=== PATIENT | female | born 1955 | race Caucasian/White ===

== ENCOUNTER 2022-07-15 07:14 | Inpatient (IN) | payer MEDICARE, MEDICAID, SELFPAY ==
[2022-07-15] VITALS (35 sets, daily range): BP systolic 129–155; BP diastolic 69–96; PULSE 89–113; RESP 13–36; TEMP 36.8–37.1; O2SAT 94–100; BMI 17.7
--- NOTE | ~2022-07-15 | XR_ITS ---
Clinical Indication: Cough, shortness of breath AP and lateral views of the chest: Comparison: None Findings: The lungs are clear, without evidence of focal consolidation or pleural effusion. COPD andrea carole present. Cardiomediastinal silhouette is within normal limits. Bones and soft tissues are unremar kable. Impression: COPD. No consolidation or pleural effusion. Reviewed, dictated and finalized at location . RTING COORDINATOR Impression: COPD. No consolidation or pleural effusion.
--- NOTE | 2022-07-15 07:16 | ED.SOB ---
HPI - SOB/Dyspnea General Chief Complaint: Shortness of Breath/Dyspnea Stated Complaint: sob x 1 week, no home o2x1 week, congested/cough Time Seen by Provider: 07/15/22 07:16 Source: patient and EMS Mode of arrival: EMS Limitations: no limitations History of Present Illness HPI Narrative: Patient is a 66-year-old female with a history of COPD, chronic respiratory failure on 2 to 3 L home oxygen, hypertension, hyperlipidemia, schizophrenia, presenting to the emergency department for evaluation of shortness of breath. Patient states that she recently moved to this area from [place] and did not bring any oxygen with her. States that she has been staying in [place], and has had worsening shortness of breath, cough, congestion, wheezing. Patient denies fever, chills, chest pain. She reports feeling generally weak without focal weakness or numbness. She denies hemoptysis. She denies history of DVT or PE. She denies chronic anticoagulation. She denies focal leg swelling or pain. She reports shortness of breath that occurs at rest and worsens with exertion. She denies positional changes in her dyspnea otherwise. Patient has never been seen at this hospital before. She denies recent sick contacts. She does report history of right hip arthroplasty from femur fracture last year. She does not smoke. History obtained by speaking directly with the patient. Related Data Home Medications Medication Instructions Recorded Confirmed albuterol sulfate 90 mcg/actuation 2 puff inhalation QID PRN 07/15/22 07/15/22 aerosol inhaler Shortness Of Breath Or Wheezing clonazepam 1 mg tablet 1 mg PO TID 07/15/22 07/15/22 colestipol 1 gram tablet 2 g PO BID 07/15/22 07/15/22 gabapentin 300 mg tablet 300 mg PO TID 07/15/22 07/15/22 glycopyrrolate 9 mcg-formoterol 2 puff inhalation Q12H 07/15/22 07/15/22 4.8 mcg HFA aerosol inhaler (Bevespi Tru-Friendsphere) levothyroxine 50 mcg capsule 50 mcg PO DAILY 07/15/22 07/15/22 lisinopril 5 mg tablet 5 mg PO DAILY 07/15/22 07/15/22 morphine 30 mg tablet,extended 30 mg PO Q8H 07/15/22 07/15/22 release omeprazole 40 mg capsule,delayed 40 mg PO DAILY 07/15/22 07/15/22 release ropinirole 1 mg tablet 1 mg PO QHS 07/15/22 07/15/22 Allergies Allergy/AdvReac Type Severity Reaction Status Date / Time No Known Allergies Allergy Verified 07/15/22 08:05 Review of Systems Review of Systems: CONSTITUTIONAL: Denies fever, chills, or sweats. EYES: Denies visual changes, redness, or discharge. ENT: Denies rhinorrhea, congestion, sore throat, or otalgia. CARDIOVASCULAR: Denies chest pain, palpitations, or edema. RESPIRATORY: Reports cough, wheezing, dyspnea GASTROINTESTINAL: Denies abdominal pain, nausea, vomiting, or diarrhea. GENITOURINARY: Denies dysuria or hematuria. SKIN: Denies rash or itching. MUSCULOSKELETAL: Denies back pain, joint pain, or myalgia. NEUROLOGIC: Denies headache, numbness, reports feeling generally weak, denies focal weakness PMFSH Past Medical History Medical History (Updated 07/15/22 @ 15:21 by Enriqueta Donovan NP) Anxiety Chronic GERD Chronic pain syndrome Chronic respiratory failure with hypoxia COPD (chronic obstructive pulmonary disease) History of tobacco abuse Hyperlipidemia Hypertension Hypothyroidism Poor vision Schizophrenia Surgical History Surgical History (Updated 07/15/22 @ 15:06 by Enriqueta Donovan NP) Hx of cholecystectomy S/P total right hip arthroplasty Family History Family History (Updated 07/15/22 @ 15:07 by Enriqueta Donovan NP) Mother Cancer Father Aneurysm Social History Social History (Updated 07/15/22 @ 15:08 by Enriqueta Donovan NP) Social History: The patient is recently approximately 1 week ago. She is chronically on oxygen at 3 L per nasal cannula. The patient recently moved here from [place] to live with her son. She has 2 children. She tells me that she recently quit smoking. She is retired nurse's aide [employer]
--- NOTE | 2022-07-15 07:25 | ECG_ITS ---
Measurements Intervals [place] Rate: 98 P: 70 VT: 140 QRS: 52 QRSD: 77 T: 54 QT: 351 QTc: 450 Interpretive Statements SINUS RHYTHM WITH FREQUENT VENTRICULAR PREMATURE COMPLEXES ABNORMAL RHYTHM ECG NO PREVIOUS ECG AVAILABLE FOR COMPARISON Electronically Signed On 07-15-2022 14:58:12 FLIGHT AGENT by Mickey Cornejo M.D.
[2022-07-15 07:33] LABS: Basophils Percent Auto 0.2 % (0.2-1.2); Eosinophils Absolute Auto 0.3 K/mm3 (0-0.3); Eosinophils Percent Auto 4.3 % (0-4.4); Hemoglobin 10.1 g/dL (12.0-15.0); Immature Granulocyte Absolute 0.01 K/mm3 (0.00-0.031); Immature Granulocyte Percent A 0.2 % (0-0.5); Lymphocytes Absolute Auto 1.13 K/mm3 (0.9-3.2); Lymphocytes Percent Auto 17.3 % (18.3-44.2); Mean Corpuscular HGB Conc 30.6 g/dl (32-36); Mean Corpuscular Hemoglobin 24.2 pg (26-34); Mean Corpuscular Volume 78.9 fl (80-100); Mean Platelet Volume 9.9 fl (7.4-10.4); Monocytes Absolute Auto 0.7 K/mm3 (0.1-0.6); Neutrophils Absolute Auto 4.4 K/mm3 (1.3-6.7); Platelet Count Result 246 k/mm3 (150-375); Red Blood Count 4.18 M/mm3 (4.2-5.4); Red Cell Distribution Width 16.1 % (11.5-14.5); White Blood Count 6.5 K/mm3 (4.5-10.0)
[2022-07-15 07:43] LABS: Alanine Aminotransferase 19 U/L (6-35); Albumin Level 3.6 g/dL (3.5-5.1); Alkaline Phosphatase 82 U/L (38-126); Anion Gap 4 mmol/L (8-16); Aspartate Amino Transferase 26 U/L (14-36); Bilirubin,Total 0.4 mg/dL (0.2-1.3); Blood Urea Nitrogen 4 mg/dL (7-17); Calcium 8.2 mg/dL (8.4-10.2); Carbon Dioxide 32 mmol/L (22-30); Chloride 98 mmol/L (98-107); Estimated CRCL calculation 56 ml/min; Estimated Glomerular Filt Rate > 60; Glucose 101 mg/dL (65-110); Potassium 3.6 mmol/L (3.4-5.0); Sodium 134 mmol/L (137-145)
[2022-07-15] MEDS: MAGNESIUM SULF 2 GM/WATER 50ML 2 GM/50 ML BAG IVPB (08:06)
[2022-07-15] MEDS: methylPREDNISolone SOD SUCC 125 MG VIAL IV PUSH (08:06)
[2022-07-15] MEDS: SODIUM CHLORIDE 0.9% IV 500 ML 999 ML IV CONT (08:06)
[2022-07-15] MEDS: ALBUTEROL SULFATE NEB 2.5 MG/3 ML INH 5 MG INHALATION (08:10)
[2022-07-15] MEDS: IPRATROPIUM BR 0.02% INH SOLN 0.5 MG/2.5 ML VIAL INHALATION ×3 (08:10→20:01)
[2022-07-15 08:28] LABS: Base Excess ABG 4.1 mEq/l (+/-2.0); Carboxyhemoglobin 0.2 % THb (0-2.0); Fractional Inspired Oxygen 34 %; HCO3 ABG 31.1 mEq/l (22.0-26.0); Methemoglobin ABG 0.4 %THb (0-1.5); Oxygen Content ABG 15.3 %vol (16.0-22.0); Oxygen Saturation ABG 99.1 % (95.0-100.0); Oxyhemoglobin 97.8 % THb (90.0-100.0); PO2 ABG 185.1 mmHg (80.0-100.0); PO2 FiO2 Ratio Arterial Blood 5.44 %; Reduced Hemoglobin 1.6 %THb (0-5.0); Total Hemoglobin 10.8 g/dL (12.0-18.0); pH ABG 7.333 (7.350-7.450)
[2022-07-15 08:31] LABS: Device NASAL CANNULA; Liters per Minute 3.5 LPM; Site Drawn LEFT BRACHIAL
[2022-07-15 10:18] LABS: Lactic Acid Reflex 0.5 mmol/L (0.7-2.0)
[2022-07-15 10:23] LABS: NT Pro B Type Natriuretic Pept 567 pg/mL (19.9-100); Troponin I < 0.012 ng/mL (0.000-0.034)
[2022-07-15 10:40] LABS: Influenza A QL RT-PCR Negative (Negative); Influenza B QL RT-PCR Negative (Negative); RSV RNA, RT-PCR Negative (Negative); SARS-CoV-2 RNA PCR Negative
[2022-07-15 11:20] LABS: Alveolar/Arterial O2 Gradient 61.2 mmHg; Carboxyhemoglobin 0.1 % THb (0-2.0); Fractional Inspired Oxygen 30 %; HCO3 ABG 28.1 mEq/l (22.0-26.0); Methemoglobin ABG 0.3 %THb (0-1.5); Oxygen Content ABG 14.9 %vol (16.0-22.0); Oxygen Saturation ABG 96.7 % (95.0-100.0); Oxyhemoglobin 95.7 % THb (90.0-100.0); PCO2 ABG 51.1 mmHg (35.0-45.0); PO2 ABG 92.7 mmHg (80.0-100.0); PO2 FiO2 Ratio Arterial Blood 3.09 %; Reduced Hemoglobin 3.9 %THb (0-5.0); pH ABG 7.358 (7.350-7.450)
[2022-07-15 11:21] LABS: Device NON-INVASIVE VENT; Site Drawn LEFT BRACHIAL
[2022-07-15 11:22] LABS: Non-Invasive Expiratory Pressure 5 CMH2O; Non-Invasive Inspiratory Pressure 12 CMH2O; Non-Invasive Vent Rate 4 /MIN
--- NOTE | 2022-07-15 11:55 | ADMIMU ---
This patient, Krys Mcclure, was admitted to IMU status, and placed in Intensive Care Unit-6. Patient/family oriented to hospital policies and general routines including ID bracelet, bed and alarms, visiting hours, pain management, procedures, bathroom and other care routines, personal items, smoking policy, room service/diet, and visiting hours. Valuables list has been completed. Information on how to activate the Rapid Response Team has been discussed. Patient/Family are encouraged to report perceived risks to care and to ask questions if they do not understand what they are told or what they should do.
--- NOTE | 2022-07-15 13:07 | PM.IMHP ---
H&P: HPI History of Present Illness Date/Time: 07/15/22 13:07 Chief Complaint: Shortness of breath Narrative: This is a 66-year-old female patient who has a history of COPD and she is typically on home oxygen 2-3 L. however her son brought her here from [place] since her just this past week. The patient stated that she has her inhalers and she was not able to grab all of her things including oxygen. She was initially on a BiPAP and now is on oxygen at 3 L per nasal cannula. Her H&H is 10.1 and 33.0 with no previous labs for comparison. MCV is low. On her ABGs pH was normal but her CO2 was high at 51.1 bicarb 28.1 which is high. Sodium is slightly low at 134. BNP is 567. She is negative for influenza A/B RSV and COVID. Chest x-ray was read as COPD no consolidation or pleural effusion. She was given nebulizer treatments, magnesium, normal saline Solu-Medrol in the emergency room. The patient was initially admitted to observation and then changed to inpatient status on the date of service of 07/15/2022. Review of Systems Review of Systems: see hpi All systems reviewed & are unremarkable except as noted in HPI and below Constitutional: Constitutional: Reports as per HPI and Reports no additional constitutional complaints Eyes: Eyes: Reports as per HPI and Reports no additional eye complaints ENT: Reports system reviewed and no additional complaints, except as documented and Reports Normal hearing present Cardiovascular: Cardiovascular: Reports no additional cardiovascular complaints Respiratory: Respiratory: Reports no additional respiratory complaints and Reports no additional respiratory complaints Gastrointestinal: Gastrointestinal: Reports as per HPI and Reports no additional gastrointestinal complaints Musculoskeletal: Musculoskeletal: Reports no additional musculoskeletal complaints Integumentary/Breasts: Skin/Breast: Reports system reviewed and no additional complaints, except as docu and Reports as per HPI Neurologic: Reports system reviewed and no additional complaints, except as documented, Reports as per HPI and Reports Normal hearing present Psychiatric: Psychiatric: Reports no additional psychiatric complaints and Reports as per HPI Endocrine: Endocrine: Reports no additional endocrine complaints Hematologic/Lymphatic: Hematologic/Lymphatic: Reports no additional hematologic/lymphatic complaints Allergic/Immunologic: Allergic/Immunologic: Reports no additional allergic/immunologic complaints [facility] Past Medical History Medical History (Updated 07/15/22 @ 15:21 by Enriqueta Donovan NP) Anxiety Chronic GERD Chronic pain syndrome Chronic respiratory failure with hypoxia COPD (chronic obstructive pulmonary disease) History of tobacco abuse Hyperlipidemia Hypertension Hypothyroidism Poor vision Schizophrenia Surgical History Surgical History (Updated 07/15/22 @ 15:06 by Enriqueta Donovan NP) Hx of cholecystectomy S/P total right hip arthroplasty Family History Family History (Updated 07/15/22 @ 15:07 by Enriqueta Donovan NP) Mother Cancer Father Aneurysm Social History Social History (Updated 07/15/22 @ 15:08 by Enriqueta Donovan NP) Social History: The patient is recently approximately 1 week ago. She is chronically on oxygen at 3 L per nasal cannula. The patient recently moved here from [place] to live with her son. She has 2 children. She tells me that she recently quit smoking. She is retired nurse's aide Code status full code Smoking packs per day: 1 Smoking cigarettes per day: 20.0 Years smoked: 45 Smoking pack-years: 45.00 Smoking status: Current every day smoker Tobacco type: e-cigarettes/vaping Additional smoking assessment comments: smoked from age 14 until vapping came out and switched stopped on 07/10/22 Alcohol intake: unknown Substance use: unknown Substance use type: opiates and prescription drug Other substance
[2022-07-15] MEDS: ALBUTEROL SULFATE NEB 2.5 MG/3 ML INH INHALATION ×2 (14:15→20:01)
[2022-07-15] MEDS: COLESTIPOL HCL 1 GM TABLET 2 GM PO (17:04)
[2022-07-15] MEDS: GABAPENTIN 300 MG CAPSULE PO (17:05)
--- NOTE | 2022-07-15 17:36 | PM.CNPUL ---
Assessment and Plan Assessment and plan (1) Acute exacerbation of chronic obstructive airways disease: Code(s): J44.1 - Chronic obstructive pulmonary disease with (acute) exacerbation Status: Acute Assessment and Plan: She has COPD, on O2 for several years, using it mostly p.r.n, left her O2, all her inhalers and most of her belongings in [place] when she moved her by car 2-3 days ago after her partner Barney a week ago, Jun 15. She is in distress, short of breath, has difficulty clearing secretions. I plan to order maintenance COPD controller meds, rescue medications, steroids, Cornet valve, Pulmozyme, and request records from [facility] in [place]. She will need to start over to get assistance in [place], get O2, handicapped parking, nebulizer for use since she lives here now. (2) Chronic respiratory failure with hypoxia: Code(s): J96.11 - Chronic respiratory failure with hypoxia Status: Acute Assessment and Plan: She has been on O2 several years, using it as she feels that she needs it. She will need Home O2 study before discharged. She had moderate hypercapnia, does not need to use BiPAP around the clock. She may be a candidate for NPPV at discharge. WIll have her use BiPAP with sleep and in the day as needed for shortness of breath. (3) COPD (chronic obstructive pulmonary disease): Code(s): J44.9 - Chronic obstructive pulmonary disease, unspecified Status: Acute Assessment and Plan: On Bevespi and Symbicort by report; list only shows albuterol. While she is admitted, I will stop the Bevespi (glycopyrrolate-formoterol) and start budesonide nebulized BID. Continue IV steroids, convert to oral when wheezing is controlled. She may be a candidate for Daliresp after discharge. She is having a problems with secretions now, although she usually has no excessive sputum, and no frequent pulmonary infections. Plan Cornet PEP valve TID Pulmozyme for mucolytic. Get records from [place], [place]; CXR, PFT, echo, H&P, DC summary, in the last year. Home O2 study before discharge. Out patient PFTS in 6-8 weeks; follow up 1-2 weeks after she is discharged. Wean IV steroids. We may start antibiotics if needed; she is not febrile, normal WBC, no production of sputum yet. She reports that it feels thick. Has microcytic anemia, needs evaluation. History of Present Illness History of Present Illness Consult date: 07/15/22 Requesting physician: Enriqueta Donovan NP Chief complaint: HYPERCARBIC RESPIRATORY FAILURE,COPD EXACERBATION Narrative: 07/15/22 pt was seen at 17:40 NEW: Krys Mcclure is a 66-year-old woman with a history of COPD for 5+ years, supplemental oxygen 2-3 L/min for the last few years. She uses O2 as needed, not very often. Her partner Barney a week ago today from an accidental overdose involving fentanyl, had chronic pain and was cut off from pain meds by his doctor. The patient is grief stricken, telling me about what happened during the last week, and she blames herself for sharing her pain medications with Barney because he was in withdrawal. After he , she decided to move here to be near her extended family, arrived 2 days ago with her 43 year-old son Preston who lived with her in [place], [place]. She travelled here in a small car, could not bring her O2, medications, or her 4 cats. Over the last few days, she had increased shortness of breath, coughing, difficulty getting secretions out, felt like the sputum was getting thicker. She tried OTC Mucinex to break up sputum, no benefit. She was in distress on presentation, was put on BiPAP and has bee
[2022-07-15] MEDS: BUDESONIDE RESPULE NEB 0.5 MG/2 ML AMP INHALATION (20:23)
[2022-07-15] MEDS: rOPINIRole HCL 1 MG TABLET PO (21:29)
[2022-07-15] MEDS: methylPREDNISolone SOD SUCC 125 MG VIAL 60 MG IV PUSH (21:29)
[2022-07-15] MEDS: MORPHINE SULFATE (*CRX) 2 MG/ML INJ IV PUSH (21:29)
[2022-07-15] MEDS: ONDANSETRON INJ 4 MG/2 ML VIAL IV PUSH (22:16)
[2022-07-16] VITALS (27 sets, daily range): BP systolic 111–146; BP diastolic 64–106; PULSE 92–122; RESP 18–33; TEMP 36.1–37.1; O2SAT 95–100; BMI 19.0
[2022-07-16] MEDS: IPRATROPIUM BR 0.02% INH SOLN 0.5 MG/2.5 ML VIAL INHALATION ×4 (01:42→19:59)
[2022-07-16] MEDS: ALBUTEROL SULFATE NEB 2.5 MG/3 ML INH INHALATION ×4 (01:42→19:59)
[2022-07-16] MEDS: ONDANSETRON INJ 4 MG/2 ML VIAL IV PUSH ×2 (02:16→06:32)
[2022-07-16] MEDS: MORPHINE SULFATE (*CRX) 2 MG/ML INJ IV PUSH ×2 (02:16→07:41)
[2022-07-16 04:55] LABS: Basophils Percent Auto 0.2 % (0.2-1.2); Hematocrit 32.8 % (37.0-47.0); Hemoglobin 10.1 g/dL (12.0-15.0); Immature Granulocyte Absolute 0.01 K/mm3 (0.00-0.031); Immature Granulocyte Percent A 0.2 % (0-0.5); Lymphocytes Absolute Auto 0.45 K/mm3 (0.9-3.2); Lymphocytes Percent Auto 8.4 % (18.3-44.2); Mean Corpuscular HGB Conc 30.8 g/dl (32-36); Mean Corpuscular Hemoglobin 24.2 pg (26-34); Mean Corpuscular Volume 78.5 fl (80-100); Mean Platelet Volume 9.6 fl (7.4-10.4); Monocytes Absolute Auto 0.3 K/mm3 (0.1-0.6); Monocytes Percent Auto 5.2 % (2.6-8.5); Neutrophils Absolute Auto 4.6 K/mm3 (1.3-6.7); Platelet Count Result 235 k/mm3 (150-375); Red Blood Count 4.18 M/mm3 (4.2-5.4); Red Cell Distribution Width 15.8 % (11.5-14.5); White Blood Count 5.4 K/mm3 (4.5-10.0)
[2022-07-16 05:07] LABS: Alanine Aminotransferase 17 U/L (6-35); Albumin Level 3.4 g/dL (3.5-5.1); Alkaline Phosphatase 77 U/L (38-126); Anion Gap 5 mmol/L (8-16); Aspartate Amino Transferase 22 U/L (14-36); Bilirubin,Total 0.3 mg/dL (0.2-1.3); Blood Urea Nitrogen 6 mg/dL (7-17); Calcium 8.1 mg/dL (8.4-10.2); Carbon Dioxide 32 mmol/L (22-30); Chloride 100 mmol/L (98-107); Estimated CRCL calculation 68 ml/min; Estimated Glomerular Filt Rate > 60; Glucose 167 mg/dL (65-110); Magnesium 1.9 mg/dL (1.6-2.3); Potassium 3.6 mmol/L (3.4-5.0); Sodium 137 mmol/L (137-145)
[2022-07-16 05:08] LABS: Lactic Acid Reflex 0.8 mmol/L (0.7-2.0)
[2022-07-16] MEDS: ACETAMINOPHEN 325 MG TABLET 650 MG PO (05:10)
[2022-07-16] MEDS: methylPREDNISolone SOD SUCC 125 MG VIAL 60 MG IV PUSH (05:10)
[2022-07-16 05:35] LABS: Thyroid Stimulating Hormone Reflex 0.988 uIU/mL (0.465-4.68)
[2022-07-16] MEDS: clonazePAM (*CRX) 0.5 MG TABLET 1 MG PO (05:46)
--- NOTE | 2022-07-16 06:14 | PC.NURSE ---
This patient, Krys Mcclure, was transferred to [[id number]] on 07/16/22 at 0615. Personal belongings sent with patient. Report given to [CHRIS Antonio]. Appropriate documentation sent with patient.
--- NOTE | 2022-07-16 08:05 | PM.IMPN ---
Progress Note: A&P Assessment and Plan (1) Acute exacerbation of chronic obstructive airways disease: Code(s): J44.1 - Chronic obstructive pulmonary disease with (acute) exacerbation Status: Acute Assessment and Plan: Appreciate pulmonology consultation, cont steroids + nebs, no abx at this time, would favor 5 day course prednisone 40 mg daily, end date 07/19, will de-escalate today CXR is clear CBC + BMP WNL, other than mild elevation in CO2 suggesting baseline hypercapnia d/t ESCOPD 92% on 3L today, 07/16 Blood cultures pending from 07/15, NGTD On home O2 at baseline, will need home O2 eval prior to d/c (2) Hypertension: Code(s): I10 - Essential (primary) hypertension Status: Acute Assessment and Plan: Continue home medications, Bp reviewed 07/16 (3) Hyperlipidemia: Code(s): E78.5 - Hyperlipidemia, unspecified Status: Acute Assessment and Plan: Not on a statin, check FLP in the am, cont colestipol (4) Chronic GERD: Code(s): K21.9 - Gastro-esophageal reflux disease without esophagitis Status: Acute Assessment and Plan: cont PPI (5) Hypothyroidism: Code(s): E03.9 - Hypothyroidism, unspecified Status: Acute Assessment and Plan: cont levothyroxine, TSH 0.988 (6) Chronic pain syndrome: Code(s): G89.4 - Chronic pain syndrome Status: Acute Assessment and Plan: cont home meds, home MS contin q8h, hold for sedation (7) Anxiety: Code(s): F41.9 - Anxiety disorder, unspecified Status: Acute Assessment and Plan: cont home clonazepam (8) Hyperglycemia: Code(s): R73.9 - Hyperglycemia, unspecified Status: Acute (9) Tachycardia: Code(s): R00.0 - Tachycardia, unspecified Status: Acute Assessment and Plan: Unsure of etiology, sinus rhythm noted 12 lead reviewed and showed rate of 98 at the time, frequent PVCs, will recheck one now and in the am Cont telemetry (10) Bloating: Code(s): R14.0 - Abdominal distension (gaseous) Status: Acute Assessment and Plan: Unsure of etiology, could be form of IBS and stress, simethicone ordered, monitor, consider bowel regimen if she doesn't have BM soon Plan Of note, patient was one week ago in [place] and just moved here with family, She is quite tearful and obviously grieving, does not appear to be suicidal at this time, but is high risk. Will monitor closely, discussed with nursing staff. DVT prophylaxis with SCDs GI prophylaxis not indicated Code status full code Subjective Date/time seen: 07/16/22 08:05 Interval history: No overnight events noted. No chest pain or shortness of breath. No nausea, vomiting or diarrhea. No fevers or chills. Patient states her breathing feels much better than when she got here. She does still have a cough productive of sputum. She states she feels like she has mucus stuck in her chest. She is using the flutter valve now. Patient is quite tearful, requesting to have Seroquel as she has used in the past and it helped her sleep and feel better. She states she blames herself for her 's . She is requesting to talk to a police officer booking. Review of Systems Review of Systems: 12 point review of systems was assessed and was negative except as noted in the HPI Exam Narrative: General: No acute respiratory distress, tearful, alert and oriented per baseline HEENT: Atraumatic, normocephalic, mucous membranes moist CV: Sinus tachycardia, S1, S2 Lungs: Diminished throughout, scattered wheezes Abdomen: Soft, nontender, nondistended Extremities: Normal to inspection Skin: No rashes noted, no lesions or wounds seen Objective Data Vital Signs Vital Signs: Vital Signs - 24 hr 07/15/22 08:22 07/15/22 08:39 07/15/22 09:55 Temperature Pulse Rate 103 H 106 H 100 Respiratory Rate 30 H 23 H 20 Blood Pressure
[2022-07-16] MEDS: GABAPENTIN 300 MG CAPSULE PO ×3 (08:36→17:21)
[2022-07-16] MEDS: lisinopriL 5 MG TABLET PO (08:37)
[2022-07-16] MEDS: PANTOPRAZOLE 40 MG TABLET PO ×2 (08:37→20:44)
[2022-07-16] MEDS: COLESTIPOL HCL 1 GM TABLET 2 GM PO (08:37)
[2022-07-16] MEDS: DORNASE ALFA INH SOLN 1 MG/ML 2.5 ML AMP 2.5 MG INHALATION ×2 (08:49→19:59)
[2022-07-16] MEDS: BUDESONIDE RESPULE NEB 0.5 MG/2 ML AMP INHALATION ×2 (08:49→19:59)
[2022-07-16] MEDS: MORPHINE SULFATE (*CRX) 30 MG TABCR PO ×3 (09:29→21:42)
--- NOTE | 2022-07-16 09:46 | ECG_ITS ---
Measurements Intervals [place] Rate: 111 P: 72 [place]: 153 QRS: 34 QRSD: 86 T: 40 QT: 343 QTc: 467 Interpretive Statements SINUS TACHYCARDIA LOW QRS VOLTAGE IN EXTREMITY LEADS [QRS DEFLECTION < 0.5 mV IN LIMB LEADS] ABNORMAL ECG COMPARED TO ECG 07/15/2022 07:16:23 SINUS TACHYCARDIA NOW PRESENT Electronically Signed On 07-16-2022 12:07:05 WINDER HELPER by Ananda Guerrero M.D.
[2022-07-16 09:47] LABS: Hemoglobin A1C 5.9 % (<5.7)
[2022-07-16] MEDS: SIMETHICONE 125 MG CHEW TAB PO ×4 (11:10→20:44)
[2022-07-16 11:51] LABS: Glucose Point of Care 148 mg/dl (65-105)
[2022-07-16 16:43] LABS: Glucose Point of Care 197 mg/dl (65-105)
[2022-07-16 20:17] LABS: Glucose Point of Care 152 mg/dl (65-105)
[2022-07-16] MEDS: QUEtiapine FUMARATE 12.5 MG TABLET PO (20:44)
[2022-07-16] MEDS: rOPINIRole HCL 1 MG TABLET PO (20:45)
[2022-07-17] VITALS (28 sets, daily range): BP systolic 101–156; BP diastolic 61–73; PULSE 89–128; RESP 20–28; TEMP 36.4–37.3; O2SAT 86–100
[2022-07-17] MEDS: IPRATROPIUM BR 0.02% INH SOLN 0.5 MG/2.5 ML VIAL INHALATION ×4 (02:46→20:57)
[2022-07-17] MEDS: ALBUTEROL SULFATE NEB 2.5 MG/3 ML INH INHALATION ×4 (02:46→20:57)
[2022-07-17 04:49] LABS: Basophils Percent Auto 0.4 % (0.2-1.2); Hematocrit 34.4 % (37.0-47.0); Hemoglobin 9.7 g/dL (12.0-15.0); Immature Granulocyte Absolute 0.03 K/mm3 (0.00-0.031); Immature Granulocyte Percent A 0.7 % (0-0.5); Lymphocytes Absolute Auto 1.04 K/mm3 (0.9-3.2); Mean Corpuscular HGB Conc 28.2 g/dl (32-36); Mean Corpuscular Hemoglobin 24.5 pg (26-34); Mean Corpuscular Volume 86.9 fl (80-100); Mean Platelet Volume 9.7 fl (7.4-10.4); Monocytes Absolute Auto 0.8 K/mm3 (0.1-0.6); Monocytes Percent Auto 17.7 % (2.6-8.5); Neutrophils Absolute Auto 2.6 K/mm3 (1.3-6.7); Neutrophils Percent Auto 58.2 % (45.5-73.1); Platelet Count Result 243 k/mm3 (150-375); Red Blood Count 3.96 M/mm3 (4.2-5.4); Red Cell Distribution Width 16.2 % (11.5-14.5); White Blood Count 4.5 K/mm3 (4.5-10.0)
[2022-07-17 05:27] LABS: Alanine Aminotransferase 15 U/L (6-35); Albumin Level 3.1 g/dL (3.5-5.1); Alkaline Phosphatase 61 U/L (38-126); Anion Gap 6 mmol/L (8-16); Aspartate Amino Transferase 21 U/L (14-36); Bilirubin,Total 0.4 mg/dL (0.2-1.3); Blood Urea Nitrogen 8 mg/dL (7-17); Calcium 8.1 mg/dL (8.4-10.2); Carbon Dioxide 30 mmol/L (22-30); Chloride 101 mmol/L (98-107); Cholesterol 134 mg/dL (0-200); Estimated CRCL calculation 61 ml/min; Estimated Glomerular Filt Rate > 60; Glucose 91 mg/dL (65-110); HDL Direct 47 mg/dL; Potassium 3.6 mmol/L (3.4-5.0); Sodium 137 mmol/L (137-145); Triglycerides 121 mg/dL (<150)
[2022-07-17 05:38] LABS: LDL Cholesterol Direct 60 mg/dL
[2022-07-17] MEDS: MORPHINE SULFATE (*CRX) 30 MG TABCR PO ×3 (05:55→21:43)
[2022-07-17 07:00] LABS: Anisocytosis 1+ (NORMAL); Hypochromasia 1+ (NORMAL); Platelet Estimate Adequate (Adequate); Schistocytes None Seen (NORMAL)
[2022-07-17] MEDS: DORNASE ALFA INH SOLN 1 MG/ML 2.5 ML AMP 2.5 MG INHALATION ×2 (08:07→21:00)
[2022-07-17] MEDS: BUDESONIDE RESPULE NEB 0.5 MG/2 ML AMP INHALATION ×2 (08:07→20:57)
--- NOTE | 2022-07-17 08:23 | ECG_ITS ---
Measurements Intervals [place] Rate: 119 P: 79 [place]: 142 QRS: 55 QRSD: 72 T: 31 QT: 302 QTc: 426 Interpretive Statements SINUS TACHYCARDIA LOW QRS VOLTAGE IN EXTREMITY LEADS [QRS DEFLECTION < 0.5 mV IN LIMB LEADS] ABNORMAL RHYTHM ECG COMPARED TO ECG 07/16/2022 10:21:07 NO SIGNIFICANT CHANGES Electronically Signed On 07-17-2022 15:25:58 FELT HANGER by Nehemias Helms M.D.
--- NOTE | 2022-07-17 08:25 | PM.IMPN ---
Progress Note: A&P Assessment and Plan (1) Acute exacerbation of chronic obstructive airways disease: Code(s): J44.1 - Chronic obstructive pulmonary disease with (acute) exacerbation Status: Acute Assessment and Plan: Appreciate pulmonology consultation Cont steroids + nebs, no abx at this time, would favor 5 day course prednisone 40 mg daily, end date 07/19 CXR was clear on admission CBC + BMP WNL, other than mild elevation in CO2 suggesting baseline hypercapnia d/t ESCOPD 98% on 3L today, 07/17 Blood cultures pending from 07/15, NGTD On home O2 at baseline, home O2 eval pending (2) Hypertension: Code(s): I10 - Essential (primary) hypertension Status: Acute Assessment and Plan: Continue home medications, BP reviewed 07/17 (3) Hyperlipidemia: Code(s): E78.5 - Hyperlipidemia, unspecified Status: Acute Assessment and Plan: Lipid panel looks great (LDL 60/HDL 47/TG 121) will d/c colestipol (4) Chronic GERD: Code(s): K21.9 - Gastro-esophageal reflux disease without esophagitis Status: Acute Assessment and Plan: cont PPI (5) Hypothyroidism: Code(s): E03.9 - Hypothyroidism, unspecified Status: Acute Assessment and Plan: cont levothyroxine, TSH 0.988 (6) Chronic pain syndrome: Code(s): G89.4 - Chronic pain syndrome Status: Acute Assessment and Plan: cont home meds, home MS contin q8h, hold for sedation (7) Anxiety: Code(s): F41.9 - Anxiety disorder, unspecified Status: Acute Assessment and Plan: cont home clonazepam (8) Hyperglycemia: Code(s): R73.9 - Hyperglycemia, unspecified Status: Acute (9) Tachycardia: Code(s): R00.0 - Tachycardia, unspecified Status: Acute Assessment and Plan: Unsure of etiology, sinus rhythm noted 12 lead reviewed and showed rate of 98 at the time, frequent PVCs, will recheck one now and in the am Cont telemetry (10) Bloating: Code(s): R14.0 - Abdominal distension (gaseous) Status: Acute Assessment and Plan: Unsure of etiology, could be form of IBS and stress, simethicone ordered, monitor, consider bowel regimen if she doesn't have BM soon 07/17: much improved today (11) Insomnia: Code(s): G47.00 - Insomnia, unspecified Status: Acute Assessment and Plan: seroquel given for now, while grieving--patient on it previously with good results 07/17: Continue for now, patient doing well with it Plan Of note, patient was one week ago in [place] and just moved here with family, She is quite tearful and obviously grieving, does not appear to be suicidal at this time, but is high risk. Will monitor closely, discussed with nursing staff. DVT prophylaxis with SCDs GI prophylaxis not indicated Code status full code Subjective Date/time seen: 07/17/22 08:25 Interval history: No overnight events noted. No chest pain or worsened shortness of breath. No nausea, vomiting or diarrhea. No fevers or chills. Still with some wheezing, requiring oxygen. Quite tearful over the loss of her . Did well with the Ativan and Seroquel. Will attempt to wean off the Ativan at this time, continue Klonopin. Review of Systems Review of Systems: 12 point review of systems was assessed and was negative except as noted in the HPI Exam Narrative: General: No acute respiratory distress, tearful, alert and oriented per baseline HEENT: Atraumatic, normocephalic, mucous membranes moist CV: Sinus tachycardia, S1, S2 Lungs: Diminished throughout, scattered wheezes, both inspiratory and expiratory Abdomen: Soft, nontender, nondistended Extremities: Normal to inspection Skin: No rashes noted, no lesions or wounds seen Objective Data Vital Signs Vital Signs: Vital Signs - 24 hr 07/16/22 08:49 07/16/22 08:49 07/16/22 09:28 Temperature
[2022-07-17 08:50] LABS: Glucose Point of Care 95 mg/dl (65-105)
[2022-07-17] MEDS: MORPHINE SULFATE (*CRX) 2 MG/ML INJ IV PUSH (09:33)
[2022-07-17] MEDS: clonazePAM (*CRX) 0.5 MG TABLET 1 MG PO (09:35)
[2022-07-17] MEDS: predniSONE 20 MG TABLET 40 MG PO (09:36)
[2022-07-17] MEDS: GABAPENTIN 300 MG CAPSULE PO ×3 (09:36→17:05)
[2022-07-17] MEDS: SIMETHICONE 125 MG CHEW TAB PO ×4 (09:36→21:44)
[2022-07-17] MEDS: lisinopriL 5 MG TABLET PO (09:36)
--- NOTE | 2022-07-17 09:46 | P.CDI_ITS ---
CDI Query Clarification Request Mild protein calorie malnutrition <Mary Soria DO - Last Filed: 07/18/22 16:25> Clarified Diagnosis Clarified Diagnosis: BMI 19.0 Nutritional Diagnostic Statement Severe Malnutrition related to inadequate protein and energy intake as evidence by intake of less that 76% of estimated needs over a month, -15% weight loss in a month, and subcutaneous fat loss of orbital pads, muscle wasting of temporalis and clavicles. Please refer to comprehensive Nutritional assessment. Please clarify severity of protein calorie malnutrition * Mild * Moderate * Severe * Other / Unspecified <Anamika Mclaughlin RN - Last Filed: 07/17/22 09:53>
[2022-07-17] MEDS: PANTOPRAZOLE 40 MG TABLET PO ×2 (11:15→21:44)
--- NOTE | 2022-07-17 11:22 | HOMEO2EVAL ---
Evaluation was performed at [facility] Home Oxygen Evaluation RC: Home Oxygen (O2) Evaluation Start: 07/17/22 08:22 Freq: ONCE Status: Active Protocol: RPE Activity Type Activity Date Activity User E-sign Co-sign Detail Recorded Client Recorded Date Recorded By Document 07/17/22 10:40 DJO [email or web address] 07/17/22 11:22 DJO Document 07/17/22 10:45 [email or web address] [email or web address] 07/17/22 11:22 DJO Document 07/17/22 10:50 [email or web address] [email or web address] 07/17/22 11:22 DJO Document 07/17/22 10:55 [email or web address] [email or web address] 07/17/22 11:22 DJO Document 07/17/22 11:00 [email or web address] [email or web address] 07/17/22 11:22 DJO Document 07/17/22 11:15 [email or web address] [email or web address] 07/17/22 11:22 DJO 07/17/22 07/17/22 07/17/22 10:40 10:45 10:50 Home O2 Evaluation [Oxygen] -Test Phase Resting Resting Resting -Oxygen Delivery Room Air Nasal Cannula Nasal Cannula -Oxygen Flow Rate (L/min) 1 2 [Pulse Oximetry] -Pulse Oximetry (90-100 %) 86 L 88 L 91 [Pulse Rate] -Pulse Rate (60-100 beats/min) 110 H 110 H 113 H [Evaluation] -Activity Tolerance [Charges] -Treatment Charges O2 Evaluation - Inpatient 07/17/22 07/17/22 07/17/22 10:55 11:00 11:15 Home O2 Evaluation [Oxygen] -Test Phase Exercise Exercise Resting -Oxygen Delivery Nasal Cannula Nasal Cannula Nasal Cannula -Oxygen Flow Rate (L/min) 2 3 2 [Pulse Oximetry] -Pulse Oximetry (90-100 %) 88 L 91 91 [Pulse Rate] -Pulse Rate (60-100 beats/min) 125 H 128 H 115 H [Evaluation] -Activity Tolerance Fair [Charges] -Treatment Charges
[2022-07-17] MEDS: LORazepam INJ (*CRX) 2 MG/ML VIAL 0.5 MG IV PUSH (11:23)
[2022-07-17 12:38] LABS: Glucose Point of Care 113 mg/dl (65-105)
--- NOTE | 2022-07-17 13:49 | PM.PNPUL ---
Progress Note: A&P Assessment and Plan (1) Acute exacerbation of chronic obstructive airways disease: Code(s): J44.1 - Chronic obstructive pulmonary disease with (acute) exacerbation Status: Acute Assessment and Plan: She has COPD, on O2 for several years, using it mostly p.r.n, left her O2, all her inhalers and most of her belongings in [place] when she moved her by car several days before admission. fter her partner Barney a week ago, Fe 15. She is in distress, short of breath, has difficulty clearing secretions. I plan to order maintenance COPD controller meds, rescue medications, steroids, Cornet valve, Pulmozyme, and request records from [facility] in [place]. She will need to start over to get assistance in [place], get O2, handicapped parking, nebulizer for use since she lives here now. (2) Chronic respiratory failure with hypoxia: Code(s): J96.11 - Chronic respiratory failure with hypoxia Status: Acute Assessment and Plan: She has been on O2 several years, using it as she feels that she needs it. Home O2 study shows she needs 2 L at rest, 3 L/min with exertion and also will recommend 3 L/min with sleep. She had moderate hypercapnia, does not need to use BiPAP around the clock. Improved while using BiPAP initially. (3) COPD (chronic obstructive pulmonary disease): Code(s): J44.9 - Chronic obstructive pulmonary disease, unspecified Status: Acute Assessment and Plan: Stable, better, can go home with a new nebulizer, albuterol 0.083% Q 6 h PRN shortness of breath, return to dual bronchodilator therapy for home use, prednisone, oral antibiotics, and see if she is a candidate for Daliresp after discharge. Her secretions are better. Plan She is stable for discharge today, can follow up in our office in 2-3 weeks. Her DME is [facility]. New nebulizer set up for home use. I ordered albuterol 0.083% QID for her nebulizer. She can take Cornet valve home, keep for secretions clearance. TID use. We have not received any records from [place], [place]; she just moved here less than a week ago. . Home O2 - 2 L/min with rest, 3 L/min with exertion and sleep. . Out patient PFTS in 6-8 weeks; Oral antibiotics to complete 7 days, prednisone taper. Has microcytic anemia, needs evaluation. Time Spent With Patient Time with patient: less than 15 minutes Subjective Date/time seen: 07/17/22 13:49 Interval history: hospital follow up The patient is seen in follow up for COPD Krys Mcclure is a 66-year-old woman with a history of COPD for 5+ years, supplemental oxygen 2-3 L/min for the last? few years. ? She uses O2 as needed, not very often.? Her partner Barney a week ago today from an accidental overdose involving fentanyl, had chronic pain and was cut off from pain meds by his doctor.? The patient is grief stricken, telling me about what happened during the last week, and she blames herself for sharing her pain medications with Barney because he was in withdrawal. After he , she decided to move here to be near her extended family, arrived 2 days ago with her 43 year-old son Preston who lived with her in [place], [place].? She travelled here in a small car, could not bring her O2, medications, or her 4 cats. ? Over the last few days, she had increased shortness of breath, coughing, difficulty getting secretions out, felt like the sputum was getting thicker. She tried OTC Mucinex to break up sputum, no benefit. She was in distress on presentation, was put on BiPAP and has been able to his swap this out for oxygen at 3 L a minute. ? She is tearful, scratchy voi
--- NOTE | 2022-07-17 14:29 | PM.DS ---
DS: Admitting Diagnosis Discharge Date 07/17/22 Admitting Diagnosis sob DS: Discharge Diagnosis Discharge Diagnosis (1) Acute exacerbation of chronic obstructive airways disease: Code(s): J44.1 - Chronic obstructive pulmonary disease with (acute) exacerbation Status: Acute Assessment and Plan: Appreciate pulmonology consultation Cont steroids + nebs, no abx at this time, would favor 5 day course prednisone 40 mg daily, end date 07/19 CXR was clear on admission CBC + BMP WNL, other than mild elevation in CO2 suggesting baseline hypercapnia d/t ESCOPD Blood cultures pending from 07/15, NGTD On home O2 at baseline, home O2 eval completed, family wants to take patient home instead of SNF 95% on 3L today, 07/18 (2) Hypertension: Code(s): I10 - Essential (primary) hypertension Status: Acute Assessment and Plan: Continue home medications, BP reviewed 07/18 Mildly elevated, cont lisinopril 5 mg daily (3) Hyperlipidemia: Code(s): E78.5 - Hyperlipidemia, unspecified Status: Acute Assessment and Plan: Lipid panel looks great (LDL 60/HDL 47/TG 121) will d/c colestipol (4) Chronic GERD: Code(s): K21.9 - Gastro-esophageal reflux disease without esophagitis Status: Acute Assessment and Plan: cont PPI (5) Hypothyroidism: Code(s): E03.9 - Hypothyroidism, unspecified Status: Acute Assessment and Plan: cont levothyroxine, TSH 0.988 (6) Chronic pain syndrome: Code(s): G89.4 - Chronic pain syndrome Status: Acute Assessment and Plan: cont home meds, home MS contin q8h, hold for sedation (7) Anxiety: Code(s): F41.9 - Anxiety disorder, unspecified Status: Acute Assessment and Plan: cont home clonazepam (8) Hyperglycemia: Code(s): R73.9 - Hyperglycemia, unspecified Status: Acute Assessment and Plan: a1c 5.9, has not required any sliding scale insulin, will d/c accuchecks at this time (9) Tachycardia: Code(s): R00.0 - Tachycardia, unspecified Status: Acute Assessment and Plan: Unsure of etiology, sinus rhythm noted 12 lead reviewed and showed rate of 98 at the time, frequent PVCs, will recheck one now and in the am Cont telemetry, started on metoprolol succinate 25 mg, monitor response (10) Bloating: Code(s): R14.0 - Abdominal distension (gaseous) Status: Acute Assessment and Plan: Unsure of etiology, could be form of IBS and stress, simethicone ordered, monitor, consider bowel regimen if she doesn't have BM soon 07/17: Much improved today (11) Insomnia: Code(s): G47.00 - Insomnia, unspecified Status: Acute Assessment and Plan: seroquel given for now, while grieving--patient on it previously with good results 07/17: Continue for now, patient doing well with it Plan Of note, patient was one week ago in [place] and just moved here with family, She is quite tearful and obviously grieving, does not appear to be suicidal at this time, but is high risk. Will monitor closely, discussed with nursing staff. DVT prophylaxis with SCDs GI prophylaxis not indicated Code status full code DS: Summary Hospital Course Hospital Course: 66-year-old female with past medical history significant for COPD on 2-3 L of oxygen at baseline presenting here with worsened shortness of breath. She just moved here from [place] a week ago when her . She is very tearful and stressed because she states it is her fault that he and she often has panic attacks that trigger her COPD. She thinks she is having a COPD exacerbation as admitted to wheezing and coughing up sputum. Pulmonology was consulted and started the patient on antibiotics for possible comorbid infection as well as steroids. She was given a corn at valve and breathing treatments and improved significantly. She was discharged
[2022-07-17] MEDS: METOPROLOL SUCCINATE EXT REL 12.5 MG TABCR PO (15:08)
--- NOTE | 2022-07-17 15:32 | PCRCNOTE ---
HOME O2 SET UP WITH CONNIE AT [facility]. CONTACT CONNIE AT [phone] IF NEEDED. TANK IN ROOM FOR TRANSPORT HOME
[2022-07-17 16:46] LABS: Glucose Point of Care 170 mg/dl (65-105)
--- NOTE | 2022-07-17 18:31 | PC.NURSE ---
This patient, Krys Mcclure, was transferred to [facility] on 07/17/22 at 1712. Personal belongings sent with patient. Report given to Abby. Appropriate documentation sent with patient.
[2022-07-17 21:05] LABS: Iron < 10 ug/dL (37-170)
[2022-07-17 21:44] LABS: Percent Iron Saturation < 4 % (20-50)
[2022-07-17] MEDS: QUEtiapine FUMARATE 12.5 MG TABLET PO (21:44)
[2022-07-17] MEDS: rOPINIRole HCL 1 MG TABLET PO (21:44)
[2022-07-17 22:10] LABS: Glucose Point of Care 162 mg/dl (65-105)
[2022-07-18] VITALS (8 sets, daily range): BP systolic 129–130; BP diastolic 66; PULSE 92–119; RESP 20–25; TEMP 36.5–36.8; O2SAT 95–96
[2022-07-18] MEDS: ALBUTEROL SULFATE NEB 2.5 MG/3 ML INH INHALATION ×3 (03:18→13:45)
[2022-07-18] MEDS: IPRATROPIUM BR 0.02% INH SOLN 0.5 MG/2.5 ML VIAL INHALATION ×3 (03:18→13:45)
[2022-07-18] MEDS: MORPHINE SULFATE (*CRX) 30 MG TABCR PO ×2 (05:54→13:08)
[2022-07-18] MEDS: LEVOTHYROXINE SODIUM 50 MCG TABLET PO (05:54)
[2022-07-18 06:52] LABS: Basophils Percent Auto 0.4 % (0.2-1.2); Hematocrit 33.5 % (37.0-47.0); Hemoglobin 9.9 g/dL (12.0-15.0); Immature Granulocyte Percent A 1.8 % (0-0.5); Lymphocytes Absolute Auto 1.12 K/mm3 (0.9-3.2); Lymphocytes Percent Auto 19.8 % (18.3-44.2); Mean Corpuscular HGB Conc 29.6 g/dl (32-36); Mean Corpuscular Volume 81.1 fl (80-100); Mean Platelet Volume 9.3 fl (7.4-10.4); Monocytes Percent Auto 17.3 % (2.6-8.5); Neutrophils Absolute Auto 3.4 K/mm3 (1.3-6.7); Neutrophils Percent Auto 60.7 % (45.5-73.1); Platelet Count Result 255 k/mm3 (150-375); Red Blood Count 4.13 M/mm3 (4.2-5.4); White Blood Count 5.7 K/mm3 (4.5-10.0)
[2022-07-18 07:03] LABS: Alanine Aminotransferase 18 U/L (6-35); Albumin Level 3.2 g/dL (3.5-5.1); Alkaline Phosphatase 72 U/L (38-126); Anion Gap 3 mmol/L (8-16); Aspartate Amino Transferase 18 U/L (14-36); Bilirubin,Total 0.3 mg/dL (0.2-1.3); Blood Urea Nitrogen 9 mg/dL (7-17); Calcium 8.1 mg/dL (8.4-10.2); Carbon Dioxide 36 mmol/L (22-30); Chloride 98 mmol/L (98-107); Estimated CRCL calculation 61 ml/min; Estimated Glomerular Filt Rate > 60; Glucose 96 mg/dL (65-110); Potassium 3.6 mmol/L (3.4-5.0); Sodium 137 mmol/L (137-145)
[2022-07-18 07:22] LABS: Anisocytosis 1+ (NORMAL); Hypochromasia 1+ (NORMAL); Microcytosis 1+ (NORMAL); Platelet Estimate Adequate (Adequate); Poikilocytosis 1+ (NORMAL); Schistocytes None Seen (NORMAL)
[2022-07-18] MEDS: BUDESONIDE RESPULE NEB 0.5 MG/2 ML AMP INHALATION (07:33)
[2022-07-18] MEDS: DORNASE ALFA INH SOLN 1 MG/ML 2.5 ML AMP 2.5 MG INHALATION (07:50)
[2022-07-18 08:12] LABS: Glucose Point of Care 92 mg/dl (65-105)
[2022-07-18] MEDS: SIMETHICONE 125 MG CHEW TAB PO ×2 (08:58→13:02)
[2022-07-18] MEDS: METOPROLOL SUCCINATE EXT REL 25 MG TABCR PO (08:59)
[2022-07-18] MEDS: PANTOPRAZOLE 40 MG TABLET PO (09:00)
[2022-07-18] MEDS: GABAPENTIN 300 MG CAPSULE PO ×2 (09:00→13:02)
[2022-07-18] MEDS: methylPREDNISolone SOD SUCC 40 MG VIAL IV PUSH (09:00)
[2022-07-18] MEDS: lisinopriL 5 MG TABLET PO (09:00)
[2022-07-18] MEDS: clonazePAM (*CRX) 0.5 MG TABLET 1 MG PO (09:13)
--- NOTE | 2022-07-18 10:25 | PM.IMPN ---
Progress Note: A&P Assessment and Plan (1) Acute exacerbation of chronic obstructive airways disease: Code(s): J44.1 - Chronic obstructive pulmonary disease with (acute) exacerbation Status: Acute Assessment and Plan: Appreciate pulmonology consultation Cont steroids + nebs, no abx at this time, would favor 5 day course prednisone 40 mg daily, end date 07/19 CXR was clear on admission CBC + BMP WNL, other than mild elevation in CO2 suggesting baseline hypercapnia d/t ESCOPD Blood cultures pending from 07/15, NGTD On home O2 at baseline, home O2 eval completed, family wants to take patient home instead of SNF 95% on 3L today, 07/18 (2) Hypertension: Code(s): I10 - Essential (primary) hypertension Status: Acute Assessment and Plan: Continue home medications, BP reviewed 07/18 Mildly elevated, cont lisinopril 5 mg daily (3) Hyperlipidemia: Code(s): E78.5 - Hyperlipidemia, unspecified Status: Acute Assessment and Plan: Lipid panel looks great (LDL 60/HDL 47/TG 121) will d/c colestipol (4) Chronic GERD: Code(s): K21.9 - Gastro-esophageal reflux disease without esophagitis Status: Acute Assessment and Plan: cont PPI (5) Hypothyroidism: Code(s): E03.9 - Hypothyroidism, unspecified Status: Acute Assessment and Plan: cont levothyroxine, TSH 0.988 (6) Chronic pain syndrome: Code(s): G89.4 - Chronic pain syndrome Status: Acute Assessment and Plan: cont home meds, home MS contin q8h, hold for sedation (7) Anxiety: Code(s): F41.9 - Anxiety disorder, unspecified Status: Acute Assessment and Plan: cont home clonazepam (8) Hyperglycemia: Code(s): R73.9 - Hyperglycemia, unspecified Status: Acute Assessment and Plan: a1c 5.9, has not required any sliding scale insulin, will d/c accuchecks at this time (9) Tachycardia: Code(s): R00.0 - Tachycardia, unspecified Status: Acute Assessment and Plan: Unsure of etiology, sinus rhythm noted 12 lead reviewed and showed rate of 98 at the time, frequent PVCs, will recheck one now and in the am Cont telemetry, started on metoprolol succinate 25 mg, monitor response (10) Bloating: Code(s): R14.0 - Abdominal distension (gaseous) Status: Acute Assessment and Plan: Unsure of etiology, could be form of IBS and stress, simethicone ordered, monitor, consider bowel regimen if she doesn't have BM soon 07/17: Much improved today (11) Insomnia: Code(s): G47.00 - Insomnia, unspecified Status: Acute Assessment and Plan: seroquel given for now, while grieving--patient on it previously with good results 07/17: Continue for now, patient doing well with it Plan Of note, patient was one week ago in [place] and just moved here with family, She is quite tearful and obviously grieving, does not appear to be suicidal at this time, but is high risk. Will monitor closely, discussed with nursing staff. DVT prophylaxis with SCDs GI prophylaxis not indicated Code status full code Subjective Date/time seen: 07/18/22 10:25 Interval history: No overnight events noted. No chest pain or worsened shortness of breath. No nausea, vomiting or diarrhea. No fevers or chills. Still with some wheezing, requiring oxygen. Quite tearful over the loss of her . Did well with the Ativan and Seroquel. Will attempt to wean off the Ativan at this time, continue Klonopin. Exam Narrative: General: No acute respiratory distress, tearful, alert and oriented per baseline HEENT: Atraumatic, normocephalic, mucous membranes moist CV: Sinus tachycardia, S1, S2 Lungs: Diminished throughout, scattered wheezes, both inspiratory and expiratory Abdomen: Soft, nontender, nondistended Extremities: Normal to inspection Skin: No rashes noted, no lesions or woun
[2022-07-18] MEDS: ACETAMINOPHEN 325 MG TABLET 650 MG PO (11:44)
[2022-07-18 11:54] LABS: Glucose Point of Care 150 mg/dl (65-105)
[2022-07-18] MEDS: QUEtiapine FUMARATE 12.5 MG TABLET PO (13:10)
[2022-07-18] MEDS: predniSONE 40 MG, predniSONE 10 MG 50 MG PO (13:10)
== END 2022-07-18 16:39 | disposition home or self-care (01) | DRG 191 ==
LOC: ANHED 10:24 → ANHICU 10:52 → ANHIMU 07-16 05:58 → ANH3MED 07-17 17:11
PROVIDERS: Nurse Practitioner; Admitting Provider Family Medicine; Emergency Provider Emergency Medicine; Visit Provider Student in an Organized Health Care Education/Training Program
DX: J44.1 Chronic obstructive pulmonary disease with (acute) exacerbation (principal); E44.1 Mild protein-calorie malnutrition; J96.11 Chronic respiratory failure with hypoxia; Z68.1 Body mass index [BMI] 19.9 or less, adult; I10 Essential (primary) hypertension; Z20.822 Contact with and (suspected) exposure to COVID-19; E78.5 Hyperlipidemia, unspecified; K21.9 Gastro-esophageal reflux disease without esophagitis; E03.9 Hypothyroidism, unspecified; K58.9 Irritable bowel syndrome, unspecified; G89.4 Chronic pain syndrome; R14.0 Abdominal distension (gaseous); F41.9 Anxiety disorder, unspecified; D50.9 Iron deficiency anemia, unspecified; R73.9 Hyperglycemia, unspecified; R00.0 Tachycardia, unspecified; G47.00 Insomnia, unspecified; F20.9 Schizophrenia, unspecified; Z96.641 Presence of right artificial hip joint; Z99.81 Dependence on supplemental oxygen; Z90.49 Acquired absence of other specified parts of digestive tract; Z87.891 Personal history of nicotine dependence
CPT/HCPCS: 36415; 36600; 71046; 80053; 80061; 82375; 82728; 82805; 82948; 83036; 83050; 83540; 83550; 83605; 83735; 83880; 84443; 84484; 85025; 87040; 87637; 93005; 94002; 94618; 94640; 96361; 96365; 96375; 97161; 97166; 99285; A9270; G0378; J2060; J2270; J2405; J2920; J2930; J3475; J7040; J7512

== ENCOUNTER 2022-07-19 11:13 | Inpatient (IN) | payer MEDICARE, MEDICAID, SELFPAY ==
[2022-07-19] VITALS (26 sets, daily range): BP systolic 132–156; BP diastolic 61–107; PULSE 100–136; RESP 20–38; TEMP 36.6–37.4; O2SAT 95–100; BMI 18.3
--- NOTE | ~2022-07-19 | XR_ITS ---
EXAM: XR sternum min 2V DATE: 07/19/2022 16:06 HISTORY: possible sternal fracture on CT scan . COMPARISON: CTPA and x-ray chest, same date. FINDINGS: Decreased mineralization. No fracture or dislocation. No lytic or blastic lesion. The ster num is poorly visualized in the frontal view. Normal retrosternal clear space. Patchy reticulonodular opacities in the lungs. IMPRESSION: No definite sternal fracture detected. Prior CT findings likely represent motion artifact . Reviewed, dictated and finalized at location K. OFF SAWYER IMPRESSION: No definite sternal fracture detected. Prior CT findings likely rep resent motion artifact.
--- NOTE | ~2022-07-19 | XR_ITS ---
XR chest 1V portable DATE: 07/19/2022 12:31 INDICATION: Cough, shortness of breath TECHNIQUE: Portable AP chest on July 19, 2022 at 1229 hours COMPARISON: July 15, 2022 AP and lateral chest FINDINGS: Bilateral hyperinflation and relative flattening the diaphragm, consistent with COPD. Mild patchy infiltrate is suggested in the mid and lower lung zones May 14, 2023. Consider bilat eral pneumonia or aspiration pneumonitis. There is slight if any pleural effusion. No pneumothorax. No pulmonary vascular congestion. Heart siz e is normal. Diffuse osteopenia. Mild thoracolumbar scoliosis. IMPRESSION: Mild patchy infiltrate suggested in the mid and lower lung zone since July 15, 2022 COPD Reviewed, dictated and finalized at location A. RING SALES MANAGER IMPRESSION: Mild patchy infiltrate suggested in the mid and lower lung zone sin ce July 15, 2022 COPD
--- NOTE | ~2022-07-19 | CT_ITS ---
EXAMINATION: CTA chest PE protocol DATE: 07/19/2022 13:40 INDICATION: Shortness of breath, chest pain. Elevated d-dimer. TECHNIQUE: Computed tomography angiography (CTA) of the chest was performed with 100 mL Omnipaque-350 intravenous contrast timed to evaluate the pulmonary arteries. Coronal maximum intensity projection 3D-reconstructions were created by the technologist. Automated exposure control and iterative reconst ruction technique were employed. Exam dose: 190.78 mGy-cm total exam DLP. COMPARISON: July 19, 2022 portable AP chest FINDINGS: There is diagnostic contrast mass in the pulmonary arteries and no evidence of pulmonary em bolism. There is thoracic aortic atherosclerotic calcification but no thoracic aortic aneurysm or dissection. Normal heart size. No pericardial or pleural effusion. No hilar or mediastinal mass lesion or lymphadenopathy. This mild prominence of the hilar lymph nodes , likely reactive. Severe emphysematous changes of the lungs. Bilateral apical scarring. There are patchy infiltrates involving the mid and lower lung zones as suggested on the July 19, 2022 radiograph, most prominent in the lower lobes, with some involvement of the middle lobe and ling [place] as well. Bilateral pneumonia is suggested. In addition, there may be some dependent bilateral lower lobe basilar atelectasis. Sternal body fractures are suggested although motion simulate this. Recommend clinical correlation. I f further evaluation is desired, consider lateral sternal radiographs or repeat CT imaging of the kiersten rnum IMPRESSION: Patchy bilateral infiltrates involving primarily the mid and lower lung zones, particula rly lower lobes, with involvement of the middle lobe and lingula as well. Bilateral pneumonia is susp ected Severe emphysema Suspected sternal body fractures Reviewed, dictated and finalized at Location A. Reviewed, dictated and finalized at location A. ET ROLLER ENGINEER IMPRESSION: Patchy bilateral infiltrates involving primarily the mid and lower lung zones, particularly lower lobes, with involvement of the middle lobe and lingula as well. Bilateral pneumonia is suspected Severe emphysema Suspected sternal body fractures
--- NOTE | 2022-07-19 11:20 | ECG_ITS ---
Measurements Intervals [place] Rate: 115 P: DC: 0 QRS: 62 QRSD: 76 T: 51 QT: 327 QTc: 453 Interpretive Statements SINUS TACHYCARDIA WITH PVCS NONSPECIFIC ST SEGMENT ABNORMALITY ABNORMAL ECG COMPARED TO ECG 07/17/2022 08:46:17 ST SEGMENT DEPRESSION IS SEEN AND PVCS ARE NOW PRESENT Electronically Signed On 07-20-2022 7:06:09 CREAM DIPPER by Nehemias Helms M.D.
--- NOTE | 2022-07-19 11:36 | ED.SOB ---
HPI - SOB/Dyspnea General Chief Complaint: Shortness of Breath/Dyspnea <Ira Townsend PA-C - Last Filed: 07/19/22 16:31> Stated Complaint: SOB diagonsed with CHF, COPD <Ira Townsend PA-C - Last Filed: 07/19/22 16:31> Time Seen by Provider: 07/19/22 11:18 <Ira Townsend PA-C - Last Filed: 07/19/22 16:31> Source: patient and EMS <Ira Townsend PA-C - Last Filed: 07/19/22 16:31> Mode of arrival: EMS <Ira Townsend PA-C - Last Filed: 07/19/22 16:31> Limitations: no limitations <Ira Townsend PA-C - Last Filed: 07/19/22 16:31> History of Present Illness HPI Narrative: This is a 66 year old female that presents to the ER for shortness of breath ongoing over the last couple of days. Patient was recently admitted for COPD exacerbation. Reports she has been short of breath since discharge 2 days ago. Patient has not been using her home inhalers and did not finish her steroid. Patient wears 3 L nasal cannula chronically. Was given a nebulizer treatment in route by EMS. Reports some intermittent chest pains. Denies any pain currently. Does report a cough. Denies fevers or lower extremity edema. <Ira Townsend PA-C - Last Filed: 07/19/22 16:31> Related Data Home Medications: Home Medications Medication Instructions Recorded Confirmed clonazepam 1 mg tablet 1 mg PO TID 07/15/22 07/19/22 gabapentin 300 mg tablet 300 mg PO TID 07/15/22 07/19/22 glycopyrrolate 9 mcg-formoterol 2 puff inhalation Q12H 07/15/22 07/19/22 4.8 mcg HFA aerosol inhaler (Bevespi Aggiosphere) levothyroxine 50 mcg capsule 50 mcg PO DAILY 07/15/22 07/19/22 lisinopril 5 mg tablet 5 mg PO DAILY 07/15/22 07/19/22 morphine 30 mg tablet,extended 30 mg PO Q8H 07/15/22 07/19/22 release omeprazole 40 mg capsule,delayed 40 mg PO DAILY 07/15/22 07/19/22 release ropinirole 1 mg tablet 1 mg PO QHS 07/15/22 07/19/22 lorazepam 1 mg tablet 1 mg PO TID PRN Anxiety 07/19/22 07/19/22 quetiapine 25 mg tablet (Seroquel) 25 mg PO Q12H 07/19/22 07/19/22 <Ira Townsend PA-C - Last Filed: 07/19/22 16:31> Allergies/Adverse Reactions: Allergies Allergy/AdvReac Type Severity Reaction Status Date / Time No Known Allergies Allergy Verified 07/19/22 11:21 <Ira Townsend PA-C - Last Filed: 07/19/22 16:31> Review of Systems Review of Systems: CONSTITUTIONAL: Denies fever ENT: Reports rhinorrhea, congestion CARDIOVASCULAR: Reports chest pain. Denies edema. RESPIRATORY: Reports cough and dyspnea. PSYCHIATRIC: Reports anxiety <Ira Townsend PA-C - Last Filed: 07/19/22 16:31> All systems reviewed & are unremarkable except as noted in HPI and below <Ira Townsend PA-C - Last Filed: 07/19/22 16:31> PENDING SALE TO [facility] Past Medical History Medical History: Medical History (Updated 07/19/22 @ 15:55 by Ira Townsend PA-C) Anxiety Chronic GERD Chronic obstructive pulmonary disease Chronic pain syndrome Chronic respiratory failure with hypoxia History of tobacco abuse Hyperlipidemia Hypertension Hypothyroidism Poor vision Schizophrenia <Ira oTwnsend PA-C - Last Filed: 07/19/22 16:31> Surgical History Surgical History: Surgical History (Updated 07/19/22 @ 14:56 by Ijeoma Marshall PA-C) History of cholecystectomy History of total right hip arthroplasty Hx of cholecystectomy <Ira Townsend PA-C - Last Filed: 07/19/22 16:31> Family History Family History: Family History Mother Cancer Father Aneurysm <Ira Townsend PA-C - Last Filed: 07/19/22 16:31> Social History Social History: Social History (Updated 07/19/22 @ 15:02 by Ijeoma Marshall PA-C) Social History: Surrogate medical decision maker: Melanie Baker, daughter. Code status: Full code. Smoking packs per day: 1 Smoking cigarettes per day: 20.0 Years smoked: 45 Smoking pack-years: 45.00 Smoking status: Current ayah
[2022-07-19] MEDS: methylPREDNISolone SOD SUCC 125 MG VIAL IV PUSH (11:42)
[2022-07-19 11:52] LABS: Basophils Percent Auto 0.4 % (0.2-1.2); Hematocrit 32.7 % (37.0-47.0); Hemoglobin 9.9 g/dL (12.0-15.0); Immature Granulocyte Absolute 0.14 K/mm3 (0.00-0.031); Immature Granulocyte Percent A 1.4 % (0-0.5); Lymphocytes Absolute Auto 1.59 K/mm3 (0.9-3.2); Lymphocytes Percent Auto 15.4 % (18.3-44.2); Mean Corpuscular HGB Conc 30.3 g/dl (32-36); Mean Corpuscular Hemoglobin 24.3 pg (26-34); Mean Corpuscular Volume 80.1 fl (80-100); Mean Platelet Volume 9.4 fl (7.4-10.4); Monocytes Absolute Auto 1.1 K/mm3 (0.1-0.6); Monocytes Percent Auto 10.4 % (2.6-8.5); Neutrophils Absolute Auto 7.5 K/mm3 (1.3-6.7); Neutrophils Percent Auto 72.4 % (45.5-73.1); Platelet Count Result 358 k/mm3 (150-375); Red Blood Count 4.08 M/mm3 (4.2-5.4); Red Cell Distribution Width 15.8 % (11.5-14.5); White Blood Count 10.3 K/mm3 (4.5-10.0)
[2022-07-19 12:03] LABS: INR 1.1; Partial Thromboplastin Time 29.6 SECONDS (22.3-36.8); Prothrombin Time 14.2 Seconds (11.1-14.7)
[2022-07-19 12:06] LABS: Magnesium 1.4 mg/dL (1.6-2.3)
[2022-07-19] MEDS: ALBUTEROL SULFATE NEB 2.5 MG/3 ML INH 15 MG INHALATION (12:08)
[2022-07-19] MEDS: IPRATROPIUM BR 0.02% INH SOLN 0.5 MG/2.5 ML VIAL 1.5 MG INHALATION (12:08)
[2022-07-19 12:09] LABS: Alveolar/Arterial O2 Gradient 130.1 mmHg; Base Excess ABG 10.7 mEq/l (+/-2.0); Carboxyhemoglobin 0.4 % THb (0-2.0); Fractional Inspired Oxygen 36 %; HCO3 ABG 37.2 mEq/l (22.0-26.0); Methemoglobin ABG 0.3 %THb (0-1.5); Oxygen Content ABG 14.1 %vol (16.0-22.0); Oxygen Saturation ABG 89.7 % (95.0-100.0); Oxyhemoglobin 90.1 % THb (90.0-100.0); PCO2 ABG 59.3 mmHg (35.0-45.0); PO2 ABG 57.8 mmHg (80.0-100.0); PO2 FiO2 Ratio Arterial Blood 1.61 %; Reduced Hemoglobin 9.2 %THb (0-5.0); Total Hemoglobin 11.1 g/dL (12.0-18.0); pH ABG 7.415 (7.350-7.450)
[2022-07-19 12:10] LABS: Alanine Aminotransferase 28 U/L (6-35); Albumin Level 3.4 g/dL (3.5-5.1); Alkaline Phosphatase 97 U/L (38-126); Anion Gap 4 mmol/L (8-16); Aspartate Amino Transferase 34 U/L (14-36); Bilirubin,Total 0.4 mg/dL (0.2-1.3); Blood Urea Nitrogen 10 mg/dL (7-17); Calcium 8.4 mg/dL (8.4-10.2); Carbon Dioxide 37 mmol/L (22-30); Chloride 94 mmol/L (98-107); Estimated CRCL calculation 50 ml/min; Estimated Glomerular Filt Rate > 60; Glucose 121 mg/dL (65-110); Potassium 2.8 mmol/L (3.4-5.0); Sodium 135 mmol/L (137-145)
[2022-07-19 12:13] LABS: NT Pro B Type Natriuretic Pept 1430 pg/mL (19.9-100)
[2022-07-19 12:18] LABS: Influenza A QL RT-PCR Negative (Negative); Influenza B QL RT-PCR Negative (Negative); SARS-CoV-2 RNA PCR Negative
[2022-07-19 12:24] LABS: Device OTHER DEVICE; Modified Allen's Test Pass; Site Drawn RIGHT RADIAL
[2022-07-19 12:28] LABS: CRP 7.1 mg/dL (<1.0)
[2022-07-19 12:30] LABS: Lactic Acid Reflex 1.5 mmol/L (0.7-2.0)
[2022-07-19 12:34] LABS: Troponin I < 0.012 ng/mL (0.000-0.034)
[2022-07-19] MEDS: POTASSIUM CHLORIDE INJ 40 MEQ in SODIUM CHLORIDE 0.9% IV 500 ML 130 MEQ IVPB (12:42)
[2022-07-19] MEDS: MAGNESIUM SULF 2 GM/WATER 50ML 2 GM/50 ML BAG IVPB (12:52)
--- NOTE | 2022-07-19 13:45 | PM.IMHP ---
H&P: HPI History of Present Illness Date/Time: 07/19/22 13:45 Chief Complaint: Cough and shortness of breath. Narrative: This is a 66-year-old female former smoker with COPD, chronic respiratory failure on home oxygen, hypothyroidism, hypertension, GERD, depression, anxiety, and schizophrenia who presented to the emergency department via EMS from home for evaluation of shortness of breath and cough. Patient provides the following history. She was discharged from the hospital 2 days ago following admission for acute COPD exacerbation. She was discharged with a prescription for Xopenex nebulizer however she did not have that filled. She states she was not feeling better on discharge and she continues to have ongoing shortness of breath and nonproductive cough. She has been staying with her son since her couple of weeks ago and she has been trying to tell him that she needed to come back to the hospital ?but they think I am crazy.? This morning she felt increasingly short of breath and she reports is feeling as though she cannot get in a deep breath with some chest tightness. She denies fever but reports feeling warm. No headache, sinus congestion, or sore throat. She has not had syncope or near syncope. No pleuritic pain or palpitations. Appetite has been poor since her passed. He endorses nausea and occasional dry heaves and gagging but no vomiting. She also denies diarrhea. she was given nebulized treatment in route to the hospital with some improvement. Chest x-ray showed mild patchy infiltrate in the mid and lower lung zones which is new compared imaging done a couple of days ago. CTA of the chest showed bilateral pneumonia. She is being admitted in this setting for IV antibiotics and further treatment. Review of Systems Review of Systems: Twelve systems were reviewed and are negative except for as per HPI. [facility] Past Medical History Medical History (Updated 07/19/22 @ 22:41 by Ijeoma Marshall PA-C) Anxiety Chronic anemia Chronic GERD Chronic obstructive pulmonary disease Chronic pain syndrome Chronic respiratory failure with hypoxia History of tobacco abuse Hyperlipidemia Hypertension Hypothyroidism Poor vision Schizophrenia Surgical History Surgical History History of cholecystectomy History of total right hip arthroplasty Hx of cholecystectomy Family History Family History Mother Cancer Father Aneurysm Social History Social History (Updated 07/19/22 @ 15:02 by Ijeoma Marshall PA-C) Social History: Surrogate medical decision maker: Melanie Baker, daughter. Code status: Full code. Smoking packs per day: 1 Smoking cigarettes per day: 20.0 Years smoked: 45 Smoking pack-years: 45.00 Smoking status: Current every day smoker Tobacco type: e-cigarettes/vaping Additional smoking assessment comments: Alcohol intake: unknown Substance use: unknown Substance use type: unknown Other substance usage details: Patient has active morphine prescription per my review of her medications. Lack of Transportation: No Lack of Food: Sometimes True Current Housing: I Have Housing Concerned About Future Housing: Decline to Answer Difficulty Paying Gas/Electric Bills: Decline to Answer Difficulty Paying for Meds: Decline to Answer Currently Unemployed: Decline to Answer Education: Decline to Answer Difficulty w/ Childcare or Family Care: Decline to Answer Additional living arrangements comments: as of June 2022. Moved to the area from to live with her son. She has 2 children. 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 Spiritual care concerns: No Meds Home Medications and Allergies Home Medications Medication Instructions Recorded Confirmed Type clonazepam 1 mg tablet 1 mg PO TID 07/15/22
[2022-07-19] MEDS: PIPERACILLIN/TAZOBACTAM SOD 4.5 GM in SODIUM CHLORIDE 0.9% IV 100 ML 200 ML IVPB (14:12)
[2022-07-19 15:14] LABS: Alveolar/Arterial O2 Gradient 97.1 mmHg; Carboxyhemoglobin 0.4 % THb (0-2.0); Fractional Inspired Oxygen 30 %; HCO3 ABG 33.4 mEq/l (22.0-26.0); Methemoglobin ABG 0.3 %THb (0-1.5); Oxygen Content ABG 13.8 %vol (16.0-22.0); Oxygen Saturation ABG 90.1 % (95.0-100.0); PCO2 ABG 50.9 mmHg (35.0-45.0); Reduced Hemoglobin 9.3 %THb (0-5.0); Total Hemoglobin 10.9 g/dL (12.0-18.0); pH ABG 7.435 (7.350-7.450)
[2022-07-19 15:16] LABS: Device BIPAP; Modified Allen's Test Pass; Site Drawn LEFT RADIAL
[2022-07-19 15:19] LABS: Expiratory Pressure 5 cmH2O; Inspiratory Pressure 12 cmH2O
[2022-07-19] MEDS: POTASSIUM CHLORIDE 20 MEQ PACKET (FOR LIQUID) 40 MEQ PO (15:24)
--- NOTE | 2022-07-19 17:40 | ADMGEN ---
This patient, Krys Mcclure, was admitted to IMU Room 202-01. Patient/family oriented to hospital policies and general routines including ID bracelet, bed and alarms, visiting hours, pain management, procedures, bathroom and other care routines, personal items, smoking policy, room service/diet, and visiting hours. Information on how to activate the Rapid Response Team has been discussed. Patient/Family are encouraged to report perceived risks to care and to ask questions if they do not understand what they are told or what they should do.
[2022-07-19] MEDS: methylPREDNISolone SOD SUCC 125 MG VIAL 60 MG IV PUSH ×2 (18:25→23:20)
[2022-07-19 21:40] LABS: Potassium 4.1 mmol/L (3.4-5.0)
[2022-07-20] VITALS (22 sets, daily range): BP systolic 129–157; BP diastolic 59–85; PULSE 74–117; RESP 14–27; TEMP 36.3–37.2; O2SAT 95–100; BMI 18.3
[2022-07-20] MEDS: ONDANSETRON INJ 4 MG/2 ML VIAL IV PUSH (01:06)
[2022-07-20] MEDS: diphenhydrAMINE HCl INJ 50 MG/ML VIAL 25 MG IV PUSH (01:11)
--- NOTE | 2022-07-20 01:25 | PC.NURSE ---
patient was alert and oriented at the begging of the shift and right up until a little bit after starting zithromax. patient started becoming more confused and seeing birds fly around. she started to become nauseated and her stomach started to hurt her. i called dr lovett and got an order for zofran for nausea. had to call her back because patient was calling out almost non-stop for stomach pain and nausea. stopped zithromax and called dr lovett. she wanted zithromax stopped and to give benadryl.
[2022-07-20] MEDS: IPRATROPIUM BR 0.02% INH SOLN 0.5 MG/2.5 ML VIAL INHALATION ×3 (02:28→21:00)
[2022-07-20] MEDS: ALBUTEROL SULFATE NEB 2.5 MG/3 ML INH INHALATION ×2 (02:28→07:29)
[2022-07-20 04:47] LABS: Hematocrit 32.6 % (37.0-47.0); Hemoglobin 9.9 g/dL (12.0-15.0); Mean Corpuscular HGB Conc 30.4 g/dl (32-36); Mean Corpuscular Hemoglobin 23.6 pg (26-34); Mean Corpuscular Volume 77.8 fl (80-100); Mean Platelet Volume 9.3 fl (7.4-10.4); Platelet Count Result 382 k/mm3 (150-375); Red Blood Count 4.19 M/mm3 (4.2-5.4); Red Cell Distribution Width 15.9 % (11.5-14.5); White Blood Count 10.3 K/mm3 (4.5-10.0)
[2022-07-20 05:04] LABS: Anion Gap 4 mmol/L (8-16); Blood Urea Nitrogen 9 mg/dL (7-17); Calcium 8.1 mg/dL (8.4-10.2); Carbon Dioxide 36 mmol/L (22-30); Chloride 94 mmol/L (98-107); Estimated CRCL calculation 70 ml/min; Estimated Glomerular Filt Rate > 60; Glucose 123 mg/dL (65-110); Magnesium 1.9 mg/dL (1.6-2.3); Potassium 3.7 mmol/L (3.4-5.0); Sodium 134 mmol/L (137-145)
[2022-07-20] MEDS: methylPREDNISolone SOD SUCC 125 MG VIAL 60 MG IV PUSH ×3 (05:18→22:18)
[2022-07-20 06:42] LABS: Folic Acid 3.6 ng/mL (2.76->20)
[2022-07-20] MEDS: guaiFENesin 12 HR 600 MG TABCR PO (08:50)
--- NOTE | 2022-07-20 10:44 | PM.IMPN ---
Progress Note: A&P Assessment and Plan (1) Acute exacerbation of chronic obstructive airways disease: Code(s): J44.1 - Chronic obstructive pulmonary disease with (acute) exacerbation Status: Acute Assessment and Plan: Appreciate pulmonology consultation, concern for bilateral pneumonia, possibly viral? Continue Levaquin to complete a 5 day course Started on Solu-Medrol 60 mg Q 6 hours Follow-up mycoplasma IgM 1 of 2 blood cultures positive for Gram-positive cocci, started on vancomycin, follow-up cultures and sensitivities, suspect contaminant (2) Hypertension: Code(s): I10 - Essential (primary) hypertension Status: Acute Assessment and Plan: Continue home medications, BP reviewed 07/20 (3) Hyperlipidemia: Code(s): E78.5 - Hyperlipidemia, unspecified Status: Acute Assessment and Plan: Lipid panel looks great (LDL 60/HDL 47/TG 121) (4) Chronic GERD: Code(s): K21.9 - Gastro-esophageal reflux disease without esophagitis Status: Acute Assessment and Plan: cont PPI (5) Hypothyroidism: Code(s): E03.9 - Hypothyroidism, unspecified Status: Acute Assessment and Plan: cont levothyroxine, TSH 0.988 (6) Chronic pain syndrome: Code(s): G89.4 - Chronic pain syndrome Status: Acute Assessment and Plan: cont home meds, home MS contin q8h, hold for sedation (7) Anxiety: Code(s): F41.9 - Anxiety disorder, unspecified Status: Acute Assessment and Plan: cont home clonazepam (8) Tachycardia: Code(s): R00.0 - Tachycardia, unspecified Status: Acute Assessment and Plan: Monitor telemetry, check ECG in the morning Likely due to anxiety and possibly an element of dehydration versus infection? (9) Bloating: Code(s): R14.0 - Abdominal distension (gaseous) Status: Acute Assessment and Plan: Unsure of etiology, could be form of IBS and stress, simethicone ordered, monitor, consider bowel regimen if she doesn't have BM soon Simethicone scheduled, monitor (10) Insomnia: Code(s): G47.00 - Insomnia, unspecified Status: Acute Assessment and Plan: Continue for now, patient doing well with it Plan Of note, patient was one week ago in [place] and just moved here with family, She is quite tearful and obviously grieving, does not appear to be suicidal at this time, but is high risk. Will monitor closely, discussed with nursing staff. She was discharged for less than 48 hours and sent back to the hospital due to worsening shortness of breath and anxiety, thought to have viral pneumonia versus COPD exacerbation. DVT prophylaxis with SCDs GI prophylaxis not indicated Code status full code Subjective Date/time seen: 07/20/22 10:44 Interval history: Patient is extremely anxious and confused. She states that around that she is crazy but she is not. She now has a sitter with her. Family is unable to care for her at home. No overnight events noted. She states she is extremely short of breath all the time. She also thinks that everyone is lying to her and that we all want to hurt her. She is occasionally able to be oriented but not always. Review of Systems Review of Systems: ROS unobtainable: Yes unobtainable due to mental status Exam Narrative: General: No acute respiratory distress, tearful, alert and oriented per baseline HEENT: Atraumatic, normocephalic, mucous membranes moist CV: Sinus tachycardia, S1, S2 Lungs: Diminished throughout, scattered wheezes, both inspiratory and expiratory Abdomen: Soft, nontender, nondistended Extremities: Normal to inspection Skin: No rashes noted, no lesions or wounds seen Objective Data Vital Signs Vital Signs: Vital Signs - 24 hr 07/19/22 11:13 07/19/22 11:21 07/19/22 11:22 Temperature 99.4 F Pulse Rate 114 H 114 H Respiratory Rate 27
[2022-07-20] MEDS: PANTOPRAZOLE 40 MG TABLET PO (10:55)
[2022-07-20] MEDS: QUEtiapine FUMARATE 25 MG TABLET PO (10:55)
[2022-07-20] MEDS: LEVOTHYROXINE SODIUM 50 MCG TABLET PO (10:55)
[2022-07-20] MEDS: GABAPENTIN 300 MG CAPSULE PO ×3 (10:55→18:08)
[2022-07-20] MEDS: clonazePAM (*CRX) 0.5 MG TABLET 1 MG PO ×2 (12:34→18:05)
--- NOTE | 2022-07-20 16:05 | PCOTNOTE ---
Attempted to see pt. for occupational therapy evaluation. Pt. refused to participated this time. Nursing aware. Following
--- NOTE | 2022-07-20 16:43 | PM.CNPUL ---
Assessment and Plan Assessment and plan (1) Acute exacerbation of chronic obstructive pulmonary disease: Code(s): J44.1 - Chronic obstructive pulmonary disease with (acute) exacerbation Status: Acute Assessment and Plan: patient with a 45 pack year tobacco use, quit in 2014, severe panlobular emphysema in all lung taylor on CT scan of the chest on 07/19/2022, hypoxemic respiratory failure who recently moved here from [place]. The patient was admitted to [facility] 07/15/2022 with hypercarbic respiratory failure but could not tolerate BiPAP. Patiently is currently being treated for COPD exacerbation with methyl prednisolone 60 mg IV q.6 hours and I will decrease to 40 mg IV q.6 hours, levalbuterol 2.5 mg nebs q.6 hours, ipratropium 0.5 mg nebs q.6 hours, Mucinex 600 mg p.o. q.12 hours and ceftriaxone and azithromycin on 07/19/2022 for 1 dose and now Levaquin 750 mg p.o. q.day. blood culture with gram-positive cocci and I will initiate vancomycin. Covid, influenza swab were negative. mycoplasma IgM, Legionella antigen and pneumococcal antigen are pending. I will send an extended respiratory viral pathogen panel to [employer]. currently patient is on 2 L nasal cannula saturation 98%. (2) Respiratory failure with hypoxia and hypercapnia: Code(s): J96.91 - Respiratory failure, unspecified with hypoxia; J96.92 - Respiratory failure, unspecified with hypercapnia Status: Acute Assessment and Plan: Patient was admitted on 07/15/2022 with a blood gas of 7.33/60/185 on 34% FiO2. Patient could not tolerate BiPAP last admission. On 07/19/2022 the patient again had acute on chronic hypercarbic and hypoxemic respiratory failure with a blood gas of 7.42/59/58. 07/20: The patient is adamant that she cannot tolerate the BiPAP and fought with me even as I held the mask near her face. The patient has severe COPD with hypercarbic respiratory failure and is intolerant to BiPAP. The patient also has psychiatric issues such as bipolar and possible schizophrenia. Level of care should be discussed with family. History of Present Illness History of Present Illness Consult date: 07/20/22 Chief complaint: COPD Exacerbation, acute on chronic resp failure Narrative: 07/20/2022: This is a new pulmonary consult for COPD exacerbation with acute on chronic hypoxemic and hypercarbic respiratory failure. 66-year-old with a history of hypertension, hyperlipidemia, bipolar disease, schizophrenia, hypothyroidism, 45 pack year tobacco use (quit in 2014), COPD on home oxygen and hypercarbic respiratory failure. The patient was discharged from [facility] on 07/18/2022 for COPD exacerbation with a blood gas of 7.33/60/185 and was treated with BiPAP but she could not tolerate BiPAP. She was therefore not discharged on home noninvasive ventilator. Patient returned to [facility] department on 07/19 with worsening shortness of breath. Her white blood cell count was 10.3, creatinine was 0.7, serum bicarbonate was 37, ABG on 36% FiO2 was 7.42/59/58. Covid and influenza RT PCR studies negative. Patient was placed on BiPAP 12/5 and 30% with a repeat blood gas of 7.44/51/57. Chest x-ray showed bibasilar interstitial infiltrates and a CT angiogram of the chest was negative for PE, severe panlobular emphysema all lung taylor, patchy interstitial tree-in-bud infiltrates throughout. Her BNP was 1430, TSH was 1.902, troponin was negative. Patient was admitted for a COPD exacerbation and treated with Solu-Medrol, albuterol and ipratropium nebulizers, ceftriaxone and azithromycin antibiotics. 07/20: Currently the patient tells me that everything is worse since yesterday. Her cough and phlegm are worse. She denies any hemoptysis. She is very frustrated with me and refuses to provide a useful history. I did talk to her extensively in tried to convince her to the wear the BiPAP and told her we could try to make mask and mac
--- NOTE | 2022-07-20 19:02 | PC.NURSE ---
This patient, Krys Mcclure, was transferred to [facility] on 07/20/22 at 1902. Personal belongings sent with patient. Report given to Betzaida PEREZ. Appropriate documentation sent with patient.
--- NOTE | 2022-07-20 19:04 | PC.NURSE ---
This patient, Krys Mcclure, was received from [imu] on 07/20/22 at 1845. Patient/family oriented to unit policies and routines. Report from Areli
[2022-07-20 22:21] LABS: Glucose Point of Care 122 mg/dl (65-105)
[2022-07-20 22:48] LABS: Alveolar/Arterial O2 Gradient 96.1 mmHg; Base Excess ABG 11.3 mEq/l (+/-2.0); Device NASAL CANNULA; Fractional Inspired Oxygen 35 %; Modified Allen's Test Pass; Oxygen Saturation ABG 97.7 % (95.0-100.0); Oxyhemoglobin 96.2 % THb (90.0-100.0); PCO2 ABG 48.5 mmHg (35.0-45.0); PO2 ABG 97.1 mmHg (80.0-100.0); PO2 FiO2 Ratio Arterial Blood 2.77 %; Site Drawn RIGHT RADIAL; pH ABG 7.489 (7.350-7.450)
[2022-07-21] VITALS (20 sets, daily range): BP systolic 119–136; BP diastolic 63–80; PULSE 94–123; RESP 14–22; TEMP 36.7–37; O2SAT 94–97
[2022-07-21] MEDS: guaiFENesin 12 HR 600 MG TABCR PO ×3 (01:15→21:24)
[2022-07-21] MEDS: QUEtiapine FUMARATE 25 MG TABLET PO ×3 (01:15→21:25)
[2022-07-21] MEDS: SIMETHICONE 125 MG CHEW TAB PO ×5 (01:16→21:25)
[2022-07-21] MEDS: rOPINIRole HCL 1 MG TABLET PO ×2 (01:16→21:25)
[2022-07-21] MEDS: MORPHINE SULFATE (*CRX) 30 MG TABCR PO ×4 (01:16→22:54)
--- NOTE | 2022-07-21 01:16 | PC.NURSE ---
On 07/20/2022 patient refused all P.O. medication, but then later agreed at 01:00 on 07/21/2022 to take the P.O. medication.
[2022-07-21] MEDS: methylPREDNISolone SOD SUCC 125 MG VIAL 60 MG IV PUSH ×2 (01:30→05:38)
[2022-07-21] MEDS: IPRATROPIUM BR 0.02% INH SOLN 0.5 MG/2.5 ML VIAL INHALATION ×4 (02:45→19:40)
--- NOTE | 2022-07-21 05:00 | ECG_ITS ---
Measurements Intervals [place] Rate: 120 P: 84 KS: 128 QRS: 40 QRSD: 77 T: 41 QT: 316 QTc: 447 Interpretive Statements SINUS TACHYCARDIA WITH OCCASIONAL VENTRICULAR PREMATURE COMPLEXES NONSPECIFIC ST AND T WAVE ABNORMALITY ABNORMAL RHYTHM ECG COMPARED TO ECG 07/19/2022 11:16:39 NO SIGNIFICANT CHANGES Electronically Signed On 07-21-2022 11:38:28 CONTACT CENTRE SUPERVISOR by Mickey Cornejo M.D.
[2022-07-21] MEDS: LEVOTHYROXINE SODIUM 50 MCG TABLET PO (05:30)
[2022-07-21 06:22] LABS: Basophils Percent Auto 0.2 % (0.2-1.2); Hematocrit 33.7 % (37.0-47.0); Hemoglobin 10.3 g/dL (12.0-15.0); Immature Granulocyte Absolute 0.23 K/mm3 (0.00-0.031); Immature Granulocyte Percent A 2.2 % (0-0.5); Lymphocytes Absolute Auto 0.83 K/mm3 (0.9-3.2); Lymphocytes Percent Auto 8.1 % (18.3-44.2); Mean Corpuscular HGB Conc 30.6 g/dl (32-36); Mean Corpuscular Hemoglobin 23.6 pg (26-34); Mean Corpuscular Volume 77.1 fl (80-100); Mean Platelet Volume 9.1 fl (7.4-10.4); Monocytes Absolute Auto 0.3 K/mm3 (0.1-0.6); Monocytes Percent Auto 3.2 % (2.6-8.5); Neutrophils Absolute Auto 8.9 K/mm3 (1.3-6.7); Neutrophils Percent Auto 86.3 % (45.5-73.1); Platelet Count Result 417 k/mm3 (150-375); Red Blood Count 4.37 M/mm3 (4.2-5.4); Red Cell Distribution Width 15.7 % (11.5-14.5); White Blood Count 10.3 K/mm3 (4.5-10.0)
[2022-07-21 06:38] LABS: Alanine Aminotransferase 27 U/L (6-35); Albumin Level 3.7 g/dL (3.5-5.1); Alkaline Phosphatase 86 U/L (38-126); Anion Gap 6 mmol/L (8-16); Aspartate Amino Transferase 25 U/L (14-36); Bilirubin,Total 0.5 mg/dL (0.2-1.3); Blood Urea Nitrogen 14 mg/dL (7-17); Calcium 8.4 mg/dL (8.4-10.2); Carbon Dioxide 37 mmol/L (22-30); Chloride 90 mmol/L (98-107); Estimated CRCL calculation 41 ml/min; Estimated Glomerular Filt Rate > 60; Glucose 122 mg/dL (65-110); Potassium 3.5 mmol/L (3.4-5.0); Sodium 133 mmol/L (137-145)
--- NOTE | 2022-07-21 06:53 | PCCARD ---
07/20/22 13:08 PATIENT REFUSED ECHO, TALKED TO RN (EZIO) SHE SAID TO TRY LATER
[2022-07-21] MEDS: clonazePAM (*CRX) 0.5 MG TABLET 1 MG PO ×3 (08:23→16:07)
[2022-07-21] MEDS: PANTOPRAZOLE 40 MG TABLET PO (08:23)
[2022-07-21] MEDS: GABAPENTIN 300 MG CAPSULE PO ×3 (08:23→16:07)
--- NOTE | 2022-07-21 10:39 | PM.IMPN ---
Progress Note: A&P Assessment and Plan (1) Acute exacerbation of chronic obstructive airways disease: Code(s): J44.1 - Chronic obstructive pulmonary disease with (acute) exacerbation Status: Acute Assessment and Plan: Appreciate pulmonology consultation, concern for bilateral pneumonia, possibly viral? Continue Levaquin to complete a 5 day course Started on Solu-Medrol 60 mg Q 6 hours Follow-up mycoplasma IgM 1 of 2 blood cultures positive for Gram-positive cocci, started on vancomycin, follow-up cultures and sensitivities, suspect contaminant -culture still pending (2) Hypertension: Code(s): I10 - Essential (primary) hypertension Status: Acute Assessment and Plan: Continue home medications, BP reviewed 07/20 (3) Hyperlipidemia: Code(s): E78.5 - Hyperlipidemia, unspecified Status: Acute Assessment and Plan: Lipid panel looks great (LDL 60/HDL 47/TG 121) (4) Chronic GERD: Code(s): K21.9 - Gastro-esophageal reflux disease without esophagitis Status: Acute Assessment and Plan: cont PPI (5) Hypothyroidism: Code(s): E03.9 - Hypothyroidism, unspecified Status: Acute Assessment and Plan: cont levothyroxine, TSH 0.988 (6) Chronic pain syndrome: Code(s): G89.4 - Chronic pain syndrome Status: Acute Assessment and Plan: cont home meds, home MS contin q8h, hold for sedation (7) Anxiety: Code(s): F41.9 - Anxiety disorder, unspecified Status: Acute Assessment and Plan: cont home clonazepam (8) Tachycardia: Code(s): R00.0 - Tachycardia, unspecified Status: Acute Assessment and Plan: Monitor telemetry, check ECG in the morning Likely due to anxiety and possibly an element of dehydration versus infection? (9) Bloating: Code(s): R14.0 - Abdominal distension (gaseous) Status: Acute Assessment and Plan: Unsure of etiology, could be form of IBS and stress, simethicone ordered, monitor, consider bowel regimen if she doesn't have BM soon Simethicone scheduled, monitor (10) Insomnia: Code(s): G47.00 - Insomnia, unspecified Status: Acute Assessment and Plan: Continue for now, patient doing well with it Plan Of note, patient was one week ago in [place] and just moved here with family, She is quite tearful and obviously grieving, does not appear to be suicidal at this time, but is high risk. Will monitor closely, discussed with nursing staff. She was discharged for less than 48 hours and sent back to the hospital due to worsening shortness of breath and anxiety, thought to have viral pneumonia versus COPD exacerbation. DVT prophylaxis with SCDs GI prophylaxis not indicated Code status full code Subjective Date/time seen: 07/21/22 10:39 Breathing is about baseline. Exam Narrative: General: No acute respiratory distress, tearful, alert and oriented per baseline HEENT: Atraumatic, normocephalic, mucous membranes moist CV: Sinus tachycardia, S1, S2 Lungs: Diminished throughout, scattered wheezes, both inspiratory and expiratory Abdomen: Soft, nontender, nondistended Extremities: Normal to inspection Skin: No rashes noted, no lesions or wounds seen Objective Data Vital Signs Vital Signs: Vital Signs - 24 hr 07/20/22 10:53 07/20/22 12:07 07/20/22 16:13 Temperature 97.4 F L 98.9 F Pulse Rate 106 H 74 105 H Respiratory Rate 22 H 18 20 Blood Pressure 155/78 H 129/76 Pulse Oximetry 98 96 98 Oxygen Delivery Nasal Cannula Oxygen Flow Rate 2 Fraction of Inspired Oxygen 28 07/20/22 12:00 07/20/22 17:02 07/20/22 16:00 Temperature Pulse Rate 94 115 H 101 H Respiratory Rate Blood Pressure Pulse Oximetry 97 Oxygen Delivery Nasal Cannula Oxygen Flow Rate Fraction of Inspired Oxygen 07/20/22 18:59 07/20/22 19:09 07/20/22 21:38 Temperature 98.
[2022-07-21] MEDS: DORNASE ALFA INH SOLN 1 MG/ML 2.5 ML AMP 2.5 MG INHALATION ×2 (10:55→19:39)
[2022-07-21] MEDS: predniSONE 20 MG TABLET 40 MG PO (11:54)
--- NOTE | 2022-07-21 12:02 | PM.PNPUL ---
Progress Note: A&P Assessment and Plan (1) Acute exacerbation of chronic obstructive pulmonary disease: Code(s): J44.1 - Chronic obstructive pulmonary disease with (acute) exacerbation Status: Acute Assessment and Plan: patient with a 45 pack year tobacco use, quit in 2014, severe panlobular emphysema in all lung taylor on CT scan of the chest on 07/19/2022, hypoxemic respiratory failure who recently moved here from [place]. The patient was admitted to [facility] 07/15/2022 with hypercarbic respiratory failure but could not tolerate BiPAP. Patiently is currently being treated for COPD exacerbation with methyl prednisolone 60 mg IV q.6 hours and I will decrease to 40 mg IV q.6 hours, levalbuterol 2.5 mg nebs q.6 hours, ipratropium 0.5 mg nebs q.6 hours, Mucinex 600 mg p.o. q.12 hours and ceftriaxone and azithromycin on 07/19/2022 for 1 dose and now Levaquin 750 mg p.o. q.day. blood culture with gram-positive cocci and I will initiate vancomycin. Covid, influenza swab were negative. mycoplasma IgM, Legionella antigen and pneumococcal antigen are pending. I will send an extended respiratory viral pathogen panel to [facility]. currently patient is on 2 L nasal cannula saturation 98%. 07/21 Patient tells me that she is breathing normally, her cough is persists but is better and her phlegm production has decreased. She has no wheezes on exam. White blood cell count is 10.3. Creatinine is 0.8. Patient had a blood gas on 4 L nasal cannula 7.49/49/97. Plan: I will discontinue the Solu-Medrol and place the patient on prednisone 40 mg p.o. q.day. The patient has having some difficulty expectorating and I will start dornase 2.5 mg nebulized q.12 hours and a Cornet flutter valve. If the patient remains stable overnight she could be discharged from a pulmonary perspective on 07/22/2022 on these pulmonary medications: Prednisone 40 mg PO Q day last dose on 07/23/22 Levaquin 750 mg p.o. q.day last dose on Bevespi 9-4.8 at 2 puffs q.12 hours Rescue albuterol 2 puffs q.4 hours p.r.n. shortness of breath or wheezing Oxygen per formal home O2 assessment on 07/22/2022 which I have ordered today. Oxygen at night per apnea link to be performed the night of 07/21/[address] Marmolejo (2) Respiratory failure with hypoxia and hypercapnia: Code(s): J96.91 - Respiratory failure, unspecified with hypoxia; J96.92 - Respiratory failure, unspecified with hypercapnia Status: Acute Assessment and Plan: Patient was admitted on 07/15/2022 with a blood gas of 7.33/60/185 on 34% FiO2. Patient could not tolerate BiPAP last admission. On 07/19/2022 the patient again had acute on chronic hypercarbic and hypoxemic respiratory failure with a blood gas of 7.42/59/58. 07/20: The patient is adamant that she cannot tolerate the BiPAP and fought with me even as I held the mask near her face. The patient has severe COPD with hypercarbic respiratory failure and is intolerant to BiPAP. The patient also has psychiatric issues such as bipolar and possible schizophrenia. Level of care should be discussed with family. 07/21 Tonight I will perform an overnight oximetry on 2 L nasal cannula. Subjective Date/time seen: 07/21/22 12:02 Interval history: 07/20/2022:? This is a new pulmonary consult for COPD exacerbation with acute on chronic hypoxemic and hypercarbic respiratory failure. ?66-year-old with a history of? hypertension, hyperlipidemia, bipolar disease, schizophrenia, hypothyroidism, 45 pack year tobacco use (quit in 2014),? COPD on? home oxygen and hypercarbic respiratory failure. ? The patient was discharged from [facility] on 07/18/2022? for COPD exacerbation with a blood gas of 7.33/60/185? and was treated with BiPAP but she could not tolerate BiPAP.? She was therefore not discharged on home noninvasive ventilator. ? Patient returned to [facility]? department on 07/19 with worsening sh
--- NOTE | 2022-07-21 12:29 | ECHO_ITS ---
Patient Info Name: Krys Mcclure Age: 66 years : 1955 Gender: Female Ht: 64 in Wt: 106 lbs BSA: 1.47 m2 HR: 111 bpm BP: 136 / 80 mmHg Heart Rhythm: Tachycardia Technical Quality: Fair Exam Date: 07/21/2022 9:41 AM Exam Location: [facility] Pulmonary Patient Status: Inpatient Admit Date: 07/19/2022 Staff Ordering Physician: Nehemias Carmona MD Weight Control Engineer: Marysol Nazario RDCS Attending Provider: Mary Soria DO Referring Physician: Mathew GALARZA; Exam Type: CA echo doppler color flow Study Info Indications - LV, RV FUNCTION, VALVE FUNCTION Complete two-dimensional, color flow and Doppler transthoracic echocardiogram is performed. Summary 1. Technically difficult study. 2. Left ventricular chamber dimension is normal. 3. Left ventricular systolic function is hyperdynamic, estimated at >70%. 4. The left ventricular diastolic function is grade I diastolic dysfunction. 5. Right ventricular systolic function is normal. 6. The mitral valve annulus is mildly calcified. 7. There is trace mitral valve regurgitation. 8. There is trace tricuspid valve regurgitation. Left Ventricle Left ventricular chamber dimension is normal. Left ventricular systolic function is hyperdynamic, estimated at >70%. There is no increased left ventricular wall thickness. The left ventricular diastolic function is grade I diastolic dysfunction. Right Ventricle Right ventricular chamber dimension is normal. Right ventricular systolic function is normal. Left Atria Left atrial chamber dimension is normal. Right Atria Right atrial chamber dimension is normal. Atrial Septum Intact interatrial septum visualized by color flow imaging. Aortic Valve The aortic valve is not well visualized. There is no aortic valve stenosis. There is no aortic valve regurgitation. Pulmonic Valve The pulmonic valve is not well visualized. Mitral Valve The mitral valve has normal leaflets. There is no mitral valve stenosis. There is trace mitral valve regurgitation. The mitral valve annulus is mildly calcified. Tricuspid Valve There is trace tricuspid valve regurgitation. Pericardium/Pleural There is trivial pericardial effusion. Inferior Vena Cava Normal inferior vena cava with >50% collapse upon inspiration consistent with normal right atrial pressure, 3 mmHg. Aorta The aortic root size at the sinus of Valsalva is normal. Left Ventricular Outflow Tract Name Value Normal LVOT 2D LVOT Diameter 1.9 cm Pulmonic Valve Name Value Normal RVOT Doppler RVOT Peak Gradient 5 mmHg PV Doppler PV Peak Gradient 6 mmHg Mitral Valve Name Value Normal
[2022-07-22] VITALS (23 sets, daily range): BP systolic 95–106; BP diastolic 55–65; PULSE 82–116; RESP 14–22; TEMP 36.1–36.6; O2SAT 87–98
[2022-07-22 06:30] LABS: Basophils Percent Auto 0.2 % (0.2-1.2); Hematocrit 32.3 % (37.0-47.0); Hemoglobin 9.8 g/dL (12.0-15.0); Immature Granulocyte Absolute 0.64 K/mm3 (0.00-0.031); Lymphocytes Absolute Auto 2.35 K/mm3 (0.9-3.2); Lymphocytes Percent Auto 14.6 % (18.3-44.2); Mean Corpuscular HGB Conc 30.3 g/dl (32-36); Mean Corpuscular Hemoglobin 24.2 pg (26-34); Mean Corpuscular Volume 79.8 fl (80-100); Mean Platelet Volume 9.2 fl (7.4-10.4); Monocytes Absolute Auto 1.3 K/mm3 (0.1-0.6); Monocytes Percent Auto 8.2 % (2.6-8.5); Neutrophils Absolute Auto 11.7 K/mm3 (1.3-6.7); Platelet Count Result 405 k/mm3 (150-375); Red Blood Count 4.05 M/mm3 (4.2-5.4); Red Cell Distribution Width 15.8 % (11.5-14.5); White Blood Count 16.1 K/mm3 (4.5-10.0)
[2022-07-22 06:45] LABS: Alanine Aminotransferase 26 U/L (6-35); Albumin Level 3.3 g/dL (3.5-5.1); Alkaline Phosphatase 81 U/L (38-126); Anion Gap 3 mmol/L (8-16); Aspartate Amino Transferase 26 U/L (14-36); Bilirubin,Total 0.3 mg/dL (0.2-1.3); Blood Urea Nitrogen 20 mg/dL (7-17); Calcium 7.9 mg/dL (8.4-10.2); Carbon Dioxide 39 mmol/L (22-30); Chloride 91 mmol/L (98-107); Estimated CRCL calculation 38 ml/min; Estimated Glomerular Filt Rate > 60; Glucose 86 mg/dL (65-110); Potassium 3.2 mmol/L (3.4-5.0); Sodium 133 mmol/L (137-145)
[2022-07-22 06:57] LABS: Vancomycin Trough 10.2 ug/mL (10.0-20.0)
--- NOTE | 2022-07-22 07:38 | PC.NURSE ---
Received call from floor nurse regarding blood cx. Aerobic bottle growing Staph Epidermis. Reported finding to Dr. Cueto. He states he will look into this.
[2022-07-22] MEDS: MORPHINE SULFATE (*CRX) 30 MG TABCR PO ×3 (07:51→21:14)
[2022-07-22] MEDS: LEVOTHYROXINE SODIUM 50 MCG TABLET PO (07:51)
--- NOTE | 2022-07-22 08:27 | PM.PNPUL ---
Progress Note: A&P Assessment and Plan (1) Acute exacerbation of chronic obstructive pulmonary disease: Code(s): J44.1 - Chronic obstructive pulmonary disease with (acute) exacerbation Status: Acute Assessment and Plan: patient with a 45 pack year tobacco use, quit in 2014, severe panlobular emphysema in all lung taylor on CT scan of the chest on 07/19/2022, hypoxemic respiratory failure who recently moved here from [place]. The patient was admitted to [facility] 07/15/2022 with hypercarbic respiratory failure but could not tolerate BiPAP. Patiently is currently being treated for COPD exacerbation with methyl prednisolone 60 mg IV q.6 hours and I will decrease to 40 mg IV q.6 hours, levalbuterol 2.5 mg nebs q.6 hours, ipratropium 0.5 mg nebs q.6 hours, Mucinex 600 mg p.o. q.12 hours and ceftriaxone and azithromycin on 07/19/2022 for 1 dose and now Levaquin 750 mg p.o. q.day. blood culture with gram-positive cocci and I will initiate vancomycin. Covid, influenza swab were negative. mycoplasma IgM, Legionella antigen and pneumococcal antigen are pending. I will send an extended respiratory viral pathogen panel to [facility]. currently patient is on 2 L nasal cannula saturation 98%. 07/21 Patient tells me that she is breathing normally, her cough is persists but is better and her phlegm production has decreased. She has no wheezes on exam. White blood cell count is 10.3. Creatinine is 0.8. Patient had a blood gas on 4 L nasal cannula 7.49/49/97. Plan: I will discontinue the Solu-Medrol and place the patient on prednisone 40 mg p.o. q.day. The patient has having some difficulty expectorating and I will start dornase 2.5 mg nebulized q.12 hours and a Cornet flutter valve. 07/22 Patient tells me she slept well last night. Her breathing is back to her baseline. White blood cell count is 16.1, creatinine is 0.9. Blood cultures were Staph epidermidis. Mycoplasma IgM, urine Legionella, urine pneumococcal and nasal swab for respiratory pathogen panel are pending. From a pulmonary perspective patient is ready to be discharged on these pulmonary medications: Prednisone 40 mg PO Q day last dose on 07/23/22 Levaquin 750 mg p.o. q.day last dose on 07/25/22 Bevespi 9-4.8 at 2 puffs q.12 hours Rescue albuterol 2 puffs q.4 hours p.r.n. shortness of breath or wheezing Oxygen per formal home O2 assessment on 07/22/2022 which I have ordered today. Oxygen 2 L at night per overnight oximetry of 07/21/2022 Patient is not smoking tobacco but she was vaping and I told her she must quit this. Patient to follow-up in the Pulmonary Clinic in 3-4 weeks. I gave her our business card and informed our patient scheduler. She will need home oxygen set up prior to discharge today and outpatient PFTs Discussed with Dr. Cueto (2) Respiratory failure with hypoxia and hypercapnia: Code(s): J96.91 - Respiratory failure, unspecified with hypoxia; J96.92 - Respiratory failure, unspecified with hypercapnia Status: Acute Assessment and Plan: Patient was admitted on 07/15/2022 with a blood gas of 7.33/60/185 on 34% FiO2. Patient could not tolerate BiPAP last admission. On 07/19/2022 the patient again had acute on chronic hypercarbic and hypoxemic respiratory failure with a blood gas of 7.42/59/58. 07/20: The patient is adamant that she cannot tolerate the BiPAP and fought with me even as I held the mask near her face. The patient has severe COPD with hypercarbic respiratory failure and is intolerant to BiPAP. The patient also has psychiatric issues such as bipolar and possible schizophrenia. Level of care should be discussed with family. later in the day the patient had a blood gas at 10:00 p.m. of the pH of 7.49/49/97 on 4 L nasal cannula. 07/21 [place] I will perform an overnight oximetry on 2 L nasal cannula. 07/22 Patient had an overnight oximetry on 2 L nasal cannula with an average saturation of 97, low saturation 87%,
[2022-07-22] MEDS: IPRATROPIUM BR 0.02% INH SOLN 0.5 MG/2.5 ML VIAL INHALATION ×3 (08:34→19:41)
[2022-07-22] MEDS: clonazePAM (*CRX) 0.5 MG TABLET 1 MG PO ×3 (08:50→17:27)
[2022-07-22] MEDS: GABAPENTIN 300 MG CAPSULE PO ×3 (08:50→17:27)
[2022-07-22] MEDS: lisinopriL 5 MG TABLET PO (08:51)
[2022-07-22] MEDS: PANTOPRAZOLE 40 MG TABLET PO (08:51)
[2022-07-22] MEDS: guaiFENesin 12 HR 600 MG TABCR PO ×2 (08:51→21:11)
[2022-07-22] MEDS: QUEtiapine FUMARATE 25 MG TABLET PO ×2 (08:52→21:11)
[2022-07-22] MEDS: SIMETHICONE 125 MG CHEW TAB PO ×4 (08:52→21:11)
[2022-07-22] MEDS: DORNASE ALFA INH SOLN 1 MG/ML 2.5 ML AMP 2.5 MG INHALATION ×2 (09:30→19:41)
--- NOTE | 2022-07-22 09:42 | PCRCNOTE ---
HOME O2 EVAL COMPLETE, NO CHANGES TO PREVIOUS SETTING. 2L AT REST AND 3L WITH ACTIVITY. SET UP WITH [facility]. [facility] TO DELIVER TANK FOR DISCHARGE.
--- NOTE | 2022-07-22 11:01 | PCNFU ---
Nutrition Follow-Up Complete: Severe malnutrition related to inadequate protein and energy intake as evidenced by intake of less than 75% of estimated needs over a month, -18% wt loss in 1 month, and subcutaneious fat loss of orbital pads, muscle wasting of temporalis and clavicles. Diet order PO intake 50% or greater of meals and supplements - Not meeting goal consistently Goal: Pt current nutrition is Regular diet with Ensure Compact TID for additional 220 kcals and 9 g protein each. Meal intakes 20-70%. Drinking 1/2 Ensure. Nutrition recommendation: Continue with current care plan. Agree with diet orders and supplements. Continue with current goal Last recorded weight is 45.5 kg. Bowel Motility: +2 BM 07/20/22 Labs Reviewed: Hgb 9.8, Hct 32.3, Alb 3.3, Na 133, BUN 20, K+ 3.2 Meds Noted: Zofran, protonix Skin: WNL Additional Notes: Appetite is sporadic. Drinking some Ensure. Continue with current care plan and monitor every 5 days. Monitor for diet order, intake, wt, labs. Follow up in 5 days.
[2022-07-22] MEDS: predniSONE 20 MG TABLET 40 MG PO (11:27)
--- NOTE | 2022-07-22 13:12 | PM.IMPN ---
Progress Note: A&P Assessment and Plan (1) Acute exacerbation of chronic obstructive airways disease: Code(s): J44.1 - Chronic obstructive pulmonary disease with (acute) exacerbation Status: Acute Assessment and Plan: Appreciate pulmonology consultation, concern for bilateral pneumonia, possibly viral? Continue Levaquin to complete a 5 day course Started on Solu-Medrol 60 mg Q 6 hours Follow-up mycoplasma IgM 1 of 2 blood cultures positive for Gram-positive cocci, started on vancomycin, follow-up cultures and sensitivities, suspect contaminant -culture still pending 07/22/2022 interval history: 66-year-old female with long history of smoking presented with shortness of breath is found to have exacerbation of COPD being treated with methylprednisone and bronchodilator, patient is also found to pneumonia and being treated with Levophed, was requiring 5 L of oxygen, her clinical symptoms have improved and not requiring 2-3 L, patient is seen by pulmonology patient clinically symptoms are improving, patient will benefit going to acute rehab, will continue to monitor and further recommendation to follow, 1 bottle of blood culture is growing Staphylococcus epidermidis suspect contamination however patient being treated with levofloxacin and vancomycin. (2) Hypertension: Code(s): I10 - Essential (primary) hypertension Status: Acute Assessment and Plan: Continue home medications, BP reviewed 07/20 (3) Hyperlipidemia: Code(s): E78.5 - Hyperlipidemia, unspecified Status: Acute Assessment and Plan: Lipid panel looks great (LDL 60/HDL 47/TG 121) (4) Chronic GERD: Code(s): K21.9 - Gastro-esophageal reflux disease without esophagitis Status: Acute Assessment and Plan: cont PPI (5) Hypothyroidism: Code(s): E03.9 - Hypothyroidism, unspecified Status: Acute Assessment and Plan: cont levothyroxine, TSH 0.988 (6) Chronic pain syndrome: Code(s): G89.4 - Chronic pain syndrome Status: Acute Assessment and Plan: cont home meds, home MS contin q8h, hold for sedation (7) Anxiety: Code(s): F41.9 - Anxiety disorder, unspecified Status: Acute Assessment and Plan: cont home clonazepam (8) Tachycardia: Code(s): R00.0 - Tachycardia, unspecified Status: Acute Assessment and Plan: Monitor telemetry, check ECG in the morning Likely due to anxiety and possibly an element of dehydration versus infection? (9) Bloating: Code(s): R14.0 - Abdominal distension (gaseous) Status: Acute Assessment and Plan: Unsure of etiology, could be form of IBS and stress, simethicone ordered, monitor, consider bowel regimen if she doesn't have BM soon Simethicone scheduled, monitor (10) Insomnia: Code(s): G47.00 - Insomnia, unspecified Status: Acute Assessment and Plan: Continue for now, patient doing well with it Plan Of note, patient was one week ago in [place] and just moved here with family, She is quite tearful and obviously grieving, does not appear to be suicidal at this time, but is high risk. Will monitor closely, discussed with nursing staff. She was discharged for less than 48 hours and sent back to the hospital due to worsening shortness of breath and anxiety, thought to have viral pneumonia versus COPD exacerbation. DVT prophylaxis with SCDs GI prophylaxis not indicated Code status full code Subjective Date/time seen: 07/22/22 13:12 07/22/2022 interval history: 66-year-old female with long history of smoking presented with shortness of breath is found to have exacerbation of COPD being treated with methylprednisone and bronchodilator, patient is also found to pneumonia and being treated with Levophed, was requiring 5 L of oxygen, her clinical symptoms have improved and not requiring 2-3 L, patient is seen by pulmonolog
[2022-07-22] MEDS: rOPINIRole HCL 1 MG TABLET PO (21:11)
[2022-07-23] VITALS (19 sets, daily range): BP systolic 105–132; BP diastolic 60–74; PULSE 80–134; RESP 16–24; TEMP 36.2–36.7; O2SAT 93–100
[2022-07-23] MEDS: IPRATROPIUM BR 0.02% INH SOLN 0.5 MG/2.5 ML VIAL INHALATION ×4 (01:49→20:54)
[2022-07-23] MEDS: LEVOTHYROXINE SODIUM 50 MCG TABLET PO (06:40)
[2022-07-23] MEDS: MORPHINE SULFATE (*CRX) 30 MG TABCR PO ×3 (06:40→20:53)
[2022-07-23 07:14] LABS: Basophils Absolute Auto 0.1 K/mm3 (0.0-0.1); Basophils Percent Auto 0.4 % (0.2-1.2); Eosinophils Percent Auto 0.1 % (0-4.4); Hematocrit 34.3 % (37.0-47.0); Hemoglobin 10.2 g/dL (12.0-15.0); Immature Granulocyte Absolute 0.71 K/mm3 (0.00-0.031); Lymphocytes Absolute Auto 2.33 K/mm3 (0.9-3.2); Lymphocytes Percent Auto 16.4 % (18.3-44.2); Mean Corpuscular HGB Conc 29.7 g/dl (32-36); Mean Corpuscular Hemoglobin 24.2 pg (26-34); Mean Corpuscular Volume 81.3 fl (80-100); Mean Platelet Volume 9.1 fl (7.4-10.4); Monocytes Absolute Auto 0.9 K/mm3 (0.1-0.6); Monocytes Percent Auto 6.1 % (2.6-8.5); Neutrophils Absolute Auto 10.3 K/mm3 (1.3-6.7); Platelet Count Result 406 k/mm3 (150-375); Red Blood Count 4.22 M/mm3 (4.2-5.4); Red Cell Distribution Width 16.1 % (11.5-14.5); White Blood Count 14.2 K/mm3 (4.5-10.0)
[2022-07-23 07:22] LABS: Alanine Aminotransferase 55 U/L (6-35); Albumin Level 3.3 g/dL (3.5-5.1); Alkaline Phosphatase 76 U/L (38-126); Anion Gap 5 mmol/L (8-16); Aspartate Amino Transferase 43 U/L (14-36); Bilirubin,Total 0.3 mg/dL (0.2-1.3); Blood Urea Nitrogen 17 mg/dL (7-17); Calcium 7.6 mg/dL (8.4-10.2); Carbon Dioxide 37 mmol/L (22-30); Chloride 90 mmol/L (98-107); Estimated CRCL calculation 48 ml/min; Estimated Glomerular Filt Rate > 60; Glucose 92 mg/dL (65-110); Potassium 3.3 mmol/L (3.4-5.0); Sodium 132 mmol/L (137-145)
[2022-07-23 07:59] LABS: Hypochromasia 1+ (NORMAL); Ovalocytes 1+ (NORMAL); Schistocytes None Seen (NORMAL)
[2022-07-23 08:00] LABS: Anisocytosis 1+ (NORMAL)
[2022-07-23] MEDS: DORNASE ALFA INH SOLN 1 MG/ML 2.5 ML AMP 2.5 MG INHALATION ×2 (08:11→20:54)
[2022-07-23] MEDS: clonazePAM (*CRX) 0.5 MG TABLET 1 MG PO ×3 (09:37→17:27)
[2022-07-23] MEDS: POTASSIUM CHLORIDE 20 MEQ PACKET (FOR LIQUID) 40 MEQ PO (09:38)
[2022-07-23] MEDS: GABAPENTIN 300 MG CAPSULE PO ×3 (09:38→17:26)
[2022-07-23] MEDS: lisinopriL 5 MG TABLET PO (09:38)
[2022-07-23] MEDS: QUEtiapine FUMARATE 25 MG TABLET PO ×2 (09:38→20:53)
[2022-07-23] MEDS: SIMETHICONE 125 MG CHEW TAB PO ×4 (09:38→20:53)
[2022-07-23] MEDS: guaiFENesin 12 HR 600 MG TABCR PO ×2 (09:38→20:53)
[2022-07-23] MEDS: PANTOPRAZOLE 40 MG TABLET PO (09:38)
[2022-07-23] MEDS: predniSONE 20 MG TABLET 40 MG PO (09:38)
--- NOTE | 2022-07-23 15:33 | PM.IMPN ---
Progress Note: A&P Assessment and Plan (1) Acute exacerbation of chronic obstructive airways disease: Code(s): J44.1 - Chronic obstructive pulmonary disease with (acute) exacerbation Status: Acute Assessment and Plan: Appreciate pulmonology consultation, concern for bilateral pneumonia, possibly viral? Continue Levaquin to complete a 5 day course Started on Solu-Medrol 60 mg Q 6 hours Follow-up mycoplasma IgM 1 of 2 blood cultures positive for Gram-positive cocci, started on vancomycin, follow-up cultures and sensitivities, suspect contaminant -culture still pending 07/23/2022 interval history: 66-year-old female with long history of smoking presented with shortness of breath is found to have exacerbation of COPD being treated with methylprednisone and bronchodilator, patient is also found to pneumonia and being treated with Levophed, was requiring 5 L of oxygen, her clinical symptoms have improved and now requiring 2-3 L, patient is seen by pulmonology patient clinically symptoms are improving, patient will benefit going to acute rehab, pending placement, possibly tomorrow, will continue to monitor and further recommendation to follow, 1 bottle of blood culture is growing Staphylococcus epidermidis suspect contamination however patient being treated with levofloxacin and vancomycin. vancomysin is stopped. (2) Hypertension: Code(s): I10 - Essential (primary) hypertension Status: Acute Assessment and Plan: Continue home medications, BP reviewed 07/20 (3) Hyperlipidemia: Code(s): E78.5 - Hyperlipidemia, unspecified Status: Acute Assessment and Plan: Lipid panel looks great (LDL 60/HDL 47/TG 121) (4) Chronic GERD: Code(s): K21.9 - Gastro-esophageal reflux disease without esophagitis Status: Acute Assessment and Plan: cont PPI (5) Hypothyroidism: Code(s): E03.9 - Hypothyroidism, unspecified Status: Acute Assessment and Plan: cont levothyroxine, TSH 0.988 (6) Chronic pain syndrome: Code(s): G89.4 - Chronic pain syndrome Status: Acute Assessment and Plan: cont home meds, home MS contin q8h, hold for sedation (7) Anxiety: Code(s): F41.9 - Anxiety disorder, unspecified Status: Acute Assessment and Plan: cont home clonazepam (8) Tachycardia: Code(s): R00.0 - Tachycardia, unspecified Status: Acute Assessment and Plan: Monitor telemetry, check ECG in the morning Likely due to anxiety and possibly an element of dehydration versus infection? (9) Bloating: Code(s): R14.0 - Abdominal distension (gaseous) Status: Acute Assessment and Plan: Unsure of etiology, could be form of IBS and stress, simethicone ordered, monitor, consider bowel regimen if she doesn't have BM soon Simethicone scheduled, monitor (10) Insomnia: Code(s): G47.00 - Insomnia, unspecified Status: Acute Assessment and Plan: Continue for now, patient doing well with it Plan Of note, patient was one week ago in [place] and just moved here with family, She is quite tearful and obviously grieving, does not appear to be suicidal at this time, but is high risk. Will monitor closely, discussed with nursing staff. She was discharged for less than 48 hours and sent back to the hospital due to worsening shortness of breath and anxiety, thought to have viral pneumonia versus COPD exacerbation. DVT prophylaxis with SCDs GI prophylaxis not indicated Code status full code Subjective Date/time seen: 07/23/22 15:33 07/23/2022 interval history: 66-year-old female with long history of smoking presented with shortness of breath is found to have exacerbation of COPD being treated with methylprednisone and bronchodilator, patient is also found to pneumonia and being treated with Levophed, was requiring 5 L of oxygen, her clinical symptoms have
[2022-07-23 18:40] LABS: Mycoplasma IgM Antibody Titer 157 U/mL (<770)
[2022-07-23] MEDS: rOPINIRole HCL 1 MG TABLET PO (20:53)
[2022-07-24] VITALS (16 sets, daily range): BP systolic 95–130; BP diastolic 52–66; PULSE 83–126; RESP 14–20; TEMP 36.1–36.9; O2SAT 97–100
[2022-07-24] MEDS: IPRATROPIUM BR 0.02% INH SOLN 0.5 MG/2.5 ML VIAL INHALATION ×3 (03:23→20:56)
[2022-07-24 06:20] LABS: Basophils Percent Auto 0.2 % (0.2-1.2); Eosinophils Percent Auto 0.1 % (0-4.4); Hematocrit 30.3 % (37.0-47.0); Hemoglobin 9.1 g/dL (12.0-15.0); Immature Granulocyte Absolute 0.59 K/mm3 (0.00-0.031); Immature Granulocyte Percent A 4.1 % (0-0.5); Lymphocytes Absolute Auto 2.44 K/mm3 (0.9-3.2); Lymphocytes Percent Auto 16.9 % (18.3-44.2); Mean Corpuscular Hemoglobin 23.8 pg (26-34); Mean Corpuscular Volume 79.3 fl (80-100); Mean Platelet Volume 9.1 fl (7.4-10.4); Monocytes Absolute Auto 0.9 K/mm3 (0.1-0.6); Monocytes Percent Auto 6.4 % (2.6-8.5); Neutrophils Absolute Auto 10.4 K/mm3 (1.3-6.7); Neutrophils Percent Auto 72.3 % (45.5-73.1); Platelet Count Result 358 k/mm3 (150-375); Red Blood Count 3.82 M/mm3 (4.2-5.4); White Blood Count 14.4 K/mm3 (4.5-10.0)
[2022-07-24] MEDS: MORPHINE SULFATE (*CRX) 30 MG TABCR PO ×3 (06:21→21:31)
[2022-07-24] MEDS: LEVOTHYROXINE SODIUM 50 MCG TABLET PO (06:21)
[2022-07-24 06:30] LABS: Alanine Aminotransferase 79 U/L (6-35); Alkaline Phosphatase 76 U/L (38-126); Anion Gap 2 mmol/L (8-16); Aspartate Amino Transferase 51 U/L (14-36); Bilirubin,Total 0.3 mg/dL (0.2-1.3); Blood Urea Nitrogen 15 mg/dL (7-17); Calcium 7.7 mg/dL (8.4-10.2); Carbon Dioxide 35 mmol/L (22-30); Chloride 94 mmol/L (98-107); Estimated CRCL calculation 55 ml/min; Estimated Glomerular Filt Rate > 60; Glucose 90 mg/dL (65-110); Potassium 3.3 mmol/L (3.4-5.0); Sodium 131 mmol/L (137-145)
[2022-07-24] MEDS: DORNASE ALFA INH SOLN 1 MG/ML 2.5 ML AMP 2.5 MG INHALATION ×2 (08:02→20:56)
[2022-07-24] MEDS: clonazePAM (*CRX) 0.5 MG TABLET 1 MG PO ×3 (08:27→17:20)
[2022-07-24] MEDS: guaiFENesin 12 HR 600 MG TABCR PO ×2 (08:28→21:32)
[2022-07-24] MEDS: GABAPENTIN 300 MG CAPSULE PO ×3 (08:28→17:20)
[2022-07-24] MEDS: QUEtiapine FUMARATE 25 MG TABLET PO ×2 (08:29→21:32)
[2022-07-24] MEDS: levoFLOXacin 750 MG TABLET PO (08:29)
[2022-07-24] MEDS: SIMETHICONE 125 MG CHEW TAB PO ×4 (08:29→21:31)
[2022-07-24] MEDS: PANTOPRAZOLE 40 MG TABLET PO (08:29)
[2022-07-24] MEDS: predniSONE 20 MG TABLET 40 MG PO (08:30)
[2022-07-24] MEDS: POTASSIUM CHLORIDE 20 MEQ PACKET (FOR LIQUID) 40 MEQ PO (12:10)
--- NOTE | 2022-07-24 13:36 | PM.IMPN ---
Progress Note: A&P Assessment and Plan (1) Acute exacerbation of chronic obstructive airways disease: Code(s): J44.1 - Chronic obstructive pulmonary disease with (acute) exacerbation Status: Acute Assessment and Plan: Appreciate pulmonology consultation, concern for bilateral pneumonia, possibly viral? Continue Levaquin to complete a 5 day course Started on Solu-Medrol 60 mg Q 6 hours Follow-up mycoplasma IgM 1 of 2 blood cultures positive for Gram-positive cocci, started on vancomycin, follow-up cultures and sensitivities, suspect contaminant -culture still pending 07/24/2022 interval history: 66-year-old female with long history of smoking presented with shortness of breath is found to have exacerbation of COPD being treated with methylprednisone and bronchodilator, patient is also found to pneumonia and being treated with Levophed, was requiring 5 L of oxygen, her clinical symptoms have improved and now requiring 2-3 L, patient is seen by pulmonology patient clinically symptoms are improving, patient will benefit going to acute rehab, pending placement, insurance authorization, possibly tomorrow, will continue to monitor and further recommendation to follow, 1 bottle of blood culture is growing Staphylococcus epidermidis suspect contamination however patient being treated with levofloxacin today patient compeleted 7 days, stopped the medication, and vancomycin. vancomysin was stopped. (2) Hypertension: Code(s): I10 - Essential (primary) hypertension Status: Acute Assessment and Plan: Continue home medications, BP reviewed 07/20 (3) Hyperlipidemia: Code(s): E78.5 - Hyperlipidemia, unspecified Status: Acute Assessment and Plan: Lipid panel looks great (LDL 60/HDL 47/TG 121) (4) Chronic GERD: Code(s): K21.9 - Gastro-esophageal reflux disease without esophagitis Status: Acute Assessment and Plan: cont PPI (5) Hypothyroidism: Code(s): E03.9 - Hypothyroidism, unspecified Status: Acute Assessment and Plan: cont levothyroxine, TSH 0.988 (6) Chronic pain syndrome: Code(s): G89.4 - Chronic pain syndrome Status: Acute Assessment and Plan: cont home meds, home MS contin q8h, hold for sedation (7) Anxiety: Code(s): F41.9 - Anxiety disorder, unspecified Status: Acute Assessment and Plan: cont home clonazepam (8) Tachycardia: Code(s): R00.0 - Tachycardia, unspecified Status: Acute Assessment and Plan: Monitor telemetry, check ECG in the morning Likely due to anxiety and possibly an element of dehydration versus infection? (9) Bloating: Code(s): R14.0 - Abdominal distension (gaseous) Status: Acute Assessment and Plan: Unsure of etiology, could be form of IBS and stress, simethicone ordered, monitor, consider bowel regimen if she doesn't have BM soon Simethicone scheduled, monitor (10) Insomnia: Code(s): G47.00 - Insomnia, unspecified Status: Acute Assessment and Plan: Continue for now, patient doing well with it Plan Of note, patient was one week ago in [place] and just moved here with family, She is quite tearful and obviously grieving, does not appear to be suicidal at this time, but is high risk. Will monitor closely, discussed with nursing staff. She was discharged for less than 48 hours and sent back to the hospital due to worsening shortness of breath and anxiety, thought to have viral pneumonia versus COPD exacerbation. DVT prophylaxis with SCDs GI prophylaxis not indicated Code status full code Subjective Date/time seen: 07/24/22 13:36 07/24/2022 interval history: 66-year-old female with long history of smoking presented with shortness of breath is found to have exacerbation of COPD being treated with methylprednisone and bronchodilator, patient is also found to pneumonia and be
--- NOTE | 2022-07-24 19:01 | PCRCNOTE ---
Window of time for administration has passed. See next scheduled administration.
--- NOTE | 2022-07-24 19:02 | PCRCNOTE ---
Window of time for administration has passed. See next scheduled administration.
[2022-07-24 20:56] LABS: Pneumococcal Antigen Urine Not Detected (Not Detected)
[2022-07-24] MEDS: rOPINIRole HCL 1 MG TABLET PO (21:32)
[2022-07-25] VITALS (18 sets, daily range): BP systolic 99–147; BP diastolic 46–80; PULSE 79–124; RESP 18–20; TEMP 36.4–36.6; O2SAT 94–100
[2022-07-25] MEDS: IPRATROPIUM BR 0.02% INH SOLN 0.5 MG/2.5 ML VIAL INHALATION ×4 (02:06→20:28)
[2022-07-25] MEDS: MORPHINE SULFATE (*CRX) 30 MG TABCR PO ×3 (06:17→21:27)
[2022-07-25] MEDS: LEVOTHYROXINE SODIUM 50 MCG TABLET PO (06:17)
[2022-07-25 07:08] LABS: Basophils Percent Auto 0.2 % (0.2-1.2); Eosinophils Absolute Auto 0.1 K/mm3 (0-0.3); Eosinophils Percent Auto 0.3 % (0-4.4); Hematocrit 31.3 % (37.0-47.0); Hemoglobin 9.2 g/dL (12.0-15.0); Immature Granulocyte Absolute 0.71 K/mm3 (0.00-0.031); Immature Granulocyte Percent A 3.7 % (0-0.5); Lymphocytes Absolute Auto 3.13 K/mm3 (0.9-3.2); Lymphocytes Percent Auto 16.4 % (18.3-44.2); Mean Corpuscular HGB Conc 29.4 g/dl (32-36); Mean Corpuscular Hemoglobin 24.1 pg (26-34); Mean Corpuscular Volume 82.2 fl (80-100); Mean Platelet Volume 9.6 fl (7.4-10.4); Monocytes Absolute Auto 1.1 K/mm3 (0.1-0.6); Monocytes Percent Auto 5.8 % (2.6-8.5); Neutrophils Percent Auto 73.6 % (45.5-73.1); Platelet Count Result 417 k/mm3 (150-375); Red Blood Count 3.81 M/mm3 (4.2-5.4); Red Cell Distribution Width 16.8 % (11.5-14.5)
[2022-07-25] MEDS: DORNASE ALFA INH SOLN 1 MG/ML 2.5 ML AMP 2.5 MG INHALATION ×3 (07:11→20:40)
[2022-07-25 07:26] LABS: Alanine Aminotransferase 85 U/L (6-35); Albumin Level 3.2 g/dL (3.5-5.1); Alkaline Phosphatase 79 U/L (38-126); Anion Gap 2 mmol/L (8-16); Aspartate Amino Transferase 42 U/L (14-36); Bilirubin,Total 0.3 mg/dL (0.2-1.3); Blood Urea Nitrogen 15 mg/dL (7-17); Carbon Dioxide 37 mmol/L (22-30); Chloride 95 mmol/L (98-107); Estimated CRCL calculation 55 ml/min; Estimated Glomerular Filt Rate > 60; Glucose 69 mg/dL (65-110); Potassium 4.5 mmol/L (3.4-5.0); Sodium 134 mmol/L (137-145)
[2022-07-25 07:49] LABS: Anisocytosis 1+ (NORMAL); Hypochromasia 1+ (NORMAL); Ovalocytes 1+ (NORMAL); Schistocytes None Seen (NORMAL)
[2022-07-25] MEDS: predniSONE 20 MG TABLET 40 MG PO (09:59)
[2022-07-25] MEDS: clonazePAM (*CRX) 0.5 MG TABLET 1 MG PO ×3 (10:00→17:15)
[2022-07-25] MEDS: GABAPENTIN 300 MG CAPSULE PO ×3 (10:00→17:15)
[2022-07-25] MEDS: guaiFENesin 12 HR 600 MG TABCR PO ×2 (10:01→21:27)
[2022-07-25] MEDS: QUEtiapine FUMARATE 25 MG TABLET PO ×2 (10:01→21:27)
[2022-07-25] MEDS: SIMETHICONE 125 MG CHEW TAB PO ×4 (10:01→21:27)
[2022-07-25] MEDS: PANTOPRAZOLE 40 MG TABLET PO (10:05)
[2022-07-25] MEDS: SALINE 0.65% NAS SOLN 44 ML BTL 1 SPRAY NASAL (10:52)
--- NOTE | 2022-07-25 14:02 | PM.IMPN ---
Progress Note: A&P Assessment and Plan (1) Acute exacerbation of chronic obstructive airways disease: Code(s): J44.1 - Chronic obstructive pulmonary disease with (acute) exacerbation Status: Acute Assessment and Plan: Appreciate pulmonology consultation, concern for bilateral pneumonia, possibly viral? Continue Levaquin to complete a 5 day course Started on Solu-Medrol 60 mg Q 6 hours Follow-up mycoplasma IgM 1 of 2 blood cultures positive for Gram-positive cocci, started on vancomycin, follow-up cultures and sensitivities, suspect contaminant -culture still pending 07/25/2022 interval history: 66-year-old female with long history of smoking presented with shortness of breath is found to have exacerbation of COPD being treated with methylprednisone and bronchodilator, patient is also found to pneumonia and being treated with Levophed, was requiring 5 L of oxygen, her clinical symptoms have improved and now requiring 2-3 L, patient is seen by pulmonology patient clinically symptoms are improving, patient will benefit going to acute rehab, pending placement, insurance authorization, possibly tomorrow, will continue to monitor and further recommendation to follow, 1 bottle of blood culture is growing Staphylococcus epidermidis suspect contamination however patient being treated with levofloxacin on 07/24 patient compeleted 7 days, stopped the medication, and vancomycin. vancomysin was stopped. today patient's white counts are elevated most likely secondary to prednisone as patient is clinically stable will continue to monitor. (2) Hypertension: Code(s): I10 - Essential (primary) hypertension Status: Acute Assessment and Plan: Continue home medications, BP reviewed 07/20 (3) Hyperlipidemia: Code(s): E78.5 - Hyperlipidemia, unspecified Status: Acute Assessment and Plan: Lipid panel looks great (LDL 60/HDL 47/TG 121) (4) Chronic GERD: Code(s): K21.9 - Gastro-esophageal reflux disease without esophagitis Status: Acute Assessment and Plan: cont PPI (5) Hypothyroidism: Code(s): E03.9 - Hypothyroidism, unspecified Status: Acute Assessment and Plan: cont levothyroxine, TSH 0.988 (6) Chronic pain syndrome: Code(s): G89.4 - Chronic pain syndrome Status: Acute Assessment and Plan: cont home meds, home MS contin q8h, hold for sedation (7) Anxiety: Code(s): F41.9 - Anxiety disorder, unspecified Status: Acute Assessment and Plan: cont home clonazepam (8) Tachycardia: Code(s): R00.0 - Tachycardia, unspecified Status: Acute Assessment and Plan: Monitor telemetry, check ECG in the morning Likely due to anxiety and possibly an element of dehydration versus infection? (9) Bloating: Code(s): R14.0 - Abdominal distension (gaseous) Status: Acute Assessment and Plan: Unsure of etiology, could be form of IBS and stress, simethicone ordered, monitor, consider bowel regimen if she doesn't have BM soon Simethicone scheduled, monitor (10) Insomnia: Code(s): G47.00 - Insomnia, unspecified Status: Acute Assessment and Plan: Continue for now, patient doing well with it Plan Of note, patient was one week ago in [place] and just moved here with family, She is quite tearful and obviously grieving, does not appear to be suicidal at this time, but is high risk. Will monitor closely, discussed with nursing staff. She was discharged for less than 48 hours and sent back to the hospital due to worsening shortness of breath and anxiety, thought to have viral pneumonia versus COPD exacerbation. DVT prophylaxis with SCDs GI prophylaxis not indicated Code status full code Subjective Date/time seen: 07/25/22 14:02 07/25/2022 interval history: 66-year-old female with long history of smoking presented with shortness of breat
[2022-07-25] MEDS: rOPINIRole HCL 1 MG TABLET PO (21:27)
[2022-07-25 22:06] LABS: Legionella pneumophila Ag Ur Not Detected (Not Detected)
[2022-07-26] VITALS (14 sets, daily range): BP systolic 104–144; BP diastolic 54–87; PULSE 84–128; RESP 16–20; TEMP 36.3–36.6; O2SAT 94–99
[2022-07-26] MEDS: IPRATROPIUM BR 0.02% INH SOLN 0.5 MG/2.5 ML VIAL INHALATION ×4 (02:13→22:16)
[2022-07-26] MEDS: MORPHINE SULFATE (*CRX) 30 MG TABCR PO ×3 (05:59→21:12)
[2022-07-26] MEDS: LEVOTHYROXINE SODIUM 50 MCG TABLET PO (05:59)
[2022-07-26 06:17] LABS: Basophils Percent Auto 0.1 % (0.2-1.2); Eosinophils Percent Auto 0.1 % (0-4.4); Hematocrit 30.1 % (37.0-47.0); Immature Granulocyte Absolute 0.33 K/mm3 (0.00-0.031); Immature Granulocyte Percent A 1.8 % (0-0.5); Lymphocytes Absolute Auto 1.65 K/mm3 (0.9-3.2); Mean Corpuscular HGB Conc 29.9 g/dl (32-36); Mean Corpuscular Hemoglobin 24.1 pg (26-34); Mean Corpuscular Volume 80.7 fl (80-100); Mean Platelet Volume 9.5 fl (7.4-10.4); Monocytes Percent Auto 5.4 % (2.6-8.5); Neutrophils Absolute Auto 15.3 K/mm3 (1.3-6.7); Neutrophils Percent Auto 83.6 % (45.5-73.1); Platelet Count Result 423 k/mm3 (150-375); Red Blood Count 3.73 M/mm3 (4.2-5.4); Red Cell Distribution Width 16.9 % (11.5-14.5); White Blood Count 18.3 K/mm3 (4.5-10.0)
[2022-07-26 06:32] LABS: Alanine Aminotransferase 73 U/L (6-35); Albumin Level 3.2 g/dL (3.5-5.1); Alkaline Phosphatase 92 U/L (38-126); Anion Gap 3 mmol/L (8-16); Aspartate Amino Transferase 43 U/L (14-36); Bilirubin,Total 0.3 mg/dL (0.2-1.3); Blood Urea Nitrogen 14 mg/dL (7-17); Calcium 7.9 mg/dL (8.4-10.2); Carbon Dioxide 35 mmol/L (22-30); Chloride 96 mmol/L (98-107); Estimated CRCL calculation 61 ml/min; Estimated Glomerular Filt Rate > 60; Glucose 125 mg/dL (65-110); Potassium 3.8 mmol/L (3.4-5.0); Sodium 134 mmol/L (137-145)
[2022-07-26 06:48] LABS: Anisocytosis 1+ (NORMAL); Hypochromasia 1+ (NORMAL); Ovalocytes 1+ (NORMAL); Platelet Estimate Adequate (Adequate); Schistocytes None Seen (NORMAL)
[2022-07-26] MEDS: QUEtiapine FUMARATE 25 MG TABLET PO ×2 (09:09→21:12)
[2022-07-26] MEDS: predniSONE 20 MG TABLET 40 MG PO (09:09)
[2022-07-26] MEDS: GABAPENTIN 300 MG CAPSULE PO ×3 (09:09→16:13)
[2022-07-26] MEDS: guaiFENesin 12 HR 600 MG TABCR PO ×2 (09:09→21:12)
[2022-07-26] MEDS: clonazePAM (*CRX) 0.5 MG TABLET 1 MG PO ×3 (09:09→16:13)
[2022-07-26] MEDS: PANTOPRAZOLE 40 MG TABLET PO (09:09)
[2022-07-26] MEDS: SIMETHICONE 125 MG CHEW TAB PO ×4 (09:09→21:12)
[2022-07-26] MEDS: SALINE 0.65% NAS SOLN 44 ML BTL 1 SPRAY NASAL (09:12)
--- NOTE | 2022-07-26 13:00 | PM.IMPN ---
Progress Note: A&P Assessment and Plan (1) Acute exacerbation of chronic obstructive airways disease: Code(s): J44.1 - Chronic obstructive pulmonary disease with (acute) exacerbation Status: Acute Assessment and Plan: Appreciate pulmonology consultation, concern for bilateral pneumonia, possibly viral? Continue Levaquin to complete a 5 day course Started on Solu-Medrol 60 mg Q 6 hours Follow-up mycoplasma IgM 1 of 2 blood cultures positive for Gram-positive cocci, started on vancomycin, follow-up cultures and sensitivities, suspect contaminant -culture still pending 07/26/2022 interval history: 66-year-old female with long history of smoking presented with shortness of breath is found to have exacerbation of COPD being treated with methylprednisone and bronchodilator, patient is also found to pneumonia and being treated with Levophed, was requiring 5 L of oxygen, her clinical symptoms have improved and now requiring 2-3 L, patient is seen by pulmonology patient clinically symptoms are improving, patient will benefit going to acute rehab, pending placement, insurance authorization, possibly tomorrow, will continue to monitor and further recommendation to follow, 1 bottle of blood culture is growing Staphylococcus epidermidis suspect contamination however patient being treated with levofloxacin on 07/24 patient compeleted 7 days, stopped the medication, and vancomycin. vancomysin was stopped. today patient's white counts are elevated most likely secondary to prednisone as patient is clinically stable will continue to monitor. patient has no new symptoms clinically stable will continue to monitor (2) Hypertension: Code(s): I10 - Essential (primary) hypertension Status: Acute Assessment and Plan: Continue home medications, BP reviewed 07/20 (3) Hyperlipidemia: Code(s): E78.5 - Hyperlipidemia, unspecified Status: Acute Assessment and Plan: Lipid panel looks great (LDL 60/HDL 47/TG 121) (4) Chronic GERD: Code(s): K21.9 - Gastro-esophageal reflux disease without esophagitis Status: Acute Assessment and Plan: cont PPI (5) Hypothyroidism: Code(s): E03.9 - Hypothyroidism, unspecified Status: Acute Assessment and Plan: cont levothyroxine, TSH 0.988 (6) Chronic pain syndrome: Code(s): G89.4 - Chronic pain syndrome Status: Acute Assessment and Plan: cont home meds, home MS contin q8h, hold for sedation (7) Anxiety: Code(s): F41.9 - Anxiety disorder, unspecified Status: Acute Assessment and Plan: cont home clonazepam (8) Tachycardia: Code(s): R00.0 - Tachycardia, unspecified Status: Acute Assessment and Plan: Monitor telemetry, check ECG in the morning Likely due to anxiety and possibly an element of dehydration versus infection? (9) Bloating: Code(s): R14.0 - Abdominal distension (gaseous) Status: Acute Assessment and Plan: Unsure of etiology, could be form of IBS and stress, simethicone ordered, monitor, consider bowel regimen if she doesn't have BM soon Simethicone scheduled, monitor (10) Insomnia: Code(s): G47.00 - Insomnia, unspecified Status: Acute Assessment and Plan: Continue for now, patient doing well with it Plan Of note, patient was one week ago in [place] and just moved here with family, She is quite tearful and obviously grieving, does not appear to be suicidal at this time, but is high risk. Will monitor closely, discussed with nursing staff. She was discharged for less than 48 hours and sent back to the hospital due to worsening shortness of breath and anxiety, thought to have viral pneumonia versus COPD exacerbation. DVT prophylaxis with SCDs GI prophylaxis not indicated Code status full code Subjective Date/time seen: 07/26/22 13:00 07/26/2022 interval history: 66-year
[2022-07-26] MEDS: rOPINIRole HCL 1 MG TABLET PO (21:12)
[2022-07-26] MEDS: DORNASE ALFA INH SOLN 1 MG/ML 2.5 ML AMP 2.5 MG INHALATION (22:16)
[2022-07-27] VITALS (16 sets, daily range): BP systolic 105–138; BP diastolic 51–68; PULSE 104–120; RESP 16–20; TEMP 36.1–36.5; O2SAT 92–97
[2022-07-27] MEDS: IPRATROPIUM BR 0.02% INH SOLN 0.5 MG/2.5 ML VIAL INHALATION ×4 (02:45→20:20)
[2022-07-27] MEDS: MORPHINE SULFATE (*CRX) 30 MG TABCR PO ×3 (06:13→21:06)
[2022-07-27] MEDS: LEVOTHYROXINE SODIUM 50 MCG TABLET PO (06:14)
[2022-07-27] MEDS: guaiFENesin 12 HR 600 MG TABCR PO ×2 (08:30→21:07)
[2022-07-27] MEDS: predniSONE 20 MG TABLET 40 MG PO (08:30)
[2022-07-27] MEDS: GABAPENTIN 300 MG CAPSULE PO ×3 (08:31→16:35)
[2022-07-27] MEDS: QUEtiapine FUMARATE 25 MG TABLET PO ×2 (08:31→21:07)
[2022-07-27] MEDS: SIMETHICONE 125 MG CHEW TAB PO ×4 (08:31→21:07)
[2022-07-27] MEDS: PANTOPRAZOLE 40 MG TABLET PO (08:32)
[2022-07-27] MEDS: lisinopriL 5 MG TABLET PO (08:32)
[2022-07-27] MEDS: clonazePAM (*CRX) 0.5 MG TABLET 1 MG PO ×3 (08:35→16:35)
--- NOTE | 2022-07-27 09:26 | PCRCNOTE ---
PER HOME O2 EVALUATION COMPLETED ON 07/22/22 PT. O2 NEEDS ARE AT HER HOME BASELINE. PT. IS PENDING SNF DISCHARGE WELL. NO CHANGED NEEDED AT THIS TIME. DR. STEFANIA OWENS.
[2022-07-27] MEDS: DORNASE ALFA INH SOLN 1 MG/ML 2.5 ML AMP 2.5 MG INHALATION ×2 (09:30→20:20)
--- NOTE | 2022-07-27 11:24 | PCNFU ---
Nutrition Follow-Up Complete: Severe malnutrition related to inadequate protein and energy intake as evidenced by intake of less than 75% of estimated needs over a month, -18% wt loss in 1 month, and subcutaneious fat loss of orbital pads, muscle wasting of temporalis and clavicles. Diet order Goal: PO intake 50% or greater of meals and supplements - Goal is being met. Continue with same goal Pt current nutrition is Regular diet. Ensure Compact TID. Meal intake 25-100% meals and 100% Ensure compact. Nutrition recommendation: Continue with current care plan. Agree with orders. Last recorded weight is 50 kg. +3 lb since admission, 1 week Bowel Motility: +3 BM 07/26/22 Labs Reviewed: Hgb 9.9, Hct 30.1, Alb 3.2, Na 134, Cre 0.6 Meds Noted: Zofran, protonix, prednisone Skin: WNL Additional Notes: Appetite improved. Drinking Ensure. Continue with current care plan and orders. Monitor for diet order, intake, wt, labs. Follow up in 5 days.
--- NOTE | 2022-07-27 13:35 | PM.IMPN ---
Progress Note: A&P Assessment and Plan (1) Acute exacerbation of chronic obstructive airways disease: Code(s): J44.1 - Chronic obstructive pulmonary disease with (acute) exacerbation Status: Acute Assessment and Plan: Appreciate pulmonology consultation, concern for bilateral pneumonia, possibly viral? Continue Levaquin to complete a 5 day course Started on Solu-Medrol 60 mg Q 6 hours Follow-up mycoplasma IgM 1 of 2 blood cultures positive for Gram-positive cocci, started on vancomycin, follow-up cultures and sensitivities, suspect contaminant -culture still pending 07/27/2022 interval history: 66-year-old female with long history of smoking presented with shortness of breath is found to have exacerbation of COPD being treated with methylprednisone and bronchodilator, patient is also found to pneumonia and being treated with Levophed, was requiring 5 L of oxygen, her clinical symptoms have improved and now requiring 2-3 L, patient is seen by pulmonology patient clinically symptoms are improving, patient will benefit going to acute rehab, pending placement, insurance authorization, possibly tomorrow, will continue to monitor and further recommendation to follow, 1 bottle of blood culture is growing Staphylococcus epidermidis suspect contamination however patient being treated with levofloxacin on 07/24 patient compeleted 7 days, stopped the medication, and vancomycin. vancomysin was stopped. today patient's white counts are elevated most likely secondary to prednisone as patient is clinically stable will continue to monitor. will taper prednisone to 30mg qd, patient has no new symptoms clinically stable will continue to monitor (2) Hypertension: Code(s): I10 - Essential (primary) hypertension Status: Acute Assessment and Plan: Continue home medications, BP reviewed 07/20 (3) Hyperlipidemia: Code(s): E78.5 - Hyperlipidemia, unspecified Status: Acute Assessment and Plan: Lipid panel looks great (LDL 60/HDL 47/TG 121) (4) Chronic GERD: Code(s): K21.9 - Gastro-esophageal reflux disease without esophagitis Status: Acute Assessment and Plan: cont PPI (5) Hypothyroidism: Code(s): E03.9 - Hypothyroidism, unspecified Status: Acute Assessment and Plan: cont levothyroxine, TSH 0.988 (6) Chronic pain syndrome: Code(s): G89.4 - Chronic pain syndrome Status: Acute Assessment and Plan: cont home meds, home MS contin q8h, hold for sedation (7) Anxiety: Code(s): F41.9 - Anxiety disorder, unspecified Status: Acute Assessment and Plan: cont home clonazepam (8) Tachycardia: Code(s): R00.0 - Tachycardia, unspecified Status: Acute Assessment and Plan: Monitor telemetry, check ECG in the morning Likely due to anxiety and possibly an element of dehydration versus infection? (9) Bloating: Code(s): R14.0 - Abdominal distension (gaseous) Status: Acute Assessment and Plan: Unsure of etiology, could be form of IBS and stress, simethicone ordered, monitor, consider bowel regimen if she doesn't have BM soon Simethicone scheduled, monitor (10) Insomnia: Code(s): G47.00 - Insomnia, unspecified Status: Acute Assessment and Plan: Continue for now, patient doing well with it Plan Of note, patient was one week ago in [place] and just moved here with family, She is quite tearful and obviously grieving, does not appear to be suicidal at this time, but is high risk. Will monitor closely, discussed with nursing staff. She was discharged for less than 48 hours and sent back to the hospital due to worsening shortness of breath and anxiety, thought to have viral pneumonia versus COPD exacerbation. DVT prophylaxis with SCDs GI prophylaxis not indicated Code status full code Subjective Date/time seen: 07/27/22 13:35 03
[2022-07-27] MEDS: rOPINIRole HCL 1 MG TABLET PO (21:07)
[2022-07-28] MEDS: ACETAMINOPHEN 325 MG TABLET 650 MG PO (03:59)
[2022-07-28] MEDS: LEVOTHYROXINE SODIUM 50 MCG TABLET PO (05:32)
[2022-07-28] MEDS: MORPHINE SULFATE (*CRX) 30 MG TABCR PO (05:32)
[2022-07-28 06:00] VITALS: BP 125/71; PULSE 98; RESP 18; TEMP 36.8; O2SAT 97
--- NOTE | 2022-07-28 08:25 | PM.DS ---
DS: Admitting Diagnosis Discharge Date 07/28/2022 Admitting Diagnosis Cough shortness of breath DS: Discharge Diagnosis Discharge Diagnosis (1) Acute exacerbation of chronic obstructive pulmonary disease: Code(s): J44.1 - Chronic obstructive pulmonary disease with (acute) exacerbation Status: Acute (2) Acute exacerbation of chronic obstructive airways disease: Code(s): J44.1 - Chronic obstructive pulmonary disease with (acute) exacerbation Status: Acute Assessment and Plan: Appreciate pulmonology consultation, concern for bilateral pneumonia, possibly viral? Continue Levaquin to complete a 5 day course Started on Solu-Medrol 60 mg Q 6 hours Follow-up mycoplasma IgM 1 of 2 blood cultures positive for Gram-positive cocci, started on vancomycin, follow-up cultures and sensitivities, suspect contaminant -culture still pending 07/27/2022 interval history: 66-year-old female with long history of smoking presented with shortness of breath is found to have exacerbation of COPD being treated with methylprednisone and bronchodilator, patient is also found to pneumonia and being treated with Levophed, was requiring 5 L of oxygen, her clinical symptoms have improved and now requiring 2-3 L, patient is seen by pulmonology patient clinically symptoms are improving, patient will benefit going to acute rehab, pending placement, insurance authorization, possibly tomorrow, will continue to monitor and further recommendation to follow, 1 bottle of blood culture is growing Staphylococcus epidermidis suspect contamination however patient being treated with levofloxacin on 07/24 patient compeleted 7 days, stopped the medication, and vancomycin. vancomysin was stopped. today patient's white counts are elevated most likely secondary to prednisone as patient is clinically stable will continue to monitor. will taper prednisone to 30mg qd, patient has no new symptoms clinically stable will continue to monitor (3) Hypertension: Code(s): I10 - Essential (primary) hypertension Status: Acute Assessment and Plan: Continue home medications, BP reviewed 07/20 (4) Hyperlipidemia: Code(s): E78.5 - Hyperlipidemia, unspecified Status: Acute Assessment and Plan: Lipid panel looks great (LDL 60/HDL 47/TG 121) (5) Chronic GERD: Code(s): K21.9 - Gastro-esophageal reflux disease without esophagitis Status: Acute Assessment and Plan: cont PPI (6) Hypothyroidism: Code(s): E03.9 - Hypothyroidism, unspecified Status: Acute Assessment and Plan: cont levothyroxine, TSH 0.988 (7) Chronic pain syndrome: Code(s): G89.4 - Chronic pain syndrome Status: Acute Assessment and Plan: cont home meds, home MS contin q8h, hold for sedation (8) Anxiety: Code(s): F41.9 - Anxiety disorder, unspecified Status: Acute Assessment and Plan: cont home clonazepam (9) Tachycardia: Code(s): R00.0 - Tachycardia, unspecified Status: Acute Assessment and Plan: Monitor telemetry, check ECG in the morning Likely due to anxiety and possibly an element of dehydration versus infection? (10) Bloating: Code(s): R14.0 - Abdominal distension (gaseous) Status: Acute Assessment and Plan: Unsure of etiology, could be form of IBS and stress, simethicone ordered, monitor, consider bowel regimen if she doesn't have BM soon Simethicone scheduled, monitor (11) Insomnia: Code(s): G47.00 - Insomnia, unspecified Status: Acute Assessment and Plan: Continue for now, patient doing well with it Plan Of note, patient was one week ago in [place] and just moved here with family, She is quite tearful and obviously grieving, does not appear to be suicidal at this time, but is high risk. Will monitor closely, discussed with nursing staff. She was discharged for less than
[2022-07-28] MEDS: clonazePAM (*CRX) 0.5 MG TABLET 1 MG PO (08:26)
[2022-07-28] MEDS: lisinopriL 5 MG TABLET PO (08:26)
[2022-07-28] MEDS: SIMETHICONE 125 MG CHEW TAB PO (08:26)
[2022-07-28] MEDS: QUEtiapine FUMARATE 25 MG TABLET PO (08:27)
[2022-07-28] MEDS: PANTOPRAZOLE 40 MG TABLET PO (08:27)
[2022-07-28] MEDS: GABAPENTIN 300 MG CAPSULE PO (08:27)
[2022-07-28] MEDS: guaiFENesin 12 HR 600 MG TABCR PO (08:27)
[2022-07-28] MEDS: predniSONE 20 MG, predniSONE 10 MG 30 MG PO (08:29)
[2022-07-28 08:46] VITALS: PULSE 109; RESP 18
[2022-07-28] MEDS: DORNASE ALFA INH SOLN 1 MG/ML 2.5 ML AMP 2.5 MG INHALATION (08:46)
[2022-07-28] MEDS: IPRATROPIUM BR 0.02% INH SOLN 0.5 MG/2.5 ML VIAL INHALATION (08:46)
[2022-07-28 08:48] VITALS: PULSE 109; RESP 18; O2SAT 96
[2022-07-28 08:59] VITALS: PULSE 117; RESP 18
[2022-07-28 09:03] LABS: EDCOVIDSCREEN Negative (Negative)
== END 2022-07-28 10:15 | DRG 190 ==
LOC: ANHED 15:55 → ANHIMU 17:49 → ANH3MEDSUR 07-20 18:41
PROVIDERS: Internal Medicine; Internal Medicine Pulmonary Disease; Physician Assistant; Admitting Provider Student in an Organized Health Care Education/Training Program; Emergency Provider Physician Assistant; Visit Provider Family Medicine
DX: J44.1 Chronic obstructive pulmonary disease with (acute) exacerbation (principal); J18.9 Pneumonia, unspecified organism; J96.21 Acute and chronic respiratory failure with hypoxia; E78.5 Hyperlipidemia, unspecified; K21.9 Gastro-esophageal reflux disease without esophagitis; E03.9 Hypothyroidism, unspecified; J44.0 Chronic obstructive pulmonary disease with (acute) lower respiratory infection; G89.4 Chronic pain syndrome; F41.9 Anxiety disorder, unspecified; R14.0 Abdominal distension (gaseous); G47.00 Insomnia, unspecified; Z99.81 Dependence on supplemental oxygen; F20.9 Schizophrenia, unspecified; F17.290 Nicotine dependence, other tobacco product, uncomplicated; Z20.822 Contact with and (suspected) exposure to COVID-19; Z79.899 Other long term (current) drug therapy
CPT/HCPCS: 36415; 36600; 71045; 71120; 71275; 80048; 80053; 80202; 82375; 82607; 82746; 82805; 82948; 83050; 83605; 83735; 83880; 84132; 84443; 84484; 85025; 85027; 85380; 85610; 85730; 86140; 86738; 87040; 87070; 87077; 87081; 87186; 87205; 87426; 87449; 87486; 87581; 87633; 87636; 87899; 93005; 93306; 94002; 94618; 94640; 94667; 94668; 94762; 96365; 96366; 96367; 96368; 96375; 97110; 97161; 97165; 97530; 97535; 99285; A9270; C9803; J0131; J0456; J0696; J1200; J1956; J2405; J2543; J2930; J3370; J3475; J3480; J7040; J7512; Q9967; U0003

== ENCOUNTER 2022-07-29 15:33 | Inpatient (IN) | payer MEDICARE, MEDICAID, SELFPAY ==
[2022-07-29] VITALS (17 sets, daily range): BP systolic 121–164; BP diastolic 69–112; PULSE 79–130; RESP 8–22; TEMP 36.8–37.6; O2SAT 97–99; BMI 18.0
--- NOTE | ~2022-07-29 | XR_ITS ---
EXAMINATION: XR chest 1V Exam Date/Time: 07/29/2022 17:19 CARPET WEAVER HISTORY: tachypnea Comparison: CTPA 07/19/2022. RESULT: Lines, tubes, and devices: Cholecystomy clips. An electronic device projects over the left chest. Lungs and pleura: Biapical pleural scarring. Emphysematous and senescent change. Cardiomediastinal silhouette: Stable. Other: No acute osseous or upper abdominal finding. IMPRESSION: No acute cardiopulmonary process. The tree-in-bud pulmonary opacities seen in the concurrent CT abdom en and pelvis are not well seen radiographically. Reviewed, dictated and finalized at location K. ET WEAVER IMPRESSION: No acute cardiopulmonary process. The tree-in-bud pulmonary opacities seen in t he concurrent CT abdomen and pelvis are not well seen radiographically.
--- NOTE | ~2022-07-29 | CT_ITS ---
EXAMINATION: CT chest high resolution wo co DATE: 07/30/2022 18:41 INDICATION: abnormal cxr TECHNIQUE: Computed tomography (CT) of the chest was performed without intravenous contrast. Addition al 3D reconstructions utilizing coronal maximum intensity projection (MIP) were performed. Automated exposure control and iterative reconstruction technique were employed. The dose-length product was 14 0.40 mGy-cm. COMPARISON: Chest CT dated 07/19/2022 FINDINGS: Severe emphysema. There is been significant interval improvement in the prior extensive bilateral lee e-in-bud opacities with small amount of residual tree-in-bud opacity in the dependent lower lobes and minimally in the right middle lobe. Also improved are couple small peripheral region of consolidatio n, one in the superior segment of the right lower lobe and 2 others in the posterior basilar right an d left lower lobes. No pulmonary edema or pleural effusion. Heart size is normal. Atherosclerotic cor onary artery calcific lesion. No pericardial effusion. Thoracic aorta is normal in caliber. No pathol ogically enlarged thoracic lymphadenopathy. Cholecystectomy clips at the gallbladder fossa. Mild lowe r thoracic levocurvature. Mild thoracic spondylosis. IMPRESSION: 1. Severe emphysema with significant interval decrease in bilateral tree-in-bud and small patchy airs pace opacities consistent with improving pneumonia. Reviewed, dictated and finalized at location A. R PROCESSING SPECIALIST IMPRESSION: 1. Severe emphysema with significant interval decrease in bilateral tree-in-bud and small patchy airspace opacities consistent with improving pneumonia.
--- NOTE | ~2022-07-29 | US_ITS ---
EXAMINATION: US abdomen limited DATE: 07/30/2022 19:32 INDICATION: Elevated liver function tests TECHNIQUE: Multiple grayscale and Doppler ultrasound images of the abdomen were obtained. COMPARISON: CT abdomen pelvis dated 07/29/2022 FINDINGS: The pancreatic head and body are normal in appearance. The pancreatic tail is not visualized. The vi sualized proximal to mid inferior vena cava is normal. Liver has normal echogenicity and contour, wit h a smooth surface. No liver lesion identified. There is diffuse mild intrahepatic biliary ductal dil ation which along with mild dilation the common bile duct which measures up to 8 mm may relate to rep orted prior cholecystectomy with no gallbladder visualized. The common bile duct tapers distally to 3 mm at the head of the pancreas with no evident obstructing stone or mass. Portal venous flow was see n in the hepatopetal, normal direction and has normal Doppler waveform. Visualized right kidney measu res at least 10.4 cm in length with normal contour and echogenicity and no hydronephrosis. IMPRESSION: 1. Mild intra and extra hepatic biliary ductal dilation without evident obstructing stone or mass whi ch may relate to prior cholecystectomy. Reviewed, dictated and finalized at location A. AISAL ANALYST IMPRESSION: 1. Mild intra and extra hepatic biliary ductal dilation without evident obstruc ting stone or mass which may relate to prior cholecystectomy.
--- NOTE | ~2022-07-29 | CT_ITS ---
EXAMINATION: CT abdomen pelvis w con DATE: 07/29/2022 17:17 INDICATION: epigastric pain, nausea TECHNIQUE: Computed tomography (CT) of the abdomen and pelvis was performed with 100 mL Omnipaque-350 intravenous contrast. Automated exposure control and iterative reconstruction technique were employe d. The dose-length product was 271.01 mGy-cm. COMPARISON: None. FINDINGS: Lower thorax: Emphysematous changes. Patchy subsegmental dependent consolidation. Tree-in-bud opaciti es. Coronary artery calcification. Liver: Normal. Biliary/Gallbladder: Gallbladder is absent. Intra and extra hepatic bile duct dilation. Pancreas: No mass or duct dilation. Spleen: Splenic cyst or hemangioma posteriorly. Adrenals:Left adrenal adenoma Kidneys: No mass, stone, or hydronephrosis. GI tract: Moderate distal esophageal and antral wall edema. Mildly dilated small bowel in the right a bdomen, without focal transition point. No large bowel dilation. Appendix not visualized. Mesentery/Peritoneum: No ascites, mass, or free air. Retroperitoneum: No mass. Atherosclerotic abdominal aortic and/or arterial calcifications. Pelvis: Pelvic contents partially obscured by metal artifact. Marked urinary bladder distention witho ut wall thickening. Normal-appearing uterus. Surgical suture material in the right adnexa. Soft Tissues: Soft tissues and body wall unremarkable. Bones: Incompletely visualized but uncomplicated appearing right hip radiograph plasty with cerclage wire. Mild chronic appearing height loss at L4. IMPRESSION: 1. Pulmonary tree-in-bud opacities as can be seen with atypical infection, ABPA, and airways disease, with bibasilar atelectasis/consolidation. 2. Moderate esophagitis/gastritis. 3. Intra and extra hepatic bile duct dilation, possibly secondary to cholecystectomy, correlate with biliary labs or right upper quadrant symptoms. 4. Multiple dilated small bowel loops, may represent mild ileus, partial or early obstruction not exc luded. 5. Distended urinary bladder, correlate with findings of urinary retention. Reviewed, dictated and finalized at location K. NCIAL MANAGEMENT CONSULTANT IMPRESSION: 1. Pulmonary tree-in-bud opacities as can be seen with atypical infection, ABPA , and airways disease, with bibasilar atelectasis/consolidation. 2. Moderate esophagitis/gastritis. 3. Intra and extra hepatic bile duct dilation, possibly secondary to cholecyste ctomy, correlate with biliary labs or right upper quadrant symptoms. 4. Multiple dilated small bowel loops, may represent mild ileus, partial or ear ly obstruction not excluded. 5. Distended urinary bladder, correlate with findings of urinary retention.
--- NOTE | 2022-07-29 15:47 | ECG_ITS ---
Measurements Intervals [place]akes Rate: 125 P: 79 RI: 112 QRS: 33 QRSD: 74 T: 56 QT: 292 QTc: 421 Interpretive Statements SINUS TACHYCARDIA WITH SHORT RI INTERVAL VENTRICULAR PREMATURE COMPLEXES CANNOT RULE OUT SEPTAL INFARCT, AGE INDETERMINATE PEAKED T WAVES- CONSIDER HYPERKALEMIA BASELINE ARTIFACT- II, III, AVR, AVL, AVF, V1-V2 ABNORMAL ECG COMPARED TO ECG 07/21/2022 10:27:14 PEAKED T WAVES NOW PRESENT Electronically Signed On 07-29-2022 16:21:00 CAPACITY PLANNING ENGINEER by Mitul Galan D.O.
--- NOTE | 2022-07-29 16:15 | PC.NURSE ---
Pt placed in 2 L NC O2 due to increased WOB and stating i cannot breathe. 02 98% on room air.
[2022-07-29 16:25] LABS: Hematocrit 35.9 % (37.0-47.0); Mean Corpuscular HGB Conc 30.6 g/dl (32-36); Mean Corpuscular Hemoglobin 24.6 pg (26-34); Mean Corpuscular Volume 80.1 fl (80-100); Platelet Count Result 754 k/mm3 (150-375); Red Blood Count 4.48 M/mm3 (4.2-5.4); Red Cell Distribution Width 18.5 % (11.5-14.5); White Blood Count 26.2 K/mm3 (4.5-10.0)
[2022-07-29 16:38] LABS: Alanine Aminotransferase 80 U/L (6-35); Alkaline Phosphatase 91 U/L (38-126); Anion Gap 7 mmol/L (8-16); Aspartate Amino Transferase 51 U/L (14-36); Bilirubin,Total 0.4 mg/dL (0.2-1.3); Blood Urea Nitrogen 20 mg/dL (7-17); Carbon Dioxide 29 mmol/L (22-30); Chloride 105 mmol/L (98-107); Estimated CRCL calculation 51 ml/min; Estimated Glomerular Filt Rate > 60; Glucose 166 mg/dL (65-110); Lipase 98 U/L (23-300); Potassium 4.3 mmol/L (3.4-5.0); Sodium 141 mmol/L (137-145)
--- NOTE | 2022-07-29 16:52 | ED.ABDPAIN ---
HPI - Abdominal Pain General Chief Complaint: Abdominal Pain Stated Complaint: medication refill from SNF Time Seen by Provider: 07/29/22 16:17 History of Present Illness HPI narrative: Patient is a 66-year-old female with a history of COPD on 3L O2, schizophrenia, hypertension, GERD presenting with abdominal pain. Patient is coming from nursing facility after being discharged yesterday. She had been admitted for pneumonia and went to a SNF on oxygen. Patient today developed abdominal pain so she was brought back in for evaluation. She states that they have not been giving her her abdominal pain medicine which is why her stomach hurts. She is ANO x3 but gives a somewhat confusing history. She denies headache, chest pain, lightheadedness, shortness of breath, vomiting, diarrhea, dysuria. States that she had a bowel movement earlier today that was normal. Related Data Home Medications Medication Instructions Recorded Confirmed gabapentin 300 mg tablet 300 mg PO TID 07/15/22 07/29/22 glycopyrrolate 9 mcg-formoterol 2 puff inhalation Q12H 07/15/22 07/30/22 4.8 mcg HFA aerosol inhaler (Bevespi Aerosphere) levothyroxine 50 mcg capsule 50 mcg PO DAILY 07/15/22 07/29/22 lisinopril 5 mg tablet 5 mg PO DAILY 07/15/22 07/29/22 omeprazole 40 mg capsule,delayed 40 mg PO DAILY 07/15/22 07/29/22 release quetiapine 25 mg tablet (Seroquel) 25 mg PO Q12H 07/19/22 07/29/22 Allergies Allergy/AdvReac Type Severity Reaction Status Date / Time No Known Allergies Allergy Verified 07/29/22 16:17 Review of Systems Review of Systems: All systems reviewed & are unremarkable except as noted in HPI and below PMFSH Past Medical History Medical History Anxiety Chronic anemia Chronic GERD Chronic obstructive pulmonary disease Chronic pain syndrome Chronic respiratory failure with hypoxia History of tobacco abuse Hyperlipidemia Hypertension Hypothyroidism Poor vision Schizophrenia Surgical History Surgical History History of cholecystectomy History of total right hip arthroplasty Hx of cholecystectomy Family History Family History Mother Cancer Father Aneurysm Social History Social History Social History: Surrogate medical decision maker: Melanie Baker, daughter. Code status: Full code. Smoking packs per day: 1 Smoking cigarettes per day: 20.0 Years smoked: 45 Smoking pack-years: 45.00 Smoking status: Former smoker Tobacco type: cigarettes Additional smoking assessment comments: Alcohol intake: never Substance use: never Other substance usage details: Patient has active morphine prescription per my review of her medications. Lack of Transportation: No Lack of Food: Sometimes True Current Housing: I Have Housing Concerned About Future Housing: No Difficulty Paying Gas/Electric Bills: No Difficulty Paying for Meds: No Currently Unemployed: No Education: Grade School Difficulty w/ Childcare or Family Care: No Additional living arrangements comments: as of June 2022. Moved to the area from to live with her son. She has 2 children. 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 Spiritual care concerns: No Exam Narrative: GENERAL: Appears chronically ill, no acute distress HEAD: Normocephalic, atraumatic. EYES: PERRLA and EOMI. ENT: Nares clear, no rhinorrhea or epistaxis. Mucous membranes dry NECK: Supple. CHEST: Diminished breath sounds bilaterally, on 3 L nasal cannula HEART: Regular rate and rhythm ABDOMEN: Soft, epigastric and right upper quadrant tenderness, no guarding or rebound EXTREMITIES: Normal range of motion. No edema. SKIN: Warm, dry, no rash. NEURO: No focal deficits. Alert and oriented x3.
[2022-07-29 16:56] LABS: Lymphocytes Absolute Manual 1.04 K/mm3 (1.1-4.5); Neutrophils Percent Manual 96 % (46-73); Total Cells Counted 100
[2022-07-29 16:57] LABS: Platelet Estimate Increased (Adequate); Schistocytes None Seen (NORMAL)
[2022-07-29 16:58] LABS: Anisocytosis 2+ (NORMAL); Hypochromasia 1+ (NORMAL)
[2022-07-29] MEDS: SODIUM CHLORIDE 0.9% IV 1,000 ML 999 ML IV CONT (17:16)
[2022-07-29] MEDS: ONDANSETRON INJ 4 MG/2 ML VIAL IV PUSH (17:17)
[2022-07-29 17:28] LABS: Appearance Urine Clear (Clear); Bilirubin Urine Negative (Negative); Blood Urine Negative (Negative); Color Urine Yellow (Yellow); Glucose Urine UA Negative (Negative); Ketones Urine Negative (Negative); Leukocyte Esterase Ur Negative LEU/UL (Negative); Nitrate Urine Negative (Negative); Protein Urine Negative (Negative); Specific Grav Ur 1.011 (1.001-1.035); Urobilinogen Urine 0.2 mg/dL (<2.0); pH Urine 7.5 (5.0-9.0)
[2022-07-29 17:35] LABS: Add Urine Microscopic? NO
[2022-07-29 17:38] LABS: INR 1.1; Lactic Acid Reflex 1.9 mmol/L (0.7-2.0); Prothrombin Time 13.7 Seconds (11.1-14.7)
--- NOTE | 2022-07-29 19:53 | PM.IMHP ---
H&P: HPI History of Present Illness Date/Time: 07/29/22 19:53 Chief Complaint: Shortness of breath Narrative: This is a 66-year-old female with past medical history significant for COPD/emphysema, hypertension, hypothyroidism, GERD, chronic respiratory failure with hypoxia, former tobacco user, 45 pack year, schizophrenia, chronic pain syndrome. Patient just recently discharged from [facility] patient had been treated for bilateral pneumonia however she returns today due to worsening shortness of breath with cough and sputum production of copious secretion. Patient also complains of abdominal distention and pain localized in the epigastric area with radiation to the flanks, patient denies any nausea, vomiting, no diarrhea, or loose stools. Preliminary workup was significant for CBC showed a leukocyte count of 26,000 a chest x-ray was reported as: IMPRESSION: No acute cardiopulmonary process. The tree-in-bud pulmonary opacities seen in the concurrent CT abdomen and pelvis are not well seen radiographically. CT of abdomen and pelvis was reported as: IMPRESSION: 1. Pulmonary tree-in-bud opacities as can be seen with atypical infection, ABPA, and airways disease, with bibasilar atelectasis/consolidation. 2. Moderate esophagitis/gastritis. 3. Intra and extra hepatic bile duct dilation, possibly secondary to cholecystectomy, correlate with biliary labs or right upper quadrant symptoms. 4. Multiple dilated small bowel loops, may represent mild ileus, partial or early obstruction not excluded. 5. Distended urinary bladder, correlate with findings of urinary retention. Patient is currently requiring 2 L of supplemental oxygen by nasal cannula and saturating 97% Patient has been admitted for further evaluation management and treatment. Review of Systems Review of Systems: Shortness of breath, cough productive of copious amount of secretions however can not describe secretions states that they are dark in color, abdominal pain in the epigastric area with radiation bilaterally to quadrant Constitutional: Constitutional: Denies chills, Reports fatigue, Denies fever(s), Reports lethargy, Reports malaise, Reports poor appetite and Reports weakness Eyes: Eyes: Denies change in vision ENT: Denies dysphagia and Denies odynophagia Cardiovascular: Cardiovascular: Denies chest pain, Denies leg edema and Denies palpitations Respiratory: Respiratory: Reports change in phlegm color, Reports chest congestion, Reports cough, Reports excessive phlegm production, Reports dyspnea and Reports wheezing Gastrointestinal: Gastrointestinal: Reports abdominal pain, Reports bloating, Denies dyspepsia, Denies heartburn, Denies diarrhea, Denies loose stools, Denies nausea and Denies vomiting Genitourinary: Genitourinary: Denies dysuria Musculoskeletal: Musculoskeletal: Denies arthralgias, Denies joint swelling and Denies muscle weakness Integumentary/Breasts: Skin/Breast: Denies rash Neurologic: Denies focal weakness and Denies Sensory deficit (Neuro) Psychiatric: Psychiatric: Reports no additional psychiatric complaints and Reports as per HPI Endocrine: Endocrine: Denies cold intolerance, Denies flushing, Denies heat intolerance, Denies polyphagia, Denies polydipsia and Denies palpitations Hematologic/Lymphatic: Hematologic/Lymphatic: Reports no additional hematologic/lymphatic complaints and Reports as per HPI Allergic/Immunologic: Allergic/Immunologic: Reports no additional allergic/immunologic complaints and Reports as per HPI PMFSH Past Medical History Medical History Anxiety Chronic anemia Chronic GERD Chronic obstructive pulmonary disease Chronic pain syndrome Chronic respiratory failure with hypoxia History of tobacco abuse Hyperlipidemia Hypertension Hypothyroidism Poor vision Schizophrenia Surgical History Surgical History (Reviewed 07/29/22 @ 17:03 by Demetrius Carr
[2022-07-29 20:21] LABS: Influenza A QL RT-PCR Negative (Negative); Influenza B QL RT-PCR Negative (Negative); RSV RNA, RT-PCR Negative (Negative); SARS-CoV-2 RNA PCR Negative
--- NOTE | 2022-07-29 22:04 | ADMGEN ---
This patient, Krys Mcclure, was admitted to 3 Med Surg Room 311-01. Patient/family oriented to hospital policies and general routines including ID bracelet, bed and alarms, visiting hours, pain management, procedures, bathroom and other care routines, personal items, smoking policy, room service/diet, and visiting hours. Information on how to activate the Rapid Response Team has been discussed. Patient/Family are encouraged to report perceived risks to care and to ask questions if they do not understand what they are told or what they should do.
[2022-07-30] VITALS (15 sets, daily range): BP systolic 96–109; BP diastolic 49–63; PULSE 60–92; RESP 16–20; TEMP 36.3–36.5; O2SAT 96–100
[2022-07-30] MEDS: MORPHINE SULFATE (*CRX) 30 MG TABCR PO ×4 (00:19→20:58)
[2022-07-30] MEDS: guaiFENesin 12 HR 600 MG TABCR PO ×3 (00:20→20:58)
[2022-07-30] MEDS: QUEtiapine FUMARATE 25 MG TABLET PO ×3 (00:28→20:58)
[2022-07-30] MEDS: HYDROmorphone HCL INJ (*CRX) 1 MG/ML SYR IV PUSH (01:34)
[2022-07-30] MEDS: IPRATROPIUM BR 0.02% INH SOLN 0.5 MG/2.5 ML VIAL INHALATION ×4 (01:59→20:19)
[2022-07-30] MEDS: LORazepam (*CRX) 1 MG TABLET PO (06:05)
[2022-07-30] MEDS: LEVOTHYROXINE SODIUM 50 MCG TABLET PO (06:05)
[2022-07-30 07:24] LABS: Estimated CRCL calculation 58 ml/min; Estimated Glomerular Filt Rate > 60
[2022-07-30] MEDS: predniSONE 10 MG TABLET PO (08:52)
[2022-07-30] MEDS: PANTOPRAZOLE 40 MG TABLET PO ×2 (08:52→20:58)
[2022-07-30] MEDS: lisinopriL 5 MG TABLET PO (08:52)
[2022-07-30] MEDS: SIMETHICONE 125 MG CHEW TAB PO ×4 (08:52→20:58)
[2022-07-30] MEDS: clonazePAM (*CRX) 0.5 MG TABLET 1 MG PO ×3 (08:53→16:05)
[2022-07-30] MEDS: GABAPENTIN 300 MG CAPSULE PO ×3 (09:49→16:05)
--- NOTE | 2022-07-30 18:46 | PM.IMPN ---
Progress Note: A&P Assessment and Plan (1) Bilateral pneumonia: Code(s): J18.9 - Pneumonia, unspecified organism Status: Acute Assessment and Plan: do not suspect bacterial pneumonia, d/c antibiotics, d/c prednisone check chest CT (2) Respiratory failure with hypoxia and hypercapnia: Code(s): J96.91 - Respiratory failure, unspecified with hypoxia; J96.92 - Respiratory failure, unspecified with hypercapnia Status: Acute Assessment and Plan: on baseline O2, 2L at night, 3L during the day/with activity (3) Acute exacerbation of chronic obstructive pulmonary disease: Code(s): J44.1 - Chronic obstructive pulmonary disease with (acute) exacerbation Status: Acute Assessment and Plan: no wheezing, do not suspect exacerbation, d/c prednisone (4) Chronic pain syndrome: Code(s): G89.4 - Chronic pain syndrome Status: Acute Assessment and Plan: Continue home meds Continue to monitor (5) Chronic GERD: Code(s): K21.9 - Gastro-esophageal reflux disease without esophagitis Status: Acute Assessment and Plan: PPI (6) Anxiety: Code(s): F41.9 - Anxiety disorder, unspecified Status: Acute Assessment and Plan: likely contributing to intermittent SOB episodes cont home klonopin delirium/hallucinations from last admissions resolved, will begin to wean seroquel from q12h to qhs (7) Bloating: Code(s): R14.0 - Abdominal distension (gaseous) Status: Acute Assessment and Plan: suspect 2/2 IBS and stress, cont simethicone PVR was <1 Subjective Date/time seen: 07/30/22 18:46 Interval history: No overnight events noted. No chest pain or shortness of breath. No nausea, vomiting or diarrhea. No fevers or chills. Patient complained of some abdominal distension. She admits to long history of bloating when she is under stress or sleep deprived. Review of Systems Review of Systems: 12 point review of systems was assessed and was negative except as noted in the HPI Exam Narrative: General: No acute distress, alert and oriented per baseline HEENT: Atraumatic, normocephalic, mucous membranes moist CV: Regular rate and rhythm, S1, S2 Lungs: Clear to auscultation bilaterally, no rales or crackles noted, no wheezes, good air entry Abdomen: Soft, nontender, mildly distended Extremities: Normal to inspection Skin: No rashes noted, no lesions or wounds seen Psych: Euthymic, normal affect Objective Data Vital Signs Vital Signs: Vital Signs - 24 hr 07/29/22 19:15 07/29/22 19:20 07/29/22 19:30 Temperature Pulse Rate 94 97 79 Respiratory Rate 14 16 8 L Blood Pressure 121/76 Pulse Oximetry Oxygen Delivery Oxygen Flow Rate Fraction of Inspired Oxygen 07/29/22 19:48 07/29/22 20:05 07/29/22 20:22 Temperature Pulse Rate 102 H 97 92 Respiratory Rate 12 8 L 11 L Blood Pressure Pulse Oximetry Oxygen Delivery Oxygen Flow Rate Fraction of Inspired Oxygen 07/29/22 20:30 07/29/22 20:35 07/29/22 20:53 Temperature Pulse Rate 96 101 H 92 Respiratory Rate 15 22 H 16 Blood Pressure 131/89 Pulse Oximetry Oxygen Delivery Oxygen Flow Rate Fraction of Inspired Oxygen 07/29/22 21:00 07/29/22 21:01 07/29/22 21:15 Temperature Pulse Rate 95 97 94 Respiratory Rate 16 14 15 Blood Pressure 141/69 H Pulse Oximetry Oxygen Delivery Oxygen Flow Rate Fraction of Inspired Oxygen 07/29/22 22:06 07/29/22 22:00 07/30/22 01:13 Temperature 98.3 F Pulse Rate 97 Respiratory Rate 17 Blood Pressure 146/84 H Pulse Oximetry 97 99 96 Oxygen Delivery Nasal Cannula Nasal Cannula Oxygen Flow Rate 2 1 Fraction of Inspired Oxygen 07/30/22 01:59 07/30/22 02:15 07/30/22 02:18 Temperature Pulse Rate 89 92 Respiratory Rate 20 20 Blood Pressure Pulse Oximetry 96 Oxygen Delivery
[2022-07-30 19:57] LABS: Basophils Percent Auto 0.1 % (0.2-1.2); Eosinophils Percent Auto 0.2 % (0-4.4); Hematocrit 30.2 % (37.0-47.0); Hemoglobin 9.3 g/dL (12.0-15.0); Immature Granulocyte Absolute 0.08 K/mm3 (0.00-0.031); Immature Granulocyte Percent A 0.6 % (0-0.5); Lymphocytes Absolute Auto 2.57 K/mm3 (0.9-3.2); Lymphocytes Percent Auto 20.7 % (18.3-44.2); Mean Corpuscular HGB Conc 30.8 g/dl (32-36); Mean Corpuscular Hemoglobin 24.5 pg (26-34); Mean Corpuscular Volume 79.5 fl (80-100); Mean Platelet Volume 9.1 fl (7.4-10.4); Monocytes Absolute Auto 0.9 K/mm3 (0.1-0.6); Monocytes Percent Auto 7.2 % (2.6-8.5); Neutrophils Absolute Auto 8.8 K/mm3 (1.3-6.7); Neutrophils Percent Auto 71.2 % (45.5-73.1); Platelet Count Result 476 k/mm3 (150-375); Red Cell Distribution Width 18.6 % (11.5-14.5); White Blood Count 12.4 K/mm3 (4.5-10.0)
[2022-07-30 20:05] LABS: Lactic Acid Reflex 1.6 mmol/L (0.7-2.0)
[2022-07-30 20:27] LABS: Alanine Aminotransferase 52 U/L (6-35); Albumin Level 3.5 g/dL (3.5-5.1); Alkaline Phosphatase 60 U/L (38-126); Anion Gap 4 mmol/L (8-16); Aspartate Amino Transferase 24 U/L (14-36); Bilirubin,Total 0.4 mg/dL (0.2-1.3); Blood Urea Nitrogen 14 mg/dL (7-17); CRP < 0.5 mg/dL (<1.0); Calcium 7.7 mg/dL (8.4-10.2); Carbon Dioxide 32 mmol/L (22-30); Chloride 102 mmol/L (98-107); Estimated CRCL calculation 50 ml/min; Estimated Glomerular Filt Rate > 60; Glucose 104 mg/dL (65-110); Potassium 3.6 mmol/L (3.4-5.0); Sodium 138 mmol/L (137-145)
[2022-07-30 22:01] LABS: Procalcitonin 0.1 ng/mL
[2022-07-31] VITALS (12 sets, daily range): BP systolic 97–126; BP diastolic 68–76; PULSE 60–110; RESP 16–20; TEMP 36.2–37.1; O2SAT 95–100
[2022-07-31] MEDS: IPRATROPIUM BR 0.02% INH SOLN 0.5 MG/2.5 ML VIAL INHALATION ×4 (02:33→20:15)
[2022-07-31] MEDS: MORPHINE SULFATE (*CRX) 30 MG TABCR PO ×3 (05:49→21:07)
[2022-07-31] MEDS: LEVOTHYROXINE SODIUM 50 MCG TABLET PO (05:49)
[2022-07-31 07:12] LABS: Basophils Percent Auto 0.1 % (0.2-1.2); Eosinophils Absolute Auto 0.2 K/mm3 (0-0.3); Eosinophils Percent Auto 1.5 % (0-4.4); Hematocrit 27.8 % (37.0-47.0); Hemoglobin 8.3 g/dL (12.0-15.0); Immature Granulocyte Absolute 0.05 K/mm3 (0.00-0.031); Immature Granulocyte Percent A 0.4 % (0-0.5); Lymphocytes Absolute Auto 3.65 K/mm3 (0.9-3.2); Lymphocytes Percent Auto 32.7 % (18.3-44.2); Mean Corpuscular HGB Conc 29.9 g/dl (32-36); Mean Corpuscular Hemoglobin 23.8 pg (26-34); Mean Corpuscular Volume 79.7 fl (80-100); Mean Platelet Volume 9.2 fl (7.4-10.4); Monocytes Absolute Auto 0.7 K/mm3 (0.1-0.6); Monocytes Percent Auto 6.4 % (2.6-8.5); Neutrophils Absolute Auto 6.6 K/mm3 (1.3-6.7); Neutrophils Percent Auto 58.9 % (45.5-73.1); Platelet Count Result 429 k/mm3 (150-375); Red Blood Count 3.49 M/mm3 (4.2-5.4); Red Cell Distribution Width 18.6 % (11.5-14.5); White Blood Count 11.2 K/mm3 (4.5-10.0)
[2022-07-31 07:19] LABS: Alanine Aminotransferase 44 U/L (6-35); Albumin Level 3.3 g/dL (3.5-5.1); Alkaline Phosphatase 58 U/L (38-126); Anion Gap 3 mmol/L (8-16); Aspartate Amino Transferase 20 U/L (14-36); Bilirubin,Total 0.3 mg/dL (0.2-1.3); Blood Urea Nitrogen 15 mg/dL (7-17); Calcium 7.1 mg/dL (8.4-10.2); Carbon Dioxide 31 mmol/L (22-30); Chloride 100 mmol/L (98-107); Estimated CRCL calculation 40 ml/min; Estimated Glomerular Filt Rate > 60; Glucose 78 mg/dL (65-110); Potassium 2.9 mmol/L (3.4-5.0); Sodium 134 mmol/L (137-145)
[2022-07-31 07:48] LABS: Hypochromasia 1+ (NORMAL)
[2022-07-31 07:49] LABS: Anisocytosis 1+ (NORMAL); Microcytosis 1+ (NORMAL); Schistocytes None Seen (NORMAL)
[2022-07-31] MEDS: clonazePAM (*CRX) 0.5 MG TABLET 1 MG PO ×3 (09:14→17:28)
[2022-07-31] MEDS: GABAPENTIN 300 MG CAPSULE PO ×3 (09:14→17:28)
[2022-07-31] MEDS: SIMETHICONE 125 MG CHEW TAB PO ×4 (09:14→21:07)
[2022-07-31] MEDS: guaiFENesin 12 HR 600 MG TABCR PO ×2 (09:14→21:07)
[2022-07-31] MEDS: lisinopriL 5 MG TABLET PO (09:14)
[2022-07-31] MEDS: PANTOPRAZOLE 40 MG TABLET PO ×2 (09:15→21:07)
--- NOTE | 2022-07-31 10:00 | PM.DS ---
DS: Admitting Diagnosis Discharge Date 07/31/22 Admitting Diagnosis bloating DS: Discharge Diagnosis Discharge Diagnosis (1) Bilateral pneumonia: Code(s): J18.9 - Pneumonia, unspecified organism Status: Acute Assessment and Plan: do not suspect bacterial pneumonia, d/c antibiotics, d/c prednisone check chest CT (2) Respiratory failure with hypoxia and hypercapnia: Code(s): J96.91 - Respiratory failure, unspecified with hypoxia; J96.92 - Respiratory failure, unspecified with hypercapnia Status: Acute Assessment and Plan: on baseline O2, 2L at night, 3L during the day/with activity (3) Acute exacerbation of chronic obstructive pulmonary disease: Code(s): J44.1 - Chronic obstructive pulmonary disease with (acute) exacerbation Status: Acute Assessment and Plan: no wheezing, do not suspect exacerbation, d/c prednisone (4) Chronic pain syndrome: Code(s): G89.4 - Chronic pain syndrome Status: Acute Assessment and Plan: Continue home meds Continue to monitor (5) Chronic GERD: Code(s): K21.9 - Gastro-esophageal reflux disease without esophagitis Status: Acute Assessment and Plan: PPI (6) Anxiety: Code(s): F41.9 - Anxiety disorder, unspecified Status: Acute Assessment and Plan: likely contributing to intermittent SOB episodes cont home klonopin delirium/hallucinations from last admissions resolved, will begin to wean seroquel from q12h to qhs (7) Bloating: Code(s): R14.0 - Abdominal distension (gaseous) Status: Acute Assessment and Plan: suspect 2/2 IBS and stress, cont simethicone PVR was <1 DS: Summary Hospital Course Hospital Course: 66-year-old female with recent admission for bilateral pneumonia and and severe COPD exacerbation is presenting with abdominal bloating and continued shortness of breath. Imaging was improved from prior discharge. Antibiotics were not initiated due to no source of infection noted. Breathing treatments were implied. Home meds were continued. All breathing symptoms were at baseline for the patient. She remained on her home oxygen throughout her stay. No wheezing noted nor productive cough above baseline. She had been incidentally continued on a prednisone taper longer than prescribed, this was discontinued. Abdominal bloating with secondary to IBS and is chronic. She responded quite well to simethicone. She was discharged back to her facility on increased dose of simethicone with all of her symptoms resolved or at baseline. Of note, her Seroquel was decreased from twice daily to q.h.s. per patient request. If hallucinations or delirium recurs, would recommend increasing Seroquel again and seeking Geriatric Psychiatry. Time Spent with Patient Time attestation: Total time spent providing and/or coordinating discharge services: Exam Narrative: General: No acute distress, alert and oriented per baseline HEENT: Atraumatic, normocephalic, mucous membranes moist CV: Regular rate and rhythm, S1, S2 Lungs: Clear to auscultation bilaterally, no rales or crackles noted, no wheezes, good air entry Abdomen: Soft, nontender, mildly distended Extremities: Normal to inspection Skin: No rashes noted, no lesions or wounds seen Psych: Euthymic, normal affect DS: Data Data Completed and Pending Labs on day of discharge: Labs from last 24 hours 07/31/22 07/31/22 07/31/22 06:30 06:30 06:30 WBC 11.2 H RBC 3.49 L Hgb 8.3 L Hct 27.8 L MCV 79.7 L MCH 23.8 L MCHC 29.9 L RDW 18.6 H Plt Count 429 H MPV 9.2 Immature Gran % (Auto) 0.4 Neut % (Auto) 58.9 Lymph % (Auto) 32.7 [place] % (Auto) 6.4 Eos % (Auto) 1.5 Baso % (Auto) 0.1 L Lymph # (Auto) 3.65 H [place] # (Auto) 0.7 H Eos # (Auto) 0.2 Baso # (Auto) 0.0 Abs Immat Gran (auto) 0.05 H Absolute Neuts (auto) 6.6
[2022-07-31 10:56] LABS: Hepatitis B Surface Antigen Negative (Negative)
[2022-07-31 11:02] LABS: HAV RESULT Negative (Negative); Hepatitis B Core IgM Result Negative (Negative)
[2022-07-31 11:13] LABS: Hepatitis C Virus Antibody Negative (Negative)
[2022-07-31] MEDS: QUEtiapine FUMARATE 25 MG TABLET PO (21:07)
[2022-07-31] MEDS: POTASSIUM CHLORIDE 20 MEQ TABLET 40 MEQ PO (22:27)
[2022-07-31] MEDS: POTASSIUM CHLORIDE 20 MEQ TABLET PO (22:27)
[2022-08-01] VITALS (10 sets, daily range): BP systolic 105–132; BP diastolic 52–71; PULSE 88–109; RESP 14–20; TEMP 36.3–36.9; O2SAT 95–98
[2022-08-01] MEDS: IPRATROPIUM BR 0.02% INH SOLN 0.5 MG/2.5 ML VIAL INHALATION ×4 (02:30→20:17)
[2022-08-01 06:20] LABS: Basophils Percent Auto 0.1 % (0.2-1.2); Eosinophils Absolute Auto 0.3 K/mm3 (0-0.3); Eosinophils Percent Auto 3.3 % (0-4.4); Hematocrit 26.8 % (37.0-47.0); Hemoglobin 7.9 g/dL (12.0-15.0); Immature Granulocyte Absolute 0.03 K/mm3 (0.00-0.031); Immature Granulocyte Percent A 0.3 % (0-0.5); Lymphocytes Absolute Auto 2.99 K/mm3 (0.9-3.2); Lymphocytes Percent Auto 34.4 % (18.3-44.2); Mean Corpuscular HGB Conc 29.5 g/dl (32-36); Mean Corpuscular Hemoglobin 24.5 pg (26-34); Mean Platelet Volume 8.9 fl (7.4-10.4); Monocytes Absolute Auto 0.8 K/mm3 (0.1-0.6); Monocytes Percent Auto 8.8 % (2.6-8.5); Neutrophils Absolute Auto 4.6 K/mm3 (1.3-6.7); Neutrophils Percent Auto 53.1 % (45.5-73.1); Platelet Count Result 378 k/mm3 (150-375); Red Blood Count 3.23 M/mm3 (4.2-5.4); Red Cell Distribution Width 18.7 % (11.5-14.5); White Blood Count 8.7 K/mm3 (4.5-10.0)
[2022-08-01 06:32] LABS: Alanine Aminotransferase 33 U/L (6-35); Albumin Level 2.8 g/dL (3.5-5.1); Alkaline Phosphatase 58 U/L (38-126); Anion Gap 3 mmol/L (8-16); Aspartate Amino Transferase 17 U/L (14-36); Bilirubin,Total 0.3 mg/dL (0.2-1.3); Blood Urea Nitrogen 10 mg/dL (7-17); Calcium 6.9 mg/dL (8.4-10.2); Carbon Dioxide 28 mmol/L (22-30); Chloride 109 mmol/L (98-107); Estimated CRCL calculation 50 ml/min; Estimated Glomerular Filt Rate > 60; Glucose 87 mg/dL (65-110); Potassium 3.6 mmol/L (3.4-5.0); Sodium 140 mmol/L (137-145)
[2022-08-01] MEDS: LEVOTHYROXINE SODIUM 50 MCG TABLET PO (06:41)
[2022-08-01] MEDS: MORPHINE SULFATE (*CRX) 30 MG TABCR PO ×3 (06:41→21:00)
[2022-08-01 07:25] LABS: Hypochromasia 1+ (NORMAL); Platelet Estimate Adequate (Adequate); Target Cells 1+ (NORMAL)
[2022-08-01 07:26] LABS: Anisocytosis 1+ (NORMAL); Ovalocytes 1+ (NORMAL); Schistocytes None Seen (NORMAL)
[2022-08-01] MEDS: SIMETHICONE 125 MG CHEW TAB PO ×4 (08:03→20:52)
[2022-08-01] MEDS: clonazePAM (*CRX) 0.5 MG TABLET 1 MG PO ×3 (08:09→17:15)
[2022-08-01] MEDS: lisinopriL 5 MG TABLET PO (08:09)
[2022-08-01] MEDS: GABAPENTIN 300 MG CAPSULE PO ×3 (08:09→17:15)
[2022-08-01] MEDS: guaiFENesin 12 HR 600 MG TABCR PO ×2 (08:09→20:51)
[2022-08-01] MEDS: PANTOPRAZOLE 40 MG TABLET PO ×2 (08:09→20:51)
--- NOTE | 2022-08-01 16:41 | PM.IMPN ---
Progress Note: A&P Assessment and Plan (1) Bilateral pneumonia: Code(s): J18.9 - Pneumonia, unspecified organism Status: Acute Assessment and Plan: do not suspect bacterial pneumonia, d/c antibiotics, d/c prednisone chest Ct showing severe COPD, no acute infectious process (2) Respiratory failure with hypoxia and hypercapnia: Code(s): J96.91 - Respiratory failure, unspecified with hypoxia; J96.92 - Respiratory failure, unspecified with hypercapnia Status: Acute Assessment and Plan: weaned to room air (3) Acute exacerbation of chronic obstructive pulmonary disease: Code(s): J44.1 - Chronic obstructive pulmonary disease with (acute) exacerbation Status: Acute Assessment and Plan: no wheezing, do not suspect exacerbation (4) Chronic pain syndrome: Code(s): G89.4 - Chronic pain syndrome Status: Acute Assessment and Plan: Continue home meds Continue to monitor (5) Chronic GERD: Code(s): K21.9 - Gastro-esophageal reflux disease without esophagitis Status: Acute Assessment and Plan: PPI (6) Anxiety: Code(s): F41.9 - Anxiety disorder, unspecified Status: Acute Assessment and Plan: likely contributing to intermittent SOB episodes cont home klonopin delirium/hallucinations from last admissions resolved, cont seroquel qhs (7) Bloating: Code(s): R14.0 - Abdominal distension (gaseous) Status: Acute Assessment and Plan: suspect 2/2 IBS and stress, cont simethicone PVR was <1 much improved Plan DVT prophylaxis with SCDs GI prophylaxis not indicated Code status full code Subjective Date/time seen: 08/01/22 16:41 Interval history: No overnight events noted. No chest pain or shortness of breath. No nausea, vomiting or diarrhea. No fevers or chills. Patient complained of some abdominal distension. She admits to long history of bloating when she is under stress or sleep deprived. Exam Narrative: General: No acute distress, alert and oriented per baseline HEENT: Atraumatic, normocephalic, mucous membranes moist CV: Regular rate and rhythm, S1, S2 Lungs: Clear to auscultation bilaterally, no rales or crackles noted, no wheezes, good air entry Abdomen: Soft, nontender, mildly distended Extremities: Normal to inspection Skin: No rashes noted, no lesions or wounds seen Psych: Euthymic, normal affect Objective Data Vital Signs Vital Signs: Vital Signs - 24 hr 07/31/22 20:17 07/31/22 20:18 07/31/22 20:27 Temperature Pulse Rate 99 99 92 Respiratory Rate 18 20 18 Blood Pressure Pulse Oximetry 95 Oxygen Delivery Room Air 07/31/22 20:00 07/31/22 22:00 08/01/22 02:32 Temperature 98.1 F Pulse Rate 108 H 94 Respiratory Rate 18 20 Blood Pressure 126/76 Pulse Oximetry 97 Oxygen Delivery Room Air 08/01/22 06:00 08/01/22 07:58 08/01/22 08:01 Temperature 97.8 F Pulse Rate 91 90 Respiratory Rate 16 20 Blood Pressure 105/52 L Pulse Oximetry 98 97 Oxygen Delivery Room Air 08/01/22 08:11 08/01/22 08:00 08/01/22 14:00 Temperature 97.3 F L Pulse Rate 88 109 H Respiratory Rate 20 18 Blood Pressure 132/71 Pulse Oximetry 96 Oxygen Delivery Room Air 08/01/22 14:25 08/01/22 14:38 Temperature Pulse Rate 102 H 98 Respiratory Rate 20 20 Blood Pressure Pulse Oximetry Oxygen Delivery Intake/Output Intake/Output: Intake & Output 07/29/22 07/30/22 07/31/22 08/01/22 23:59 23:59 23:59 23:59 Intake Total 2327 731 9324 960 Output Total 1125 2000 Balance 3338 -885 -578 960 Meds/Results Medications: Active Medications Generic Name Dose Route Start Last Admin Trade Name Hardikq PRN Reason Stop Dose Admin Clonazepam 1 mg 07/30/22 09:00 08/01/22 12:28 Clonazepam (*Crx) 0.5 Mg Tablet PO 1 mg TID THOMAS Administration Gabapentin 300 mg 07/30/22 09:00 08/01/22 12:
[2022-08-01] MEDS: QUEtiapine FUMARATE 25 MG TABLET PO (20:52)
[2022-08-02] VITALS (10 sets, daily range): BP systolic 85–140; BP diastolic 49–69; PULSE 90–106; RESP 14–16; TEMP 36.9–37.1; O2SAT 93–99
[2022-08-02] MEDS: IPRATROPIUM BR 0.02% INH SOLN 0.5 MG/2.5 ML VIAL INHALATION ×3 (01:45→20:42)
--- NOTE | 2022-08-02 03:08 | PC.NURSE ---
Daylight Savings Time For Daylight Savings Time Ending in the Fall - Clocks are moved back. For Daylight Savings Time Beginning in the Spring - Clocks are moved ahead. For [facility], the time of change occurs at 0200 hrs. Time is taken from the tray server. This entry on the patient's chart recognizes the change in time reflected during documentation. Example: 2 entries for vital signs may be charted for 0200 hrs.
[2022-08-02] MEDS: LEVOTHYROXINE SODIUM 50 MCG TABLET PO (06:20)
[2022-08-02] MEDS: MORPHINE SULFATE (*CRX) 30 MG TABCR PO ×3 (06:20→20:42)
[2022-08-02 06:55] LABS: Basophils Percent Auto 0.2 % (0.2-1.2); Eosinophils Absolute Auto 0.4 K/mm3 (0-0.3); Eosinophils Percent Auto 4.5 % (0-4.4); Hematocrit 28.1 % (37.0-47.0); Hemoglobin 7.9 g/dL (12.0-15.0); Immature Granulocyte Absolute 0.04 K/mm3 (0.00-0.031); Immature Granulocyte Percent A 0.5 % (0-0.5); Lymphocytes Absolute Auto 2.49 K/mm3 (0.9-3.2); Lymphocytes Percent Auto 28.5 % (18.3-44.2); Mean Corpuscular HGB Conc 28.1 g/dl (32-36); Mean Corpuscular Hemoglobin 24.7 pg (26-34); Mean Corpuscular Volume 87.8 fl (80-100); Mean Platelet Volume 9.1 fl (7.4-10.4); Monocytes Absolute Auto 0.8 K/mm3 (0.1-0.6); Neutrophils Percent Auto 57.3 % (45.5-73.1); Platelet Count Result 348 k/mm3 (150-375); Red Cell Distribution Width 19.3 % (11.5-14.5); White Blood Count 8.8 K/mm3 (4.5-10.0)
[2022-08-02 07:03] LABS: Alanine Aminotransferase 28 U/L (6-35); Albumin Level 2.9 g/dL (3.5-5.1); Alkaline Phosphatase 54 U/L (38-126); Anion Gap 3 mmol/L (8-16); Aspartate Amino Transferase 17 U/L (14-36); Bilirubin,Total 0.5 mg/dL (0.2-1.3); Blood Urea Nitrogen 9 mg/dL (7-17); Calcium 7.7 mg/dL (8.4-10.2); Carbon Dioxide 24 mmol/L (22-30); Chloride 105 mmol/L (98-107); Estimated CRCL calculation 58 ml/min; Estimated Glomerular Filt Rate > 60; Glucose 88 mg/dL (65-110); Potassium 3.9 mmol/L (3.4-5.0); Sodium 132 mmol/L (137-145)
[2022-08-02 07:44] LABS: Anisocytosis 1+ (NORMAL); Platelet Estimate Adequate (Adequate); Poikilocytosis 1+ (NORMAL)
[2022-08-02 07:45] LABS: Ovalocytes 1+ (NORMAL)
[2022-08-02 07:47] LABS: Schistocytes Rare (NORMAL)
[2022-08-02] MEDS: clonazePAM (*CRX) 0.5 MG TABLET 1 MG PO ×3 (09:08→16:50)
[2022-08-02] MEDS: GABAPENTIN 300 MG CAPSULE PO ×3 (09:08→16:50)
[2022-08-02] MEDS: guaiFENesin 12 HR 600 MG TABCR PO ×2 (09:08→20:42)
[2022-08-02] MEDS: PANTOPRAZOLE 40 MG TABLET PO ×2 (09:09→20:42)
[2022-08-02] MEDS: lisinopriL 5 MG TABLET PO (09:09)
[2022-08-02] MEDS: SIMETHICONE 125 MG CHEW TAB PO ×4 (09:09→20:41)
--- NOTE | 2022-08-02 13:20 | PM.IMPN ---
Progress Note: A&P Assessment and Plan (1) Respiratory failure with hypoxia and hypercapnia: Code(s): J96.91 - Respiratory failure, unspecified with hypoxia; J96.92 - Respiratory failure, unspecified with hypercapnia Status: Acute Assessment and Plan: resolved, stable on room air check home o2 eval (2) Acute exacerbation of chronic obstructive pulmonary disease: Code(s): J44.1 - Chronic obstructive pulmonary disease with (acute) exacerbation Status: Acute Assessment and Plan: Starting to wheeze a bit, increase albuterol treatments and consider small burst of steroids again (3) Chronic pain syndrome: Code(s): G89.4 - Chronic pain syndrome Status: Acute Assessment and Plan: Continue home meds Continue to monitor (4) Chronic GERD: Code(s): K21.9 - Gastro-esophageal reflux disease without esophagitis Status: Acute Assessment and Plan: PPI (5) Anxiety: Code(s): F41.9 - Anxiety disorder, unspecified Status: Acute Assessment and Plan: likely contributing to intermittent SOB episodes cont home klonopin delirium/hallucinations from last admissions resolved, cont seroquel qhs (6) Bloating: Code(s): R14.0 - Abdominal distension (gaseous) Status: Acute Assessment and Plan: suspect 2/2 IBS and stress, cont simethicone PVR was <1 much improved Plan DVT prophylaxis with SCDs GI prophylaxis not indicated Code status full code Subjective Date/time seen: 08/02/22 13:20 Interval history: No overnight events noted. No chest pain. No nausea, vomiting or diarrhea. No fevers or chills. Patient states she has been wheezing a bit today and getting her breathing treatments less often. Somewhat short of breath. Review of Systems Review of Systems: 12 point review of systems was assessed and was negative except as noted in the HPI Exam Narrative: General: No acute distress, alert and oriented per baseline HEENT: Atraumatic, normocephalic, mucous membranes moist CV: Regular rate and rhythm, S1, S2 Lungs: Clear to auscultation bilaterally, scattered expiratory wheezes noted Abdomen: Soft, nontender, mildly distended Extremities: Normal to inspection Skin: No rashes noted, no lesions or wounds seen Psych: Euthymic, normal affect Objective Data Vital Signs Vital Signs: Vital Signs - 24 hr 08/01/22 14:00 08/01/22 14:25 08/01/22 14:38 Temperature 97.3 F L Pulse Rate 109 H 102 H 98 Respiratory Rate 18 20 20 Blood Pressure 132/71 Pulse Oximetry 96 Oxygen Delivery 08/01/22 22:00 08/02/22 01:45 08/01/22 20:17 Temperature 98.4 F Pulse Rate 106 H 94 89 Respiratory Rate 14 16 16 Blood Pressure 119/59 L Pulse Oximetry 95 Oxygen Delivery 08/02/22 05:37 08/02/22 09:08 08/02/22 09:10 Temperature 98.5 F Pulse Rate 98 106 H Respiratory Rate 14 16 Blood Pressure 85/49 L 140/69 Pulse Oximetry 93 98 Oxygen Delivery Room Air Intake/Output Intake/Output: Intake & Output 07/30/22 07/31/22 08/01/22 08/03/22 23:59 23:59 23:59 00:59 Intake Total 240 1422 2070 1230 Output Total 1125 5059 [place] -149 -878 2070 1230 Meds/Results Medications: Active Medications Generic Name Dose Route Start Last Admin Trade Name Hardikq PRN Reason Stop Dose Admin Clonazepam 1 mg 07/30/22 09:00 08/02/22 12:35 Clonazepam (*Crx) 0.5 Mg Tablet PO 1 mg TID THOMAS Administration Gabapentin 300 mg 07/30/22 09:00 08/02/22 12:35 Gabapentin 300 Mg Capsule PO 08/29/22 08:59 300 mg TID THOMAS Administration Guaifenesin 600 mg 07/29/22 21:00 08/02/22 09:08 Guaifenesin 12 Hr 600 Mg Tabcr PO 600 mg Q12HR THOMAS Administration Ipratropium [place] 0.5 mg 07/30/22 02:00 08/02/22 01:45 Ipratropium Br 0.02% Inh Soln 0.5 Mg/2.5 Ml Vial INHALATION 0.5 mg Q6HRT THOMAS Administration Levalbuterol HCl 2.5 mg 07/30/22 14:00 08/02
[2022-08-02] MEDS: ALBUTEROL SULFATE NEB 2.5 MG/3 ML INH INHALATION (20:42)
[2022-08-02] MEDS: QUEtiapine FUMARATE 25 MG TABLET PO (20:42)
[2022-08-03] VITALS (9 sets, daily range): BP systolic 91–116; BP diastolic 48–53; PULSE 89–113; RESP 16–18; TEMP 36.5–36.6; O2SAT 94–98; BMI 18.0
[2022-08-03] MEDS: ALBUTEROL SULFATE NEB 2.5 MG/3 ML INH INHALATION ×3 (03:20→13:28)
[2022-08-03] MEDS: IPRATROPIUM BR 0.02% INH SOLN 0.5 MG/2.5 ML VIAL INHALATION ×3 (03:22→13:28)
[2022-08-03] MEDS: MORPHINE SULFATE (*CRX) 30 MG TABCR PO ×2 (05:03→13:39)
[2022-08-03] MEDS: LEVOTHYROXINE SODIUM 50 MCG TABLET PO (05:03)
[2022-08-03 07:16] LABS: Basophils Percent Auto 0.1 % (0.2-1.2); Eosinophils Absolute Auto 0.4 K/mm3 (0-0.3); Eosinophils Percent Auto 4.8 % (0-4.4); Hematocrit 26.4 % (37.0-47.0); Hemoglobin 7.9 g/dL (12.0-15.0); Immature Granulocyte Absolute 0.02 K/mm3 (0.00-0.031); Immature Granulocyte Percent A 0.2 % (0-0.5); Lymphocytes Absolute Auto 2.23 K/mm3 (0.9-3.2); Lymphocytes Percent Auto 25.7 % (18.3-44.2); Mean Corpuscular HGB Conc 29.9 g/dl (32-36); Mean Corpuscular Hemoglobin 24.3 pg (26-34); Mean Corpuscular Volume 81.2 fl (80-100); Mean Platelet Volume 9.1 fl (7.4-10.4); Monocytes Absolute Auto 0.7 K/mm3 (0.1-0.6); Monocytes Percent Auto 7.7 % (2.6-8.5); Neutrophils Absolute Auto 5.3 K/mm3 (1.3-6.7); Neutrophils Percent Auto 61.5 % (45.5-73.1); Platelet Count Result 317 k/mm3 (150-375); Red Blood Count 3.25 M/mm3 (4.2-5.4); Red Cell Distribution Width 18.6 % (11.5-14.5); White Blood Count 8.7 K/mm3 (4.5-10.0)
[2022-08-03 07:32] LABS: Alanine Aminotransferase 24 U/L (6-35); Albumin Level 3.2 g/dL (3.5-5.1); Alkaline Phosphatase 60 U/L (38-126); Anion Gap 2 mmol/L (8-16); Aspartate Amino Transferase 17 U/L (14-36); Bilirubin,Total 0.4 mg/dL (0.2-1.3); Blood Urea Nitrogen 8 mg/dL (7-17); Calcium 7.7 mg/dL (8.4-10.2); Carbon Dioxide 29 mmol/L (22-30); Chloride 102 mmol/L (98-107); Estimated CRCL calculation 50 ml/min; Estimated Glomerular Filt Rate > 60; Glucose 103 mg/dL (65-110); Potassium 3.4 mmol/L (3.4-5.0); Sodium 133 mmol/L (137-145)
[2022-08-03 07:54] LABS: Anisocytosis 2+ (NORMAL); Hypochromasia 1+ (NORMAL); Microcytosis 1+ (NORMAL); Platelet Estimate Adequate (Adequate); Schistocytes None Seen (NORMAL)
[2022-08-03] MEDS: clonazePAM (*CRX) 0.5 MG TABLET 1 MG PO ×3 (08:39→16:42)
[2022-08-03] MEDS: PANTOPRAZOLE 40 MG TABLET PO (08:40)
[2022-08-03] MEDS: GABAPENTIN 300 MG CAPSULE PO ×3 (08:40→16:42)
[2022-08-03] MEDS: SIMETHICONE 125 MG CHEW TAB PO ×3 (08:40→16:42)
[2022-08-03] MEDS: guaiFENesin 12 HR 600 MG TABCR PO (08:40)
--- NOTE | 2022-08-03 15:24 | PM.IMPN ---
Progress Note: A&P Assessment and Plan (1) Respiratory failure with hypoxia and hypercapnia: Code(s): J96.91 - Respiratory failure, unspecified with hypoxia; J96.92 - Respiratory failure, unspecified with hypercapnia Status: Acute Assessment and Plan: resolved, stable on room air check home o2 eval--can be done at rehab (2) Acute exacerbation of chronic obstructive pulmonary disease: Code(s): J44.1 - Chronic obstructive pulmonary disease with (acute) exacerbation Status: Acute Assessment and Plan: improved wheezing with breathing treatments (3) Chronic pain syndrome: Code(s): G89.4 - Chronic pain syndrome Status: Acute Assessment and Plan: Continue home meds Continue to monitor (4) Chronic GERD: Code(s): K21.9 - Gastro-esophageal reflux disease without esophagitis Status: Acute Assessment and Plan: PPI (5) Anxiety: Code(s): F41.9 - Anxiety disorder, unspecified Status: Acute Assessment and Plan: likely contributing to intermittent SOB episodes cont home klonopin delirium/hallucinations from last admissions resolved, cont seroquel qhs start prozac 20 mg daily per patient request--she was on this in the past (6) Bloating: Code(s): R14.0 - Abdominal distension (gaseous) Status: Acute Assessment and Plan: suspect 2/2 IBS and stress, cont simethicone PVR was <1 much improved Plan DVT prophylaxis with SCDs GI prophylaxis not indicated Code status full code Subjective Date/time seen: 08/03/22 15:24 Interval history: No overnight events noted. No chest pain. No nausea, vomiting or diarrhea. No fevers or chills. Review of Systems Review of Systems: 12 point review of systems was assessed and was negative except as noted in the HPI Exam Narrative: General: No acute distress, alert and oriented per baseline HEENT: Atraumatic, normocephalic, mucous membranes moist CV: Regular rate and rhythm, S1, S2 Lungs: Moderate air entry, soft expiratory wheezes noted Abdomen: Soft, nontender, mildly distended Extremities: Normal to inspection Skin: No rashes noted, no lesions or wounds seen Psych: Euthymic, normal affect Objective Data Vital Signs Vital Signs: Vital Signs - 24 hr 08/02/22 17:59 08/02/22 20:42 08/02/22 20:58 Temperature Pulse Rate 90 92 Respiratory Rate 16 16 Blood Pressure Pulse Oximetry 96 Oxygen Delivery Room Air 08/02/22 21:56 08/03/22 03:23 08/03/22 03:43 Temperature 98.6 F Pulse Rate 104 H 89 93 Respiratory Rate 16 16 16 Blood Pressure 111/61 Pulse Oximetry 96 Oxygen Delivery 08/03/22 05:35 08/03/22 08:35 08/03/22 09:25 Temperature 97.7 F Pulse Rate 101 H 92 Respiratory Rate 16 Blood Pressure 97/53 L 91/48 L Pulse Oximetry 94 94 94 Oxygen Delivery Room Air 08/03/22 09:25 08/03/22 08:00 08/03/22 09:41 Temperature Pulse Rate 92 96 Respiratory Rate 16 16 Blood Pressure Pulse Oximetry Oxygen Delivery Room Air 08/03/22 13:28 08/03/22 13:46 08/03/22 14:00 Temperature 98 F Pulse Rate 100 104 H 113 H Respiratory Rate 18 18 16 Blood Pressure 116/53 L Pulse Oximetry 98 Oxygen Delivery Intake/Output Intake/Output: Intake & Output 07/31/22 08/01/22 08/02/22 08/03/22 22:59 22:59 23:59 23:59 Intake Total 920 Output Total Balance 920 Meds/Results Medications: Active Medications Generic Name Dose Route Start Last Admin Trade Name Kyleigh PRN Reason Stop Dose Admin Albuterol 2.5 mg 08/02/22 20:00 08/03/22 13:28 Albuterol Sulfate Neb 2.5 Mg/3 Ml Inh INHALATION 2.5 mg Q6HRT THOMAS Administration Clonazepam 1 mg 07/30/22 09:00 08/03/22 12:25 Clonazepam (*Crx) 0.5 Mg Tablet PO 1 mg TID THOMAS Administration Gabapentin 300 mg 07/30/22 09:00 08/03/22 12:25 Gabapentin 300 Mg Capsule PO 08/29/22 08:59 300 mg TID THOMAS
[2022-08-03 18:32] LABS: EDCOVIDSCREEN Negative (Negative)
[2022-08-03] MEDS: LORazepam (*CRX) 1 MG TABLET PO (18:59)
--- NOTE | 2022-08-03 19:12 | PC.NURSE ---
Patient being discharged and when ambulance arrived patient started complaining of epigastric pain. Vitals normal. Notified Enriqueta MENDEZ and is still ok with discharge.
== END 2022-08-03 19:15 | DRG 189 ==
LOC: ANHED 16:43 → ANH3MEDSUR 07-30 10:15
PROVIDERS: Emergency Medicine; Admitting Provider Internal Medicine; Emergency Provider Emergency Medicine; PCP Internal Medicine; Visit Provider Student in an Organized Health Care Education/Training Program
DX: J96.21 Acute and chronic respiratory failure with hypoxia (principal); J43.9 Emphysema, unspecified; G89.4 Chronic pain syndrome; K21.9 Gastro-esophageal reflux disease without esophagitis; F41.9 Anxiety disorder, unspecified; R14.0 Abdominal distension (gaseous); K58.9 Irritable bowel syndrome, unspecified; Z20.822 Contact with and (suspected) exposure to COVID-19; Z87.891 Personal history of nicotine dependence; Z79.890 Hormone replacement therapy; Z79.52 Long term (current) use of systemic steroids
CPT/HCPCS: 36415; 71045; 71250; 74177; 76705; 80053; 80074; 81003; 82565; 83605; 83690; 84145; 85025; 85610; 85730; 86140; 87040; 87081; 87426; 87637; 93005; 94640; 96365; 96375; 97110; 97116; 97161; 97165; 97535; 99285; A9270; C9803; G0378; J0131; J0456; J0692; J1170; J2405; J3370; J7030; J7512; Q9967

== ENCOUNTER 2022-08-09 15:23 | Emergency (ER) | payer MEDICARE, MEDICAID, SELFPAY ==
[2022-08-09] VITALS (14 sets, daily range): BP systolic 88–111; BP diastolic 39–66; PULSE 85–107; RESP 16–22; TEMP 37.3; O2SAT 92–100
--- NOTE | ~2022-08-09 | CT_ITS ---
EXAMINATION: CT brain wo con DATE: 08/09/2022 16:08 INDICATION: fall . TECHNIQUE: Computed tomography (CT) of the head was performed with intravenous contrast. The mA was a djusted according to patient size. Iterative reconstruction technique was employed. The dose-length p roduct was 605.33 mGy-cm. COMPARISON: None. FINDINGS: Motion artifact present in the superior images of the scan. No acute intracranial hemorrhage or extra-axial fluid collection. No hydrocephalus, mass, or herniation. No acute ischemic infarct. Unremarkable dural venous sinus attenuation. No acute osseous abnormality. The aerated spaces are clear. IMPRESSION: Motion limited examination. Within that constraint, no definite acute intracranial process. Reviewed, dictated and finalized at location K. IMPRESSION: Motion limited examination. Within that constraint, no definite acute intracran ial process.
--- NOTE | ~2022-08-09 | CT_ITS ---
EXAMINATION: CT cervical spine wo con DATE: 08/09/2022 16:07 INDICATION: fall TECHNIQUE: Computed tomography (CT) of the cervical spine was performed without intravenous contrast. Automated exposure control and iterative reconstruction technique were employed. The dose-length pro duct was 96.20 mGy-cm. COMPARISON: None. FINDINGS: Vertebral Body Alignment: Intact. Multilevel minimal, grade 1 anterolistheses at nearly all levels in the cervical spine, likely on a degenerative basis. Craniocervical and atlantoaxial alignment: Moderate degenerative change, with pannus. Alignment intac t. Osseous structures/fracture: No evidence of a lytic or blastic process in the visualized spine. No e vidence of acute fracture. . Cervical soft tissues: The paraspinal soft tissues planes are maintained. Subcentimeter left thyroid nodule, requiring no additional evaluation. Biapical pleural scarring and emphysematous change in the lungs. Degenerative changes: Degenerative changes, without severe neural foraminal or central canal narrowin g. IMPRESSION: No acute fracture or traumatic malalignment in the cervical spine. Reviewed, dictated and finalized at location K.
--- NOTE | ~2022-08-09 | XR_ITS ---
EXAM: XR hip RT 2V w AP pelvis DATE: 08/09/2022 15:56 HISTORY: Right hip pain s/p fall today . COMPARISON: None available. FINDINGS: Decreased mineralization. No fracture or dislocation. Large left iliac bone island. No ray picious lytic or blastic lesion. Degenerative change in the lumbar spine. Mild left hip osteoarthriti s. Right hip arthroplasty, without hardware fracture or abnormal perihilar hardware lucency. Surgical clip in the right lower quadrant No erosion or periosteal change. Soft tissues within normal limits. IMPRESSION: No acute osseous finding in the pelvis or right hip. No radiographic evidence of hardware -related complication. Reviewed, dictated and finalized at location K. IMPRESSION: No acute osseous finding in the pelvis or right hip. No radiographi c evidence of hardware-related complication.
--- NOTE | 2022-08-09 15:30 | ECG_ITS ---
Measurements Intervals [place] Rate: 102 P: 57 [place]: 144 QRS: 24 QRSD: 77 T: 37 QT: 350 QTc: 457 Interpretive Statements SINUS TACHYCARDIA LOW QRS VOLTAGE IN LIMB LEADS BASELINE ARTIFACT- I, II, III, AVL, AVF, V4 BORDERLINE ECG COMPARED TO ECG 07/29/2022 16:14:30 HEART RATE HAS DECREASED Electronically Signed On 08-09-2022 17:24:35 CDT by Mitul Galan D.O.
--- NOTE | 2022-08-09 15:46 | ED.AMS ---
HPI - Altered Mental Status General Chief Complaint: Altered Mental Status Stated Complaint: fall, hip pain History of Present Illness HPI narrative: Patient is a 66-year-old female with a history of COPD on baseline 2 to 3 L nasal cannula presenting after a fall. Patient resides at a nursing facility. She states that she was sleeping in her bed when she heard somebody calling out for help. States that she got up to check on them when she slipped and fell backwards striking her head. She denies losing consciousness. States that she had right hip pain afterwards. States that her hip pain has improved since that time. States that she still has some pain when she tries to move it. She denies headache, neck or back pain, numbness or weakness, chest pain, shortness of breath, abdominal pain, nausea or vomiting. Related Data Home Medications Medication Instructions Recorded Confirmed gabapentin 300 mg tablet 300 mg PO TID 07/15/22 08/10/22 levothyroxine 50 mcg capsule 50 mcg PO DAILY 07/15/22 08/10/22 lisinopril 5 mg tablet 5 mg PO DAILY 07/15/22 08/10/22 omeprazole 40 mg capsule,delayed 40 mg PO DAILY 07/15/22 08/10/22 release Fleet Enema 1 applic RECTAL DAILY PRN 08/10/22 08/10/22 Constipation Multi-Vitamins 1 unit PO DAILY ANEMIA 08/10/22 08/10/22 acetaminophen 325 mg tablet 650 mg PO Q4H PRN Pain 08/10/22 08/10/22 (Tylenol) ascorbic acid (vitamin C) 500 mg 500 mg PO BID 08/10/22 08/10/22 tablet bisacodyl 10 mg rectal suppository 10 mg RECTAL DAILY PRN Constipation 08/10/22 08/10/22 fluticasone 250 mcg-salmeterol 50 1 inh inhalation Q12H 08/10/22 08/10/22 mcg/dose blistr powdr for inhalation (Advair Diskus) glycopyrrolate 9 mcg-formoterol 2 puff inhalation BID 08/10/22 08/10/22 4.8 mcg HFA aerosol inhaler magnesium citrate (Citroma oral 296 ml PO ONCE PRN Constipation 08/10/22 08/10/22 solution) magnesium hydroxide 400 mg/5 mL 30 ml PO HS PRN Constipation 08/10/22 08/10/22 oral suspension (Milk of Magnesia) morphine 30 mg tablet,extended 30 mg PO TID 08/10/22 08/10/22 release ropinirole 1 mg tablet 1 mg PO HS 08/10/22 08/10/22 Allergies Allergy/AdvReac Type Severity Reaction Status Date / Time No Known Allergies Allergy Verified 08/09/22 16:34 Review of Systems Review of Systems: All systems reviewed & are unremarkable except as noted in HPI and below PMFSH Past Medical History Medical History (Updated 08/11/22 @ 10:58 by Shorty Huber MD) Anxiety Chronic anemia Anemia of chronic disease with iron studies completed June 2022 Chronic GERD Chronic obstructive pulmonary disease Chronic pain syndrome Chronic respiratory failure with hypoxia Diastolic dysfunction without heart failure Echocardiogram 07/19/2022: EF greater than 70%, grade 1 diastolic dysfunction, remainder of exam unremarkable but it was a technically difficult study History of tobacco abuse Hyperlipidemia Hypertension Hypothyroidism Poor vision Schizophrenia Surgical History Surgical History History of cholecystectomy History of total right hip arthroplasty Hx of cholecystectomy Family History Family History Mother Cancer Father Aneurysm Social History Social History (Updated 08/10/22 @ 07:37 by Oxana Rosenberg DO) Social History: Surrogate medical decision maker: Melanie Baker, daughter. Code status: Full code. Smoking packs per day: 1 Smoking cigarettes per day: 20.0 Years smoked: 51 Smoking pack-years: 51.00 Smoking status: Former smoker Tobacco type: cigarettes and e-cigarettes/vaping Additional smoking assessment comments: Alcohol intake: never Substance use: never Substance use type: does not use Other substance usage details: Patient has active morphine prescription per my review of her medications. Lack of Transportation: No Lack of Food:
[2022-08-09 16:24] LABS: Appearance Urine Clear (Clear); Bilirubin Urine Negative (Negative); Blood Urine Negative (Negative); Color Urine Yellow (Yellow); Glucose Urine UA Negative (Negative); Ketones Urine Negative (Negative); Leukocyte Esterase Ur Negative LEU/UL (Negative); Nitrate Urine Negative (Negative); Protein Urine Negative (Negative); Specific Grav Ur 1.008 (1.001-1.035); Urobilinogen Urine 0.2 mg/dL (<2.0); pH Urine 6.5 (5.0-9.0)
[2022-08-09 16:28] LABS: Add Urine Microscopic? NO
[2022-08-09 16:41] LABS: Basophils Percent Auto 0.3 % (0.2-1.2); Eosinophils Absolute Auto 0.1 K/mm3 (0-0.3); Eosinophils Percent Auto 1.9 % (0-4.4); Hemoglobin 7.4 g/dL (12.0-15.0); Immature Granulocyte Absolute 0.02 K/mm3 (0.00-0.031); Immature Granulocyte Percent A 0.3 % (0-0.5); Lymphocytes Absolute Auto 1.16 K/mm3 (0.9-3.2); Lymphocytes Percent Auto 17.2 % (18.3-44.2); Mean Corpuscular HGB Conc 30.8 g/dl (32-36); Mean Corpuscular Volume 81.1 fl (80-100); Mean Platelet Volume 9.7 fl (7.4-10.4); Monocytes Absolute Auto 0.5 K/mm3 (0.1-0.6); Monocytes Percent Auto 7.3 % (2.6-8.5); Neutrophils Absolute Auto 4.9 K/mm3 (1.3-6.7); Platelet Count Result 301 k/mm3 (150-375); Red Blood Count 2.96 M/mm3 (4.2-5.4); Red Cell Distribution Width 17.2 % (11.5-14.5); White Blood Count 6.8 K/mm3 (4.5-10.0)
[2022-08-09 16:56] LABS: Anion Gap 4 mmol/L (8-16); Blood Urea Nitrogen 6 mg/dL (7-17); Calcium 7.8 mg/dL (8.4-10.2); Carbon Dioxide 30 mmol/L (22-30); Chloride 100 mmol/L (98-107); Estimated CRCL calculation 61 ml/min; Estimated Glomerular Filt Rate > 60; Glucose 91 mg/dL (65-110); Potassium 3.5 mmol/L (3.4-5.0); Sodium 134 mmol/L (137-145)
[2022-08-09] MEDS: ACETAMINOPHEN 500 MG TABLET 1000 MG PO (18:27)
== END 2022-08-09 22:16 | disposition home or self-care (01) ==
PROVIDERS: Emergency Provider Emergency Medicine; PCP Internal Medicine
DX: M25.551 Pain in right hip (principal); F41.9 Anxiety disorder, unspecified; D64.9 Anemia, unspecified; K21.9 Gastro-esophageal reflux disease without esophagitis; J44.9 Chronic obstructive pulmonary disease, unspecified; I11.0 Hypertensive heart disease with heart failure; I50.9 Heart failure, unspecified; E78.5 Hyperlipidemia, unspecified; E03.9 Hypothyroidism, unspecified; Z99.81 Dependence on supplemental oxygen; W01.0XXA Fall on same level from slipping, tripping and stumbling without subsequent striking against object, initial encounter
CPT/HCPCS: 36415; 70450; 72125; 73502; 80048; 81003; 85025; 93005; 99284; A9270

== ENCOUNTER 2022-08-10 00:06 | Inpatient (IN) | payer MEDICARE, MEDICAID, SELFPAY ==
[2022-08-10] VITALS (24 sets, daily range): BP systolic 79–151; BP diastolic 45–79; PULSE 81–125; RESP 18–23; TEMP 36.4–37.7; O2SAT 92–100; BMI 19.5
--- NOTE | ~2022-08-10 | XR_ITS ---
Portable chest x-ray Comparison: 07/29/2022 Clinical History: Hypotension Findings: There is COPD and/or chronic interstitial prominence in the lungs. No consolidation, pleur al effusion, or pneumothorax. Cardiomediastinal silhouette is stable. Bones and soft tissues are unr emarkable. Impression: COPD versus other chronic interstitial disease. Reviewed, dictated and finalized at location . Impression: COPD versus other chronic interstitial disease.
--- NOTE | ~2022-08-10 | CT_ITS ---
Non-contrast CT scan of the Pelvis Clinical indication: Possible right hip fracture Technique: 2.5 mm axial scans were obtained through the pelvis without intravenous or oral contrast. Dose reduction technique was used on this scan by utilizing automated exposure control and iterative reconstruction technique. The dose-length product (DLP) was 237.86 mGy-cm. Findings: No acute fracture or dislocation is seen. Right hip arthroplasty hardware is in place, with out evidence of hardware complication. Bilateral SI joints are intact. Left hip joint is intact. Exte nsive sclerotic lesion left iliac bone suggest bone island or other benign lesion. Visualized musculature about the pelvis and right hip is unremarkable. No gross soft tissue abnormali ty seen. Impression: No acute fracture or dislocation. Right hip arthroplasty in place. Reviewed, dictated and finalized at location . Impression: No acute fracture or dislocation. Right hip arthroplasty in place.
--- NOTE | ~2022-08-10 | XR_ITS ---
Portable chest x-ray Comparison: 08/10/2022 at 2:52 AM Clinical History: Line placement Findings: Right subclavian line is in satisfactory position. Stable chronic interstitial disease and /or COPD. No pneumothorax. Cardiomediastinal silhouette is stable. Bones and soft tissues are unrema rkable. Impression: Right subclavian line in satisfactory position. Stable COPD and/or chronic interstitial disease. Reviewed, dictated and finalized at location . Impression: Right subclavian line in satisfactory position. Stable COPD and/or chronic interstitial disease.
--- NOTE | ~2022-08-10 | CT_ITS ---
CT of the Abdomen and Pelvis: Indication: Abnormal bowel gas pattern Technique: 2.5 mm axial scans were obtained through the abdomen and pelvis following intravenous adm inistration of 100 cc of Omnipaque 350. Dose reduction technique was used on this scan by utilizing a utomated exposure control and iterative reconstruction technique. The dose-length product (DLP) was 2 87.89 mGy-cm. COMPARISON: 07/29/2022 Findings: Scans through the lung bases there is a probable chronic bibasilar interstitial disease wi th superimposed bibasilar dependent consolidative changes. Minimal bilateral pleural effusions are pr esent. Cholecystectomy clips are present. Common bile duct is diffusely dilated up to approximately 8 mm. Th ere is intrahepatic biliary dilatation throughout the liver. No obstructing mass clearly evident. The spleen, pancreas, right adrenal gland, and kidneys are within normal limits. 2.2 x 1.0 cm left adren al lesion is unchanged. There are atherosclerotic calcifications of the aorta. No lymphadenopathy. No bowel obstruction or bowel wall thickening. There is no evidence to suggest acute appendicitis. Images through the pelvis are degraded by streak artifact from right hip arthroplasty. Brown catheter in place. No adnexal mass evident. Mild compression fracture of L4 is unchanged. Impression: Increased bibasilar consolidative changes with minimal pleural effusions as compared to prior exam. C orrelate for bibasilar pulmonary edema/atelectasis versus pneumonia. Intrahepatic and extrahepatic biliary dilatation is unchanged. This may be related to prior cholecyst ectomy. Correlate with symptomatology and a resultant labwork. Stable 2.2 x 1.0 cm left adrenal nodule, indeterminate. Consider follow-up MR to better assess for ad enoma. Stable mild L4 compression fracture. Reviewed, dictated and finalized at [facility]. Impression: Increased bibasilar consolidative changes with minimal pleural effusions as com pared to prior exam. Correlate for bibasilar pulmonary edema/atelectasis versus pneumonia. Intrahepatic and extrahepatic biliary dilatation is unchanged. This may be rela mathieu to prior cholecystectomy. Correlate with symptomatology and a resultant lab work. Stable 2.2 x 1.0 cm left adrenal nodule, indeterminate. Consider follow-up MR t o better assess for adenoma. Stable mild L4 compression fracture.
--- NOTE | 2022-08-10 02:24 | ECG_ITS ---
Measurements Intervals [place] Rate: 94 P: 73 UT: 139 QRS: 58 QRSD: 82 T: 67 QT: 357 QTc: 446 Interpretive Statements SINUS RHYTHM LOW QRS VOLTAGE IN LIMB LEADS BASELINE WANDER- AVL, V4-V5 BORDERLINE ECG COMPARED TO ECG 08/09/2022 15:32:31 SINUS RHYTHM NOW PRESENT Electronically Signed On 08-10-2022 8:25:28 CDT by Mitul Galan D.O.
[2022-08-10] MEDS: SODIUM CHLORIDE 0.9% IV 1,000 ML 999 ML IV CONT ×2 (02:30→04:40)
--- NOTE | 2022-08-10 02:43 | ED.GENADULT ---
HPI - General Adult General Chief complaint: Recheck/Abnormal Lab/Rx Stated complaint: . Time Seen by Provider: 08/10/22 00:38 History of Present Illness HPI narrative: This is a 66-year-old prison patient sent back to the ED for concern for pelvic fracture. She was seen here earlier in the day after a fall. At that time her workup was negative for traumatic injuries. She was sent back to the prison. While she was there she took off her oxygen and desaturated. longterm then sent her back for the hypoxia as well as because they took a in-house x-ray that said the pelvis was fractured. The patient herself is a poor historian is unable to provide much useful information other than that her hips hurt. On her earlier visit today there is a CT head, C-spine and hip/pelvis x-ray that were negative for acute injuries. Related Data Home Medications Medication Instructions Recorded Confirmed gabapentin 300 mg tablet 300 mg PO TID 07/15/22 07/29/22 glycopyrrolate 9 mcg-formoterol 2 puff inhalation Q12H 07/15/22 07/30/22 4.8 mcg HFA aerosol inhaler (Bevespi XLerantphere) levothyroxine 50 mcg capsule 50 mcg PO DAILY 07/15/22 07/29/22 lisinopril 5 mg tablet 5 mg PO DAILY 07/15/22 07/29/22 omeprazole 40 mg capsule,delayed 40 mg PO DAILY 07/15/22 07/29/22 release Allergies Allergy/AdvReac Type Severity Reaction Status Date / Time No Known Allergies Allergy Verified 08/09/22 16:34 [facility] Past Medical History Medical History Anxiety Chronic anemia Chronic GERD Chronic obstructive pulmonary disease Chronic pain syndrome Chronic respiratory failure with hypoxia History of tobacco abuse Hyperlipidemia Hypertension Hypothyroidism Poor vision Schizophrenia Surgical History Surgical History History of cholecystectomy History of total right hip arthroplasty Hx of cholecystectomy Family History Family History Mother Cancer Father Aneurysm Social History Social History Social History: Surrogate medical decision maker: Melanie Baker, daughter. Code status: Full code. Smoking packs per day: 1 Smoking cigarettes per day: 20.0 Years smoked: 45 Smoking pack-years: 45.00 Smoking status: Former smoker Tobacco type: cigarettes Additional smoking assessment comments: Alcohol intake: never Substance use: never Other substance usage details: Patient has active morphine prescription per my review of her medications. Lack of Transportation: No Lack of Food: Sometimes True Current Housing: I Have Housing Concerned About Future Housing: No Difficulty Paying Gas/Electric Bills: No Difficulty Paying for Meds: No Currently Unemployed: No Education: Grade School Difficulty w/ Childcare or Family Care: No Additional living arrangements comments: as of June 2022. Moved to the area from to live with her son. She has 2 children. 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 Spiritual care concerns: No Exam Narrative: APPEARANCE: Patient is pallorous, she appears far older than her stated age, she is emaciated, A&O times 1-2 Head: atraumatic. EYES: conjunctival pallor NOSE: Atraumatic NECK: Trachea midline RESPIRATORY: Increased rate of breathing, bilateral crackles CARDIOVASCULAR: RRR, no peripheral edema ABDOMINAL: mildly distended, soft no guarding or rebound MUSCULOSKELETAl: No obvious deformities, muscle wasting NEURO: Alert. Moving 4/4 extremities SKIN:: Warm, dry. Normal color PSYCHIATRIC: Normal affect Course Vital Signs Vital signs: Vital Signs Pulse Rate 84 08/10/22 00:11 Respiratory Rate 20 08/10/22 00:11 Pulse Oximetry 100 08/10/22 00:11 Oxygen Delivery Nasal [place]
[2022-08-10 03:16] LABS: Basophils Percent Auto 0.2 % (0.2-1.2); Eosinophils Absolute Auto 0.3 K/mm3 (0-0.3); Eosinophils Percent Auto 4.9 % (0-4.4); Hematocrit 23.8 % (37.0-47.0); Hemoglobin 7.2 g/dL (12.0-15.0); Immature Granulocyte Absolute 0.01 K/mm3 (0.00-0.031); Immature Granulocyte Percent A 0.2 % (0-0.5); Lymphocytes Absolute Auto 0.99 K/mm3 (0.9-3.2); Lymphocytes Percent Auto 17.9 % (18.3-44.2); Mean Corpuscular HGB Conc 30.3 g/dl (32-36); Mean Corpuscular Hemoglobin 24.7 pg (26-34); Mean Corpuscular Volume 81.8 fl (80-100); Mean Platelet Volume 9.8 fl (7.4-10.4); Monocytes Absolute Auto 0.4 K/mm3 (0.1-0.6); Monocytes Percent Auto 7.1 % (2.6-8.5); Neutrophils Absolute Auto 3.9 K/mm3 (1.3-6.7); Neutrophils Percent Auto 69.7 % (45.5-73.1); Platelet Count Result 252 k/mm3 (150-375); Red Blood Count 2.91 M/mm3 (4.2-5.4); Red Cell Distribution Width 17.2 % (11.5-14.5); White Blood Count 5.5 K/mm3 (4.5-10.0)
[2022-08-10 03:26] LABS: INR 1.2; Prothrombin Time 14.9 Seconds (11.1-14.7)
[2022-08-10 03:27] LABS: Alanine Aminotransferase 18 U/L (6-35); Albumin Level 3.1 g/dL (3.5-5.1); Alkaline Phosphatase 79 U/L (38-126); Anion Gap 3 mmol/L (8-16); Aspartate Amino Transferase 20 U/L (14-36); Bilirubin,Total 0.6 mg/dL (0.2-1.3); Blood Urea Nitrogen 6 mg/dL (7-17); Calcium 7.7 mg/dL (8.4-10.2); Carbon Dioxide 30 mmol/L (22-30); Chloride 103 mmol/L (98-107); Creatine Kinase 33 U/L (30-135); Estimated Glomerular Filt Rate > 60; Glucose 91 mg/dL (65-110); Magnesium 1.7 mg/dL (1.6-2.3); Partial Thromboplastin Time 36.8 SECONDS (22.3-36.8); Phosphorus 4.1 mg/dL (2.5-4.5); Potassium 3.5 mmol/L (3.4-5.0); Sodium 136 mmol/L (137-145)
[2022-08-10 03:39] LABS: Lactic Acid Reflex 0.9 mmol/L (0.7-2.0)
[2022-08-10 04:36] LABS: Influenza A QL RT-PCR Negative (Negative); Influenza B QL RT-PCR Negative (Negative); RSV RNA, RT-PCR Negative (Negative); SARS-CoV-2 RNA PCR Negative
[2022-08-10 06:48] LABS: Appearance Urine Clear (Clear); Bilirubin Urine Negative (Negative); Blood Urine Negative (Negative); Color Urine Yellow (Yellow); Glucose Urine UA Negative (Negative); Ketones Urine Negative (Negative); Leukocyte Esterase Ur Negative LEU/UL (Negative); Nitrate Urine Negative (Negative); Protein Urine Negative (Negative); Urobilinogen Urine 0.2 mg/dL (<2.0); pH Urine 6.5 (5.0-9.0)
[2022-08-10 07:06] LABS: Add Urine Microscopic? NO
--- NOTE | 2022-08-10 07:26 | PM.IMHP ---
H&P: HPI History of Present Illness Date/Time: 08/10/22 07:26 Chief Complaint: Low blood pressure Narrative: 66-year-old female with a past medical history of anxiety, schizophrenia, COPD with chronic hypoxic respiratory failure, and GERD who presented to the ER from [facility] due to low blood pressure. The patient had been seen earlier in the day at the ER due to a fall and hip pain. The patient had basic labs performed and an x-ray which demonstrated no evidence of hip fracture. The patient's blood pressures were borderline low while she was in the ER but were never below 90 systolic. She did not have a white count or evidence of infection. She [facility] in a couple of hours later was sent back to the ER. She was sent back for a reported hip fracture. However when the patient was brought back to the ER CT of the pelvis demonstrated no evidence of hip fracture. They also reported that she was hypoxic at the penitentiary. However, in the ER physician that seen the patient earlier in the evening knows the patient well and states patient is on between 2-3 L nasal cannula at all times. When EMS arrived to the penitentiary the patient was actually holding her nasal cannula in her hand and it was not inter no so she was satting in the 80s. When they put her on her baseline 2 L nasal cannula she was back up to 90%. When the patient arrived back to the ER the patient was hypotensive with systolic blood pressures between between 79 and 88. The patient had 2 L of fluids ordered. CT of the abdomen did not demonstrate any acute process a but did catch the bottom of patient's lungs which demonstrated bilateral infiltrates consistent with pneumonia. The patient's T-max is 99.8?. The patient was sleepy but did arouse to verbal stimuli and was able to tell me her 1st name. She mumbled when I asked what her last name was. She knew that she was being admitted to the hospital for pneumonia but could not tell me what hospital we are at or what symptoms she had been having. She was not oriented to month or year. Hurst responses were slowed and delayed. The patient had evidently been alert orient x3 during her 1st visit to the ER. The patient's bladder. Large on the CT scan in Brown catheter was placed. In the 3 hours after patient has a Brown catheter placed she had approximately 1 L of urine output. Source of information is ER physician report, ER records, EMS records and past medical records. Patient is unable to participate in fried history due to her altered mental status. Review of Systems Review of Systems: Unobtainable due to the patient's encephalopathy and schizophrenia. [facility] Past Medical History Medical History (Updated 08/10/22 @ 07:46 by Oxana Rosenberg DO) Anxiety Chronic anemia Anemia of chronic disease with iron studies completed June 2022 Chronic GERD Chronic obstructive pulmonary disease Chronic pain syndrome Chronic respiratory failure with hypoxia Diastolic dysfunction without heart failure Echocardiogram 07/19/2022: EF greater than 70%, grade 1 diastolic dysfunction, remainder of exam unremarkable but it was a technically difficult study History of tobacco abuse Hyperlipidemia Hypertension Hypothyroidism Poor vision Schizophrenia Surgical History Surgical History History of cholecystectomy History of total right hip arthroplasty Hx of cholecystectomy Family History Family History Mother Cancer Father Aneurysm Social History Social History (Updated 08/10/22 @ 07:37 by Oxana Rosenberg DO) Social History: Surrogate medical decision maker: Melanie Baker, daughter. Code status: Full code. Smoking packs per day: 1 Smoking cigarettes per day: 20.0 Years smoked: 45 Smoking pack-years: 45.00 Smoking status: Former smoker Tobacco type: ciga
[2022-08-10] MEDS: SODIUM CHLORIDE 0.9% IV 250 ML 30 ML IV CONT (07:32)
[2022-08-10] MEDS: TUBING, BLOOD PLUM PUMP TUBING 1 EACH XX (07:32)
[2022-08-10] MEDS: CEFEPIME 2 GM/NS 50 ML 2 GM/50 ML BAG IVPB ×2 (07:38→20:56)
[2022-08-10] MEDS: ALBUTEROL SULFATE NEB 2.5 MG/3 ML INH 5 MG INHALATION (07:49)
[2022-08-10] MEDS: IPRATROPIUM BR 0.02% INH SOLN 0.5 MG/2.5 ML VIAL INHALATION (07:50)
[2022-08-10] MEDS: LACTATED RINGERS 1,000 ML 100 ML IV CONT (10:47)
--- NOTE | 2022-08-10 13:07 | ADMGEN ---
This patient, Krys Mcclure, was admitted to IMU Room 205-02 on 08/10/22 at 0832. Patient/family oriented to hospital policies and general routines including ID bracelet, bed and alarms, visiting hours, pain management, procedures, bathroom and other care routines, personal items, smoking policy, room service/diet, and visiting hours. Information on how to activate the Rapid Response Team has been discussed. Patient/Family are encouraged to report perceived risks to care and to ask questions if they do not understand what they are told or what they should do.
--- NOTE | 2022-08-10 13:43 | PM.IMPN ---
Progress Note: A&P Assessment and Plan (1) Sepsis: Qualifiers: Sepsis acute organ dysfunction status: with acute organ dysfunction Sepsis type: sepsis due to unspecified organism Severe sepsis acute organ dysfunction type: encephalopathy Code(s): A41.9 - Sepsis, unspecified organism Status: Acute (2) Pneumonia: Qualifiers: Laterality: bilateral Lung location: lower lobe of lung Pneumonia type: due to unspecified organism Qualified Code(s): J18.9 - Pneumonia, unspecified organism Code(s): J18.9 - Pneumonia, unspecified organism Status: Acute (3) Anemia: Qualifiers: Anemia type: other cause Other causes of anemia: chronic disease, other Qualified Code(s): D63.8 - Anemia in other chronic diseases classified elsewhere Code(s): D64.9 - Anemia, unspecified Status: Acute (4) Hypotension due to hypovolemia: Code(s): I95.89 - Other hypotension; E86.1 - Hypovolemia Status: Acute (5) Acute metabolic encephalopathy: Code(s): G93.41 - Metabolic encephalopathy Status: Acute Plan The patient presented with hypotension due to hypovolemia likely need due to significant volume depletion in dehydration given patient's physical exam with dry mucous membranes. The patient had 2 L of fluids ordered but had only received a little over 1 L of the isotonic fluids. The ER physician had thought the patient had already received of 2 L of bolus and placed a central line for potential need for pressors. However patient is blood pressures ended up normalizing during and after central line placement. At that time the patient had received about 1.3 L of normal saline in still had a remaining saline to go. The patient's blood was also transfusing. The patient was noted to have acute on chronic anemia with hemoglobin down from around baseline of 8.5 her 9 down to 7.5. Given her hypotension and clinical status blood transfusion was indicated especially considering that after IV fluid hydration the patient's hemoglobin is anticipated to drop further with dilution. The patient's Hemoccult was in the ER was negative. Given the patient's small stature 30 mL/kilos bolus is technically a 1.5 L which the patient was near receiving at the time of my evaluation. The patient's blood pressures had stabilized to the 110 systolic. The patient is does have acute metabolic encephalopathy due to her sepsis which is complicating her underlying schizophrenia. The patient does also have COPD but does not seem to be in acute exacerbation of COPD and is on her home oxygen of [address] patient on scheduled nebulizer treatments for good pulmonary toilet. Will monitor serial labs including CBC and BMP. Will check urine Legionella antigen and pneumococcal antigen. The patient did have evidence of urinary retention in the ER and had around 1 L of urine output in under for 3 hours. Urine was sent to rule out concomitant infection but on gross examination the patient urine does not appear infected. UA was pending at the time of this documentation. The patient's home med rec was not available at the time of my evaluation. The patient's home medications will be reviewed and resumed as clinically appropriate when med rec is available. Patient will need her home levothyroxine, PPI therapy, and psychiatric medications. 08/10/22: Patient's blood pressure has improved. She remains on IV fluids. She is remains on vancomycin. Cefepime was stopped but will go ahead and resume this. Follow-up on cultures. Remove central line as soon as possible since she is probably at high risk for removing this herself. She did have urine retention and now has a Brown catheter placed. Resume home medications. Continue nebulizer treatments. Wean oxygen as tolerated. Patient to remain IMU at this time. Subjective Date/time seen: 08/10/22 13:43 Interval history: 66yo female with schizophrenia, COPD with
--- NOTE | 2022-08-10 14:13 | PCRCNOTE ---
pt is having an episode and is very upset at this time. next treatment available is 1999.
[2022-08-10] MEDS: LORazepam INJ (*CRX) 2 MG/ML VIAL 1 MG IV PUSH (14:51)
[2022-08-10] MEDS: MORPHINE SULFATE (*CRX) 30 MG TABCR PO ×2 (14:56→17:16)
[2022-08-10] MEDS: clonazePAM (*CRX) 0.5 MG TABLET 1 MG PO ×2 (14:56→17:16)
[2022-08-10] MEDS: FLUoxetine HCL 20 MG CAPSULE PO (14:56)
[2022-08-10] MEDS: lisinopriL 5 MG TABLET PO (14:56)
[2022-08-10] MEDS: ASCORBIC ACID 500 MG TABLET PO (14:56)
[2022-08-10] MEDS: SIMETHICONE 125 MG CHEW TAB PO ×2 (17:14→20:56)
[2022-08-10] MEDS: PANTOPRAZOLE 40 MG TABLET PO (17:15)
[2022-08-10] MEDS: MULTIVITAMINS THERAPEUTIC TAB (*BKC) 1 TABLET PO (17:16)
[2022-08-10] MEDS: GABAPENTIN 300 MG CAPSULE PO (17:16)
[2022-08-10] MEDS: LEVOTHYROXINE SODIUM 50 MCG TABLET PO (17:16)
[2022-08-10] MEDS: guaiFENesin 12 HR 600 MG TABCR PO (20:55)
[2022-08-10] MEDS: QUEtiapine FUMARATE 25 MG TABLET PO (20:55)
[2022-08-10] MEDS: rOPINIRole HCL 1 MG TABLET PO (20:56)
[2022-08-11] VITALS (21 sets, daily range): BP systolic 87–121; BP diastolic 45–82; PULSE 72–114; RESP 18–22; TEMP 36.3–37.1; O2SAT 92–100
[2022-08-11 04:51] LABS: Hematocrit 23.4 % (37.0-47.0); Hemoglobin 7.5 g/dL (12.0-15.0); Mean Corpuscular HGB Conc 32.1 g/dl (32-36); Mean Corpuscular Hemoglobin 26.1 pg (26-34); Mean Corpuscular Volume 81.5 fl (80-100); Platelet Count Result 197 k/mm3 (150-375); Red Blood Count 2.87 M/mm3 (4.2-5.4); Red Cell Distribution Width 16.9 % (11.5-14.5); White Blood Count 5.3 K/mm3 (4.5-10.0)
[2022-08-11 05:06] LABS: Anion Gap 0 mmol/L (8-16); Blood Urea Nitrogen 4 mg/dL (7-17); Calcium 7.8 mg/dL (8.4-10.2); Carbon Dioxide 29 mmol/L (22-30); Chloride 106 mmol/L (98-107); Estimated CRCL calculation 63 ml/min; Estimated Glomerular Filt Rate > 60; Glucose 99 mg/dL (65-110); Potassium 3.1 mmol/L (3.4-5.0); Sodium 135 mmol/L (137-145)
[2022-08-11] MEDS: LEVOTHYROXINE SODIUM 50 MCG TABLET PO (05:59)
[2022-08-11] MEDS: UMECLIDINIUM/VILANTEROL 62.5-25 MCG ELLIPTA 1 PUFF INHALATION (07:20)
[2022-08-11] MEDS: IPRATROPIUM BR 0.02% INH SOLN 0.5 MG/2.5 ML VIAL INHALATION ×3 (07:20→20:45)
[2022-08-11] MEDS: FLUTICASONE/SALMETEROL 115-21 MCG INHALER 1 PUFF 2 PUFF INHALATION ×2 (07:20→20:47)
[2022-08-11] MEDS: SIMETHICONE 125 MG CHEW TAB PO ×4 (08:36→22:09)
[2022-08-11] MEDS: clonazePAM (*CRX) 0.5 MG TABLET 1 MG PO (08:36)
[2022-08-11] MEDS: GABAPENTIN 300 MG CAPSULE PO ×3 (08:36→17:46)
[2022-08-11] MEDS: MULTIVITAMINS THERAPEUTIC TAB (*BKC) 1 TABLET PO (08:36)
[2022-08-11] MEDS: MORPHINE SULFATE (*CRX) 15 MG TABCR PO ×3 (08:36→17:46)
[2022-08-11] MEDS: lisinopriL 5 MG TABLET PO (08:37)
[2022-08-11] MEDS: guaiFENesin 12 HR 600 MG TABCR PO ×2 (08:37→22:09)
[2022-08-11] MEDS: FLUoxetine HCL 20 MG CAPSULE PO (08:37)
[2022-08-11] MEDS: PANTOPRAZOLE 40 MG TABLET PO ×2 (08:37→17:46)
[2022-08-11] MEDS: ASCORBIC ACID 500 MG TABLET PO ×2 (08:37→17:45)
--- NOTE | 2022-08-11 10:33 | P.CDI_ITS ---
CDI Query Clarified Diagnosis Clarified Diagnosis: BMI 19.5 Nutritional Diagnostic Statement Moderate malnutrition related to inadequate protein and energy intake as evidence by intake of less that 75% of estimated needs over a month, -15% wt loss in 1 month, and subcutaneous fat loss of orbital pads, muscle wasting of temporalis and clavicles. Please refer to comprehensive nutrition assessment for further information. Please clarify severity of protein calorie malnutrition if known * Mild * Moderate * Severe * Other/unspecified
--- NOTE | 2022-08-11 10:55 | PM.IMPN ---
Progress Note: A&P Assessment and Plan (1) Hypotension due to hypovolemia: Code(s): I95.89 - Other hypotension; E86.1 - Hypovolemia Status: Acute Assessment and Plan: The patient presented with hypotension felt due to hypovolemia from dehydration given patient's physical exam findings. The patient was given IV fluids and a central line was placed for potential need for pressors. However, blood pressure improved. Still low at times but better overall. TSH normal. Check Cortisol. Dietary has been consulted and supplements added. She is sleepy so consider medications causing some of her symptoms of somnolence ad HoTN. Will cut MS Contin and Klonopin dosing in half. Remove central line since BP better and concern that she will remove this herself. (2) Sepsis: Qualifiers: Sepsis acute organ dysfunction status: with acute organ dysfunction Sepsis type: sepsis due to unspecified organism Severe sepsis acute organ dysfunction type: encephalopathy Code(s): A41.9 - Sepsis, unspecified organism Status: Acute Assessment and Plan: It was felt that her acute metabolic encephalopathy and tachycardia was related to her sepsis. HoTN could also be in part related to sepsis. Symptoms better. Adjust abx as able. (3) Pneumonia: Qualifiers: Laterality: bilateral Lung location: lower lobe of lung Pneumonia type: due to unspecified organism Qualified Code(s): J18.9 - Pneumonia, unspecified organism Code(s): J18.9 - Pneumonia, unspecified organism Status: Acute Assessment and Plan: Patient sent in for low BP. CXR showing COPD vs chronic ILD. CT of the abdomen so that the lung bases chronic bibasilar interstitial disease with superimposed dependent consolidative changes. Consider edema versus atelectasis versus pneumonia. Blood cultures are no growth to date. No fevers. White count was normal and has remained normal. She is normally on room air but has been on 2 L since admission. However it appears that she prior to be weaned off of this. She has been started on cefepime and vancomycin. MRSA nasal swab however was negative on 07/30/2022. Will stop vancomycin. Speech therapy to evaluate. (4) Anemia: Qualifiers: Anemia type: other cause Other causes of anemia: chronic disease, other Qualified Code(s): D63.8 - Anemia in other chronic diseases classified elsewhere Code(s): D64.9 - Anemia, unspecified Status: Acute Assessment and Plan: Hgb was in the 9-10 range earlier this year but now in the 7 range. In June, iron <10, TIBC 223 and TSat 4%. Ferritin 62. B12/Folate levels normal. Start IV iron. Check stool guaiac. Contineu PPI. (5) Acute metabolic encephalopathy: Code(s): G93.41 - Metabolic encephalopathy Status: Acute Assessment and Plan: The patient had acute metabolic encephalopathy felt due to her sepsis which is complicating her underlying schizophrenia. She is better but still somnolent. Will back off on her home MS Contin and Klonopin. Contineu Prozac, Kwame , Requip and Seroquel for now. (6) Moderate malnutrition: Code(s): E44.0 - Moderate protein-calorie malnutrition Status: Acute Assessment and Plan: Patient with moderate malnutrition related to inadequate protein and energy intake as evidence by intake of less that 75% of estimated needs over a month, -15% wt loss in 1 month, and subcutaneous fat loss of orbital pads, muscle wasting of temporalis and clavicles. Dietary consulted. COntinue supplements (7) Schizophrenia: Code(s): F20.9 - Schizophrenia, unspecified Status: Acute Assessment and Plan: As above Subjective Date/time seen: 08/11/22 10:55 Interval history: 66yo female with schizophrenia, COPD with chronic hypoxic respiratory failure, and GERD who presented to the ER from the [facility] due to low blood pressure.?? Patient compl
[2022-08-11] MEDS: CEFEPIME 2 GM/NS 50 ML 2 GM/50 ML BAG IVPB ×2 (11:42→22:09)
[2022-08-11] MEDS: polyethylene glycoL 3350 17 GM POWD.PACK PO (11:43)
[2022-08-11] MEDS: POTASSIUM CHLORIDE 20 MEQ TABLET 40 MEQ PO (11:43)
[2022-08-11] MEDS: IRON SUCROSE COMPLEX 200 MG in SODIUM CHLORIDE 0.9% IV 50 ML 120 MG IVPB (13:25)
[2022-08-11] MEDS: CENTRAL LINE FLUSH 10 ML IV PUSH (13:33)
[2022-08-11] MEDS: clonazePAM (*CRX) 0.5 MG TABLET PO ×2 (13:33→17:45)
[2022-08-11] MEDS: ACETAMINOPHEN 325 MG TABLET 650 MG PO (22:08)
[2022-08-11] MEDS: LORazepam (*CRX) 1 MG TABLET PO (22:08)
[2022-08-11] MEDS: rOPINIRole HCL 1 MG TABLET PO (22:09)
[2022-08-11] MEDS: QUEtiapine FUMARATE 25 MG TABLET PO (22:09)
[2022-08-12] VITALS (22 sets, daily range): BP systolic 105–147; BP diastolic 59–77; PULSE 82–119; RESP 16–20; TEMP 36.3–37.3; O2SAT 93–98
[2022-08-12] MEDS: IPRATROPIUM BR 0.02% INH SOLN 0.5 MG/2.5 ML VIAL INHALATION ×4 (02:37→20:13)
[2022-08-12 05:06] LABS: Hematocrit 23.5 % (37.0-47.0); Hemoglobin 7.4 g/dL (12.0-15.0); Mean Corpuscular HGB Conc 31.5 g/dl (32-36); Mean Corpuscular Hemoglobin 24.8 pg (26-34); Mean Corpuscular Volume 78.9 fl (80-100); Mean Platelet Volume 9.2 fl (7.4-10.4); Platelet Count Result 245 k/mm3 (150-375); Red Blood Count 2.98 M/mm3 (4.2-5.4); Red Cell Distribution Width 17.2 % (11.5-14.5); White Blood Count 5.2 K/mm3 (4.5-10.0)
[2022-08-12 05:17] LABS: Anion Gap 4 mmol/L (8-16); Blood Urea Nitrogen 2 mg/dL (7-17); Calcium 7.4 mg/dL (8.4-10.2); Carbon Dioxide 28 mmol/L (22-30); Chloride 107 mmol/L (98-107); Estimated CRCL calculation 53 ml/min; Estimated Glomerular Filt Rate > 60; Glucose 90 mg/dL (65-110); Sodium 139 mmol/L (137-145)
[2022-08-12] MEDS: LEVOTHYROXINE SODIUM 50 MCG TABLET PO (06:11)
[2022-08-12] MEDS: FLUTICASONE/SALMETEROL 115-21 MCG INHALER 1 PUFF 2 PUFF INHALATION ×2 (08:48→20:16)
[2022-08-12] MEDS: SIMETHICONE 125 MG CHEW TAB PO ×4 (09:01→21:11)
[2022-08-12] MEDS: ASCORBIC ACID 500 MG TABLET PO ×2 (09:01→17:40)
[2022-08-12] MEDS: MULTIVITAMINS THERAPEUTIC TAB (*BKC) 1 TABLET PO (09:01)
[2022-08-12] MEDS: polyethylene glycoL 3350 17 GM POWD.PACK PO (09:01)
[2022-08-12] MEDS: guaiFENesin 12 HR 600 MG TABCR PO ×2 (09:01→21:11)
[2022-08-12] MEDS: clonazePAM (*CRX) 0.5 MG TABLET PO ×3 (09:02→17:39)
[2022-08-12] MEDS: GABAPENTIN 300 MG CAPSULE PO ×3 (09:02→17:39)
[2022-08-12] MEDS: FLUoxetine HCL 20 MG CAPSULE PO (09:02)
[2022-08-12] MEDS: MORPHINE SULFATE (*CRX) 15 MG TABCR PO ×3 (09:02→17:39)
[2022-08-12] MEDS: PANTOPRAZOLE 40 MG TABLET PO ×2 (09:02→17:39)
[2022-08-12] MEDS: lisinopriL 5 MG TABLET PO (09:02)
[2022-08-12] MEDS: IRON SUCROSE COMPLEX 100 MG in SODIUM CHLORIDE 0.9% IV 50 ML 220 MG IVPB (09:05)
[2022-08-12] MEDS: LORazepam (*CRX) 1 MG TABLET PO ×2 (09:38→21:11)
[2022-08-12] MEDS: UMECLIDINIUM/VILANTEROL 62.5-25 MCG ELLIPTA 1 PUFF INHALATION (09:41)
[2022-08-12 10:34] LABS: IFOB Positive Control Positive; Immunochemical Fecal Occult Bl Negative (N)
[2022-08-12] MEDS: CEFEPIME 2 GM/NS 50 ML 2 GM/50 ML BAG IVPB (11:00)
--- NOTE | 2022-08-12 12:03 | PCSTNOTE ---
Patient seen for bedside swallowing evaluation, seated in bed with head of bed elevated. Patient alert and responsive to questions. Oral peripheral examination within normal limits. Patient currently receives regular texture diet. Thin liquids by spoon and straw and pureed food by spoon were trialed during this evaluation. Patient demonstrated no signs of aspiration. Per nursing, patient has been eating, drinking, and taking medications with no difficulty. Please note, silent aspiration cannot be ruled out at bedside and can only be determined with a modified barium swallow. At this time no further testing or speech therapy is recommended for this patient. A regular texture diet with thin liquids is recommended. Swallowing precaution recommendations have been placed in chart. Thank you for the referral of this patient.
--- NOTE | 2022-08-12 14:15 | PM.IMPN ---
Progress Note: A&P Assessment and Plan (1) Hypotension due to hypovolemia: Code(s): I95.89 - Other hypotension; E86.1 - Hypovolemia Status: Acute Assessment and Plan: Resolved with IV fluids and antibiotics, do not suspect infection, on day 3 of cefepime--DC today, chest x-ray in urinalysis as well as CBC all showed no signs of infection, suspect hypotension was due to dehydration as well as pain medication TSH normal. Random cortisol within normal limits. Dietary has been consulted and supplements added. (2) Sepsis: Qualifiers: Sepsis acute organ dysfunction status: with acute organ dysfunction Sepsis type: sepsis due to unspecified organism Severe sepsis acute organ dysfunction type: encephalopathy Code(s): A41.9 - Sepsis, unspecified organism Status: Acute Assessment and Plan: No source found for possible sepsis, suspect patient's symptoms were from dehydration as opposed to infection (3) Pneumonia: Qualifiers: Laterality: bilateral Lung location: lower lobe of lung Pneumonia type: due to unspecified organism Qualified Code(s): J18.9 - Pneumonia, unspecified organism Code(s): J18.9 - Pneumonia, unspecified organism Status: Acute Assessment and Plan: Patient sent in for low BP. CXR showing COPD vs chronic ILD. CT of the abdomen so that the lung bases chronic bibasilar interstitial disease with superimposed dependent consolidative changes. Consider edema versus atelectasis versus pneumonia. Blood cultures are no growth to date. No fevers. White count was normal and has remained normal. She is normally on room air but has been on 2 L since admission. She has been started on cefepime 08/10 and vancomycin, vancomycin discontinued 08/11. Speech therapy evaluation showed no signs of aspiration. Okay for regular diet and thin liquids. Will discontinue antibiotics today and observe tomorrow (4) Anemia: Qualifiers: Anemia type: other cause Other causes of anemia: chronic disease, other Qualified Code(s): D63.8 - Anemia in other chronic diseases classified elsewhere Code(s): D64.9 - Anemia, unspecified Status: Acute Assessment and Plan: Hgb was in the 9-10 range earlier this year but now in the 7 range. In June, iron <10, TIBC 223 and TSat 4%. Ferritin 62. B12/Folate levels normal. Start IV iron, status post 2 of 3 doses FOBT was negative Continue PPI (5) Acute metabolic encephalopathy: Code(s): G93.41 - Metabolic encephalopathy Status: Acute Assessment and Plan: Resolved, will increase Klonopin back to her home dose, maintain reduced dose of MS Contin. Continue prozac, gabapentin, requip and seroquel (6) Moderate malnutrition: Code(s): E44.0 - Moderate protein-calorie malnutrition Status: Acute Assessment and Plan: Patient with moderate malnutrition related to inadequate protein and energy intake as evidence by intake of less that 75% of estimated needs over a month, -15% wt loss in 1 month, and subcutaneous fat loss of orbital pads, muscle wasting of temporalis and clavicles. Dietary consulted. Continue supplements (7) Schizophrenia: Code(s): F20.9 - Schizophrenia, unspecified Status: Acute Assessment and Plan: Stable Plan DVT prophylaxis with SCDs GI prophylaxis with PPI Code status full code Subjective Date/time seen: 08/12/22 14:15 Interval history: 66yo female with schizophrenia, COPD with chronic hypoxic respiratory failure, and GERD who [facility] due to low blood pressure, now resolved. No overnight events noted. No chest pain or shortness of breath. No nausea, vomiting or diarrhea. No fevers or chills. Patient is eager to go home, she would like to go home with family as opposed to a facility. Review of Systems Review of Systems: 12 point review of systems was assesse
[2022-08-12] MEDS: POTASSIUM CHLORIDE 20 MEQ TABLET 40 MEQ PO (14:58)
[2022-08-12] MEDS: ACETAMINOPHEN 325 MG TABLET 650 MG PO (21:10)
[2022-08-12] MEDS: QUEtiapine FUMARATE 25 MG TABLET PO (21:11)
[2022-08-12] MEDS: rOPINIRole HCL 1 MG TABLET PO (21:11)
[2022-08-12 23:09] LABS: Pneumococcal Antigen Urine Not Detected (Not Detected)
[2022-08-13] VITALS (13 sets, daily range): BP systolic 98–158; BP diastolic 53–82; PULSE 89–120; RESP 15–28; TEMP 36.2–37.2; O2SAT 91–98
[2022-08-13] MEDS: IPRATROPIUM BR 0.02% INH SOLN 0.5 MG/2.5 ML VIAL INHALATION ×4 (01:17→21:39)
[2022-08-13 05:12] LABS: Hematocrit 26.8 % (37.0-47.0); Hemoglobin 8.3 g/dL (12.0-15.0); Mean Corpuscular Hemoglobin 25.2 pg (26-34); Mean Corpuscular Volume 81.2 fl (80-100); Mean Platelet Volume 9.4 fl (7.4-10.4); Platelet Count Result 304 k/mm3 (150-375); Red Cell Distribution Width 17.6 % (11.5-14.5); White Blood Count 6.3 K/mm3 (4.5-10.0)
[2022-08-13] MEDS: LEVOTHYROXINE SODIUM 50 MCG TABLET PO (05:28)
[2022-08-13 05:30] LABS: Anion Gap 3 mmol/L (8-16); Blood Urea Nitrogen 3 mg/dL (7-17); Calcium 7.7 mg/dL (8.4-10.2); Carbon Dioxide 29 mmol/L (22-30); Chloride 107 mmol/L (98-107); Estimated CRCL calculation 53 ml/min; Estimated Glomerular Filt Rate > 60; Glucose 85 mg/dL (65-110); Potassium 3.2 mmol/L (3.4-5.0); Sodium 139 mmol/L (137-145)
--- NOTE | 2022-08-13 07:54 | PM.DS ---
DS: Admitting Diagnosis Discharge Date 08/13/22 Admitting Diagnosis hypotension DS: Discharge Diagnosis Discharge Diagnosis (1) Hypotension due to hypovolemia: Code(s): I95.89 - Other hypotension; E86.1 - Hypovolemia Status: Acute Assessment and Plan: Resolved with IV fluids and antibiotics, do not suspect infection, on day 3 of cefepime--DC today, chest x-ray in urinalysis as well as CBC all showed no signs of infection, suspect hypotension was due to dehydration as well as pain medication TSH normal. Random cortisol within normal limits. Dietary has been consulted and supplements added. (2) Sepsis: Qualifiers: Sepsis acute organ dysfunction status: with acute organ dysfunction Sepsis type: sepsis due to unspecified organism Severe sepsis acute organ dysfunction type: encephalopathy Code(s): A41.9 - Sepsis, unspecified organism Status: Acute Assessment and Plan: No source found for possible sepsis, suspect patient's symptoms were from dehydration as opposed to infection (3) Pneumonia: Qualifiers: Laterality: bilateral Lung location: lower lobe of lung Pneumonia type: due to unspecified organism Qualified Code(s): J18.9 - Pneumonia, unspecified organism Code(s): J18.9 - Pneumonia, unspecified organism Status: Acute Assessment and Plan: Patient sent in for low BP. CXR showing COPD vs chronic ILD. CT of the abdomen so that the lung bases chronic bibasilar interstitial disease with superimposed dependent consolidative changes. Consider edema versus atelectasis versus pneumonia. Blood cultures are no growth to date. No fevers. White count was normal and has remained normal. She is normally on room air but has been on 2 L since admission. She has been started on cefepime 08/10 and vancomycin, vancomycin discontinued 08/11. Speech therapy evaluation showed no signs of aspiration. Okay for regular diet and thin liquids. Will discontinue antibiotics today and observe tomorrow (4) Anemia: Qualifiers: Anemia type: other cause Other causes of anemia: chronic disease, other Qualified Code(s): D63.8 - Anemia in other chronic diseases classified elsewhere Code(s): D64.9 - Anemia, unspecified Status: Acute Assessment and Plan: Hgb was in the 9-10 range earlier this year but now in the 7 range. In June, iron <10, TIBC 223 and TSat 4%. Ferritin 62. B12/Folate levels normal. Start IV iron, status post 3 of 3 doses FOBT was negative Continue PPI Discharge on iron supplementation (5) Acute metabolic encephalopathy: Code(s): G93.41 - Metabolic encephalopathy Status: Acute Assessment and Plan: Resolved, will increase Klonopin back to her home dose, maintain reduced dose of MS Contin. Continue prozac, gabapentin, requip and seroquel (6) Moderate malnutrition: Code(s): E44.0 - Moderate protein-calorie malnutrition Status: Acute Assessment and Plan: Patient with moderate malnutrition related to inadequate protein and energy intake as evidence by intake of less that 75% of estimated needs over a month, -15% wt loss in 1 month, and subcutaneous fat loss of orbital pads, muscle wasting of temporalis and clavicles. Dietary consulted. Continue supplements (7) Schizophrenia: Code(s): F20.9 - Schizophrenia, unspecified Status: Acute Assessment and Plan: Stable Plan DVT prophylaxis with SCDs GI prophylaxis with PPI Code status full code DS: Summary Hospital Course Hospital Course: 66-year-old female with past medical history significant for anxiety, schizophrenia, COPD and GERD presenting from [facility] with hypotension. Her morphine dose was cut in half, lisinopril was discontinued, gabapentin was cut down from 3 times a day to twice daily and symptoms resolved. She remained at her baseline throughout the stay. In the ER, she was note
[2022-08-13] MEDS: UMECLIDINIUM/VILANTEROL 62.5-25 MCG ELLIPTA 1 PUFF INHALATION (08:28)
[2022-08-13] MEDS: FLUTICASONE/SALMETEROL 115-21 MCG INHALER 1 PUFF 2 PUFF INHALATION ×2 (08:28→21:39)
[2022-08-13] MEDS: POTASSIUM CHLORIDE 20 MEQ TABLET 80 MEQ PO (10:00)
[2022-08-13] MEDS: MULTIVITAMINS THERAPEUTIC TAB (*BKC) 1 TABLET PO (10:01)
[2022-08-13] MEDS: SIMETHICONE 125 MG CHEW TAB PO ×4 (10:01→21:00)
[2022-08-13] MEDS: ASCORBIC ACID 500 MG TABLET PO ×2 (10:01→16:42)
[2022-08-13] MEDS: lisinopriL 5 MG TABLET PO (10:01)
[2022-08-13] MEDS: guaiFENesin 12 HR 600 MG TABCR PO ×2 (10:01→21:00)
[2022-08-13] MEDS: GABAPENTIN 300 MG CAPSULE PO ×3 (10:01→16:43)
[2022-08-13] MEDS: PANTOPRAZOLE 40 MG TABLET PO ×2 (10:01→16:43)
[2022-08-13] MEDS: IRON SUCROSE COMPLEX 100 MG in SODIUM CHLORIDE 0.9% IV 50 ML 220 MG IVPB (10:02)
[2022-08-13] MEDS: FLUoxetine HCL 20 MG CAPSULE PO (10:02)
[2022-08-13] MEDS: clonazePAM (*CRX) 0.5 MG TABLET PO ×3 (10:02→16:42)
[2022-08-13] MEDS: MORPHINE SULFATE (*CRX) 15 MG TABCR PO ×3 (10:02→16:43)
--- NOTE | 2022-08-13 10:55 | PCNFU ---
Nutrition Follow-Up Complete: Moderate malnutrition related to inadequate protein and energy intake as evidenced by intake of less than 75% of estimated needs over a month, -15% wt loss in 1 month, and subcutaneous fat loss of orbital pads, muscle wasting of temporalis and clavicles. Goal:Improved tolerance to diet consistency PO intake 50% or greater of meals and supplements Pt is progressing towards goal. Pt current nutrition is heart healthy, Ensure compact TID. Nutrition recommendation: Continue with current plan of care. Last recorded weight is 50.9 kg - stable Bowel Motility: no BM recorded at this time Labs Reviewed: Hgb:8.3, HCT:26.8, K:3.2, BUN:3 Meds Noted: protonix Skin: WNL Additional Notes: Pt continues on a heart healthy diet, 50% intake of meals. Ensure TID with meals and pt consuming. Possible discharge today. Monitor intake, wt, labs. Follow up in 5 days.
[2022-08-13] MEDS: LORazepam (*CRX) 1 MG TABLET PO ×2 (13:12→21:00)
--- NOTE | 2022-08-13 15:01 | PM.IMPN ---
Progress Note: A&P Assessment and Plan (1) Hypotension due to hypovolemia: Code(s): I95.89 - Other hypotension; E86.1 - Hypovolemia Status: Acute Assessment and Plan: Resolved with IV fluids and antibiotics, do not suspect infection, d/c abx, chest x-ray and urinalysis as well as CBC all showed no signs of infection, suspect hypotension was due to dehydration as well as pain medication. D/c lisinopril. TSH normal. Random cortisol within normal limits. Dietary has been consulted and supplements added. (2) Sepsis: Qualifiers: Sepsis acute organ dysfunction status: with acute organ dysfunction Sepsis type: sepsis due to unspecified organism Severe sepsis acute organ dysfunction type: encephalopathy Code(s): A41.9 - Sepsis, unspecified organism Status: Acute Assessment and Plan: No source found for possible sepsis, suspect patient's symptoms were from dehydration as opposed to infection (3) Pneumonia: Qualifiers: Laterality: bilateral Lung location: lower lobe of lung Pneumonia type: due to unspecified organism Qualified Code(s): J18.9 - Pneumonia, unspecified organism Code(s): J18.9 - Pneumonia, unspecified organism Status: Acute Assessment and Plan: Patient sent in for low BP. CXR showing COPD vs chronic ILD. CT of the abdomen so that the lung bases chronic bibasilar interstitial disease with superimposed dependent consolidative changes. Consider edema versus atelectasis versus pneumonia. Blood cultures are no growth to date. No fevers. White count was normal and has remained normal. She is normally on room air but has been on 2 L since admission. She has been started on cefepime 08/10 and vancomycin, vancomycin discontinued 08/11. Speech therapy evaluation showed no signs of aspiration. Okay for regular diet and thin liquids. 08/13: Doing well off antibiotics, do not suspect infectious etiology, cont off abx (4) Anemia: Qualifiers: Anemia type: other cause Other causes of anemia: chronic disease, other Qualified Code(s): D63.8 - Anemia in other chronic diseases classified elsewhere Code(s): D64.9 - Anemia, unspecified Status: Acute Assessment and Plan: Hgb was in the 9-10 range earlier this year but now in the 7 range. In June, iron <10, TIBC 223 and TSat 4%. Ferritin 62. B12/Folate levels normal. Start IV iron, status post 2 of 3 doses FOBT was negative Continue PPI (5) Acute metabolic encephalopathy: Code(s): G93.41 - Metabolic encephalopathy Status: Acute Assessment and Plan: Resolved, continue Klonopin at her home dose, maintain reduced dose of MS Contin. Continue prozac, gabapentin, requip and seroquel. (6) Moderate malnutrition: Code(s): E44.0 - Moderate protein-calorie malnutrition Status: Acute Assessment and Plan: Patient with moderate malnutrition related to inadequate protein and energy intake as evidence by intake of less that 75% of estimated needs over a month, -15% wt loss in 1 month, and subcutaneous fat loss of orbital pads, muscle wasting of temporalis and clavicles. Dietary consulted. Continue supplements (7) Schizophrenia: Code(s): F20.9 - Schizophrenia, unspecified Status: Acute Assessment and Plan: Stable Plan DVT prophylaxis with SCDs GI prophylaxis with PPI Code status full code Subjective Date/time seen: 08/13/22 15:01 Interval history: 66yo female with schizophrenia, COPD with chronic hypoxic respiratory failure, and GERD who [facility] due to low blood pressure, now resolved. No overnight events noted. No chest pain or shortness of breath. No nausea, vomiting or diarrhea. No fevers or chills. Patient states she feels the same as yesterday. She would like to go home as opposed to a facility. Review of Systems Review of Systems: 12 point review o
[2022-08-13] MEDS: METOCLOPRAMIDE HCL INJ 10 MG/2 ML VIAL 5 MG IV PUSH (18:14)
[2022-08-13] MEDS: rOPINIRole HCL 1 MG TABLET PO (21:00)
[2022-08-13] MEDS: QUEtiapine FUMARATE 25 MG TABLET PO (21:00)
[2022-08-14] VITALS (7 sets, daily range): BP systolic 111–114; BP diastolic 65–67; PULSE 100–106; RESP 16–24; TEMP 36.8; O2SAT 94–98
[2022-08-14] MEDS: METOCLOPRAMIDE HCL INJ 10 MG/2 ML VIAL 5 MG IV PUSH ×2 (01:22→05:27)
[2022-08-14] MEDS: IPRATROPIUM BR 0.02% INH SOLN 0.5 MG/2.5 ML VIAL INHALATION ×2 (01:57→09:17)
[2022-08-14 03:10] LABS: Legionella pneumophila Ag Ur Not Detected (Not Detected)
[2022-08-14] MEDS: LEVOTHYROXINE SODIUM 50 MCG TABLET PO (05:27)
[2022-08-14 05:58] LABS: Hematocrit 26.8 % (37.0-47.0); Hemoglobin 8.2 g/dL (12.0-15.0); Mean Corpuscular HGB Conc 30.6 g/dl (32-36); Mean Corpuscular Hemoglobin 24.6 pg (26-34); Mean Corpuscular Volume 80.2 fl (80-100); Mean Platelet Volume 9.4 fl (7.4-10.4); Platelet Count Result 324 k/mm3 (150-375); Red Blood Count 3.34 M/mm3 (4.2-5.4); Red Cell Distribution Width 17.9 % (11.5-14.5); White Blood Count 7.2 K/mm3 (4.5-10.0)
[2022-08-14 06:04] LABS: Anion Gap 3 mmol/L (8-16); Blood Urea Nitrogen 4 mg/dL (7-17); Calcium 7.7 mg/dL (8.4-10.2); Carbon Dioxide 30 mmol/L (22-30); Chloride 104 mmol/L (98-107); Estimated CRCL calculation 62 ml/min; Estimated Glomerular Filt Rate > 60; Glucose 86 mg/dL (65-110); Potassium 4.1 mmol/L (3.4-5.0); Sodium 137 mmol/L (137-145)
[2022-08-14] MEDS: clonazePAM (*CRX) 0.5 MG TABLET PO (08:13)
[2022-08-14] MEDS: MULTIVITAMINS THERAPEUTIC TAB (*BKC) 1 TABLET PO (08:13)
[2022-08-14] MEDS: LORazepam (*CRX) 1 MG TABLET PO (08:13)
[2022-08-14] MEDS: FLUoxetine HCL 20 MG CAPSULE PO (08:13)
[2022-08-14] MEDS: PANTOPRAZOLE 40 MG TABLET PO (08:13)
[2022-08-14] MEDS: MORPHINE SULFATE (*CRX) 15 MG TABCR PO (08:13)
[2022-08-14] MEDS: GABAPENTIN 300 MG CAPSULE PO (08:14)
[2022-08-14] MEDS: guaiFENesin 12 HR 600 MG TABCR PO (08:14)
[2022-08-14] MEDS: ASCORBIC ACID 500 MG TABLET PO (08:14)
[2022-08-14] MEDS: SIMETHICONE 125 MG CHEW TAB PO (08:14)
[2022-08-14] MEDS: FLUTICASONE/SALMETEROL 115-21 MCG INHALER 1 PUFF 2 PUFF INHALATION (09:18)
[2022-08-14] MEDS: UMECLIDINIUM/VILANTEROL 62.5-25 MCG ELLIPTA 1 PUFF INHALATION (09:36)
[2022-08-14] MEDS: IRON SUCROSE COMPLEX 100 MG in SODIUM CHLORIDE 0.9% IV 50 ML 220 MG IVPB (10:19)
[2022-08-14 10:47] LABS: EDCOVIDSCREEN Negative (Negative)
== END 2022-08-14 11:45 | DRG 314 ==
LOC: ANHED 05:21 → ANHIMU 07:35
PROVIDERS: Internal Medicine; Admitting Provider Internal Medicine; Emergency Provider Emergency Medicine; PCP Internal Medicine; Visit Provider Student in an Organized Health Care Education/Training Program
DX: I95.89 Other hypotension (principal); G93.41 Metabolic encephalopathy; J18.9 Pneumonia, unspecified organism; E44.0 Moderate protein-calorie malnutrition; Z68.1 Body mass index [BMI] 19.9 or less, adult; J44.0 Chronic obstructive pulmonary disease with (acute) lower respiratory infection; J96.11 Chronic respiratory failure with hypoxia; E86.0 Dehydration; E86.1 Hypovolemia; I95.2 Hypotension due to drugs; T50.995A Adverse effect of other drugs, medicaments and biological substances, initial encounter; D63.8 Anemia in other chronic diseases classified elsewhere; Z20.822 Contact with and (suspected) exposure to COVID-19; F20.9 Schizophrenia, unspecified; F41.9 Anxiety disorder, unspecified; K21.9 Gastro-esophageal reflux disease without esophagitis; G89.4 Chronic pain syndrome; R33.9 Retention of urine, unspecified; D50.9 Iron deficiency anemia, unspecified; E78.5 Hyperlipidemia, unspecified; E03.9 Hypothyroidism, unspecified; Z96.641 Presence of right artificial hip joint; Z90.49 Acquired absence of other specified parts of digestive tract; Z87.891 Personal history of nicotine dependence; Z99.81 Dependence on supplemental oxygen
CPT/HCPCS: 36415; 36430; 36556; 51702; 70450; 71045; 72125; 72192; 73502; 74177; 80048; 80053; 81003; 82274; 82533; 82550; 83605; 83735; 84100; 84443; 85025; 85027; 85610; 85730; 86850; 86900; 86901; 86923; 87040; 87081; 87426; 87449; 87637; 87899; 92610; 93005; 94640; 96361; 97161; 97165; 99284; 99291; A9270; C1751; C9803; J0692; J1756; J2060; J2765; J3370; J7030; J7050; J7120; P9016; Q9967

== ENCOUNTER 2022-08-15 10:27 | Emergency (ER) | payer MEDICARE, MEDICAID, SELFPAY ==
[2022-08-15] VITALS (18 sets, daily range): BP systolic 106–142; BP diastolic 63–91; PULSE 89–106; RESP 12–23; TEMP 37.4; O2SAT 94–100
--- NOTE | ~2022-08-15 | XR_ITS ---
EXAMINATION: XR chest 1V portable INDICATION: Coughing TECHNIQUE: Portable AP chest at 1114 hours COMPARISON: 08/10/2022 FINDINGS: The lungs are hyperinflated. A right subclavian central venous catheter has been removed. T he lungs are free of acute opacities. No pleural effusion or pneumothorax. The cardiomediastinal silh ouette is normal. IMPRESSION: 1. Hyperinflation without acute cardiopulmonary abnormality. Reviewed, dictated and finalized at [facility].
--- NOTE | 2022-08-15 10:52 | ED.GENADULT ---
HPI - General Adult General Chief complaint: Nausea/Vomiting/Diarrhea Stated complaint: nausea Time Seen by Provider: 08/15/22 10:29 Source: patient and EMS Mode of arrival: EMS Limitations: no limitations History of Present Illness HPI narrative: Patient is 66 years old white female came from residential by ambulance because nausea, no vomiting no diarrhea no fever or chills. Patient is telling me that she does not like residential food and she feels better in our hospital. Patient was discharged from our hospital yesterday with a diagnosis of hypovolemic hypotension, pneumonia, anemia and acute metabolic encephalopathy. History of schizophrenia, COPD on oxygen as needed, acid reflux.. Related Data Home Medications Medication Instructions Recorded Confirmed levothyroxine 50 mcg capsule 50 mcg PO DAILY 07/15/22 08/10/22 omeprazole 40 mg capsule,delayed 40 mg PO DAILY 07/15/22 08/10/22 release Fleet Enema 1 applic RECTAL DAILY PRN 08/10/22 08/10/22 Constipation Multi-Vitamins 1 unit PO DAILY ANEMIA 08/10/22 08/10/22 acetaminophen 325 mg tablet 650 mg PO Q4H PRN Pain 08/10/22 08/10/22 (Tylenol) ascorbic acid (vitamin C) 500 mg 500 mg PO BID 08/10/22 08/10/22 tablet bisacodyl 10 mg rectal suppository 10 mg RECTAL DAILY PRN Constipation 08/10/22 08/10/22 fluticasone 250 mcg-salmeterol 50 1 inh inhalation Q12H 08/10/22 08/10/22 mcg/dose blistr powdr for inhalation (Advair Diskus) glycopyrrolate 9 mcg-formoterol 2 puff inhalation BID 08/10/22 08/10/22 4.8 mcg HFA aerosol inhaler magnesium hydroxide 400 mg/5 mL 30 ml PO HS PRN Constipation 08/10/22 08/10/22 oral suspension (Milk of Magnesia) ropinirole 1 mg tablet 1 mg PO HS 08/10/22 08/10/22 Allergies Allergy/AdvReac Type Severity Reaction Status Date / Time No Known Allergies Allergy Verified 08/15/22 10:38 Review of Systems Review of Systems: All systems reviewed & are unremarkable except as noted in HPI and below PMFSH Past Medical History Medical History Anxiety Chronic anemia Anemia of chronic disease with iron studies completed June 2022 Chronic GERD Chronic obstructive pulmonary disease Chronic pain syndrome Chronic respiratory failure with hypoxia Diastolic dysfunction without heart failure Echocardiogram 07/19/2022: EF greater than 70%, grade 1 diastolic dysfunction, remainder of exam unremarkable but it was a technically difficult study History of tobacco abuse Hyperlipidemia Hypertension Hypothyroidism Poor vision Schizophrenia Surgical History Surgical History History of cholecystectomy History of total right hip arthroplasty Hx of cholecystectomy Family History Family History Mother Cancer Father Aneurysm Social History Social History Social History: Surrogate medical decision maker: Melanie Baker, daughter. Code status: Full code. Smoking packs per day: 1 Smoking cigarettes per day: 20.0 Years smoked: 51 Smoking pack-years: 51.00 Smoking status: Former smoker Tobacco type: cigarettes and e-cigarettes/vaping Additional smoking assessment comments: Alcohol intake: never Substance use: never Substance use type: does not use Other substance usage details: Patient has active morphine prescription per my review of her medications. Lack of Transportation: No Lack of Food: Sometimes True Current Housing: I Have Housing Concerned About Future Housing: No Difficulty Paying Gas/Electric Bills: No Difficulty Paying for Meds: YES Currently Unemployed: No Education: Decline to Answer Difficulty w/ Childcare or Family Care: No Additional living arrangements comments: as of June 2022. Moved to the area to live with her son. She has 2 children. Additional
[2022-08-15 11:17] LABS: Basophils Percent Auto 0.3 % (0.2-1.2); Eosinophils Absolute Auto 0.3 K/mm3 (0-0.3); Eosinophils Percent Auto 4.6 % (0-4.4); Hematocrit 37.7 % (37.0-47.0); Hemoglobin 11.7 g/dL (12.0-15.0); Immature Granulocyte Absolute 0.03 K/mm3 (0.00-0.031); Immature Granulocyte Percent A 0.4 % (0-0.5); Lymphocytes Absolute Auto 0.99 K/mm3 (0.9-3.2); Lymphocytes Percent Auto 14.8 % (18.3-44.2); Mean Corpuscular Hemoglobin 25.2 pg (26-34); Mean Corpuscular Volume 81.3 fl (80-100); Mean Platelet Volume 9.2 fl (7.4-10.4); Monocytes Absolute Auto 0.5 K/mm3 (0.1-0.6); Monocytes Percent Auto 8.1 % (2.6-8.5); Neutrophils Absolute Auto 4.8 K/mm3 (1.3-6.7); Neutrophils Percent Auto 71.8 % (45.5-73.1); Platelet Count Result 479 k/mm3 (150-375); Red Blood Count 4.64 M/mm3 (4.2-5.4); Red Cell Distribution Width 18.6 % (11.5-14.5); White Blood Count 6.7 K/mm3 (4.5-10.0)
[2022-08-15] MEDS: SODIUM CHLORIDE 0.9% IV 1,000 ML 999 ML IV CONT (11:17)
[2022-08-15] MEDS: ONDANSETRON INJ 4 MG/2 ML VIAL IV PUSH (11:19)
[2022-08-15] MEDS: LORazepam INJ (*CRX) 2 MG/ML VIAL 1 MG IV PUSH (11:22)
[2022-08-15 11:32] LABS: Alanine Aminotransferase 25 U/L (6-35); Alkaline Phosphatase 135 U/L (38-126); Anion Gap 11 mmol/L (8-16); Aspartate Amino Transferase 32 U/L (14-36); Bilirubin,Total 0.7 mg/dL (0.2-1.3); Blood Urea Nitrogen 5 mg/dL (7-17); Calcium 8.6 mg/dL (8.4-10.2); Carbon Dioxide 30 mmol/L (22-30); Chloride 100 mmol/L (98-107); Estimated CRCL calculation 55 ml/min; Estimated Glomerular Filt Rate > 60; Glucose 110 mg/dL (65-110); Lipase 54 U/L (23-300); Sodium 141 mmol/L (137-145)
[2022-08-15 11:57] LABS: Appearance Urine Clear (Clear); Bacteria Urine None Seen /hpf; Bilirubin Urine Negative (Negative); Blood Urine Negative (Negative); Color Urine Dark Yellow (Yellow); Glucose Urine UA Negative (Negative); Ketones Urine Negative (Negative); Leukocyte Esterase Ur Negative LEU/UL (Negative); Nitrate Urine Negative (Negative); Non Pathogenic Casts 0-2; Protein Urine Trace mg/dL (Negative); RBC Urine 0-2 /hpf (0-2); Specific Grav Ur 1.017 (1.001-1.035); Squamous Epithelial Cell Urine Few /hpf (Few); Urobilinogen Urine 0.2 mg/dL (<2.0); WBC Urine 0-5 /hpf; pH Urine 7.5 (5.0-9.0)
[2022-08-15 12:10] LABS: Add Urine Microscopic? YES
--- NOTE | 2022-08-15 12:32 | PC.NURSE ---
Attempted to call [facility] [phone] until present time - 1230. On hold with the facility. Spoke with person at facility and she wrote down number to have RN call us back.
--- NOTE | 2022-08-15 13:19 | PC.NURSE ---
Multiple attempts made to give report to the nurse at [facility], no answer, was placed on hold each time with no respond.
== END 2022-08-15 14:42 ==
PROVIDERS: Emergency Provider Emergency Medicine; PCP Internal Medicine
DX: F32.A Depression, unspecified (principal); F20.9 Schizophrenia, unspecified; J44.9 Chronic obstructive pulmonary disease, unspecified; Z99.81 Dependence on supplemental oxygen; K21.9 Gastro-esophageal reflux disease without esophagitis; I10 Essential (primary) hypertension; E03.9 Hypothyroidism, unspecified; E78.5 Hyperlipidemia, unspecified; Z87.891 Personal history of nicotine dependence
CPT/HCPCS: 36415; 71045; 80053; 81001; 83690; 85025; 96361; 96374; 96375; 99284; J2060; J2405; J7030

== ENCOUNTER 2022-09-07 08:01 | Emergency (ER) | payer MEDICARE, MEDICAID, SELFPAY ==
--- NOTE | ~2022-09-07 | CT_ITS ---
EXAMINATION: CT abdomen pelvis w con DATE: 09/07/2022 11:12 INDICATION: Left lower quadrant abdominal pain, nausea, vomiting, diarrhea TECHNIQUE: Computed tomography (CT) of the abdomen and pelvis was performed with 100 CC Omnipaque 350 intravenous contrast. Automated exposure control and iterative reconstruction technique were employe d. Exam dose: 217.23 mGy-cm total exam DLP. COMPARISON: 08/10/2022 CT abdomen pelvis FINDINGS: Prominent predominantly posterior bilateral lower lobe patchy consolidation. Prominent emphysematous changes of the lungs. Normal heart size. No pericardial or pleural effusion. Status post cholecystectomy. This likely accounts for mild prominence of the bile ducts. No interval hepatic or splenic space-occupying mass lesion since 08/10/2022. Stable left adrenal mass. Right adrenal gland unremarkable. No renal mass lesion or urinary tract calculus or hydroureteronephrosis. There is extensive calcification but normal caliber of the abdominal aorta. No intraperitoneal or ret roperitoneal or pelvic mass lesion or adenopathy or ascites is detected. The uterus, adnexal areas an d urinary bladder are unremarkable. Prominent air-fluid level of the stomach. No bowel obstruction is noted. Occasional small bowel air-f luid levels. No intraperitoneal free air. Status post right total hip arthroplasty. Prominent sclerotic lesion of the left iliac wing may be a bone island. Osteosclerotic metastasis is less likely considering the absence of any other such lesions. Stable moderate L4 compression fracture deformity, not significant change since 08/10/2022. IMPRESSION: No significant change since 08/10/2022 Prominent patchy consolidation in the lower lobes Status post cholecystectomy, which likely accounts for mild prominence of the bile ducts Stable left adrenal mass Occasional small bowel air-fluid levels and prominent gastric fluid level, without apparent obstructi on or any intraperitoneal free air Status post right total hip arthroplasty L4 compression fracture Reviewed, dictated and finalized at [facility]. Reviewed, dictated and finalized at [facility]. IMPRESSION: No significant change since 08/10/2022 Prominent patchy consolidation in the lower lobes Status post cholecystectomy, which likely accounts for mild prominence of the b ile ducts Stable left adrenal mass Occasional small bowel air-fluid levels and prominent gastric fluid level, with out apparent obstruction or any intraperitoneal free air Status post right total hip arthroplasty L4 compression fracture
--- NOTE | ~2022-09-07 | XR_ITS ---
XR chest 2V DATE: 09/07/2022 13:22 INDICATION: Vomiting, nausea and diarrhea TECHNIQUE: AP and lateral views COMPARISON: CT abdomen pelvis 08/15/2022 portable AP chest 07/30/2022 CT chest high resolution scan FINDINGS: Bilateral hyperinflation, relative flattening the diaphragm, consistent with COPD. There is patchy infiltrate or atelectasis primarily in the lung bases. No pleural effusion or pulmona ry vascular congestion or pneumothorax. Heart size is within normal range. Diffuse osteopenia. Surgical clips overlie the right upper quadrant, likely due to cholecystectomy. There is bilateral re nal excretion of contrast material. IMPRESSION: COPD Patchy infiltrate or atelectasis in the lower lung zones Reviewed, dictated and finalized at location B.
[2022-09-07 08:04] VITALS: BP 136/74; PULSE 95; RESP 20; TEMP 36.5; O2SAT 97
[2022-09-07 08:46] LABS: Basophils Percent Auto 0.2 % (0.2-1.2); Eosinophils Absolute Auto 0.2 K/mm3 (0-0.3); Eosinophils Percent Auto 1.3 % (0-4.4); Hematocrit 38.2 % (37.0-47.0); Hemoglobin 11.6 g/dL (12.0-15.0); Immature Granulocyte Absolute 0.04 K/mm3 (0.00-0.031); Immature Granulocyte Percent A 0.3 % (0-0.5); Lymphocytes Absolute Auto 1.03 K/mm3 (0.9-3.2); Lymphocytes Percent Auto 8.6 % (18.3-44.2); Mean Corpuscular HGB Conc 30.4 g/dl (32-36); Mean Corpuscular Volume 82.3 fl (80-100); Mean Platelet Volume 9.6 fl (7.4-10.4); Monocytes Absolute Auto 0.5 K/mm3 (0.1-0.6); Monocytes Percent Auto 4.1 % (2.6-8.5); Neutrophils Absolute Auto 10.2 K/mm3 (1.3-6.7); Neutrophils Percent Auto 85.5 % (45.5-73.1); Platelet Count Result 427 k/mm3 (150-375); Red Blood Count 4.64 M/mm3 (4.2-5.4); Red Cell Distribution Width 18.6 % (11.5-14.5)
[2022-09-07] MEDS: SODIUM CHLORIDE 0.9% IV 1,000 ML 999 ML IV CONT (08:48)
[2022-09-07] MEDS: ONDANSETRON INJ 4 MG/2 ML VIAL IV PUSH (08:49)
[2022-09-07 08:57] LABS: Alanine Aminotransferase 15 U/L (6-35); Albumin Level 3.6 g/dL (3.5-5.1); Alkaline Phosphatase 114 U/L (38-126); Anion Gap 6 mmol/L (8-16); Aspartate Amino Transferase 25 U/L (14-36); Bilirubin,Total 0.5 mg/dL (0.2-1.3); Blood Urea Nitrogen 7 mg/dL (7-17); Calcium 8.9 mg/dL (8.4-10.2); Carbon Dioxide 33 mmol/L (22-30); Chloride 102 mmol/L (98-107); Estimated CRCL calculation 66 ml/min; Estimated Glomerular Filt Rate > 60; Glucose 124 mg/dL (65-110); Lipase 50 U/L (23-300); Potassium 3.4 mmol/L (3.4-5.0); Sodium 141 mmol/L (137-145)
[2022-09-07 09:14] LABS: Appearance Urine Cloudy (Clear); Bacteria Urine None Seen /hpf; Bilirubin Urine 1+ (Negative); Blood Urine Negative (Negative); Color Urine Dark Yellow (Yellow); Glucose Urine UA Negative (Negative); Ketones Urine Trace mg/dL (Negative); Leukocyte Esterase Ur Trace LEU/UL (Negative); Mucus Urine Present /lpf; Nitrate Urine Negative (Negative); Protein Urine 2+ mg/dL (Negative); Specific Grav Ur 1.023 (1.001-1.035); Squamous Epithelial Cell Urine None seen /hpf (Few); pH Urine 6.5 (5.0-9.0)
[2022-09-07 09:15] LABS: Add Urine Microscopic? YES
--- NOTE | 2022-09-07 09:18 | ED.NAVMDI ---
HPI - Nausea/Vomiting/Diarrhea General Chief complaint: Nausea/Vomiting/Diarrhea Stated complaint: n/v/d Time Seen by Provider: 09/07/22 08:25 History of Present Illness HPI Narrative: Patient is a 66-year-old female who presents ER with nausea and vomiting and diarrhea. Began last night no fevers or chills. Patient actively vomiting and unable provide history other than shaking head yes and no. She has no shortness of breath. She is chronically oxygen dependent due to her COPD. Patient attempted to take Zofran this morning but did not help her symptoms. Related Data Home Medications Medication Instructions Recorded Confirmed levothyroxine 50 mcg capsule 50 mcg PO DAILY 07/15/22 08/10/22 omeprazole 40 mg capsule,delayed 40 mg PO DAILY 07/15/22 08/10/22 release Fleet Enema 1 applic RECTAL DAILY PRN 08/10/22 08/10/22 Constipation Multi-Vitamins 1 unit PO DAILY ANEMIA 08/10/22 08/10/22 acetaminophen 325 mg tablet 650 mg PO Q4H PRN Pain 08/10/22 08/10/22 (Tylenol) ascorbic acid (vitamin C) 500 mg 500 mg PO BID 08/10/22 08/10/22 tablet bisacodyl 10 mg rectal suppository 10 mg RECTAL DAILY PRN Constipation 08/10/22 08/10/22 fluticasone 250 mcg-salmeterol 50 1 inh inhalation Q12H 08/10/22 08/10/22 mcg/dose blistr powdr for inhalation (Advair Diskus) glycopyrrolate 9 mcg-formoterol 2 puff inhalation BID 08/10/22 08/10/22 4.8 mcg HFA aerosol inhaler magnesium hydroxide 400 mg/5 mL 30 ml PO HS PRN Constipation 08/10/22 08/10/22 oral suspension (Milk of Magnesia) ropinirole 1 mg tablet 1 mg PO HS 08/10/22 08/10/22 Allergies Allergy/AdvReac Type Severity Reaction Status Date / Time No Known Allergies Allergy Verified 09/07/22 08:13 Review of Systems Review of Systems: ROS unobtainable: Yes unobtainable due to medical condition PMFSH Past Medical History Medical History Anxiety Chronic anemia Anemia of chronic disease with iron studies completed June 2022 Chronic GERD Chronic obstructive pulmonary disease Chronic pain syndrome Chronic respiratory failure with hypoxia Diastolic dysfunction without heart failure Echocardiogram 07/19/2022: EF greater than 70%, grade 1 diastolic dysfunction, remainder of exam unremarkable but it was a technically difficult study History of tobacco abuse Hyperlipidemia Hypertension Hypothyroidism Poor vision Schizophrenia Surgical History Surgical History History of cholecystectomy History of total right hip arthroplasty Hx of cholecystectomy Family History Family History Mother Cancer Father Aneurysm Social History Social History Social History: Surrogate medical decision maker: Melanie Baker, daughter. Code status: Full code. Smoking packs per day: 1 Smoking cigarettes per day: 20.0 Years smoked: 51 Smoking pack-years: 51.00 Smoking status: Former smoker Tobacco type: cigarettes and e-cigarettes/vaping Additional smoking assessment comments: Alcohol intake: never Substance use: never Substance use type: does not use Other substance usage details: Patient has active morphine prescription per my review of her medications. Lack of Transportation: No Lack of Food: Sometimes True Current Housing: I Have Housing Concerned About Future Housing: No Difficulty Paying Gas/Electric Bills: No Difficulty Paying for Meds: YES Currently Unemployed: No Education: Decline to Answer Difficulty w/ Childcare or Family Care: No Additional living arrangements comments: as of June 2022. Moved to the area to live with her son. She has 2 children. 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 Spiritual care concerns: No Exam Narrative: GENERAL: Ill-appearing, well-nourished,
[2022-09-07 10:11] VITALS: BP 138/84; PULSE 94; RESP 18; O2SAT 97
[2022-09-07 10:12] VITALS: BP 126/85; BP 134/88; BP 140/82; PULSE 100; PULSE 94; PULSE 96
[2022-09-07 11:21] VITALS: BP 138/74; PULSE 95; RESP 20; O2SAT 99
[2022-09-07] MEDS: MORPHINE SULFATE (*CRX) 2 MG/ML INJ IV PUSH (11:22)
[2022-09-07 14:47] VITALS: BP 148/66; PULSE 86; RESP 18; O2SAT 98
== END 2022-09-07 15:53 | disposition home or self-care (01) ==
PROVIDERS: Emergency Provider Emergency Medicine; PCP Internal Medicine
DX: J18.9 Pneumonia, unspecified organism (principal); R11.2 Nausea with vomiting, unspecified; D63.8 Anemia in other chronic diseases classified elsewhere; G89.4 Chronic pain syndrome; K21.9 Gastro-esophageal reflux disease without esophagitis; J44.9 Chronic obstructive pulmonary disease, unspecified; E78.5 Hyperlipidemia, unspecified; I10 Essential (primary) hypertension; E03.9 Hypothyroidism, unspecified; F20.9 Schizophrenia, unspecified; Z96.641 Presence of right artificial hip joint; Z90.49 Acquired absence of other specified parts of digestive tract; Z87.891 Personal history of nicotine dependence; R82.998 Other abnormal findings in urine
CPT/HCPCS: 36415; 71046; 74177; 80053; 81001; 83690; 85025; 87086; 96361; 96374; 96375; 99284; J2270; J2405; J7030; Q9967

== ENCOUNTER 2022-09-18 10:59 | Observation (INO) | payer MEDICARE, MEDICAID, SELFPAY ==
[2022-09-18] VITALS (14 sets, daily range): BP systolic 109–149; BP diastolic 72–93; PULSE 95–113; RESP 12–22; TEMP 36.8–37.7; O2SAT 96–100; BMI 16.9
--- NOTE | ~2022-09-18 | XR_ITS ---
EXAMINATION: XR chest 2V DATE: 09/18/2022 12:30 INDICATION: Shortness of breath TECHNIQUE: AP and lateral views of the chest are obtained. COMPARISON: 09/07/2022 FINDINGS: Patchy airspace opacities of the lung bases persist with slight improvement on the left. Th ere is scarring of the lung apices. The lungs are hyperinflated. No pleural effusion or pneumothorax. The cardiomediastinal silhouette is normal. There is moderate thoracic spondylosis. Surgical clips i n the right upper quadrant are likely from prior cholecystectomy. IMPRESSION: 1. Bibasilar airspace opacities, with slight improvement on the left, consistent with pneumonia. 2. Severe emphysema. Reviewed, dictated and finalized at location B. IMPRESSION: 1. Bibasilar airspace opacities, with slight improvement on the left, consisten t with pneumonia. 2. Severe emphysema.
--- NOTE | ~2022-09-18 | CT_ITS ---
EXAMINATION: CT abdomen pelvis w con DATE: 09/18/2022 15:57 INDICATION: Epigastric abdominal pain. TECHNIQUE: Computed tomography (CT) of the abdomen and pelvis was performed with 97 mL Omnipaque 350 intravenous contrast. Automated exposure control and iterative reconstruction technique were employed . The dose-length product was 196.98 mGy-cm. COMPARISON: CT abdomen and pelvis 09/07/2022 FINDINGS: The visualized portions of the lung bases demonstrate severe emphysema. There are patchy ai rspace opacities involving the lower lobes, right middle lobe, and lingula, consistent with pneumonia . No pleural effusion. The heart size is normal. No pericardial effusion. There is mild intrahepatic biliary duct dilatation, likely secondary to cholecystectomy. The spleen, pancreas, and right adrenal gland are normal. There is a 2.1 cm mass in left adrenal gland measuring soft tissue attenuation. Th e kidneys are normal. There are no dilated loops of bowel. The appendix is normal. There is calcified atherosclerosis of the aorta and many of the other arteries. There are no pathologically enlarged ly mph nodes. There is no free intraperitoneal fluid. There is a right hip arthroplasty. There is a silo painter suri compression fracture of L4. There is mild lumbar spondylosis. IMPRESSION: 1. Patchy airspace opacities involving the lower lobes, right middle lobe, lingula, consistent with p neumonia. 2. Severe emphysema. 3. 2.1 cm left adrenal mass. In the absence of known malignancy, this finding is likely an adenoma. Reviewed, dictated and finalized at location E. IMPRESSION: 1. Patchy airspace opacities involving the lower lobes, right middle lobe, ling [place], consistent with pneumonia. 2. Severe emphysema. 3. 2.1 cm left adrenal mass. In the absence of known malignancy, this finding i s likely an adenoma.
[2022-09-18 11:18] LABS: Basophils Percent Auto 0.2 % (0.2-1.2); Eosinophils Absolute Auto 0.4 K/mm3 (0-0.3); Eosinophils Percent Auto 4.7 % (0-4.4); Hematocrit 35.2 % (37.0-47.0); Hemoglobin 10.8 g/dL (12.0-15.0); Immature Granulocyte Absolute 0.02 K/mm3 (0.00-0.031); Immature Granulocyte Percent A 0.2 % (0-0.5); Lymphocytes Absolute Auto 1.73 K/mm3 (0.9-3.2); Mean Corpuscular HGB Conc 30.7 g/dl (32-36); Mean Corpuscular Hemoglobin 24.8 pg (26-34); Mean Corpuscular Volume 80.9 fl (80-100); Monocytes Percent Auto 12.6 % (2.6-8.5); Neutrophils Percent Auto 61.3 % (45.5-73.1); Platelet Count Result 354 k/mm3 (150-375); Red Blood Count 4.35 M/mm3 (4.2-5.4); Red Cell Distribution Width 18.8 % (11.5-14.5); White Blood Count 8.2 K/mm3 (4.5-10.0)
[2022-09-18 11:28] LABS: Alanine Aminotransferase 18 U/L (6-35); Alkaline Phosphatase 103 U/L (38-126); Anion Gap 8 mmol/L (8-16); Aspartate Amino Transferase 23 U/L (14-36); Bilirubin,Total 0.4 mg/dL (0.2-1.3); Blood Urea Nitrogen 7 mg/dL (7-17); Calcium 8.7 mg/dL (8.4-10.2); Carbon Dioxide 27 mmol/L (22-30); Chloride 101 mmol/L (98-107); Estimated CRCL calculation 64 ml/min; Estimated Glomerular Filt Rate > 60; Glucose 114 mg/dL (65-110); Lipase 109 U/L (23-300); Potassium 3.6 mmol/L (3.4-5.0); Sodium 136 mmol/L (137-145)
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
[2022-09-18 11:43] LABS: Appearance Urine Clear (Clear); Bilirubin Urine Negative (Negative); Blood Urine Negative (Negative); Color Urine Yellow (Yellow); Glucose Urine UA Negative (Negative); Ketones Urine Negative (Negative); Leukocyte Esterase Ur Negative LEU/UL (Negative); Nitrate Urine Negative (Negative); Protein Urine Negative (Negative); Urobilinogen Urine 0.2 mg/dL (<2.0); pH Urine 8.5 (5.0-9.0)
--- NOTE | 2022-09-18 11:51 | PC.NURSE ---
SPOKE WITH SEAN WITH CARE COORDINATION REGARDING PT HOME AND INSURANCE SITUATION. SHE WILL COME DOWN KATHERINE.
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
[2022-09-18 12:05] LABS: Add Urine Microscopic? NO
[2022-09-18] MEDS: SIMETHICONE 125 MG CHEW TAB PO (12:53)
[2022-09-18] MEDS: DICYCLOMINE HCL 10 MG CAPSULE 20 MG PO (12:54)
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
--- NOTE | 2022-09-18 15:27 | ED.GENADULT ---
HPI - General Adult General Chief complaint: Abdominal Pain Stated complaint: abd pain Time Seen by Provider: 09/18/22 11:59 History of Present Illness HPI narrative: Patient is a 66-year-old female who presents ER with reports of epigastric pain. Ongoing for the last day. Was seen 10 days ago for something similar. Unremarkable work-up at that time however she was diagnosed with pneumonia and treated outpatient. Patient has no runny nose sore throat or cough. No increased oxygen requirement. Reports she has been intermittently taking her medications at home to help with her abdominal discomfort. Pain is cramping and radiates to the right upper quadrant. No radiation to the back. No urinary frequency urgency or dysuria. Related Data Home Medications Medication Instructions Recorded Confirmed levothyroxine 50 mcg capsule 50 mcg PO DAILY 07/15/22 09/18/22 omeprazole 40 mg capsule,delayed 40 mg PO DAILY 07/15/22 09/18/22 release Fleet Enema 1 applic RECTAL DAILY PRN 08/10/22 09/18/22 Constipation Multi-Vitamins 1 unit PO DAILY ANEMIA 08/10/22 09/18/22 acetaminophen 325 mg tablet 650 mg PO Q4H PRN Pain 08/10/22 09/18/22 (Tylenol) ascorbic acid (vitamin C) 500 mg 500 mg PO BID 08/10/22 09/18/22 tablet bisacodyl 10 mg rectal suppository 10 mg RECTAL DAILY PRN Constipation 08/10/22 09/18/22 fluticasone 250 mcg-salmeterol 50 1 inh inhalation Q12H 08/10/22 09/18/22 mcg/dose blistr powdr for inhalation (Advair Diskus) glycopyrrolate 9 mcg-formoterol 2 puff inhalation BID 08/10/22 09/18/22 4.8 mcg HFA aerosol inhaler magnesium hydroxide 400 mg/5 mL 30 ml PO HS PRN Constipation 08/10/22 09/18/22 oral suspension (Milk of Magnesia) ropinirole 1 mg tablet 1 mg PO HS 08/10/22 09/18/22 ipratropium bromide 0.02 % 0.5 mg inhalation Q6HRT PRN 09/18/22 09/18/22 solution for inhalation Shortness Of Breath Or Wheezing levalbuterol HCl 1.25 mg/0.5 mL 2.5 mg inhalation Q4H PRN 09/18/22 09/18/22 solution for nebulization Shortness Of Breath Or Wheezing lorazepam 1 mg tablet (Ativan) 1 mg PO TID 09/18/22 09/18/22 Allergies Allergy/AdvReac Type Severity Reaction Status Date / Time No Known Allergies Allergy Verified 09/18/22 11:42 Review of Systems Review of Systems: All systems reviewed & are unremarkable except as noted in HPI and below Constitutional: Constitutional: Denies chills, Denies fatigue and Denies fever(s) ENT: Denies nasal congestion and Denies sore throat Cardiovascular: Cardiovascular: Denies chest pain, Denies rapid heart rate and Denies radiating jaw, neck or arm pain Respiratory: Respiratory: Denies cough and Denies dyspnea Gastrointestinal: Gastrointestinal: Reports abdominal pain, Denies diarrhea, Denies nausea and Denies vomiting Genitourinary: Genitourinary: Denies nocturia and Denies dysuria PMFSH Past Medical History Medical History Anxiety Chronic anemia Anemia of chronic disease with iron studies completed June 2022 Chronic GERD Chronic obstructive pulmonary disease Chronic pain syndrome Chronic respiratory failure with hypoxia Diastolic dysfunction without heart failure Echocardiogram 07/19/2022: EF greater than 70%, grade 1 diastolic dysfunction, remainder of exam unremarkable but it was a technically difficult study History of tobacco abuse Hyperlipidemia Hypertension Hypothyroidism Poor vision Schizophrenia Surgical History Surgical History History of cholecystectomy History of total right hip arthroplasty Hx of cholecystectomy Family History Family History Mother Cancer Father Aneurysm Social History Social History Social History: Surrogate medical decision maker: Melanie Baker, daughter. Code status: Full code. Smoking packs per day: 1 Smoking
--- NOTE | 2022-09-18 16:10 | PCCCNOTE ---
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 Asked about Medicaid, she states that she has recently cancelled [place] and has reapplied with [place] Medicaid with interview scheduled for September 21. Delay was that patient's [place] address needed to be changed to current [place] address in order to apply for [place] Medicaid. All that has been done and awaiting interview on September 21, [place] Medicaid office states that it should move pretty swiftly as had [place] Medicaid. Daughter in Law reports that it was really dramatic this morning with EMS, she reports that she is snatching medications and thinks between Wednesday and she took over 10-12 omeprazole tablets. Asked if she reported this to staff here in the ER or EMS- she states that she tried but she was yelling so much to EMS that she she is unsure that she heard. Also found a bottle of random pills in her purse and she thinks maybe she took one a few days ago but not sure. Asked if she is alone at home and Melanie reports that she works 60 hours and the patient's son works 45 so there are times when she is alone for a few hours. Asked if she is planning on senior care care for her and she reports that she thinks that she will need. Dr. Bernstein and Bedside RN Nikki updated about update provided by daughter in law Melanie. Met with patient provided report regarding Medicaid that our team will follow up with on Wednesday, verbalizes a sense of relief knowing that she will be admitted and is wanting correction placement for senior care care, has been at [facility] and is agreeable to go again. Continues to report severe abdominal pain 10/10. Notified her bedside RN, Sue of pain.
--- NOTE | 2022-09-18 22:06 | ADMGEN ---
This patient, Krys Mcclure, was admitted to 3 Med Surg Room 326-01 at 1850. Patient/family oriented to hospital policies and general routines including ID bracelet, bed and alarms, visiting hours, pain management, procedures, bathroom and other care routines, personal items, smoking policy, room service/diet, and visiting hours. Information on how to activate the Rapid Response Team has been discussed. Patient/Family are encouraged to report perceived risks to care and to ask questions if they do not understand what they are told or what they should do.
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
[2022-09-19] MEDS: LORazepam (*CRX) 1 MG TABLET PO ×4 (00:11→16:19)
[2022-09-19] MEDS: ONDANSETRON INJ 4 MG/2 ML VIAL IV PUSH (00:15)
[2022-09-19] MEDS: ACETAMINOPHEN 325 MG TABLET 650 MG PO ×4 (00:22→16:21)
[2022-09-19] MEDS: QUEtiapine FUMARATE 25 MG TABLET PO ×2 (00:27→20:39)
[2022-09-19] MEDS: rOPINIRole HCL 1 MG TABLET PO ×2 (00:27→20:39)
[2022-09-19] MEDS: guaiFENesin 12 HR 600 MG TABCR PO (01:10)
[2022-09-19] MEDS: BELLADONNA ALK/PHENOB ELIX 10 ML, MAG HYDROX/ALUMINUM HYD/SIMETH 30 ML, LIDOCAINE HCL 2... PO (01:11)
[2022-09-19 03:35] LABS: Amphetamine Screen Urine Negative (Negative); Barbiturate Screen Urine Negative (Negative); Benzodiazepines Screen Urine Negative (Negative); Cannabinoid Screen Urine Negative (Negative); Cocaine Screen Urine Negative (Negative); Methadone Screen Urine Negative (Negative); Opiate Screen Urine Negative (Negative); Phencyclidine Screen Urine Negative (Negative)
[2022-09-19] MEDS: LEVOTHYROXINE SODIUM 50 MCG TABLET PO (05:50)
[2022-09-19 06:00] VITALS: BP 110/57; PULSE 95; RESP 20; TEMP 36.8; O2SAT 95
--- NOTE | 2022-09-19 07:32 | PCCCNOTE ---
PASSR completed, Queued for Review.
[2022-09-19 07:59] LABS: Hematocrit 31.5 % (37.0-47.0); Hemoglobin 9.8 g/dL (12.0-15.0); Mean Corpuscular HGB Conc 31.1 g/dl (32-36); Mean Corpuscular Volume 80.4 fl (80-100); Mean Platelet Volume 10.5 fl (7.4-10.4); Platelet Count Result 305 k/mm3 (150-375); Red Blood Count 3.92 M/mm3 (4.2-5.4); Red Cell Distribution Width 18.6 % (11.5-14.5); White Blood Count 5.2 K/mm3 (4.5-10.0)
[2022-09-19 08:00] VITALS: O2SAT 98
[2022-09-19 08:11] LABS: Anion Gap 6 mmol/L (8-16); Blood Urea Nitrogen 9 mg/dL (7-17); Calcium 8.4 mg/dL (8.4-10.2); Carbon Dioxide 29 mmol/L (22-30); Chloride 97 mmol/L (98-107); Estimated CRCL calculation 46 ml/min; Estimated Glomerular Filt Rate > 60; Glucose 89 mg/dL (65-110); Magnesium 1.7 mg/dL (1.6-2.3); Sodium 132 mmol/L (137-145)
[2022-09-19] MEDS: FLUoxetine HCL 20 MG CAPSULE PO (08:31)
[2022-09-19] MEDS: MULTIVITAMINS THERAPEUTIC TAB (*BKC) 1 TABLET PO (08:31)
[2022-09-19] MEDS: PANTOPRAZOLE 40 MG TABLET PO (08:31)
[2022-09-19] MEDS: ASCORBIC ACID 500 MG TABLET PO ×2 (08:31→16:19)
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
[2022-09-19 14:00] VITALS: BP 123/66; PULSE 91; RESP 16; TEMP 36.8; O2SAT 100
--- NOTE | 2022-09-19 14:34 | PCPTNOTE ---
Patient asleep will try again tomorrow.
[2022-09-19 20:00] VITALS: O2SAT 99
[2022-09-19 22:00] VITALS: BP 109/73; PULSE 100; RESP 20; TEMP 36.4; O2SAT 96
[2022-09-20] MEDS: ACETAMINOPHEN 325 MG TABLET 650 MG PO ×3 (01:14→16:42)
[2022-09-20 06:00] VITALS: BP 126/81; PULSE 88; RESP 20; TEMP 36.6; O2SAT 97
[2022-09-20] MEDS: LEVOTHYROXINE SODIUM 50 MCG TABLET PO (06:01)
[2022-09-20 08:00] VITALS: O2SAT 97
[2022-09-20] MEDS: MULTIVITAMINS THERAPEUTIC TAB (*BKC) 1 TABLET PO (08:37)
[2022-09-20] MEDS: guaiFENesin 12 HR 600 MG TABCR PO ×2 (08:38→20:47)
[2022-09-20] MEDS: PANTOPRAZOLE 40 MG TABLET PO (08:38)
[2022-09-20] MEDS: FLUoxetine HCL 20 MG CAPSULE PO (08:38)
[2022-09-20] MEDS: ASCORBIC ACID 500 MG TABLET PO ×2 (08:38→16:41)
[2022-09-20] MEDS: LORazepam (*CRX) 1 MG TABLET PO ×3 (08:41→16:41)
[2022-09-20 12:59] VITALS: BP 120/68; PULSE 95; RESP 20; TEMP 36.7; O2SAT 98
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
[2022-09-20 20:00] VITALS: O2SAT 97
[2022-09-20] MEDS: MELATONIN 5 MG TABLET PO (20:46)
[2022-09-20] MEDS: rOPINIRole HCL 1 MG TABLET PO (20:47)
[2022-09-20] MEDS: QUEtiapine FUMARATE 25 MG TABLET PO (20:47)
[2022-09-20 21:25] VITALS: BP 128/62; PULSE 93; RESP 14; TEMP 36.8; O2SAT 98
[2022-09-21] MEDS: ONDANSETRON INJ 4 MG/2 ML VIAL IV PUSH (03:03)
[2022-09-21] MEDS: ACETAMINOPHEN 325 MG TABLET 650 MG PO ×3 (03:04→20:47)
[2022-09-21 05:43] VITALS: BP 122/74; PULSE 89; RESP 14; TEMP 36.8; O2SAT 96
[2022-09-21] MEDS: LEVOTHYROXINE SODIUM 50 MCG TABLET PO (06:17)
[2022-09-21 06:36] LABS: Basophils Percent Auto 0.1 % (0.2-1.2); Eosinophils Absolute Auto 0.3 K/mm3 (0-0.3); Eosinophils Percent Auto 3.6 % (0-4.4); Hematocrit 34.8 % (37.0-47.0); Hemoglobin 10.8 g/dL (12.0-15.0); Immature Granulocyte Absolute 0.02 K/mm3 (0.00-0.031); Immature Granulocyte Percent A 0.2 % (0-0.5); Lymphocytes Absolute Auto 2.02 K/mm3 (0.9-3.2); Lymphocytes Percent Auto 22.7 % (18.3-44.2); Mean Corpuscular Hemoglobin 24.8 pg (26-34); Mean Corpuscular Volume 79.8 fl (80-100); Mean Platelet Volume 9.5 fl (7.4-10.4); Monocytes Absolute Auto 0.7 K/mm3 (0.1-0.6); Monocytes Percent Auto 7.8 % (2.6-8.5); Neutrophils Absolute Auto 5.8 K/mm3 (1.3-6.7); Neutrophils Percent Auto 65.6 % (45.5-73.1); Platelet Count Result 394 k/mm3 (150-375); Red Blood Count 4.36 M/mm3 (4.2-5.4); Red Cell Distribution Width 17.8 % (11.5-14.5); White Blood Count 8.9 K/mm3 (4.5-10.0)
[2022-09-21 06:50] LABS: Alanine Aminotransferase 19 U/L (6-35); Albumin Level 3.6 g/dL (3.5-5.1); Alkaline Phosphatase 82 U/L (38-126); Anion Gap 5 mmol/L (8-16); Aspartate Amino Transferase 23 U/L (14-36); Bilirubin,Total 0.3 mg/dL (0.2-1.3); Blood Urea Nitrogen 7 mg/dL (7-17); Calcium 9.1 mg/dL (8.4-10.2); Carbon Dioxide 28 mmol/L (22-30); Chloride 100 mmol/L (98-107); Estimated CRCL calculation 49 ml/min; Estimated Glomerular Filt Rate > 60; Glucose 81 mg/dL (65-110); Magnesium 1.7 mg/dL (1.6-2.3); Potassium 3.6 mmol/L (3.4-5.0); Sodium 133 mmol/L (137-145)
[2022-09-21] MEDS: PANTOPRAZOLE 40 MG TABLET PO (07:41)
[2022-09-21] MEDS: FLUoxetine HCL 20 MG CAPSULE PO (07:41)
[2022-09-21] MEDS: ENOXAPARIN 40 MG/0.4 ML SYRINGE SUB-Q (07:41)
[2022-09-21] MEDS: LORazepam (*CRX) 1 MG TABLET PO ×3 (07:41→20:47)
[2022-09-21] MEDS: MULTIVITAMINS THERAPEUTIC TAB (*BKC) 1 TABLET PO (07:41)
[2022-09-21] MEDS: guaiFENesin 12 HR 600 MG TABCR PO ×2 (07:41→20:45)
[2022-09-21] MEDS: ASCORBIC ACID 500 MG TABLET PO ×2 (07:41→16:32)
[2022-09-21] MEDS: GABAPENTIN 300 MG CAPSULE PO ×2 (10:46→16:32)
[2022-09-21 12:12] VITALS: BMI 17.4
--- NOTE | 2022-09-21 13:46 | PM.IMPN ---
Progress Note: A&P Assessment and Plan (1) Abdominal pain: Code(s): R10.9 - Unspecified abdominal pain Status: Acute Assessment and Plan: Patient complains of generalized abdominal discomfort. She also has nausea and poor appetite with poor oral intake. CT Abd/Pelvis 09/07 showed occasional SB air-fluid levels and prominent gastric fluid level without apparent obstruction. CT Abd/Pelvis 09/18 showing resolution of these findings. She may benefit from endoscopy as an outpatient but her appetite improved Dtr-in-law stated that the patient was discharged from a rehab facility with morphine which she took in excess of what was prescribed and she went through the prescription quickly; consider abd pain from minor withdrawal Consider also psychosocial if she is anxious about being in the home that is manifesting itself as abdominal pain. Consider also the PNA contributing to abd pain Exam benign. Continue protonix. Zofran available as needed. (2) History of recent pneumonia: Code(s): Z87.01 - Personal history of pneumonia (recurrent) Status: Acute Assessment and Plan: CT Abd/Pelvis showing patchy airspace opacities in lower lobes consistent with PNA. Recently completed antibiotics for such. Normal WBC. O2 requirement is actually better then baseline 2-3L NC. Bedside swallow evaluation okay on 08/12/22. Follow (3) Chronic obstructive pulmonary disease: Code(s): J44.9 - Chronic obstructive pulmonary disease, unspecified Status: Acute Assessment and Plan: Stable. No wheezing. Continue inhalers. (4) Chronic respiratory failure with hypoxia: Code(s): J96.11 - Chronic respiratory failure with hypoxia Status: Acute Assessment and Plan: Stable and actually better than her 2-3L baseline oxygen requirement. (5) Chronic anemia: Code(s): D64.9 - Anemia, unspecified Status: Acute Assessment and Plan: Stable on review of previous labs. Hgb down slightly today. (6) Hypertension: Code(s): I10 - Essential (primary) hypertension Status: Acute Assessment and Plan: Patient's blood pressure was reviewed on 09/21 Blood pressure remains well controlled. Will continue current medications. (7) Anxiety: Code(s): F41.9 - Anxiety disorder, unspecified Status: Acute Assessment and Plan: Mood mostly stable but becomes agitated and anxious at times. Vitorjhg-oj-qrm indicates that she may be abusing her anxiety medications and she apparently has both clonazepam and lorazepam at home. Continue lorazepam 1 mg t.i.d. Unclear if there is abuse in the home or if she is paranoid/persecuted related to her psychiatric illnesses. Social Work is looking into this. She will need a psychiatric referral at the assisted. Referrals being made to nursing homes. (8) Schizophrenia: Code(s): F20.9 - Schizophrenia, unspecified Status: Acute Assessment and Plan: Stable. Continue Seroquel Subjective Date/time seen: 09/21/22 13:46 Interval history: 66yo female with COPD, chronic resp failure and schizophrenia here for abdominal pain. Eating better. Not been out of bed much. No CP or SOB. Decrease in the acid reflux symptoms. Requesting morphine for her chronic back and hip pain. Exam Narrative: AF 98.3 122/74 89 14 96% 1L Gen - NARD Chest - mild right basilar crackles o/w clear. nml RR CV - RRR S1/S2 with occasional extra beats Abd - Soft, NT/ND, Positive BS Ext - No pedal edema. Psych - Anxious mood with odd affect. Skin - Warm and dry . Objective Data Vital Signs Vital Signs: Vital Signs - 24 hr 09/20/22 21:25 09/20/22 20:00 09/21/22 05:43 Temperature 98.3 F 98.3 F Pulse Rate 93 89 Respiratory Rate 14 14 Blood Pressure 128/62 122/74 Pulse Oximetry 98 97 96 Oxygen Delivery Nasal Cannula Oxygen Flow Rate 1 Intake/Output Intake/Output: Inta
[2022-09-21 14:00] VITALS: BP 137/75; PULSE 98; RESP 24; TEMP 36.3; O2SAT 96
[2022-09-21] MEDS: traMADol HCL (*CRX) 25 MG TABLET PO ×2 (14:16→20:53)
[2022-09-21] MEDS: SALINE 0.65% NAS SOLN 44 ML BTL 1 SPRAY NASAL (16:32)
[2022-09-21] MEDS: rOPINIRole HCL 1 MG TABLET PO (20:45)
[2022-09-21] MEDS: QUEtiapine FUMARATE 25 MG TABLET PO (20:45)
[2022-09-21] MEDS: MELATONIN 5 MG TABLET PO (20:45)
[2022-09-21 21:43] VITALS: BP 121/74; PULSE 94; RESP 16; TEMP 36.4; O2SAT 95
[2022-09-21 22:07] VITALS: PULSE 75; RESP 18
[2022-09-21] MEDS: FLUTICASONE/SALMETEROL 115-21 MCG INHALER 1 PUFF 2 PUFF INHALATION (22:07)
[2022-09-22] MEDS: traMADol HCL (*CRX) 25 MG TABLET PO ×4 (04:41→22:50)
[2022-09-22 05:36] VITALS: BP 117/81; PULSE 103; RESP 16; TEMP 36.4; O2SAT 97
[2022-09-22] MEDS: LORazepam (*CRX) 1 MG TABLET PO ×3 (06:53→21:24)
[2022-09-22] MEDS: LEVOTHYROXINE SODIUM 50 MCG TABLET PO (06:53)
[2022-09-22] MEDS: ASCORBIC ACID 500 MG TABLET PO ×2 (07:47→16:40)
[2022-09-22] MEDS: ENOXAPARIN 40 MG/0.4 ML SYRINGE SUB-Q (07:47)
[2022-09-22] MEDS: GABAPENTIN 300 MG CAPSULE PO ×2 (07:47→16:40)
[2022-09-22] MEDS: MULTIVITAMINS THERAPEUTIC TAB (*BKC) 1 TABLET PO (07:47)
[2022-09-22] MEDS: PANTOPRAZOLE 40 MG TABLET PO (07:48)
[2022-09-22] MEDS: guaiFENesin 12 HR 600 MG TABCR PO ×2 (07:48→21:24)
[2022-09-22 08:38] VITALS: PULSE 116; RESP 20; O2SAT 95
[2022-09-22] MEDS: FLUTICASONE/SALMETEROL 115-21 MCG INHALER 1 PUFF 2 PUFF INHALATION ×2 (08:38→20:40)
[2022-09-22] MEDS: FLUoxetine HCL 20 MG CAPSULE PO (08:53)
--- NOTE | 2022-09-22 08:55 | PC.NURSE ---
at 0855 this morning, patient c/o iv site bothering her. IV removed. No meds ordered through the iv at this time. Discussed need for IV with Dr. Huber and he said it was ok to leave iv out at this time.
[2022-09-22] MEDS: ACETAMINOPHEN 325 MG TABLET 650 MG PO ×2 (11:54→21:24)
[2022-09-22 14:00] VITALS: BP 140/76; PULSE 102; RESP 21; TEMP 37.4; O2SAT 93
--- NOTE | 2022-09-22 15:24 | PM.IMPN ---
Progress Note: A&P Assessment and Plan (1) Abdominal pain: Code(s): R10.9 - Unspecified abdominal pain Status: Acute Assessment and Plan: Patient complains of generalized abdominal discomfort. She also has nausea and poor appetite with poor oral intake. CT Abd/Pelvis 09/07 showed occasional SB air-fluid levels and prominent gastric fluid level without apparent obstruction. CT Abd/Pelvis 09/18 showing resolution of these findings. She may benefit from endoscopy as an outpatient but her appetite improved Dtr-in-law stated that the patient was discharged from a rehab facility with morphine which she took in excess of what was prescribed and she went through the prescription quickly; consider abd pain from minor withdrawal Consider also psychosocial if she is anxious about being in the home that is manifesting itself as abdominal pain. Consider also the PNA contributing to abd pain Continue to complain of dysuria and pressure but UA normal. Resolved. Exam benign. Continue Protonix. Zofran available as needed. Consider repeating UA (2) History of recent pneumonia: Code(s): Z87.01 - Personal history of pneumonia (recurrent) Status: Acute Assessment and Plan: CT Abd/Pelvis showing patchy airspace opacities in lower lobes consistent with PNA. Recently completed antibiotics for such. Normal WBC. O2 requirement is actually better then her baseline 2-3L NC. Bedside swallow evaluation okay on 08/12/22. Follow (3) Chronic obstructive pulmonary disease: Code(s): J44.9 - Chronic obstructive pulmonary disease, unspecified Status: Acute Assessment and Plan: Stable. No wheezing. Continue inhalers. (4) Chronic respiratory failure with hypoxia: Code(s): J96.11 - Chronic respiratory failure with hypoxia Status: Acute Assessment and Plan: Stable and actually on room air. She was on 2-3L baseline oxygen requirement at home. (5) Chronic anemia: Code(s): D64.9 - Anemia, unspecified Status: Acute Assessment and Plan: Stable on review of previous labs. Hgb down slightly today. (6) Hypertension: Code(s): I10 - Essential (primary) hypertension Status: Acute Assessment and Plan: Patient's blood pressure was reviewed on 09/22 Blood pressure remains well controlled. Will continue current medications. (7) Anxiety: Code(s): F41.9 - Anxiety disorder, unspecified Status: Acute Assessment and Plan: Mood mostly stable but becomes agitated and anxious at times. Rfpnhutn-ai-[id number] indicates that she may be abusing her anxiety medications and she apparently has both clonazepam and lorazepam at home. Continue lorazepam 1 mg t.i.d. Unclear if there is abuse in the home or if she is paranoid/persecuted related to her psychiatric illnesses. Social Work is looking into this. She will need a psychiatric referral at the group home. Referrals being made to nursing homes. (8) Schizophrenia: Code(s): F20.9 - Schizophrenia, unspecified Status: Acute Assessment and Plan: Stable. Continue Seroquel Plan Okay to discharge at any time Subjective Date/time seen: 09/22/22 15:24 Interval history: 66yo female with COPD, chronic resp failure and schizophrenia here for abdominal pain. Eating well. Feels better overall today. Pain improved. She continues to complain of dysuria. Exam Narrative: AF 99.3 140/76 102 21 93% RA Gen - NARD Chest - CTA bilaterally, nml RR CV - RRR S1/S2 Abd - Soft, NT/ND, Positive BS Ext - No pedal edema. Psych - Anxious mood with odd affect. Skin - Warm and dry . Objective Data Vital Signs Vital Signs: Vital Signs - 24 hr 09/21/22 20:00 09/21/22 21:43 09/21/22 22:07 Temperature 97.6 F Pulse Rate 94 75 Respiratory Rate 16 18 Blood Pressure 121/74 Pulse Oximetry 95 Oxygen Delivery Room Air Fraction of Inspired Oxygen
[2022-09-22] MEDS: SIMETHICONE 80 MG TAB.CHEW PO ×2 (17:59→22:50)
[2022-09-22 20:40] VITALS: PULSE 106; O2SAT 96
[2022-09-22 20:58] VITALS: BP 138/89; PULSE 112; RESP 18; TEMP 36.5; O2SAT 96
[2022-09-22] MEDS: rOPINIRole HCL 1 MG TABLET PO (21:24)
[2022-09-22] MEDS: QUEtiapine FUMARATE 25 MG TABLET PO (21:24)
[2022-09-22] MEDS: MELATONIN 5 MG TABLET PO (21:26)
[2022-09-23 05:17] VITALS: BP 119/76; PULSE 100; RESP 14; TEMP 37.1; O2SAT 97
[2022-09-23] MEDS: LEVOTHYROXINE SODIUM 50 MCG TABLET PO (05:29)
[2022-09-23] MEDS: traMADol HCL (*CRX) 25 MG TABLET PO ×3 (05:30→17:31)
[2022-09-23] MEDS: LORazepam (*CRX) 1 MG TABLET PO ×2 (05:30→14:41)
[2022-09-23] MEDS: FLUTICASONE/SALMETEROL 115-21 MCG INHALER 1 PUFF 2 PUFF INHALATION (08:32)
[2022-09-23 08:36] VITALS: O2SAT 96
[2022-09-23] MEDS: FLUoxetine HCL 20 MG CAPSULE PO (09:18)
[2022-09-23] MEDS: PANTOPRAZOLE 40 MG TABLET PO (09:18)
[2022-09-23] MEDS: ENOXAPARIN 40 MG/0.4 ML SYRINGE SUB-Q (09:19)
[2022-09-23] MEDS: MULTIVITAMINS THERAPEUTIC TAB (*BKC) 1 TABLET PO (09:19)
[2022-09-23] MEDS: guaiFENesin 12 HR 600 MG TABCR PO (09:19)
[2022-09-23] MEDS: GABAPENTIN 300 MG CAPSULE PO ×2 (09:19→18:38)
[2022-09-23] MEDS: ASCORBIC ACID 500 MG TABLET PO ×2 (09:19→18:38)
[2022-09-23] MEDS: SIMETHICONE 80 MG TAB.CHEW PO ×3 (09:45→18:38)
[2022-09-23 14:00] VITALS: BP 134/86; PULSE 110; RESP 14; TEMP 36.6; O2SAT 98
[2022-09-23] MEDS: ACETAMINOPHEN 325 MG TABLET 650 MG PO (14:43)
--- NOTE | 2022-09-23 15:23 | PM.DS ---
DS: Admitting Diagnosis Discharge Date 09/23/22 Admitting Diagnosis Abdominal pain DS: Discharge Diagnosis Discharge Diagnosis (1) Abdominal pain: Code(s): R10.9 - Unspecified abdominal pain Status: Acute Assessment and Plan: Patient complains of generalized abdominal discomfort. She also has nausea and poor appetite with poor oral intake. CT Abd/Pelvis 09/07 showed occasional SB air-fluid levels and prominent gastric fluid level without apparent obstruction. CT Abd/Pelvis 09/18 showing resolution of these findings. She may benefit from endoscopy as an outpatient but her appetite improved Dtr-in-law stated that the patient was discharged from a rehab facility with morphine which she took in excess of what was prescribed and she went through the prescription quickly; consider abd pain from minor withdrawal Consider also psychosocial if she is anxious about being in the home that is manifesting itself as abdominal pain. Consider also the PNA contributing to abd pain Continue to complain of dysuria and pressure but UA normal. Resolved. Exam benign. Continue Protonix. Zofran available as needed. Consider repeating UA (2) History of recent pneumonia: Code(s): Z87.01 - Personal history of pneumonia (recurrent) Status: Acute Assessment and Plan: CT Abd/Pelvis showing patchy airspace opacities in lower lobes consistent with PNA. Recently completed antibiotics for such. Normal WBC. O2 requirement is actually better then her baseline 2-3L NC. Bedside swallow evaluation okay on 08/12/22. Follow (3) Chronic obstructive pulmonary disease: Code(s): J44.9 - Chronic obstructive pulmonary disease, unspecified Status: Acute Assessment and Plan: Stable. No wheezing. Continue inhalers. (4) Chronic respiratory failure with hypoxia: Code(s): J96.11 - Chronic respiratory failure with hypoxia Status: Acute Assessment and Plan: Stable and actually on room air. She was on 2-3L baseline oxygen requirement at home. (5) Chronic anemia: Code(s): D64.9 - Anemia, unspecified Status: Acute Assessment and Plan: Stable on review of previous labs. Hgb down slightly today. (6) Hypertension: Code(s): I10 - Essential (primary) hypertension Status: Acute Assessment and Plan: Patient's blood pressure was reviewed on 09/22 Blood pressure remains well controlled. Will continue current medications. (7) Anxiety: Code(s): F41.9 - Anxiety disorder, unspecified Status: Acute Assessment and Plan: Mood mostly stable but becomes agitated and anxious at times. Gteuyavv-tt-uuo indicates that she may be abusing her anxiety medications and she apparently has both clonazepam and lorazepam at home. Continue lorazepam 1 mg t.i.d. Unclear if there is abuse in the home or if she is paranoid/persecuted related to her psychiatric illnesses. Social Work is looking into this. She will need a psychiatric referral at the alf. Referrals being made to nursing homes. (8) Schizophrenia: Code(s): F20.9 - Schizophrenia, unspecified Status: Acute Assessment and Plan: Stable. Continue Seroquel Plan Okay to discharge at any time DS: Summary Hospital Course Hospital Course: 66yo female with COPD, chronic resp failure and schizophrenia here for abdominal pain. Patient complains of generalized abdominal discomfort.? She also has nausea and poor appetite with poor oral intake. CT Abd/Pelvis 09/07 showed occasional SB air-fluid levels and prominent gastric fluid level without apparent obstruction. CT Abd/Pelvis 09/18 showing resolution of these findings. She may benefit from endoscopy as an outpatient but her appetite improved? Dtr-in-law stated that the patient was discharged from a rehab facility with morphine which she took in excess of what was prescribed and she went through the prescription randall
[2022-09-23 15:42] LABS: EDCOVIDSCREEN Negative (Negative)
--- NOTE | 2022-09-26 13:03 | PC.NURSE ---
Patient's discharged from facility and home medications were left in medication room. Patient discharged to [facility]. This nurse discussed medication that was remaining with nurse Bustos at [place]. Per Juli, medications to be disposed of and they do not need them to continue her care. No narcotics present in medications.
== END 2022-09-23 20:20 ==
LOC: ANHED 11:59 → ANH3MEDSUR 18:42
PROVIDERS: Emergency Medicine; Physician Assistant; Admitting Provider Internal Medicine; Emergency Provider Emergency Medicine; PCP Internal Medicine; Visit Provider Student in an Organized Health Care Education/Training Program
DX: R10.9 Unspecified abdominal pain (principal); J43.9 Emphysema, unspecified; J96.11 Chronic respiratory failure with hypoxia; Z99.81 Dependence on supplemental oxygen; D64.9 Anemia, unspecified; I10 Essential (primary) hypertension; F41.9 Anxiety disorder, unspecified; F20.9 Schizophrenia, unspecified; K59.00 Constipation, unspecified; Z20.822 Contact with and (suspected) exposure to COVID-19; K21.9 Gastro-esophageal reflux disease without esophagitis; G89.4 Chronic pain syndrome; E78.5 Hyperlipidemia, unspecified; E03.9 Hypothyroidism, unspecified; E27.8 Other specified disorders of adrenal gland; Z87.891 Personal history of nicotine dependence; Z87.01 Personal history of pneumonia (recurrent); Z79.1 Long term (current) use of non-steroidal anti-inflammatories (NSAID); Z79.51 Long term (current) use of inhaled steroids; Z79.899 Other long term (current) drug therapy
CPT/HCPCS: 36415; 71046; 74177; 80048; 80053; 80307; 81003; 83690; 83735; 85025; 85027; 87426; 94640; 96372; 96374; 96376; 97161; 97165; 99285; A9270; C9803; G0378; J1650; J2405; Q9967

== ENCOUNTER 2023-02-10 21:50 | Emergency (ER) | payer MEDICARE, MEDICAID, SELFPAY ==
--- NOTE | ~2023-02-10 | CT_ITS ---
Clinical Indication: Dyspnea, cough CT Scan of the Chest with Contrast: Technique: Contiguous sections were acquired throughout the chest after intravenous administration of 100 cc of Omnipaque 350. Dose reduction technique was used on this scan by utilizing automated expos ure control and iterative reconstruction technique. The dose-length product (DLP) was 167.84 mGy-cm. COMPARISON: 07/30/2022 Findings: There is no evidence of any significant mediastinal, hilar or axillary lymphadenopathy. There is no f illing defect in the pulmonary arterial tree to suggest pulmonary embolus. There is no evidence of ao rtic dissection or aneurysm. There are atherosclerotic calcifications of the aorta and coronary arter ies. There is no evidence of pleural or pericardial effusion. There is severe emphysema. There is probable bibasilar chronic scarring or atelectasis, similar to pr ior exam. There are several focal mild groundglass opacities in the left upper lobe/lingula. Images through the upper abdomen reveal no abnormalities. There is mild compression deformity at the superior endplate region of L1, new from prior exam. Impression: No evidence of pulmonary embolus, aortic dissection, or aortic aneurysm. Several focal ground glass opacities in the lingula/left upper lobe, which could reflect focal atypic al infection. Severe emphysema with stable areas of probable bibasilar chronic scarring or atelectasis. Mild compression fracture deformity at the superior endplate region of L1, new from prior exam. Reviewed, dictated and finalized at [facility]. Impression: No evidence of pulmonary embolus, aortic dissection, or aortic aneurysm. Several focal ground glass opacities in the lingula/left upper lobe, which coul d reflect focal atypical infection. Severe emphysema with stable areas of probable bibasilar chronic scarring or at electasis. Mild compression fracture deformity at the superior endplate region of L1, new from prior exam.
--- NOTE | ~2023-02-10 | XR_ITS ---
Clinical Indication: Cough PA and lateral views of the chest: Comparison: 09/18/2022 Findings: There is probable COPD and/or bibasilar chronic interstitial disease. No acute consolidatio n or pleural effusion seen. No pneumothorax. Cardiomediastinal silhouette is within normal limits. B ones and soft tissues are unremarkable. Impression: Probable COPD and/or other bibasilar chronic interstitial disease. No acute pulmonary abnormality evident. Reviewed, dictated and finalized at location . Impression: Probable COPD and/or other bibasilar chronic interstitial disease. No acute pulmonary abnormality evident.
[2023-02-10 21:53] VITALS: BP 127/78; PULSE 116; RESP 16; TEMP 37.1; O2SAT 95
[2023-02-11 02:09] VITALS: BP 120/74; PULSE 72; RESP 15; O2SAT 100
--- NOTE | 2023-02-11 02:52 | ECG_ITS ---
Measurements Intervals [place] Rate: 82 P: 63 VT: 151 QRS: 56 QRSD: 78 T: 65 QT: 380 QTc: 445 Interpretive Statements SINUS RHYTHM NORMAL ECG COMPARED TO ECG 08/10/2022 08:15:32 NO SIGNIFICANT CHANGES Electronically Signed On 02-11-2023 6:42:28 CDT by Mitul Galan D.O.
--- NOTE | 2023-02-11 02:56 | ED.SOB ---
HPI - SOB/Dyspnea General Chief Complaint: Upper Respiratory Infection Stated Complaint: unknown Time Seen by Provider: 02/11/23 02:27 Source: patient Limitations: no limitations History of Present Illness HPI Narrative: Patient is a 67-year-old female presented emergency department complaining of cough is been present for the past 3 weeks seems to be progressively worsening without abrupt worsening prompting assessment today rather it has not resolved. Patient reports the cough is productive of yellow sputum. Patient also had associated generalized body aches and nasal congestion that preceded the onset of the cough and is now having persistent coughing. Patient has fever, shortness of breath, chest pain, new or changed medications, unilateral lower extremity swelling, history of blood clots, dysuria, melena, hematochezia, vomiting, diarrhea, abdominal pain, sore throat. Patient denies history of this in the past. Related Data Home Medications Medication Instructions Recorded Confirmed levothyroxine 50 mcg capsule 50 mcg PO DAILY 07/15/22 09/18/22 omeprazole 40 mg capsule,delayed 40 mg PO DAILY 07/15/22 09/18/22 release Fleet Enema 1 applic RECTAL DAILY PRN 08/10/22 09/18/22 Constipation Multi-Vitamins 1 unit PO DAILY ANEMIA 08/10/22 09/18/22 acetaminophen 325 mg tablet 650 mg PO Q4H PRN Pain 08/10/22 09/18/22 (Tylenol) ascorbic acid (vitamin C) 500 mg 500 mg PO BID 08/10/22 09/18/22 tablet bisacodyl 10 mg rectal suppository 10 mg RECTAL DAILY PRN Constipation 08/10/22 09/18/22 fluticasone 250 mcg-salmeterol 50 1 inh inhalation Q12H 08/10/22 09/18/22 mcg/dose blistr powdr for inhalation (Advair Diskus) glycopyrrolate 9 mcg-formoterol 2 puff inhalation BID 08/10/22 09/18/22 4.8 mcg HFA aerosol inhaler magnesium hydroxide 400 mg/5 mL 30 ml PO HS PRN Constipation 08/10/22 09/18/22 oral suspension (Milk of Magnesia) ropinirole 1 mg tablet 1 mg PO HS 08/10/22 09/18/22 ipratropium bromide 0.02 % 0.5 mg inhalation Q6HRT PRN 09/18/22 09/18/22 solution for inhalation Shortness Of Breath Or Wheezing levalbuterol HCl 1.25 mg/0.5 mL 2.5 mg inhalation Q4H PRN 09/18/22 09/18/22 solution for nebulization Shortness Of Breath Or Wheezing Allergies Allergy/AdvReac Type Severity Reaction Status Date / Time No Known Allergies Allergy Verified 09/18/22 11:42 Review of Systems Review of Systems: A 10 system review of systems was completed on the patient and is negative except for what is stated in the HPI. Nursing and ancillary documentation was reviewed. [facility] Past Medical History Medical History Anxiety Chronic anemia Anemia of chronic disease with iron studies completed June 2022 Chronic GERD Chronic obstructive pulmonary disease Chronic pain syndrome Chronic respiratory failure with hypoxia Diastolic dysfunction without heart failure Echocardiogram 07/19/2022: EF greater than 70%, grade 1 diastolic dysfunction, remainder of exam unremarkable but it was a technically difficult study History of tobacco abuse Hyperlipidemia Hypertension Hypothyroidism Poor vision Schizophrenia Surgical History Surgical History History of cholecystectomy History of total right hip arthroplasty Hx of cholecystectomy Family History Family History Mother Cancer Father Aneurysm Social History Social History Social History: Surrogate medical decision maker: Melanie Baker, daughter. Code status: Full code. Smoking packs per day: 1 Smoking cigarettes per day: 20.0 Years smoked: 51 Smoking pack-years: 51.00 Smoking status: Former smoker Tobacco type: cigarettes and e-cigarettes/vaping Additional smoking assessment comments: Alcohol intake: never Substance
[2023-02-11 03:25] VITALS: PULSE 99; RESP 22
[2023-02-11] MEDS: IPRATROPIUM BR 0.02% INH SOLN 0.5 MG/2.5 ML VIAL INHALATION (03:25)
[2023-02-11] MEDS: ALBUTEROL SULFATE NEB 2.5 MG/3 ML INH INHALATION (03:25)
[2023-02-11 03:35] VITALS: PULSE 104; RESP 22
[2023-02-11] MEDS: methylPREDNISolone SOD SUCC 40 MG VIAL IV PUSH (03:42)
[2023-02-11] MEDS: LACTATED RINGERS 1,000 ML 999 ML IV CONT (03:43)
[2023-02-11] MEDS: BENZONATATE 100 MG CAPSULE 200 MG PO (03:43)
[2023-02-11 03:50] LABS: Basophils Percent Auto 0.3 % (0.2-1.2); Eosinophils Absolute Auto 0.2 K/mm3 (0-0.3); Eosinophils Percent Auto 2.4 % (0-4.4); Hematocrit 33.6 % (37.0-47.0); Hemoglobin 11.1 g/dL (12.0-15.0); Immature Granulocyte Absolute 0.05 K/mm3 (0.00-0.031); Immature Granulocyte Percent A 0.5 % (0-0.5); Lymphocytes Absolute Auto 2.19 K/mm3 (0.9-3.2); Lymphocytes Percent Auto 21.7 % (18.3-44.2); Mean Corpuscular Hemoglobin 28.2 pg (26-34); Mean Corpuscular Volume 85.3 fl (80-100); Mean Platelet Volume 8.7 fl (7.4-10.4); Monocytes Absolute Auto 0.9 K/mm3 (0.1-0.6); Monocytes Percent Auto 9.2 % (2.6-8.5); Neutrophils Absolute Auto 6.6 K/mm3 (1.3-6.7); Neutrophils Percent Auto 65.9 % (45.5-73.1); Platelet Count Result 315 k/mm3 (150-375); Red Blood Count 3.94 M/mm3 (4.2-5.4); Red Cell Distribution Width 13.8 % (11.5-14.5); White Blood Count 10.1 K/mm3 (4.5-10.0)
[2023-02-11] MEDS: DOXYCYCLINE HYCLATE 100 MG TABLET PO (03:57)
[2023-02-11 03:59] VITALS: BP 118/74; PULSE 92; RESP 15; O2SAT 98
[2023-02-11 04:00] LABS: Alanine Aminotransferase 30 U/L (6-35); Albumin Level 4.2 g/dL (3.5-5.1); Alkaline Phosphatase 122 U/L (38-126); Anion Gap 11 mmol/L (8-16); Aspartate Amino Transferase 32 U/L (14-36); Bilirubin,Total 0.4 mg/dL (0.2-1.3); Blood Urea Nitrogen 11 mg/dL (7-17); Calcium 9.1 mg/dL (8.4-10.2); Carbon Dioxide 25 mmol/L (22-30); Chloride 104 mmol/L (98-107); Estimated CRCL calculation 45 ml/min; Estimated Glomerular Filt Rate > 60; Glucose 100 mg/dL (65-110); Magnesium 1.8 mg/dL (1.6-2.3); Sodium 140 mmol/L (137-145)
[2023-02-11 04:01] LABS: Prothrombin Time 13.6 Seconds (11.1-14.7)
[2023-02-11 04:02] LABS: Partial Thromboplastin Time 42.8 SECONDS (22.3-36.8)
[2023-02-11 04:06] LABS: D Dimer 1.43 ug/mL (<0.48)
[2023-02-11 04:12] LABS: Troponin I < 0.012 ng/mL (0.000-0.034)
[2023-02-11 04:35] LABS: Influenza A QL RT-PCR Negative (Negative); Influenza B QL RT-PCR Negative (Negative); SARS-CoV-2 RNA PCR Negative (Negative)
[2023-02-11] MEDS: GABAPENTIN 300 MG CAPSULE PO (05:58)
[2023-02-11] MEDS: AMOXICILLIN/CLAVULANATE K 875-125 MG TAB 1 TABLET PO (08:40)
[2023-02-11 08:45] VITALS: BP 150/90; PULSE 108; RESP 20; O2SAT 95
== END 2023-02-11 08:50 | disposition home or self-care (01) ==
PROVIDERS: Emergency Provider Student in an Organized Health Care Education/Training Program; PCP Internal Medicine
DX: J18.9 Pneumonia, unspecified organism (principal); R05.9 Cough, unspecified; Z20.822 Contact with and (suspected) exposure to COVID-19; J96.11 Chronic respiratory failure with hypoxia; J43.9 Emphysema, unspecified; E78.5 Hyperlipidemia, unspecified; I10 Essential (primary) hypertension; E03.9 Hypothyroidism, unspecified; D63.8 Anemia in other chronic diseases classified elsewhere; K21.9 Gastro-esophageal reflux disease without esophagitis; Z96.641 Presence of right artificial hip joint; Z90.49 Acquired absence of other specified parts of digestive tract; Z87.891 Personal history of nicotine dependence
CPT/HCPCS: 36415; 71046; 71275; 80053; 83735; 84484; 85025; 85380; 85610; 85730; 87636; 93005; 94640; 96361; 96374; 99284; A9270; J2920; J7120; Q9967

== ENCOUNTER 2023-02-14 10:42 | Emergency (ER) | payer MEDICARE, MEDICAID, SELFPAY ==
--- NOTE | ~2023-02-14 | CT_ITS ---
EXAMINATION: CT pelvis wo con DATE: 02/14/2023 11:23 INDICATION: Pelvic and back pain TECHNIQUE: Computed tomography (CT) of the pelvis was performed without intravenous contrast. The dos e-length product was 199.57 mGy-cm. Automated exposure control and iterative reconstruction technique were employed. COMPARISON: CT dated 09/18/2022 FINDINGS: Stable appearing sclerotic lesion left ilium, most likely benign bone island or infarct. Sc lerotic metastases less favored in the absence of known malignancy. There is a right total hip arthro plasty. There is is mild superior endplate compression deformity, unchanged from prior examination, w hich appears chronic. No acute fracture or traumatic malalignment is seen. There is atherosclerosis o f the aorta and iliac vessels. No significant soft tissue abnormality. Nonobstructive bowel pattern. IMPRESSION: 1. No acute bone or joint abnormality. Reviewed, dictated and finalized at location A.
[2023-02-14 10:45] VITALS: BP 165/83; PULSE 79; RESP 15; TEMP 36.6; O2SAT 99
--- NOTE | 2023-02-14 11:06 | ED.GENADULT ---
HPI - General Adult General Chief complaint: Back Pain/Injury Stated complaint: chronic back pain Time Seen by Provider: 02/14/23 10:43 History of Present Illness HPI narrative: 67-year-old female presented the ED for evaluation of lower back pain. Patient was recently diagnosed with pneumonia was also found to have an incidental finding showing an L1 compression fracture. Patient is complaining of tenderness closer to L5 and associated with the pelvis. Patient denies any other falls or injuries. Patient states that she has been taking Tylenol ibuprofen and tramadol for pain control at her care facility but states they have nothing scheduled overnight. Patient states she has not been sleeping well and presents to the ED complaining of inadequate pain control. Patient denies any associated numbness or weakness. Related Data Home Medications Medication Instructions Recorded Confirmed levothyroxine 50 mcg capsule 50 mcg PO DAILY 07/15/22 09/18/22 omeprazole 40 mg capsule,delayed 40 mg PO DAILY 07/15/22 09/18/22 release Fleet Enema 1 applic RECTAL DAILY PRN 08/10/22 09/18/22 Constipation Multi-Vitamins 1 unit PO DAILY ANEMIA 08/10/22 09/18/22 ascorbic acid (vitamin C) 500 mg 500 mg PO BID 08/10/22 09/18/22 tablet bisacodyl 10 mg rectal suppository 10 mg RECTAL DAILY PRN Constipation 08/10/22 09/18/22 fluticasone 250 mcg-salmeterol 50 1 inh inhalation Q12H 08/10/22 09/18/22 mcg/dose blistr powdr for inhalation (Advair Diskus) glycopyrrolate 9 mcg-formoterol 2 puff inhalation BID 08/10/22 09/18/22 4.8 mcg HFA aerosol inhaler magnesium hydroxide 400 mg/5 mL 30 ml PO HS PRN Constipation 08/10/22 09/18/22 oral suspension (Milk of Magnesia) ropinirole 1 mg tablet 1 mg PO HS 08/10/22 09/18/22 ipratropium bromide 0.02 % 0.5 mg inhalation Q6HRT PRN 09/18/22 09/18/22 solution for inhalation Shortness Of Breath Or Wheezing levalbuterol HCl 1.25 mg/0.5 mL 2.5 mg inhalation Q4H PRN 09/18/22 09/18/22 solution for nebulization Shortness Of Breath Or Wheezing Allergies Allergy/AdvReac Type Severity Reaction Status Date / Time No Known Allergies Allergy Verified 02/14/23 10:51 Review of Systems Review of Systems: All systems reviewed & are unremarkable except as noted in HPI and below PMFSH Past Medical History Medical History Anxiety Chronic anemia Anemia of chronic disease with iron studies completed June 2022 Chronic GERD Chronic obstructive pulmonary disease Chronic pain syndrome Chronic respiratory failure with hypoxia Diastolic dysfunction without heart failure Echocardiogram 07/19/2022: EF greater than 70%, grade 1 diastolic dysfunction, remainder of exam unremarkable but it was a technically difficult study History of tobacco abuse Hyperlipidemia Hypertension Hypothyroidism Poor vision Schizophrenia Surgical History Surgical History History of cholecystectomy History of total right hip arthroplasty Hx of cholecystectomy Family History Family History Mother Cancer Father Aneurysm Social History Social History Social History: Surrogate medical decision maker: Melanie Baker, daughter. Code status: Full code. Smoking packs per day: 1 Smoking cigarettes per day: 20.0 Years smoked: 51 Smoking pack-years: 51.00 Smoking status: Former smoker Tobacco type: cigarettes and e-cigarettes/vaping Additional smoking assessment comments: Alcohol intake: never Substance use: never Substance use type: does not use Other substance usage details: Patient has active morphine prescription per my review of her medications. Lack of Transportation: No Lack of Food: Sometimes True Current Housing: I Have Housing Concerned About Future Housi
[2023-02-14] MEDS: HYDROcodone/acetaminophen (*CRX) 5-325 MG TABLET 1 TAB PO (11:15)
[2023-02-14] MEDS: CYCLOBENZAPRINE HCL 10 MG TABLET PO (11:15)
--- NOTE | 2023-02-14 14:22 | PCCCNOTE ---
Call requesting transportation back to facility. Pt from [facility] and is able to transfer without difficulty. She has been ambulating in the unit. Call placed to Beatriz with [facility] and informed her pt will be returning. She will not need a covid or require report to be called. Packet given to staff to include discharge instructions. Voucher given to staff for cab back to [facility].
== END 2023-02-14 14:23 ==
PROVIDERS: Emergency Provider Emergency Medicine; PCP Nurse Practitioner Family
DX: M54.50 Low back pain, unspecified (principal); R10.2 Pelvic and perineal pain; F41.9 Anxiety disorder, unspecified; K21.9 Gastro-esophageal reflux disease without esophagitis; J44.9 Chronic obstructive pulmonary disease, unspecified; I10 Essential (primary) hypertension; E03.9 Hypothyroidism, unspecified; E78.5 Hyperlipidemia, unspecified
CPT/HCPCS: 72192; 99284; A9270

== ENCOUNTER 2023-04-07 14:00 | Emergency (ER) | payer MEDICARE, MEDICAID, SELFPAY ==
--- NOTE | ~2023-04-07 | XR_ITS ---
XR chest 2V DATE: 04/07/2023 14:40 INDICATION: Cough for one month. Chest pain. Hypertension. TECHNIQUE: PA and lateral views COMPARISON: 02/11/2023 CT pulmonary scan FINDINGS: There is bilateral hyperinflation with relative flattening the diaphragm, consistent with C OPD. Minimal infiltrate, atelectasis or fibrotic change at the posterior lung base; otherwise no pulmonary infiltrate or consolidation, pleural effusion, pulmonary vascular congestion or pneumothorax is dete cted. The central pulmonary arteries appear prominent with relative rapid tapering, suggesting possib le pulmonary hypertension. Calcification of the aortic arch and descending thoracic aorta. Prominent loss of height and anterior wedging of L1 vertebral body, increased in severity since 2022. Diffuse osteopenia. Surgical clips, right upper quadrant, likely due to cholecystectomy. IMPRESSION: COPD Aortic atherosclerosis Minimal infiltrate, atelectasis and/or scarring at the posterior right lung base; otherwise no active pulmonary disease Increased severity of compression fracture of L1 since 02/11/2023 Reviewed, dictated and finalized at location B. OON DIPPER IMPRESSION: COPD Aortic atherosclerosis Minimal infiltrate, atelectasis and/or scarring at the posterior right lung bas e; otherwise no active pulmonary disease Increased severity of compression fracture of L1 since 02/11/2023
[2023-04-07 14:05] VITALS: BP 163/80; PULSE 118; RESP 18; TEMP 36.6; O2SAT 98
--- NOTE | 2023-04-07 14:09 | ECG_ITS ---
Measurements Intervals [place] Rate: 106 P: 75 PA: 141 QRS: 37 QRSD: 75 T: 70 QT: 328 QTc: 437 Interpretive Statements SINUS TACHYCARDIA POSSIBLE LEFT ATRIAL ENLARGEMENT CANNOT RULE OUT SEPTAL INFARCT, AGE INDETERMINATE BORDERLINE ST ABNORMALITY- INF/LAT LEADS BORDERLINE ECG COMPARED TO ECG 02/11/2023 04:05:27 [address] NOW PRESENT ST ABNORMALITY NOW PRESENT Electronically Signed On 04-07-2023 14:34:04 [employer] C[employer]TING MACHINE OPERATOR by Mitul Galan D.O.
[2023-04-07 14:37] LABS: Basophils Percent Auto 0.3 % (0.2-1.2); Eosinophils Absolute Auto 0.4 K/mm3 (0-0.3); Eosinophils Percent Auto 4.7 % (0-4.4); Hematocrit 41.2 % (37.0-47.0); Immature Granulocyte Absolute 0.03 K/mm3 (0.00-0.031); Immature Granulocyte Percent A 0.3 % (0-0.5); Lymphocytes Absolute Auto 2.55 K/mm3 (0.9-3.2); Lymphocytes Percent Auto 29.7 % (18.3-44.2); Mean Corpuscular HGB Conc 31.6 g/dl (32-36); Mean Corpuscular Hemoglobin 28.3 pg (26-34); Mean Corpuscular Volume 89.8 fl (80-100); Mean Platelet Volume 8.5 fl (7.4-10.4); Monocytes Absolute Auto 0.7 K/mm3 (0.1-0.6); Monocytes Percent Auto 7.7 % (2.6-8.5); Neutrophils Absolute Auto 4.9 K/mm3 (1.3-6.7); Neutrophils Percent Auto 57.3 % (45.5-73.1); Platelet Count Result 428 k/mm3 (150-375); Red Blood Count 4.59 M/mm3 (4.2-5.4); Red Cell Distribution Width 12.8 % (11.5-14.5); White Blood Count 8.6 K/mm3 (4.5-10.0)
[2023-04-07 14:48] LABS: Alanine Aminotransferase 20 U/L (6-35); Albumin Level 4.8 g/dL (3.5-5.1); Alkaline Phosphatase 142 U/L (38-126); Anion Gap 15 mmol/L (8-16); Aspartate Amino Transferase 24 U/L (14-36); Bilirubin,Total 0.4 mg/dL (0.2-1.3); Blood Urea Nitrogen 18 mg/dL (7-17); Calcium 10.3 mg/dL (8.4-10.2); Carbon Dioxide 25 mmol/L (22-30); Chloride 102 mmol/L (98-107); Estimated CRCL calculation 35 ml/min; Estimated Glomerular Filt Rate 49; Glucose 135 mg/dL (65-110); Sodium 142 mmol/L (137-145)
[2023-04-07 15:14] LABS: Influenza A QL RT-PCR Negative (Negative); Influenza B QL RT-PCR Negative (Negative); RSV RNA, RT-PCR Negative (Negative); SARS-CoV-2 RNA PCR Negative (Negative)
--- NOTE | 2023-04-07 17:25 | ED.GENADULT ---
HPI - General Adult General Chief complaint: Weakness Stated complaint: weakness Time Seen by Provider: 04/07/23 17:17 History of Present Illness HPI narrative: Patient is a 67-year-old female who presents emergency department this afternoon complaining of generalized weakness, malaise, a cough and shortness of breath. Patient admits that she does have a history of COPD and emphysema. She does not wear any oxygen at home. Patient states that she had similar symptoms in the past while she was in [place] and was caused by a pneumonia. Patient denies any chest pain, shortness of breath, nausea, vomiting, abdominal pain, dysuria, hematuria, constipation, diarrhea, melena, hematochezia, fevers or chills. He also denies any headaches, dizziness, lightheadedness, blurry visions, dizziness, focal weakness, numbness and or tingling. There are no other modifying, alleviating, or precipitating factors at this time. Related Data Home Medications Medication Instructions Recorded Confirmed levothyroxine 50 mcg capsule 50 mcg PO DAILY 07/15/22 09/18/22 omeprazole 40 mg capsule,delayed 40 mg PO DAILY 07/15/22 09/18/22 release Fleet Enema 1 applic RECTAL DAILY PRN 08/10/22 09/18/22 Constipation Multi-Vitamins 1 unit PO DAILY ANEMIA 08/10/22 09/18/22 ascorbic acid (vitamin C) 500 mg 500 mg PO BID 08/10/22 09/18/22 tablet bisacodyl 10 mg rectal suppository 10 mg RECTAL DAILY PRN Constipation 08/10/22 09/18/22 fluticasone 250 mcg-salmeterol 50 1 inh inhalation Q12H 08/10/22 09/18/22 mcg/dose blistr powdr for inhalation (Advair Diskus) glycopyrrolate 9 mcg-formoterol 2 puff inhalation BID 08/10/22 09/18/22 4.8 mcg HFA aerosol inhaler magnesium hydroxide 400 mg/5 mL 30 ml PO HS PRN Constipation 08/10/22 09/18/22 oral suspension (Milk of Magnesia) ropinirole 1 mg tablet 1 mg PO HS 08/10/22 09/18/22 ipratropium bromide 0.02 % 0.5 mg inhalation Q6HRT PRN 09/18/22 09/18/22 solution for inhalation Shortness Of Breath Or Wheezing levalbuterol HCl 1.25 mg/0.5 mL 2.5 mg inhalation Q4H PRN 09/18/22 09/18/22 solution for nebulization Shortness Of Breath Or Wheezing Allergies Allergy/AdvReac Type Severity Reaction Status Date / Time No Known Allergies Allergy Verified 02/14/23 10:51 Review of Systems Review of Systems: All systems are reviewed and are negative unless stated otherwise in the HPI. [facility] Past Medical History Medical History Anxiety Chronic anemia Anemia of chronic disease with iron studies completed June 2022 Chronic GERD Chronic obstructive pulmonary disease Chronic pain syndrome Chronic respiratory failure with hypoxia Diastolic dysfunction without heart failure Echocardiogram 07/19/2022: EF greater than 70%, grade 1 diastolic dysfunction, remainder of exam unremarkable but it was a technically difficult study History of tobacco abuse Hyperlipidemia Hypertension Hypothyroidism Poor vision Schizophrenia Surgical History Surgical History History of cholecystectomy History of total right hip arthroplasty Hx of cholecystectomy Family History Family History Mother Cancer Father Aneurysm Social History Social History Social History: Surrogate medical decision maker: Melanie Baker, daughter. Code status: Full code. Smoking packs per day: 1 Smoking cigarettes per day: 20.0 Years smoked: 51 Smoking pack-years: 51.00 Smoking status: Former smoker Tobacco type: cigarettes and e-cigarettes/vaping Additional smoking assessment comments: Alcohol intake: never Substance use: never Substance use type: does not use Other substance usage details: Patient has active morphine prescription per my review of her medications. Lack of Transportation: No
== END 2023-04-07 18:30 | disposition home or self-care (01) ==
LOC: ANHED 17:43
PROVIDERS: Emergency Medicine; Emergency Provider Emergency Medicine; PCP Nurse Practitioner Family
DX: J18.9 Pneumonia, unspecified organism (principal); Z20.822 Contact with and (suspected) exposure to COVID-19; J44.9 Chronic obstructive pulmonary disease, unspecified; J96.11 Chronic respiratory failure with hypoxia; I10 Essential (primary) hypertension; E03.9 Hypothyroidism, unspecified; E78.5 Hyperlipidemia, unspecified; D64.9 Anemia, unspecified; K21.9 Gastro-esophageal reflux disease without esophagitis; G89.4 Chronic pain syndrome; F20.9 Schizophrenia, unspecified; F41.9 Anxiety disorder, unspecified; R00.0 Tachycardia, unspecified; R94.31 Abnormal electrocardiogram [ECG] [EKG]
CPT/HCPCS: 36415; 71046; 80053; 85025; 87637; 93005; 99283

== ENCOUNTER 2023-05-21 16:11 | Emergency (ER) | payer MEDICARE, MEDICAID, SELFPAY ==
--- NOTE | ~2023-05-21 | XR_ITS ---
XR chest 2V 05/21/2023 17:22 Indication: Shortness of breath. COPD. Procedure: 2 view chest Comparison: 09/07/2022 Findings: There is emphysema. There is bibasilar airspace disease, compatible with pneumonia. No sign ificant effusion. No pneumothorax. Impression: 1: Bibasilar airspace disease, compatible with pneumonia. Reviewed, dictated and finalized at location A. TTING CLERK Impression: 1: Bibasilar airspace disease, compatible with pneumonia.
[2023-05-21 16:34] VITALS: BP 117/60; PULSE 100; RESP 18; TEMP 37.6; O2SAT 93
--- NOTE | 2023-05-21 16:37 | ECG_ITS ---
Measurements Intervals [place] Rate: 104 P: 60 OK: 140 QRS: 20 QRSD: 77 T: 53 QT: 334 QTc: 440 Interpretive Statements SINUS TACHYCARDIA POSSIBLE LEFT ATRIAL ENLARGEMENT COMPARED TO ECG 04/07/2023 14:19:25 NO SIGNIFICANT CHANGES Electronically Signed On 05-21-2023 16:45:29 [employer] by Mickey Cornejo M.D.
[2023-05-21 16:49] LABS: Basophils Percent Auto 0.2 % (0.2-1.2); Eosinophils Absolute Auto 0.1 K/mm3 (0-0.3); Eosinophils Percent Auto 0.4 % (0-4.4); Hemoglobin 11.1 g/dL (12.0-15.0); Immature Granulocyte Absolute 0.12 K/mm3 (0.00-0.031); Immature Granulocyte Percent A 0.8 % (0-0.5); Lymphocytes Absolute Auto 0.89 K/mm3 (0.9-3.2); Lymphocytes Percent Auto 5.6 % (18.3-44.2); Mean Corpuscular HGB Conc 31.7 g/dl (32-36); Mean Corpuscular Hemoglobin 28.2 pg (26-34); Mean Corpuscular Volume 89.1 fl (80-100); Monocytes Absolute Auto 1.1 K/mm3 (0.1-0.6); Monocytes Percent Auto 6.6 % (2.6-8.5); Neutrophils Absolute Auto 13.7 K/mm3 (1.3-6.7); Neutrophils Percent Auto 86.4 % (45.5-73.1); Platelet Count Result 237 k/mm3 (150-375); Red Blood Count 3.93 M/mm3 (4.2-5.4); Red Cell Distribution Width 13.5 % (11.5-14.5); White Blood Count 15.8 K/mm3 (4.5-10.0)
[2023-05-21 16:58] LABS: Alanine Aminotransferase 27 U/L (6-35); Albumin Level 4.2 g/dL (3.5-5.1); Alkaline Phosphatase 133 U/L (38-126); Anion Gap 13 mmol/L (8-16); Aspartate Amino Transferase 24 U/L (14-36); Bilirubin,Total 0.6 mg/dL (0.2-1.3); Blood Urea Nitrogen 20 mg/dL (7-17); Calcium 8.7 mg/dL (8.4-10.2); Carbon Dioxide 24 mmol/L (22-30); Chloride 99 mmol/L (98-107); Estimated CRCL calculation 22 ml/min; Estimated Glomerular Filt Rate 26; Glucose 128 mg/dL (65-110); Potassium 3.8 mmol/L (3.4-5.0); Sodium 136 mmol/L (137-145)
--- NOTE | 2023-05-21 21:29 | ED.GENADULT ---
HPI - General Adult General Chief complaint: Shortness of Breath/Dyspnea Stated complaint: SOB Time Seen by Provider: 05/21/23 21:18 History of Present Illness HPI narrative: Patient is a 67-year-old female who presents emergency department with chief complaint of chills. Patient reports that every once last month she was treated for a COPD/pneumonia his episode patient states she was treated with doxycycline patient reports over the last couple days she had episode of chills that lasted for about an hour the patient reports that she also has had discomfort her lower ribs on the right side and also the left side. The patient reports she has COPD and occasionally coughs. Patient does report she gets pneumonia quite frequently Related Data Home Medications Medication Instructions Recorded Confirmed levothyroxine 50 mcg capsule 50 mcg PO DAILY 07/15/22 09/18/22 omeprazole 40 mg capsule,delayed 40 mg PO DAILY 07/15/22 09/18/22 release Fleet Enema 1 applic RECTAL DAILY PRN 08/10/22 09/18/22 Constipation Multi-Vitamins 1 unit PO DAILY ANEMIA 08/10/22 09/18/22 ascorbic acid (vitamin C) 500 mg 500 mg PO BID 08/10/22 09/18/22 tablet bisacodyl 10 mg rectal suppository 10 mg RECTAL DAILY PRN Constipation 08/10/22 09/18/22 fluticasone 250 mcg-salmeterol 50 1 inh inhalation Q12H 08/10/22 09/18/22 mcg/dose blistr powdr for inhalation (Advair Diskus) glycopyrrolate 9 mcg-formoterol 2 puff inhalation BID 08/10/22 09/18/22 4.8 mcg HFA aerosol inhaler magnesium hydroxide 400 mg/5 mL 30 ml PO HS PRN Constipation 08/10/22 09/18/22 oral suspension (Milk of Magnesia) ropinirole 1 mg tablet 1 mg PO HS 08/10/22 09/18/22 ipratropium bromide 0.02 % 0.5 mg inhalation Q6HRT PRN 09/18/22 09/18/22 solution for inhalation Shortness Of Breath Or Wheezing levalbuterol HCl 1.25 mg/0.5 mL 2.5 mg inhalation Q4H PRN 09/18/22 09/18/22 solution for nebulization Shortness Of Breath Or Wheezing Allergies Allergy/AdvReac Type Severity Reaction Status Date / Time No Known Allergies Allergy Verified 02/14/23 10:51 Review of Systems Review of Systems: A 10 system review of systems was completed on the patient and is negative except for what is stated in the HPI. Nursing and ancillary documentation was reviewed. COUNT INCLUDES THE [facility] Past Medical History Medical History Anxiety Chronic anemia Anemia of chronic disease with iron studies completed June 2022 Chronic GERD Chronic obstructive pulmonary disease Chronic pain syndrome Chronic respiratory failure with hypoxia Diastolic dysfunction without heart failure Echocardiogram 07/19/2022: EF greater than 70%, grade 1 diastolic dysfunction, remainder of exam unremarkable but it was a technically difficult study History of tobacco abuse Hyperlipidemia Hypertension Hypothyroidism Poor vision Schizophrenia Surgical History Surgical History History of cholecystectomy History of total right hip arthroplasty Hx of cholecystectomy Family History Family History Mother Cancer Father Aneurysm Social History Social History Social History: Surrogate medical decision maker: Melanie Baker, daughter. Code status: Full code. Smoking packs per day: 1 Smoking cigarettes per day: 20.0 Years smoked: 51 Smoking pack-years: 51.00 Smoking status: Former smoker Tobacco type: cigarettes and e-cigarettes/vaping Additional smoking assessment comments: Alcohol intake: never Substance use: never Substance use type: does not use Other substance usage details: Patient has active morphine prescription per my review of her medications. Lack of Transportation: No Lack of Food: Sometimes True Current Housing: I Have Housing Con
[2023-05-21 21:57] VITALS: BP 139/73; PULSE 104; PULSE 109; RESP 24; O2SAT 94; O2SAT 95
[2023-05-21] MEDS: AZITHROMYCIN 250 MG TABLET 500 MG PO (22:01)
[2023-05-21] MEDS: AMOXICILLIN/CLAVULANATE K 875-125 MG TAB 1 TABLET PO (22:01)
[2023-05-21 23:26] VITALS: BP 139/68
== END 2023-05-21 23:29 | disposition home or self-care (01) ==
PROVIDERS: Emergency Medicine; Emergency Provider Emergency Medicine; PCP Nurse Practitioner Family
DX: J18.9 Pneumonia, unspecified organism (principal); J44.9 Chronic obstructive pulmonary disease, unspecified; J96.11 Chronic respiratory failure with hypoxia; I10 Essential (primary) hypertension; E78.5 Hyperlipidemia, unspecified; E03.9 Hypothyroidism, unspecified; D64.9 Anemia, unspecified; K21.9 Gastro-esophageal reflux disease without esophagitis; F41.9 Anxiety disorder, unspecified; F20.9 Schizophrenia, unspecified; Z96.641 Presence of right artificial hip joint; Z87.891 Personal history of nicotine dependence; Z87.01 Personal history of pneumonia (recurrent); Z90.49 Acquired absence of other specified parts of digestive tract; R00.0 Tachycardia, unspecified; R94.31 Abnormal electrocardiogram [ECG] [EKG]
CPT/HCPCS: 36415; 71046; 80053; 85025; 93005; 99284; A9270

== ENCOUNTER 2023-09-30 04:28 | Inpatient (IN) | payer MEDICARE, MEDICAID, SELFPAY ==
[2023-09-30] VITALS (23 sets, daily range): BP systolic 120–169; BP diastolic 62–94; PULSE 72–125; RESP 16–31; TEMP 36.8–37.3; O2SAT 96–100; BMI 21.4
--- NOTE | ~2023-09-30 | XR_ITS ---
Portable chest x-ray Comparison: 05/21/2023 Clinical History: Dyspnea Findings: Possible mild patchy hazy airspace disease in the right lung. Underlying chronic interstit ial disease/COPD is present. Cardiomediastinal silhouette is stable. Bones and soft tissues are unre markable. Impression: Possible mild patchy hazy airspace disease in the right lung. Correlate for asymmetric pulmonary meagan a or pneumonia. Underlying COPD/chronic interstitial disease. Reviewed, dictated and finalized at location . Impression: Possible mild patchy hazy airspace disease in the right lung. Correlate for asy mmetric pulmonary edema or pneumonia. Underlying COPD/chronic interstitial disease.
--- NOTE | 2023-09-30 04:40 | ECG_ITS ---
SEE SCANNED COPY FOR CONFIRMED REPORT MTDD
[2023-09-30] MEDS: MAGNESIUM SULF 2 GM/WATER 50ML 2 GM/50 ML BAG IVPB (04:49)
[2023-09-30] MEDS: dexAMETHasone SOD PHOS INJ 10 MG/ML 1 ML VIAL IV PUSH (04:49)
[2023-09-30 04:50] LABS: Basophils Percent Auto 0.2 % (0.2-1.2); Eosinophils Absolute Auto 0.3 K/mm3 (0-0.3); Eosinophils Percent Auto 3.3 % (0-4.4); Hematocrit 42.6 % (37.0-47.0); Hemoglobin 13.2 g/dL (12.0-15.0); Immature Granulocyte Absolute 0.03 K/mm3 (0.00-0.031); Immature Granulocyte Percent A 0.3 % (0-0.5); Lymphocytes Absolute Auto 1.11 K/mm3 (0.9-3.2); Lymphocytes Percent Auto 11.4 % (18.3-44.2); Mean Corpuscular Hemoglobin 28.4 pg (26-34); Mean Corpuscular Volume 91.6 fl (80-100); Mean Platelet Volume 9.3 fl (7.4-10.4); Monocytes Absolute Auto 0.3 K/mm3 (0.1-0.6); Monocytes Percent Auto 3.5 % (2.6-8.5); Neutrophils Percent Auto 81.3 % (45.5-73.1); Platelet Count Result 243 k/mm3 (150-375); Red Blood Count 4.65 M/mm3 (4.2-5.4); Red Cell Distribution Width 13.1 % (11.5-14.5); White Blood Count 9.8 K/mm3 (4.5-10.0)
[2023-09-30] MEDS: IPRATROPIUM 0.5 MG/ALBUTEROL SULFATE 2.5 MG AMPUL.NEB 3 ML 12 ML INHALATION (04:59)
[2023-09-30 05:02] LABS: Alanine Aminotransferase 14 U/L (6-35); Albumin Level 4.9 g/dL (3.5-5.1); Alkaline Phosphatase 106 U/L (38-126); Anion Gap 5 mmol/L (4-12); Aspartate Amino Transferase 28 U/L (14-36); Bilirubin,Total 0.3 mg/dL (0.2-1.3); Blood Urea Nitrogen 10 mg/dL (7-17); Calcium 9.3 mg/dL (8.4-10.2); Carbon Dioxide 35 mmol/L (22-30); Chloride 101 mmol/L (98-107); Estimated Glomerular Filt Rate > 60; Glucose 118 mg/dL (65-110); Potassium 3.7 mmol/L (3.4-5.0); Sodium 141 mmol/L (137-145)
[2023-09-30 05:14] LABS: Alveolar/Arterial O2 Gradient 98.4 mmHg; Base Excess ABG 3.2 mEq/l (+/-2.0); Device NASAL CANNULA; Fractional Inspired Oxygen 32 %; HCO3 ABG 29.9 mEq/l (22.0-26.0); Oxygen Content ABG 16.1 %vol (16.0-22.0); Oxygen Saturation ABG 91.6 % (95.0-100.0); Oxyhemoglobin 91.2 % THb (90.0-100.0); PCO2 ABG 55.1 mmHg (35.0-45.0); PO2 ABG 65.3 mmHg (80.0-100.0); PO2 FiO2 Ratio Arterial Blood 2.04 %; Site Drawn RIGHT BRACHIAL; Total Hemoglobin 12.5 g/dL (12.0-18.0); pH ABG 7.352 (7.350-7.450)
[2023-09-30] MEDS: SODIUM CHLORIDE 0.9% IV 2,000 ML 999 ML IV CONT (05:15)
--- NOTE | 2023-09-30 05:31 | PC.NURSE ---
Pt stated she had to go to the bathroom during her breathing treatment so this RN put on a purewick at this time.
[2023-09-30 05:37] LABS: Influenza A QL RT-PCR Negative (Negative); Influenza B QL RT-PCR Negative (Negative); RSV RNA, RT-PCR Negative (Negative); SARS-CoV-2 RNA PCR Negative (Negative)
--- NOTE | 2023-09-30 05:37 | ED.GENADULT ---
HPI - General Adult General Chief complaint: Shortness of Breath/Dyspnea Stated complaint: DIFFICULTY IN BREATHING Time Seen by Provider: 09/30/23 04:36 History of Present Illness HPI narrative: This is a 68-year-old female with history of COPD on home oxygen presenting with difficulty breathing. Patient says that at 1:00 a.m. she started to have worsening shortness of breath. EMS was called she was found to be hypoxic @ 88-89 on 2 L nasal cannula. she is given a breathing treatment EN route to the hospital with some improvement her respiratory status. patient denies any fevers. She says she has had a cough with clear sputum. she denies chest pain abdominal pain urinary symptoms nausea vomiting diarrhea or lower extremity edema. Related Data Home Medications Medication Instructions Recorded Confirmed levothyroxine 50 mcg capsule 50 mcg PO DAILY 07/15/22 09/18/22 omeprazole 40 mg capsule,delayed 40 mg PO DAILY 07/15/22 09/18/22 release Fleet Enema 1 applic RECTAL DAILY PRN 08/10/22 09/18/22 Constipation Multi-Vitamins 1 unit PO DAILY ANEMIA 08/10/22 09/18/22 ascorbic acid (vitamin C) 500 mg 500 mg PO BID 08/10/22 09/18/22 tablet bisacodyl 10 mg rectal suppository 10 mg RECTAL DAILY PRN Constipation 08/10/22 09/18/22 fluticasone 250 mcg-salmeterol 50 1 inh inhalation Q12H 08/10/22 09/18/22 mcg/dose blistr powdr for inhalation (Advair Diskus) glycopyrrolate 9 mcg-formoterol 2 puff inhalation BID 08/10/22 09/18/22 4.8 mcg HFA aerosol inhaler magnesium hydroxide 400 mg/5 mL 30 ml PO HS PRN Constipation 08/10/22 09/18/22 oral suspension (Milk of Magnesia) ropinirole 1 mg tablet 1 mg PO HS 08/10/22 09/18/22 ipratropium bromide 0.02 % 0.5 mg inhalation Q6HRT PRN 09/18/22 09/18/22 solution for inhalation Shortness Of Breath Or Wheezing levalbuterol HCl 1.25 mg/0.5 mL 2.5 mg inhalation Q4H PRN 09/18/22 09/18/22 solution for nebulization Shortness Of Breath Or Wheezing Allergies Allergy/AdvReac Type Severity Reaction Status Date / Time No Known Allergies Allergy Verified 02/14/23 10:51 [facility] Past Medical History Medical History Anxiety Chronic anemia Anemia of chronic disease with iron studies completed June 2022 Chronic GERD Chronic obstructive pulmonary disease Chronic pain syndrome Chronic respiratory failure with hypoxia Diastolic dysfunction without heart failure Echocardiogram 07/19/2022: EF greater than 70%, grade 1 diastolic dysfunction, remainder of exam unremarkable but it was a technically difficult study History of tobacco abuse Hyperlipidemia Hypertension Hypothyroidism Poor vision Schizophrenia Surgical History Surgical History History of cholecystectomy History of total right hip arthroplasty Hx of cholecystectomy Family History Family History Mother Cancer Father Aneurysm Social History Social History Social History: Surrogate medical decision maker: Melanie Baker, daughter. Code status: Full code. Smoking packs per day: 1 Smoking cigarettes per day: 20.0 Years smoked: 51 Smoking pack-years: 51.00 Smoking status: Former smoker Tobacco type: cigarettes and e-cigarettes/vaping Additional smoking assessment comments: Alcohol intake: never Substance use: never Substance use type: does not use Other substance usage details: Patient has active morphine prescription per my review of her medications. Lack of Transportation: No Lack of Food: Sometimes True Current Housing: I Have Housing Concerned About Future Housing: No Difficulty Paying Gas/Electric Bills: No Difficulty Paying for Meds: YES Currently Unemployed: No Education: Decline to Answer Difficulty w/ Childcare or Family
[2023-09-30 06:25] LABS: Appearance Urine Clear (Clear); Bilirubin Urine Negative (Negative); Blood Urine Negative (Negative); Color Urine Yellow (Yellow); Glucose Urine UA Negative (Negative); Ketones Urine Negative (Negative); Leukocyte Esterase Ur Negative LEU/UL (Negative); Nitrate Urine Negative (Negative); Protein Urine Negative (Negative); Specific Grav Ur 1.008 (1.001-1.035); Urobilinogen Urine 0.2 mg/dL (<2.0); pH Urine 6.5 (5.0-9.0)
[2023-09-30 06:29] LABS: Add Urine Microscopic? NO
[2023-09-30] MEDS: AZITHROMYCIN 500 MG/NS 250 ML 500 MG/250 ML BAG 250 MG IVPB (07:37)
--- NOTE | 2023-09-30 08:10 | PM.IMHP ---
H&P: HPI History of Present Illness Date/Time: 09/30/23 08:10 Chief Complaint: shortness breath Narrative: 68 years old lady with history of COPD, chronic respiratory failure acquired hypothyroidism,, GERD, present ED with a chief complaint of shortness breath. patient has been having productive cough in past few more days, and patient developed a severe dyspnea yesterday. EMS was called, patient was found have somewhat respiratory distress, hypoxemia, patient was given bronchodilators and patient was brought to ED for further evaluation treatment. Patient denies chest pain, abdomen pain, nausea vomiting diarrhea dysuria fever or chills. Upon arrival in the ED, patient had low-grade fever 99.1, tachycardia 125, tachypnea 31, patient needs a 3 L oxygen in the ED. chest x-ray showed opacity in the right lung. EKG shows a sinus rhythm, sinus tachycardia, no CC I did changes. In the ED, patient received you dexamethasone , magnesium, ceftriaxone and azithromycin. We admit patient for further evaluation and treatment. Review of Systems Review of Systems: RO regS negative except above PMFSH Past Medical History Medical History (Updated 09/30/23 @ 08:20 by Nicho Malagon MD) Anxiety Chronic anemia Anemia of chronic disease with iron studies completed June 2022 Chronic GERD Chronic obstructive pulmonary disease Chronic pain syndrome Chronic respiratory failure with hypoxia Diastolic dysfunction without heart failure Echocardiogram 07/19/2022: EF greater than 70%, grade 1 diastolic dysfunction, remainder of exam unremarkable but it was a technically difficult study History of tobacco abuse Hyperlipidemia Hypertension Hypothyroidism Poor vision Schizophrenia Sepsis Surgical History Surgical History History of cholecystectomy History of total right hip arthroplasty Hx of cholecystectomy Family History Family History Mother Cancer Father Aneurysm Social History Social History Social History: Surrogate medical decision maker: Melanie Baker, daughter. Code status: Full code. Smoking packs per day: 1 Smoking cigarettes per day: 20.0 Years smoked: 51 Smoking pack-years: 51.00 Smoking status: Former smoker Tobacco type: cigarettes Smoking end date: 07/02/22 Additional smoking assessment comments: Alcohol intake: never Substance use: never Substance use type: does not use Other substance usage details: Patient has active morphine prescription per my review of her medications. Do You Feel Safe in your Home?: Yes Lack of Transportation: No Lack of Food: Never True Current Housing: I Have Housing Concerned About Future Housing: No Difficulty Paying Gas/Electric Bills: No Difficulty Paying for Meds: No Currently Unemployed: No Education: Don't Know Difficulty w/ Childcare or Family Care: No Additional living arrangements comments: as of June 2022. Moved to the area to live with her son. She has 2 children. 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 Spiritual care concerns: No Meds Home Medications and Allergies Home Medications Medication Instructions Recorded Confirmed Type levothyroxine 50 mcg capsule 75 mcg PO DAILY 07/15/22 09/30/23 History omeprazole 40 mg capsule,delayed 40 mg PO DAILY 07/15/22 09/30/23 History release quetiapine 25 mg tablet (Seroquel) 25 mg PO HS 1 month #30 tabs 07/31/22 09/30/23 Rx ropinirole 1 mg tablet 1 mg PO HS 08/10/22 09/30/23 History ondansetron 4 mg disintegrating 4 mg PO Q6H PRN nausea and 09/07/22 09/30/23 Rx tablet vomiting #10 tabs levalbuterol HCl 1.25 mg/0.5 mL 2.5 mg inhalation Q4H PRN 09/18/22 09/30/23 History solution for nebulization Shortness Of Breath Or Wheezing monse
[2023-09-30] MEDS: IPRATROPIUM 0.5 MG/ALBUTEROL SULFATE 2.5 MG AMPUL.NEB 3 ML INHALATION ×2 (08:21→14:09)
--- NOTE | 2023-09-30 11:14 | PC.NURSE ---
Report received and care of patient assumed at this time. Pt given lunch menu. Will follow up when she is ready to order.
[2023-09-30] MEDS: methylPREDNISolone SOD SUCC 125 MG VIAL 60 MG IV PUSH ×2 (12:02→17:05)
[2023-09-30] MEDS: LACTATED RINGERS 1,000 ML 125 ML IV CONT ×2 (12:35→21:11)
--- NOTE | 2023-09-30 12:58 | ADMGEN ---
This patient, Krys Mcclure, was admitted to 3 Med Surg Room 324-01. Patient/family oriented to hospital policies and general routines including ID bracelet, bed and alarms, visiting hours, pain management, procedures, bathroom and other care routines, personal items, smoking policy, room service/diet, and visiting hours. Information on how to activate the Rapid Response Team has been discussed. Patient/Family are encouraged to report perceived risks to care and to ask questions if they do not understand what they are told or what they should do. Got report from Paul PEREZ.
[2023-09-30] MEDS: ACETAMINOPHEN 500 MG TABLET PO (18:48)
[2023-09-30] MEDS: clonazePAM (*CRX) 0.5 MG TABLET 1 MG PO (18:48)
[2023-09-30] MEDS: IPRATROPIUM BR 0.02% INH SOLN 0.5 MG/2.5 ML VIAL INHALATION (19:59)
[2023-09-30] MEDS: CYCLOBENZAPRINE HCL 5 MG TABLET PO (21:12)
[2023-09-30] MEDS: QUEtiapine FUMARATE 25 MG TABLET PO (21:13)
[2023-09-30] MEDS: rOPINIRole HCL 1 MG TABLET PO (21:13)
[2023-10-01] VITALS (18 sets, daily range): BP systolic 123–151; BP diastolic 57–76; PULSE 83–106; RESP 16–18; TEMP 36.5–36.7; O2SAT 97–100
[2023-10-01] MEDS: methylPREDNISolone SOD SUCC 125 MG VIAL 60 MG IV PUSH ×4 (00:21→17:00)
[2023-10-01] MEDS: IPRATROPIUM BR 0.02% INH SOLN 0.5 MG/2.5 ML VIAL INHALATION ×4 (02:15→20:43)
[2023-10-01] MEDS: ACETAMINOPHEN 500 MG TABLET PO ×4 (05:48→21:26)
[2023-10-01] MEDS: clonazePAM (*CRX) 0.5 MG TABLET 1 MG PO ×3 (05:50→17:12)
[2023-10-01] MEDS: AZITHROMYCIN 500 MG/NS 250 ML 500 MG/250 ML BAG 250 MG IVPB (05:51)
[2023-10-01] MEDS: FERROUS SULFATE 325 MG TABLET DR 65 MG PO ×3 (08:20→16:57)
[2023-10-01] MEDS: GABAPENTIN 300 MG CAPSULE PO ×3 (08:20→16:58)
[2023-10-01] MEDS: amLODIPine BESYLATE 2.5 MG TABLET PO (08:21)
[2023-10-01] MEDS: PANTOPRAZOLE 40 MG TABLET PO ×2 (08:21→21:25)
[2023-10-01] MEDS: FLUTICASONE/UMECLIDIN/VILANTER 100-62.5-25 MCG ELLIPTA 1 PUFF INHALATION (09:05)
--- NOTE | 2023-10-01 10:33 | PM.IMPN ---
Progress Note: A&P Assessment and Plan (1) Community acquired pneumonia due to influenza A virus: Code(s): J09.X1 - Influenza due to identified novel influenza A virus with pneumonia Status: Acute (2) Acute and chronic respiratory failure with hypoxia: Code(s): J96.21 - Acute and chronic respiratory failure with hypoxia Status: Acute (3) Sepsis: Qualifiers: Sepsis acute organ dysfunction status: with acute organ dysfunction Sepsis type: sepsis due to unspecified organism Severe sepsis acute organ dysfunction type: encephalopathy Code(s): A41.9 - Sepsis, unspecified organism Status: Acute (4) Hypothyroidism: Code(s): E03.9 - Hypothyroidism, unspecified Status: Acute Plan acute on chronic respiratory failure with hypoxemia and hypercapnia, COPD exacerbation, community-acquired pneumonia Patient has history of COPD, chronic respiratory failure, patient was brought to ED because of productive cough, dyspnea, patient was found have hypoxemia, patient needs 3 L oxygen in the ED, x-ray shows right lung pneumonia influenza RSV and COVID negative continue home Advair, hold oral medication methylprednisolone, start methylprednisolone IV 60 mg q.8 hour start DuoNeb scheduled Q 6 hour, albuterol nebulizer q.4 hours as needed 09/30: dyspnea is improving, continue current management today Sepsis Patient has tachycardia tachypnea, low-grade fever, suspecting sepsis patient fluid resuscitation, received antibiotics in the ED Following sputum culture blood culture, no growth so far GERD Continue omeprazole 40 mg daily p.o. hypothyroidism Continue Synthroid 50 mcg daily p.o. may discharge patient in 1-2 days Subjective Date/time seen: 10/01/23 10:33 Interval history: patient is afebrile overnight, blood pressure stable, patient needs 2 L oxygen via nasal cannular, blood culture is pending, patient is feeling better, still has cough with some shortness breath at rest Exam Narrative: GENERAL: Pleasant, in no acute distress. Well-nourished. - EYES: EOMI. Anicteric. - HENT: Moist mucous membranes. - LUNGS: decreased air entry bilateral, coarse breath sound bilaterally, tachypnea - CARDIOVASCULAR: Regular rate and rhythm. No murmur. No JVD. tachycardia is - ABDOMEN: Soft, non-tender and non-distended. No palpable masses. - EXTREMITIES: No edema. Peripheral pulses 2+. Non-tender. - NEUROLOGIC: No focal neurological deficits. CN II-XII grossly intact. - PSYCHIATRIC: Awake, Alert and oriented x 3. Appropriate mood and affect. - SKIN: No rashes or lesions. Warm. - LYMPH: No cervical lymphadenopathy. Objective Data Vital Signs Vital Signs: Vital Signs - 24 hr 09/30/23 11:49 09/30/23 12:20 09/30/23 14:11 Temperature 98.7 F 98.6 F Pulse Rate 102 H 107 H 105 H Respiratory Rate 20 22 H 20 Blood Pressure 120/92 H 158/76 H Pulse Oximetry 99 97 Oxygen Delivery Oxygen Flow Rate 09/30/23 14:12 09/30/23 14:22 09/30/23 14:00 Temperature 98.6 F Pulse Rate 107 H 107 H Respiratory Rate 20 22 H Blood Pressure 158/76 H Pulse Oximetry 97 97 Oxygen Delivery Nasal Cannula Oxygen Flow Rate 3 09/30/23 14:21 09/30/23 12:10 09/30/23 16:00 Temperature Pulse Rate 115 H Respiratory Rate Blood Pressure Pulse Oximetry 99 Oxygen Delivery Nasal Cannula Nasal Cannula Oxygen Flow Rate 3 3 09/30/23 20:00 09/30/23 20:00 09/30/23 20:07 Temperature Pulse Rate 98 98 98 Respiratory Rate 20 20 Blood Pressure Pulse Oximetry 97 Oxygen Delivery Nasal Cannula Oxygen Flow Rate 3 09/30/23 20:00 10/01/23 00:00 09/30/23 22:00 Temperature 98.2 F Pulse Rate 94 96 72 Respiratory Rate 16 Blood Pressure 126/62 Pulse Oximetry 98 Oxygen Delivery Oxygen Flow Rate 10/01/23 02:19 10/01/23 02:24 10/01/23 04:00 Temperature Pulse Rate 87 88 94 Respiratory Rate 18 18 Blood Pressure Puls
[2023-10-01] MEDS: MELATONIN 3 MG TABLET PO (21:25)
[2023-10-01] MEDS: CYCLOBENZAPRINE HCL 5 MG TABLET PO (21:26)
[2023-10-01] MEDS: QUEtiapine FUMARATE 25 MG TABLET PO (21:27)
[2023-10-01] MEDS: rOPINIRole HCL 1 MG TABLET PO (21:27)
[2023-10-02] VITALS (17 sets, daily range): BP systolic 111–130; BP diastolic 52–73; PULSE 77–97; RESP 14–18; TEMP 36.4–36.9; O2SAT 97–100
[2023-10-02] MEDS: methylPREDNISolone SOD SUCC 125 MG VIAL 60 MG IV PUSH ×4 (00:46→16:54)
[2023-10-02] MEDS: IPRATROPIUM BR 0.02% INH SOLN 0.5 MG/2.5 ML VIAL INHALATION ×3 (02:53→14:32)
[2023-10-02] MEDS: AZITHROMYCIN 500 MG/NS 250 ML 500 MG/250 ML BAG 250 MG IVPB (08:37)
[2023-10-02] MEDS: GABAPENTIN 300 MG CAPSULE PO ×3 (08:38→16:54)
[2023-10-02] MEDS: PANTOPRAZOLE 40 MG TABLET PO (08:38)
[2023-10-02] MEDS: amLODIPine BESYLATE 2.5 MG TABLET PO (08:38)
[2023-10-02] MEDS: FERROUS SULFATE 325 MG TABLET DR 65 MG PO ×3 (08:39→16:54)
[2023-10-02] MEDS: FLUTICASONE/UMECLIDIN/VILANTER 100-62.5-25 MCG ELLIPTA 1 PUFF INHALATION (08:45)
[2023-10-02] MEDS: clonazePAM (*CRX) 0.5 MG TABLET 1 MG PO ×3 (11:44→21:35)
--- NOTE | 2023-10-02 18:44 | PM.IMPN ---
Progress Note: A&P Assessment and Plan (1) Sepsis: Qualifiers: Sepsis acute organ dysfunction status: with acute organ dysfunction Sepsis type: sepsis due to unspecified organism Severe sepsis acute organ dysfunction type: encephalopathy Code(s): A41.9 - Sepsis, unspecified organism Status: Acute (2) Acute and chronic respiratory failure with hypoxia: Code(s): J96.21 - Acute and chronic respiratory failure with hypoxia Status: Acute (3) Pneumonia: Code(s): J18.9 - Pneumonia, unspecified organism Status: Acute Plan Patient does not know how much O2 supplementation she requires at home chronically. However she is currently at 2 L and appears to be breathing well. Tomorrow she continues to be stable we can begin to deescalate her Solu-Medrol, scheduled neb treatments, antibiotics. She is stable for discharge at the moment however due to nursing issues at [place] we are on hold. Sepsis is currently resolved. Blood cultures no growth to date. FEN: Saline lock IV. GI prophylaxis: She takes omeprazole home. Currently on Protonix 40 mg p.o. b.i.d.. Will switch to once daily dosing. DVT prophylaxis: Lines: Peripheral IV Code Status: Full code Dispo: Stable on medical floor Subjective Date/time seen: 10/02/23 18:44 Interval history: No acute overnight events. Patient denies any cough shortness of breath or chest pain. Review of Systems Review of Systems: All systems reviewed & are unremarkable except as noted in HPI and below (Subjective) Exam Const: General: comfortable and no acute distress Eyes: Pupils: Equal, round and reactive pupils present Neck: Neck: supple Resp: Effort & Inspection: normal respiratory effort Other: Significantly diminished lung sounds diffusely. Cardio: Rate: regular rate Rhythm: regular rhythm GI: GI Palp: Yes Soft to palpation Extrem: General: no edema Objective Data Vital Signs Vital Signs: Vital Signs - 24 hr 10/01/23 20:44 10/01/23 20:46 10/01/23 20:54 Temperature Pulse Rate 92 89 Respiratory Rate 18 18 Blood Pressure Pulse Oximetry 97 Oxygen Delivery Nasal Cannula Oxygen Flow Rate 3 10/01/23 20:52 10/02/23 02:53 10/02/23 03:03 Temperature 97.7 F Pulse Rate 90 79 77 Respiratory Rate 18 18 18 Blood Pressure 123/57 L Pulse Oximetry 100 Oxygen Delivery Oxygen Flow Rate 10/01/23 20:00 10/02/23 05:08 10/02/23 00:00 Temperature 98.5 F Pulse Rate 85 79 82 Respiratory Rate 16 Blood Pressure 111/52 L Pulse Oximetry 99 Oxygen Delivery Oxygen Flow Rate 10/02/23 04:00 10/02/23 08:45 10/02/23 08:48 Temperature Pulse Rate 85 92 Respiratory Rate 18 Blood Pressure Pulse Oximetry 99 Oxygen Delivery Nasal Cannula Oxygen Flow Rate 3 10/02/23 08:57 10/02/23 08:00 10/02/23 08:00 Temperature Pulse Rate 86 92 Respiratory Rate 18 Blood Pressure Pulse Oximetry 97 Oxygen Delivery Nasal Cannula Oxygen Flow Rate 3 10/02/23 12:00 10/02/23 14:00 10/02/23 14:32 Temperature 97.5 F L Pulse Rate 92 97 83 Respiratory Rate 14 18 Blood Pressure 122/66 Pulse Oximetry 100 Oxygen Delivery Oxygen Flow Rate 10/02/23 14:41 10/02/23 16:00 Temperature Pulse Rate 83 82 Respiratory Rate 18 Blood Pressure Pulse Oximetry Oxygen Delivery Oxygen Flow Rate Intake/Output Intake/Output: Intake & Output 09/29/23 09/30/23 10/01/23 10/02/23 23:59 23:59 23:59 23:59 Intake Total 3794 2436 1416 Output Total 800 Balance 2994 2436 1416 Meds/Results Medications: Active Medications Generic Name Dose Route Start Last Admin Trade Name Freq PRN Reason Stop Dose Admin Acetaminophen 500 mg 09/30/23 18:10 10/01/23 21:26 Acetaminophen 500 Mg Tablet PO 500 mg Q6H PRN Administration Mild Pain (Scale Score 1-4) Amlodipine Besylate 2.5 mg 10/01/23 09:00 10/02/23 08:38 Amlodi
[2023-10-02] MEDS: ACETAMINOPHEN 500 MG TABLET PO (21:35)
[2023-10-02] MEDS: QUEtiapine FUMARATE 25 MG TABLET PO (21:35)
[2023-10-02] MEDS: rOPINIRole HCL 1 MG TABLET PO (21:35)
[2023-10-02] MEDS: CYCLOBENZAPRINE HCL 5 MG TABLET PO (21:35)
[2023-10-02] MEDS: MELATONIN 3 MG TABLET PO (21:36)
[2023-10-03] VITALS (15 sets, daily range): BP systolic 104–130; BP diastolic 58–70; PULSE 71–104; RESP 16–18; TEMP 36.6–37; O2SAT 92–99
[2023-10-03] MEDS: methylPREDNISolone SOD SUCC 125 MG VIAL 60 MG IV PUSH ×3 (00:50→12:48)
[2023-10-03] MEDS: IPRATROPIUM BR 0.02% INH SOLN 0.5 MG/2.5 ML VIAL INHALATION ×4 (03:21→20:42)
[2023-10-03] MEDS: AZITHROMYCIN 500 MG/NS 250 ML 500 MG/250 ML BAG 250 MG IVPB (06:59)
[2023-10-03] MEDS: FLUTICASONE/UMECLIDIN/VILANTER 100-62.5-25 MCG ELLIPTA 1 PUFF INHALATION (08:01)
[2023-10-03] MEDS: amLODIPine BESYLATE 2.5 MG TABLET PO (08:58)
[2023-10-03] MEDS: GABAPENTIN 300 MG CAPSULE PO ×3 (08:58→17:31)
[2023-10-03] MEDS: ENOXAPARIN 40 MG/0.4 ML SYRINGE SUB-Q (08:58)
[2023-10-03] MEDS: PANTOPRAZOLE 40 MG TABLET PO (08:58)
[2023-10-03] MEDS: FERROUS SULFATE 325 MG TABLET DR PO ×3 (08:59→17:31)
[2023-10-03] MEDS: ACETAMINOPHEN 500 MG TABLET PO ×2 (09:05→17:36)
[2023-10-03] MEDS: clonazePAM (*CRX) 0.5 MG TABLET 1 MG PO ×2 (09:07→17:37)
--- NOTE | 2023-10-03 13:55 | PM.IMPN ---
Progress Note: A&P Assessment and Plan (1) Sepsis: Qualifiers: Sepsis acute organ dysfunction status: with acute organ dysfunction Sepsis type: sepsis due to unspecified organism Severe sepsis acute organ dysfunction type: encephalopathy Code(s): A41.9 - Sepsis, unspecified organism Status: Acute (2) Acute and chronic respiratory failure with hypoxia: Code(s): J96.21 - Acute and chronic respiratory failure with hypoxia Status: Acute (3) Pneumonia: Code(s): J18.9 - Pneumonia, unspecified organism Status: Acute Plan Stable on 2 L nasal cannula O2 supplementation. Solu-Medrol deescalated to prednisone 40 mg p.o. q.day. Discontinue ceftriaxone and azithromycin, start Augmentin p.o. 1000 mg b.i.d. for a total 5 day course of antibiotics She is stable for discharge at the moment however due to nursing issues at [place] we are on hold. Sepsis is currently resolved. Blood cultures no growth to date. FEN: Saline lock IV. GI prophylaxis: Protonix 40 mg p.o. q.day DVT prophylaxis: Lines: Peripheral IV Code Status: Full code Dispo: Stable on medical floor Subjective Date/time seen: 10/03/23 13:55 Interval history: No acute overnight events. The patient denies any complaints. Review of Systems Review of Systems: All systems reviewed & are unremarkable except as noted in HPI and below (Subjective) Exam Const: General: comfortable and no acute distress Eyes: Pupils: Equal, round and reactive pupils present Neck: Neck: supple Resp: Effort & Inspection: normal respiratory effort Other: Significantly diminished lung sounds diffusely. Cardio: Rate: regular rate Rhythm: regular rhythm GI: GI Palp: Yes Soft to palpation Extrem: General: no edema Objective Data Vital Signs Vital Signs: Vital Signs - 24 hr 10/02/23 14:00 10/02/23 14:32 10/02/23 14:41 Temperature 97.5 F L Pulse Rate 97 83 83 Respiratory Rate 14 18 18 Blood Pressure 122/66 Pulse Oximetry 100 Oxygen Delivery Oxygen Flow Rate 10/02/23 16:00 10/02/23 20:15 10/03/23 03:21 Temperature 97.8 F Pulse Rate 82 84 78 Respiratory Rate 18 18 Blood Pressure 130/73 Pulse Oximetry 98 Oxygen Delivery Oxygen Flow Rate 10/02/23 23:00 10/02/23 20:00 10/03/23 04:06 Temperature 97.9 F Pulse Rate 90 71 Respiratory Rate 18 Blood Pressure 127/61 Pulse Oximetry 98 96 Oxygen Delivery Nasal Cannula Oxygen Flow Rate 2 10/03/23 00:00 10/03/23 04:00 10/03/23 08:03 Temperature Pulse Rate 73 93 83 Respiratory Rate 18 Blood Pressure Pulse Oximetry Oxygen Delivery Oxygen Flow Rate 10/03/23 08:03 10/03/23 08:10 10/03/23 13:45 Temperature Pulse Rate 76 91 Respiratory Rate 18 18 Blood Pressure Pulse Oximetry 98 Oxygen Delivery Nasal Cannula Oxygen Flow Rate 2 10/03/23 13:51 Temperature Pulse Rate 88 Respiratory Rate 18 Blood Pressure Pulse Oximetry Oxygen Delivery Oxygen Flow Rate Intake/Output Intake/Output: Intake & Output 09/30/23 10/01/23 10/02/23 10/03/23 23:59 23:59 23:59 23:59 Intake Total 3794 2436 1716 1044 Output Total 800 Balance 2994 2436 1716 1044 Meds/Results Medications: Active Medications Generic Name Dose Route Start Last Admin Trade Name Freq PRN Reason Stop Dose Admin Acetaminophen 500 mg 09/30/23 18:10 10/03/23 09:05 Acetaminophen 500 Mg Tablet PO 500 mg Q6H PRN Administration Mild Pain (Scale Score 1-4) Amlodipine Besylate 2.5 mg 10/01/23 09:00 10/03/23 08:58 Amlodipine Besylate 2.5 Mg Tablet PO 2.5 mg DAILY THOMAS Administration Clonazepam 1 mg 09/30/23 18:10 10/03/23 09:07 Clonazepam (*Crx) 0.5 Mg Tablet PO 1 mg TID PRN Administration Anxiety Cyclobenzaprine HCl 5 mg 09/30/23 18:10 10/02/23 21:35 Cyclobenzaprine Hcl 5 Mg Tablet PO 5 mg HS PRN Administration Muscle Spasm Docusate Sodiu
[2023-10-03] MEDS: AMOXICILLIN/CLAVULANATE K 875-125 MG TAB 1 TABLET PO (21:00)
[2023-10-03] MEDS: rOPINIRole HCL 1 MG TABLET PO (21:00)
[2023-10-03] MEDS: QUEtiapine FUMARATE 25 MG TABLET PO (21:00)
[2023-10-03] MEDS: CYCLOBENZAPRINE HCL 5 MG TABLET PO (21:05)
[2023-10-04] VITALS (12 sets, daily range): BP systolic 131–165; BP diastolic 67–74; PULSE 58–105; RESP 16–20; TEMP 37.2–37.4; O2SAT 97–100
[2023-10-04] MEDS: IPRATROPIUM BR 0.02% INH SOLN 0.5 MG/2.5 ML VIAL INHALATION ×3 (02:35→14:07)
[2023-10-04] MEDS: FERROUS SULFATE 325 MG TABLET DR PO ×2 (08:16→12:55)
[2023-10-04] MEDS: predniSONE 20 MG TABLET 40 MG PO (08:16)
[2023-10-04] MEDS: amLODIPine BESYLATE 2.5 MG TABLET PO (08:17)
[2023-10-04] MEDS: GABAPENTIN 300 MG CAPSULE PO ×2 (08:17→12:54)
[2023-10-04] MEDS: AMOXICILLIN/CLAVULANATE K 875-125 MG TAB 1 TABLET PO (08:17)
[2023-10-04] MEDS: PANTOPRAZOLE 40 MG TABLET PO (08:17)
[2023-10-04] MEDS: ENOXAPARIN 40 MG/0.4 ML SYRINGE SUB-Q (08:17)
[2023-10-04] MEDS: clonazePAM (*CRX) 0.5 MG TABLET 1 MG PO ×2 (08:21→13:29)
--- NOTE | 2023-10-04 12:21 | PM.DS ---
DS: Admitting Diagnosis Discharge Date October 04, 2023 Admitting Diagnosis Acute on chronic respiratory failure DS: Summary Hospital Course Hospital Course: 68-year-old female a pleasant lady with history of COPD, chronic respiratory failure, hypothyroidism, GERD presents to the ED with complaint of shortness of breath. She lives at [place]. She was treated with steroids and antibiotics. Shortness of breath resolved and she is back to her baseline nasal cannula O2 supplementation. She is stable for discharge back to home on 10/04/2023. Time Spent with Patient Time attestation: Total time spent providing and/or coordinating discharge services: Exam Const: General: comfortable and no acute distress Eyes: Pupils: Equal, round and reactive pupils present Neck: Neck: supple Resp: Effort & Inspection: normal respiratory effort Other: Significantly diminished lung sounds diffusely. Cardio: Rate: regular rate Rhythm: regular rhythm GI: GI Palp: Yes Soft to palpation Extrem: General: no edema DS: Data Data Completed and Pending Labs on day of discharge: Preliminary micro results at discharge 09/30/23 07:24 Blood Culture - Preliminary Blood 09/30/23 06:45 Blood Culture - Preliminary Blood Discharge Plan Discharge Attending physician on discharge: Maryanne Depmsey Discharging Clinician: Maryanne Dempsey Patient Disposition: [facility] Activity: september shower Diet: as tolerated Patient Instructions: Antibiotic Form Stand Alone Forms: General Discharge Information Discharge Medications: Continued quetiapine [Seroquel] 25 mg Tablet 25 mg PO HS 30 Days Qty: 30 0RF ondansetron 4 mg tablet,disintegrating 4 mg PO Q6H PRN (Reason: nausea and vomiting) Qty: 10 0RF levalbuterol HCl 1.25 mg/0.5 mL solution for nebulization 2.5 mg inhalation Q4H PRN (Reason: Shortness Of Breath Or Wheezing) Rx Instructions: must dilute for administration amlodipine 2.5 mg tablet 2.5 mg PO DAILY melatonin 3 mg tablet 3 mg PO HS PRN (Reason: Sleep) acetaminophen 500 mg tablet 500 mg PO Q6H PRN (Reason: Mild Pain (Scale Score 1-4)) fluvoxamine 50 mg tablet 50 mg PO HS azelastine 137 mcg (0.1 %) aerosol,spray 1 spray INTRANASAL BID [id number] 160-9-4.8 mcg/actuation Hfa Aerosol Inhaler 2 inh INHALATION BID clonazepam 1 mg tablet 1 mg PO TID PRN (Reason: Anxiety) simethicone [Gas-X Extra Strength] 125 mg capsule 125 mg PO QID PRN (Reason: gas pain) ferrous sulfate 325 mg (65 mg iron) tablet 65 mg PO TIDWM gabapentin 300 mg capsule 300 mg PO TID ibuprofen 800 mg tablet 800 mg PO Q8H PRN (Reason: Pain) lidocaine 5 % adhesive patch,medicated 1 patch transdermal DAILY Rx Instructions: apply to lower back docusate sodium 100 mg capsule 100 mg PO BID PRN (Reason: Constipation) cyclobenzaprine 5 mg tablet 5 mg PO HS PRN (Reason: Muscle Spasm) levothyroxine 50 mcg Capsule 75 mcg PO DAILY Rx Instructions: before breakfast omeprazole 40 mg Capsule,Delayed Release(Dr/Ec) 40 mg PO DAILY ropinirole 1 mg Tablet 1 mg PO HS Discontinued azithromycin [Zithromax Z-Stephen] 250 mg tablet See Rx Instructions PO .COMPLEX Qty: 6 0RF Rx Instructions: For 250 mg dose pack: take 500 mg today (day 1), then 250 mg for 4 days (days 2-5). Started on 09/28/23 Date of admission: 09/30/23 06:31 Primary Care Provider: RashaunAnastasiia Admitting Provider: Oxana Rosenberg Attending physician on admission: Oxana Rosenebrg Condition: Stable
== END 2023-10-04 14:35 | DRG 871 ==
LOC: ANHED 06:06 → ANH3MEDSUR 06:45
PROVIDERS: Admitting Provider Internal Medicine; Emergency Provider Emergency Medicine; PCP Nurse Practitioner Family; Visit Provider General Practice
DX: A41.9 Sepsis, unspecified organism (principal); J18.9 Pneumonia, unspecified organism; J96.21 Acute and chronic respiratory failure with hypoxia; J96.22 Acute and chronic respiratory failure with hypercapnia; J44.0 Chronic obstructive pulmonary disease with (acute) lower respiratory infection; J44.1 Chronic obstructive pulmonary disease with (acute) exacerbation; Z20.822 Contact with and (suspected) exposure to COVID-19; E03.9 Hypothyroidism, unspecified; K21.9 Gastro-esophageal reflux disease without esophagitis; D63.8 Anemia in other chronic diseases classified elsewhere; I10 Essential (primary) hypertension; E78.5 Hyperlipidemia, unspecified; F20.9 Schizophrenia, unspecified; Z96.641 Presence of right artificial hip joint; Z90.49 Acquired absence of other specified parts of digestive tract; Z87.891 Personal history of nicotine dependence
CPT/HCPCS: 36415; 36600; 71045; 80053; 81003; 82805; 85025; 87040; 87637; 93005; 94640; 96365; 96367; 96375; 97110; 97116; 97161; 97166; 97530; 97535; 99285; A9270; J0456; J0696; J1100; J1650; J2919; J3475; J7030; J7120; J7512

== ENCOUNTER 2023-12-25 10:09 | Emergency (ER) | payer MEDICARE, MEDICAID, SELFPAY ==
[2023-12-25 10:20] VITALS: BP 119/86; PULSE 90; RESP 18; TEMP 36.7; O2SAT 98
--- NOTE | 2023-12-25 11:00 | ED.PSYCH ---
HPI - Psych General Chief Complaint: Psychiatric Symptoms Stated Complaint: suicidal comments Time Seen by Provider: 12/25/23 10:12 History of Present Illness HPI Narrative: 68-year-old female presenting for psychiatric evaluation. Patient is a resident at [facility]. States that she has been doing very well lately and has been engaging in therapy, counseling, artwork. She has had a difficult relationship with 1 of her sons for the last few years and they got into another fight this morning about her being able to see her grandchildren. States that she texted some things along the lines of her not being here for much longer. Her [id number] then called [facility] reported that she had made suicidal comments. Patient adamantly denies suicidal comments or thoughts. Denies HI. Denies depressed mood or anxiety. No access to firearms. States that she has an appointment with her counselor later this week. Related Data Home Medications Medication Instructions Recorded Confirmed levothyroxine 50 mcg capsule 75 mcg PO DAILY 07/15/22 09/30/23 omeprazole 40 mg capsule,delayed 40 mg PO DAILY 07/15/22 09/30/23 release ropinirole 1 mg tablet 1 mg PO HS 08/10/22 09/30/23 levalbuterol HCl 1.25 mg/0.5 mL 2.5 mg inhalation Q4H PRN 09/18/22 09/30/23 solution for nebulization Shortness Of Breath Or Wheezing acetaminophen 500 mg tablet 500 mg PO Q6H PRN Mild Pain (Scale 09/30/23 09/30/23 Score 1-4) amlodipine 2.5 mg tablet 2.5 mg PO DAILY 09/30/23 09/30/23 azelastine 137 mcg (0.1 %) nasal 1 spray intranasal BID 09/30/23 09/30/23 spray budesonide 160 mcg-glycopyr 9 2 inh inhalation BID 09/30/23 09/30/23 mcg-formot 4.8 mcg/actuation HFA inhaler clonazepam 1 mg tablet 1 mg PO TID PRN Anxiety 09/30/23 09/30/23 cyclobenzaprine 5 mg tablet 5 mg PO HS PRN Muscle Spasm 09/30/23 09/30/23 docusate sodium 100 mg capsule 100 mg PO BID PRN Constipation 09/30/23 09/30/23 ferrous sulfate 325 mg (65 mg 65 mg PO TIDWM 09/30/23 09/30/23 iron) tablet fluvoxamine 50 mg tablet 50 mg PO HS 09/30/23 09/30/23 gabapentin 300 mg capsule 300 mg PO TID 09/30/23 09/30/23 ibuprofen 800 mg tablet 800 mg PO Q8H PRN Pain 09/30/23 09/30/23 lidocaine 5 % topical patch 1 patch transdermal DAILY 09/30/23 09/30/23 melatonin 3 mg tablet 3 mg PO HS PRN Sleep 09/30/23 09/30/23 simethicone 125 mg capsule (Gas-X 125 mg PO QID PRN gas pain 09/30/23 09/30/23 Extra Strength) Allergies Allergy/AdvReac Type Severity Reaction Status Date / Time No Known Allergies Allergy Verified 12/25/23 10:59 Review of Systems Review of Systems: All systems reviewed & are unremarkable except as noted in HPI and below PMFSH Past Medical History Medical History Anxiety Chronic anemia Anemia of chronic disease with iron studies completed June 2022 Chronic GERD Chronic obstructive pulmonary disease Chronic pain syndrome Chronic respiratory failure with hypoxia Diastolic dysfunction without heart failure Echocardiogram 07/19/2022: EF greater than 70%, grade 1 diastolic dysfunction, remainder of exam unremarkable but it was a technically difficult study History of tobacco abuse Hyperlipidemia Hypertension Hypothyroidism Poor vision Schizophrenia Sepsis Surgical History Surgical History History of cholecystectomy History of total right hip arthroplasty Hx of cholecystectomy Family History Family History Mother Cancer Father Aneurysm Social History Social History Social History: Surrogate medical decision maker: Melanie Baker, daughter. Code status: Full code. Smoking packs per day: 1 Smoking cigarettes per day: 20.0 Years smoked: 51 Smoking pack-years: 51.00 Smoking status: Former smoker
[2023-12-25 11:44] VITALS: BP 120/84; PULSE 89; RESP 18; O2SAT 97
== END 2023-12-25 11:47 | disposition home or self-care (01) ==
PROVIDERS: Emergency Provider Emergency Medicine; PCP Nurse Practitioner Family
DX: Z03.89 Encounter for observation for other suspected diseases and conditions ruled out (principal); Z63.8 Other specified problems related to primary support group; J44.9 Chronic obstructive pulmonary disease, unspecified; J96.11 Chronic respiratory failure with hypoxia; I11.9 Hypertensive heart disease without heart failure; E78.5 Hyperlipidemia, unspecified; E03.9 Hypothyroidism, unspecified; D64.9 Anemia, unspecified; G89.4 Chronic pain syndrome; K21.9 Gastro-esophageal reflux disease without esophagitis; F41.9 Anxiety disorder, unspecified; F20.9 Schizophrenia, unspecified; Z96.641 Presence of right artificial hip joint; Z87.891 Personal history of nicotine dependence; Z90.49 Acquired absence of other specified parts of digestive tract; Z79.899 Other long term (current) drug therapy
CPT/HCPCS: 99281

== ENCOUNTER 2024-02-25 23:08 | Inpatient (IN) | payer MEDICARE, MEDICAID, SELFPAY ==
--- NOTE | ~2024-02-25 | XR_ITS ---
EXAMINATION: XR chest 1V portable DATE: 02/26/2024 00:18 INDICATION: Dyspnea TECHNIQUE: frontal view of the chest was obtained. COMPARISON: Chest radiograph dated 09/30/2023 and 05/21/[address] dated 02/11/2023 FINDINGS: Hyperexpansion of lungs with emphysema better appreciated on prior CT. There is some pleural-parenchy mal scarring with chronic mild coarse reticular opacities at the periphery of the right lung. No pleu ral effusion or pneumothorax. The cardiomediastinal silhouette is normal. IMPRESSION: 1. Emphysema with chronic mild pleural-parenchymal scarring at the periphery of the right lung. No ac mary cardiopulmonary disease. Reviewed, dictated and finalized at location [facility]. IMPRESSION: 1. Emphysema with chronic mild pleural-parenchymal scarring at the periphery of the right lung. No acute cardiopulmonary disease.
[2024-02-25 23:06] VITALS: PULSE 87; RESP 24; TEMP 36.6; O2SAT 100
[2024-02-25 23:13] VITALS: O2SAT 100
[2024-02-25 23:15] VITALS: BP 102/54; PULSE 86; RESP 23; O2SAT 100
--- NOTE | 2024-02-25 23:29 | ECG_ITS ---
Test Date: 2024-02-25 23:45:29 Measurements Intervals [place] Rate: 80 P: 80 UT: 155 QRS: 73 QRSD: 76 T: 72 QT: 369 QTc: 428 Interpretive Statements SINUS RHYTHM WITH OCCASIONAL ECTOPIC PREMATURE COMPLEXES No previous ECG available for comparison Electronically Signed On 02-26-2024 16:19:05 CDT by Km Aquino M.D.
[2024-02-25 23:30] VITALS: BP 98/51; PULSE 84; RESP 19; O2SAT 100
[2024-02-25] MEDS: IPRATROPIUM 0.5 MG/ALBUTEROL SULFATE 2.5 MG AMPUL.NEB 3 ML INHALATION (23:37)
[2024-02-25 23:38] VITALS: PULSE 81; RESP 17
[2024-02-25 23:50] VITALS: PULSE 83; RESP 22
[2024-02-25 23:50] LABS: Alveolar/Arterial O2 Gradient < 0.0 mmHg; Base Excess ABG -0.8 mEq/l (+/-2.0); Fractional Inspired Oxygen 28 %; HCO3 ABG 27.4 mEq/l (22.0-26.0); Oxygen Content ABG 17.5 %vol (16.0-22.0); Oxygen Saturation ABG 98.8 % (95.0-100.0); Oxyhemoglobin 97.8 % THb (90.0-100.0); PO2 FiO2 Ratio Arterial Blood 5.75 %; Total Hemoglobin 12.5 g/dL (12.0-18.0)
[2024-02-25 23:52] LABS: Device NASAL CANNULA; PCO2 ABG 62.4 mmHg (35.0-45.0); Site Drawn RIGHT BRACHIAL; pH ABG 7.261 (7.350-7.450)
[2024-02-26] VITALS (37 sets, daily range): BP systolic 70–156; BP diastolic 47–82; PULSE 62–107; RESP 17–45; TEMP 36.4–37.2; O2SAT 93–100; BMI 19.7
[2024-02-26 00:09] LABS: Basophils Percent Auto 0.4 % (0.2-1.2); Eosinophils Absolute Auto 0.3 K/mm3 (0-0.3); Eosinophils Percent Auto 4.6 % (0-4.4); Hematocrit 37.8 % (37.0-47.0); Hemoglobin 12.1 g/dL (12.0-15.0); Immature Granulocyte Absolute 0.01 K/mm3 (0.00-0.031); Immature Granulocyte Percent A 0.2 % (0-0.5); Lymphocytes Absolute Auto 2.01 K/mm3 (0.9-3.2); Lymphocytes Percent Auto 37.2 % (18.3-44.2); Mean Corpuscular Volume 90.6 fl (80-100); Mean Platelet Volume 9.1 fl (7.4-10.4); Monocytes Absolute Auto 0.5 K/mm3 (0.1-0.6); Monocytes Percent Auto 8.5 % (2.6-8.5); Neutrophils Absolute Auto 2.7 K/mm3 (1.3-6.7); Neutrophils Percent Auto 49.1 % (45.5-73.1); Platelet Count Result 186 k/mm3 (150-375); Red Blood Count 4.17 M/mm3 (4.2-5.4); Red Cell Distribution Width 12.5 % (11.5-14.5); White Blood Count 5.4 K/mm3 (4.5-10.0)
[2024-02-26 00:12] LABS: Lactic Acid Reflex 0.7 mmol/L (0.7-2.0)
[2024-02-26 00:15] LABS: Alanine Aminotransferase 15 U/L (6-35); Albumin Level 3.6 g/dL (3.5-5.1); Alkaline Phosphatase 81 U/L (38-126); Anion Gap 5 mmol/L (4-12); Aspartate Amino Transferase 19 U/L (14-36); Bilirubin,Total 0.2 mg/dL (0.2-1.3); Blood Urea Nitrogen 14 mg/dL (7-17); Calcium 8.2 mg/dL (8.4-10.2); Carbon Dioxide 34 mmol/L (22-30); Chloride 101 mmol/L (98-107); Estimated Glomerular Filt Rate > 60; Glucose 142 mg/dL (65-110); Magnesium 1.6 mg/dL (1.6-2.3); Potassium 3.6 mmol/L (3.4-5.0); Sodium 140 mmol/L (137-145)
[2024-02-26 00:24] LABS: NT Pro B Type Natriuretic Pept 33 pg/mL (19.9-100)
[2024-02-26 00:26] LABS: Troponin I < 0.012 ng/mL (0.000-0.034)
[2024-02-26 00:30] LABS: Partial Thromboplastin Time 30.3 Seconds (22.3-36.8)
[2024-02-26 00:36] LABS: Procalcitonin < 0.0 ng/mL
[2024-02-26 00:49] LABS: Influenza A QL RT-PCR Negative (Negative); Influenza B QL RT-PCR Negative (Negative); RSV RNA, RT-PCR Negative (Negative); SARS-CoV-2 RNA PCR Negative (Negative)
[2024-02-26] MEDS: SODIUM CHLORIDE 0.9% IV 1,000 ML 999 ML IV CONT ×2 (00:55→01:36)
[2024-02-26] MEDS: methylPREDNISolone SOD SUCC 125 MG VIAL IV PUSH (00:55)
--- NOTE | 2024-02-26 01:01 | ED.GENADULT ---
HPI - General Adult General Chief complaint: Shortness of Breath/Dyspnea Stated complaint: SOB X 1 WEEK/HX COPD Time Seen by Provider: 02/25/24 23:16 History of Present Illness HPI narrative: Patient is a 68-year-old female who presents emergency department with chief complaint of shortness of breath. Patient lives a [facility] and is on oxygen has history of COPD the patient has had increasing shortness of breath for the last week reports that tonight symptoms got worse and called EMS EMS found her to be extremely tachypneic and transported to the emergency department. Related Data Home Medications Medication Instructions Recorded Confirmed levothyroxine 50 mcg capsule 75 mcg PO DAILY 07/15/22 09/30/23 omeprazole 40 mg capsule,delayed 40 mg PO DAILY 07/15/22 09/30/23 release ropinirole 1 mg tablet 1 mg PO HS 08/10/22 09/30/23 levalbuterol HCl 1.25 mg/0.5 mL 2.5 mg inhalation Q4H PRN 09/18/22 09/30/23 solution for nebulization Shortness Of Breath Or Wheezing acetaminophen 500 mg tablet 500 mg PO Q6H PRN Mild Pain (Scale 09/30/23 09/30/23 Score 1-4) amlodipine 2.5 mg tablet 2.5 mg PO DAILY 09/30/23 09/30/23 azelastine 137 mcg (0.1 %) nasal 1 spray intranasal BID 09/30/23 09/30/23 spray budesonide 160 mcg-glycopyr 9 2 inh inhalation BID 09/30/23 09/30/23 mcg-formot 4.8 mcg/actuation HFA inhaler clonazepam 1 mg tablet 1 mg PO TID PRN Anxiety 09/30/23 09/30/23 cyclobenzaprine 5 mg tablet 5 mg PO HS PRN Muscle Spasm 09/30/23 09/30/23 docusate sodium 100 mg capsule 100 mg PO BID PRN Constipation 09/30/23 09/30/23 ferrous sulfate 325 mg (65 mg 65 mg PO TIDWM 09/30/23 09/30/23 iron) tablet fluvoxamine 50 mg tablet 50 mg PO HS 09/30/23 09/30/23 gabapentin 300 mg capsule 300 mg PO TID 09/30/23 09/30/23 ibuprofen 800 mg tablet 800 mg PO Q8H PRN Pain 09/30/23 09/30/23 lidocaine 5 % topical patch 1 patch transdermal DAILY 09/30/23 09/30/23 melatonin 3 mg tablet 3 mg PO HS PRN Sleep 09/30/23 09/30/23 simethicone 125 mg capsule (Gas-X 125 mg PO QID PRN gas pain 09/30/23 09/30/23 Extra Strength) Allergies Allergy/AdvReac Type Severity Reaction Status Date / Time No Known Allergies Allergy Verified 12/25/23 10:59 Review of Systems Review of Systems: A 10 system review of systems was completed on the patient and is negative except for what is stated in the HPI. Nursing and ancillary documentation was reviewed. [facility] Past Medical History Medical History Anxiety Chronic anemia Anemia of chronic disease with iron studies completed June 2022 Chronic GERD Chronic obstructive pulmonary disease Chronic pain syndrome Chronic respiratory failure with hypoxia Diastolic dysfunction without heart failure Echocardiogram 07/19/2022: EF greater than 70%, grade 1 diastolic dysfunction, remainder of exam unremarkable but it was a technically difficult study History of tobacco abuse Hyperlipidemia Hypertension Hypothyroidism Poor vision Schizophrenia Sepsis Surgical History Surgical History History of cholecystectomy History of total right hip arthroplasty Hx of cholecystectomy Family History Family History Mother Cancer Father Aneurysm Social History Social History Social History: Surrogate medical decision maker: Melanie Baker, daughter. Code status: Full code. Smoking packs per day: 1 Smoking cigarettes per day: 20.0 Years smoked: 51 Smoking pack-years: 51.00 Smoking status: Former smoker Tobacco type: cigarettes Smoking end date: 07/02/22 Additional smoking assessment comments: Alcohol intake: never Substance use: never Substance use type: does not use Other substance usage details: Patient has active morphine pre
--- NOTE | 2024-02-26 02:06 | PM.IMHP ---
H&P: HPI History of Present Illness Date/Time: 02/26/24 02:06 Chief Complaint: shortness of breath Narrative: This is a 68-year-old female with past medical history significant for chronic hypoxic and hypercarbic respiratory failure on chronic supplemental oxygen, COPD/emphysema, tobacco dependence, [facility] resident. Patient was brought to the emergency room due to low pulse ox patient still an active current day smoker and vaper. here patient was placed on BiPAP an ABG showed a pH of 7.26 pCO2 of 66 PO2 of 150. Patient is been admitted for further evaluation management and treatment. EXAMINATION: XR chest 1V portable DATE: 02/26/2024 00:18 INDICATION: Dyspnea TECHNIQUE: frontal view of the chest was obtained. COMPARISON: Chest radiograph dated 09/30/2023 and 05/21/[address] dated 02/11/2023 FINDINGS: Hyperexpansion of lungs with emphysema better appreciated on prior CT. There is some pleural-parenchymal scarring with chronic mild coarse reticular opacities at the periphery of the right lung. No pleural effusion or pneumothorax. The cardiomediastinal silhouette is normal. IMPRESSION: 1. Emphysema with chronic mild pleural-parenchymal scarring at the periphery of the right lung. No acute cardiopulmonary disease. Review of Systems Review of Systems: ROS unobtainable: Yes other ( on BiPAP) PMFSH Past Medical History Medical History Anxiety Chronic anemia Anemia of chronic disease with iron studies completed June 2022 Chronic GERD Chronic obstructive pulmonary disease Chronic pain syndrome Chronic respiratory failure with hypoxia Diastolic dysfunction without heart failure Echocardiogram 07/19/2022: EF greater than 70%, grade 1 diastolic dysfunction, remainder of exam unremarkable but it was a technically difficult study History of tobacco abuse Hyperlipidemia Hypertension Hypothyroidism Poor vision Schizophrenia Sepsis Surgical History Surgical History History of cholecystectomy History of total right hip arthroplasty Hx of cholecystectomy Family History Family History (Updated 02/26/24 @ 04:20 by Ledy Villeda RN) Mother Cancer Father Aneurysm Sibling Osteomyelitis Social History Social History Social History: Surrogate medical decision maker: Melanie Baker, daughter. Code status: Full code. Smoking packs per day: 1 Smoking cigarettes per day: 20.0 Years smoked: 30 Smoking pack-years: 30.00 Smoking status: Current every day smoker Tobacco type: cigarettes and e-cigarettes/vaping Smoking end date: 07/02/22 Additional smoking assessment comments: Alcohol intake: never Substance use: former Substance use type: marijuana Other substance usage details: Patient has active morphine prescription per my review of her medications. Do You Feel Safe in your Home?: Yes Lack of Transportation: No Lack of Food: Never True Current Housing: I Have Housing Concerned About Future Housing: No Difficulty Paying Gas/Electric Bills: No Difficulty Paying for Meds: No Currently Unemployed: No Education: Decline to Answer Difficulty w/ Childcare or Family Care: No Additional living arrangements comments: as of June 2022. Moved to the area to live with her son. She has 2 children. 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 Spiritual care concerns: No Meds Home Medications and Allergies Home Medications Medication Instructions Recorded Confirmed Type omeprazole 40 mg capsule,delayed 40 mg PO DAILY 07/15/22 02/26/24 History release ropinirole 1 mg tablet 1 mg PO HS 08/10/22 02/26/24 History ondansetron 4 mg disintegrating 4 mg PO Q6H PRN nausea and 09/07/22 02/26/24 Rx tablet vomiting #10 tabs acetaminophen 50
[2024-02-26 03:13] LABS: Add Urine Microscopic? YES; Appearance Urine Clear (Clear); Bacteria Urine None Seen /hpf; Bilirubin Urine Negative (Negative); Blood Urine Negative (Negative); Color Urine Yellow (Yellow); Glucose Urine UA Negative (Negative); Ketones Urine Negative (Negative); Leukocyte Esterase Ur 1+ LEU/UL (Negative); Nitrate Urine Negative (Negative); Non Pathogenic Casts 0-2; Protein Urine Negative (Negative); RBC Urine 0-2 /hpf (0-2); Specific Grav Ur 1.007 (1.001-1.035); Squamous Epithelial Cell Urine Occasional /hpf (Few); Urobilinogen Urine 0.2 mg/dL (<2.0)
[2024-02-26] MEDS: AZITHROMYCIN 500 MG/NS 250 ML 500 MG/250 ML BAG 250 MG IVPB (03:29)
[2024-02-26 03:52] LABS: Troponin I < 0.012 ng/mL (0.000-0.034)
[2024-02-26] MEDS: methylPREDNISolone SOD SUCC 125 MG VIAL 60 MG IV PUSH (06:19)
[2024-02-26] MEDS: IPRATROPIUM 0.5 MG/ALBUTEROL SULFATE 2.5 MG AMPUL.NEB 3 ML INHALATION ×3 (07:53→20:04)
[2024-02-26 09:00] LABS: Alveolar/Arterial O2 Gradient 51.9 mmHg; Base Excess ABG 0.9 mEq/l (+/-2.0); Fractional Inspired Oxygen 24 %; HCO3 ABG 25.7 mEq/l (22.0-26.0); Oxygen Content ABG 16.5 %vol (16.0-22.0); Oxygen Saturation ABG 94.1 % (95.0-100.0); Oxyhemoglobin 93.9 % THb (90.0-100.0); PCO2 ABG 41.6 mmHg (35.0-45.0); PO2 ABG 69.7 mmHg (80.0-100.0); Total Hemoglobin 12.5 g/dL (12.0-18.0); pH ABG 7.408 (7.350-7.450)
[2024-02-26 09:01] LABS: Device NASAL CANNULA; Modified Allen's Test Pass; Site Drawn RIGHT BRACHIAL
[2024-02-26] MEDS: predniSONE 20 MG TABLET 40 MG PO (09:32)
--- NOTE | 2024-02-26 11:42 | PC.NURSE ---
This patient, Krys Mcclure, was received from IMU on 02/26/24 at 1035. Patient/family oriented to unit policies and routines
--- NOTE | 2024-02-26 11:42 | PC.NURSE ---
This patient, Krys Mcclure, was transferred to [facility] on 02/26/24 at 1034. Personal belongings sent with patient. Report given to CHRIS Velarde. Appropriate documentation sent with patient.
--- NOTE | 2024-02-26 13:33 | PM.IMPN ---
Progress Note: A&P Assessment and Plan (1) Acute and chronic respiratory failure with hypoxia: Code(s): J96.21 - Acute and chronic respiratory failure with hypoxia Status: Acute Assessment and Plan: From COPD exacerbation Off BiPAP, abg wnl now on 2 liters oxygen Continue Prednisone and bronchodilators monitor (2) Chronic obstructive pulmonary disease: Code(s): J44.9 - Chronic obstructive pulmonary disease, unspecified Status: Acute Assessment and Plan: with acute exacerbations Continue above care (3) Chronic pain syndrome: Code(s): G89.4 - Chronic pain syndrome Status: Acute Assessment and Plan: continue pain management Plan DVT prophylaxis on Sq Lovenox PT/OT for discharge planning Subjective Date/time seen: 02/26/24 13:33 Interval history: Comfortable at bedside Review of Systems Review of Systems: ROS unobtainable: Yes other ( on BiPAP) Exam Narrative: patient is laying in a stretcher Const: General: comfortable, no acute distress, well developed, alert, awake, average body habitus and thin Nutritional Appearance: average body habitus and thin Orientation/consciousness: oriented to person, oriented to place and patient oriented x3 Other: on BiPAP, resting comfortably HENMT: Head: normal to inspection, normocephalic and atraumatic Ears: hearing grossly normal bilaterally Face/Nose/Sinus: normal facial exam Face and sinus: normal facial exam Eyes: General: appearance normal, both eyes and all related structures Pupils: Equal, round and reactive pupils present EOM: EOMs intact bilaterally Neck: Neck: full ROM, no lymphadenopathy and no JVD Thyroid: thyroid normal Lymphatic: no lymphadenopathy noted Resp: Effort & Inspection: not tachypneic, symmetric chest movement and other ( on BiPAP) Auscultation: diminished lung sounds Cardio: Jugular venous distension: no JVD Rate: regular rate Rhythm: regular rhythm Heart sounds: S1 normal heart sound present and S2 normal heart sound present : General: Yes deferred Skin: Rashes: no rashes Wounds: no wounds Neuro: General: oriented to person, oriented to place, patient oriented x3, moves all extremities, no focal motor deficits, CN's II-XI intact bilaterally and Unable to assess gait Cranial nerves: Yes CN's II-XII intact bilaterally and Yes Equal, round and reactive pupils present Cognition (Neuro): normal cognition Speech: normal speech Gait exam (Neuro): Unable to assess gait Motor exam (neuro): 5/5 motor strength present throughout Extrem: General: normal to inspection, full ROM, no joint enlargement and no pedal edema Objective Data Vital Signs Vital Signs: Vital Signs - 24 hr 02/25/24 23:06 02/25/24 23:13 02/25/24 23:38 Temperature 97.9 F Pulse Rate 87 81 Respiratory Rate 24 H 17 Blood Pressure Pulse Oximetry 100 100 Oxygen Delivery Nasal Cannula Nasal Cannula Oxygen Flow Rate 2 2 Fraction of Inspired Oxygen 02/25/24 23:50 02/26/24 00:12 02/26/24 00:47 Temperature 98.1 F Pulse Rate 83 83 77 Respiratory Rate 22 H 22 H 22 H Blood Pressure 88/55 L Pulse Oximetry 98 97 Oxygen Delivery BiPAP Oxygen Flow Rate Fraction of Inspired Oxygen 02/26/24 01:01 02/26/24 01:36 02/26/24 01:40 Temperature Pulse Rate 68 70 Respiratory Rate 22 H 28 H Blood Pressure 87/50 L Pulse Oximetry 96 95 Oxygen Delivery BiPAP BiPAP Oxygen Flow Rate Fraction of Inspired Oxygen 25 02/26/24 01:41 02/26/24 00:49 02/26/24 00:00 Temperature 98.9 F Pulse Rate 70 77 82 Respiratory Rate 23 H 21 H 21 H Blood Pressure 70/47 L 81/49 L Pulse Oximetry 95 97 98 Oxygen Delivery Oxygen Flow Rate Fraction of Inspired Oxygen 02/25/24 23:30 02/25/24 23:15 02/26/24 01:45 Temperature Pulse Rate 84 86 69 Respiratory Rate 19 23 H 22 H Blood Pressure 98/51 L 102/54 L Pulse Oximetry 100 100 95 Oxygen Delivery O
[2024-02-26] MEDS: GABAPENTIN 300 MG CAPSULE PO ×2 (16:45→20:47)
[2024-02-26] MEDS: clonazePAM (*CRX) 0.5 MG TABLET 1 MG PO (16:58)
[2024-02-26] MEDS: rOPINIRole HCL 1 MG TABLET PO (20:47)
[2024-02-27] VITALS (10 sets, daily range): BP systolic 132–136; BP diastolic 74–78; PULSE 84–112; RESP 16–20; TEMP 37.2; O2SAT 95–100
[2024-02-27] MEDS: clonazePAM (*CRX) 0.5 MG TABLET 1 MG PO ×2 (01:02→14:14)
[2024-02-27] MEDS: IPRATROPIUM 0.5 MG/ALBUTEROL SULFATE 2.5 MG AMPUL.NEB 3 ML INHALATION ×3 (01:31→13:07)
[2024-02-27] MEDS: AZITHROMYCIN 500 MG/NS 250 ML 500 MG/250 ML BAG 250 MG IVPB (01:46)
[2024-02-27] MEDS: SIMETHICONE 125 MG CHEW TAB PO (01:50)
[2024-02-27] MEDS: LEVOTHYROXINE SODIUM 75 MCG TABLET PO (06:34)
[2024-02-27] MEDS: FLUTICASONE/UMECLIDIN/VILANTER 100-62.5-25 MCG ELLIPTA 1 PUFF INHALATION (06:57)
[2024-02-27] MEDS: predniSONE 20 MG TABLET 40 MG PO (08:06)
[2024-02-27] MEDS: GABAPENTIN 300 MG CAPSULE PO (08:06)
[2024-02-27] MEDS: ENOXAPARIN 40 MG/0.4 ML SYRINGE SUB-Q (08:06)
[2024-02-27] MEDS: amLODIPine BESYLATE 2.5 MG TABLET PO (08:06)
--- NOTE | 2024-02-27 11:59 | PM.DS ---
DS: Admitting Diagnosis Discharge Date 02/27/24 Admitting Diagnosis SOB DS: Discharge Diagnosis Discharge Diagnosis (1) Acute and chronic respiratory failure with hypoxia: Code(s): J96.21 - Acute and chronic respiratory failure with hypoxia Status: Acute (2) Chronic obstructive pulmonary disease: Code(s): J44.9 - Chronic obstructive pulmonary disease, unspecified Status: Acute DS: Summary Hospital Course Hospital Course: This is a 68-year-old female with past medical history significant for chronic hypoxic and hypercarbic respiratory failure on chronic supplemental oxygen, COPD/emphysema, tobacco dependence, [facility] resident. Patient was brought to the emergency room due to low pulse ox patient still an active current day smoker and vaper. here patient was placed on BiPAP an ABG showed a pH of 7.26 pCO2 of 66 PO2 of 150. A chest x-ray negative for pneumonia. Patient was managed for COPD exacerbation and she was initially on BiPAP and weaned eventually to her baseline oxygen requirement of 2 liters. Discharged back today on her home bronchodilators and 2 more days of Prednisone. F/u with PCP in 3-5 days. Assessment and Plan (1) Acute and chronic respiratory failure with hypoxia: Code(s): J96.21 - Acute and chronic respiratory failure with hypoxia Status: Acute Assessment and Plan: From COPD exacerbation Off BiPAP, abg wnl, now on 2 liters oxygen which is baseline Continue home bronchodilators discharged on 2 more days of Prednisone (2) Chronic obstructive pulmonary disease: Code(s): J44.9 - Chronic obstructive pulmonary disease, unspecified Status: Acute Assessment and Plan: with acute exacerbations Continue above care (3) Chronic pain syndrome: Code(s): G89.4 - Chronic pain syndrome Status: Acute Assessment and Plan: continue pain management Continue other home meds F/u with PCP in 3-5 days Time Spent with Patient Time attestation: Total time spent providing and/or coordinating discharge services: DS: Data Data Completed and Pending Labs on day of discharge: Preliminary micro results at discharge 02/26/24 02:59 Blood Culture - Preliminary Blood 02/26/24 02:59 Blood Culture - Preliminary Blood Discharge Plan Discharge Attending physician on discharge: Dianna Sweeney Discharging Clinician: Dianna Sweeney Anticipated Discharge Date/Time: 02/27/24 11:53 Patient Disposition: NH Detention/Asst Living Activity: as tolerated Diet: as tolerated Patient Instructions: Antibiotic Form, How to Stop Smoking (GEN), Acute Respiratory Failure (IP) Stand Alone Forms: General Discharge Information Discharge Medications: New prednisone 20 mg Tablet 40 mg PO DAILY@0800 Qty: 2 0RF Continued ondansetron 4 mg tablet,disintegrating 4 mg PO Q6H PRN (Reason: nausea and vomiting) Qty: 10 0RF amlodipine 2.5 mg tablet 2.5 mg PO DAILY melatonin 3 mg tablet 3 mg PO HS PRN (Reason: Sleep) acetaminophen 500 mg tablet 500 mg PO Q6H PRN (Reason: Mild Pain (Scale Score 1-4)) fluvoxamine 50 mg tablet 50 mg PO HS clonazepam 1 mg tablet 1 mg PO TID PRN (Reason: Anxiety) simethicone [Gas-X Extra Strength] 125 mg capsule 125 mg PO Q6H PRN (Reason: gas pain) ferrous sulfate 325 mg (65 mg iron) tablet 65 mg PO TIDWM gabapentin 300 mg capsule 300 mg PO TID Rx Instructions: 0800, 1600, 2000 ibuprofen 800 mg tablet 800 mg PO Q8H PRN (Reason: Pain) lidocaine 5 % adhesive patch,medicated 1 patch transdermal DAILY Rx Instructions: apply to lower back docusate sodium 100 mg capsule 100 mg PO PRN PRN (Reason: Constipation) cyclobenzaprine 5 mg tablet 5 mg PO BID PRN (Reason: Muscle Spasm) albuterol sulfate 2.5 mg /3 mL (0.083 %) solution for nebulization 2.5 mg inhalation Q6H PRN (Reason:
== END 2024-02-27 15:31 | DRG 190 ==
LOC: ANHED 02-26 02:15 → ANHIMU 02-26 03:10 → ANH2MED 02-26 10:07
PROVIDERS: Admitting Provider Internal Medicine; Emergency Provider Emergency Medicine; PCP Nurse Practitioner Family; Visit Provider Internal Medicine
DX: J44.1 Chronic obstructive pulmonary disease with (acute) exacerbation (principal); J96.21 Acute and chronic respiratory failure with hypoxia; J96.22 Acute and chronic respiratory failure with hypercapnia; G89.4 Chronic pain syndrome; Z20.822 Contact with and (suspected) exposure to COVID-19; D63.8 Anemia in other chronic diseases classified elsewhere; K21.9 Gastro-esophageal reflux disease without esophagitis; E78.5 Hyperlipidemia, unspecified; E03.9 Hypothyroidism, unspecified; F20.9 Schizophrenia, unspecified; F17.210 Nicotine dependence, cigarettes, uncomplicated; F17.290 Nicotine dependence, other tobacco product, uncomplicated; Z96.641 Presence of right artificial hip joint; Z90.49 Acquired absence of other specified parts of digestive tract; Z99.81 Dependence on supplemental oxygen
CPT/HCPCS: 36415; 36600; 71045; 80053; 81001; 82805; 83605; 83735; 83880; 84145; 84484; 85018; 85025; 85610; 85730; 87040; 87086; 87637; 93005; 94002; 94640; 96361; 96365; 96367; 96375; 99285; A9270; G0378; J0456; J0696; J1650; J2919; J7030; J7512